=== PATIENT | male | born 1960 | race Caucasian/White ===

== ENCOUNTER 2018-09-26 03:10 | Inpatient (IN) | payer OTHER ==
[~2018-09-26] VITALS: Ht 185.4 cm; Wt 100.5 kg
[2018-09-26] VITALS (15 sets, daily range): BP systolic 131–161; BP diastolic 79–99
--- NOTE | 2018-09-26 03:20 | PHYS DOC ---
Past Medical History Past Medical History: High Cholesterol, Hypertension Past Surgical History: Appendectomy, Tonsillectomy Smoking: Less than 1pk/day Alcohol Use: Heavy Drug Use: None Adult General Chief Complaint Chief Complaint: CHEST PAIN HPI HPI Patient is a 57 year old male with a PMH of tobacco use, hypertension, hypercholesterolemia who presents with acute onset chest pain. His evening consisted of dinner and TV. He went to bed around 22:00 and woke up around 01: 00 with some indigestion and had an apple. He reports the pain woke him from his sleep around 02:45 this morning. Associated symptoms included shortness of breath and dizziness. He describes the pain as a heavy pressure that is centrally localized. He denies nausea, vomiting, diaphoresis, jaw pain, arm pain. When the discomfort did not subside after a few minutes he decided to have his son drive him to the ED. Earlier this evening he had his usual 2-3 drinks with dinner. Denies any acute or current life stressors. Patient says he is compliant with his bp medication and checks his bp that usually runs around 120s/80-90s. He started smoking several years ago when he was going through a divorce and also admits to increase in his alcohol use since then as well. Reports 2-3 alcoholic beverages a day, can be hard liquor or wine. Patient also with significant family history of CAD (Mother with hx of stent placement) . Denies trauma. Denies leg swelling or calf tenderness. Denies history or family history of DVT/PE. Review of Systems Review of Systems Constitutional: Denies fever or chills [] Eyes: Denies change in visual acuity, redness, or eye pain [] HENT: Denies nasal congestion or sore throat [] Respiratory: Reports shortness of breath, Denies cough Cardiovascular: No additional information not addressed in HPI [] GI: Denies abdominal pain, nausea, vomiting, or diarrhea [] : Denies dysuria or hematuria [] Musculoskeletal: Denies back pain or joint pain [] Integument: Denies rash or skin lesions [] Neurologic: Denies headache, focal weakness or sensory changes [] Complete systems were reviewed and found to be within normal limits, except as documented in this note. Family History Family History Mother had [place] with stent placement Brother had diabetes and passed from complications related to heart failure Current Medications Current Medications Allergies Allergies Allergies Coded Allergies Type Severity Reaction Last Updated Verified No Known Drug Allergies 09/26/18 No Physical Exam Physical Exam Constitutional: Well developed, well nourished, appears uncomfortable [] HENT: Normocephalic, atraumatic, moist mucus membranes. [] Eyes: PERRL, EOMI, conjunctiva normal, no discharge. [] Neck: Normal range of motion, no tenderness, supple, no stridor. [] Cardiovascular:Heart rate regular rhythm, tachycardic, no murmur [] Lungs & Thorax: Bilateral breath sounds clear to auscultation [] Abdomen:soft, no tenderness, no distention [] Skin: Warm, dry, no erythema, no rash. [] Back: No tenderness, no CVA tenderness. [] Extremities: No tenderness, ROM intact, no edema. [] Neurologic: Alert and oriented X 3, normal motor function, normal sensory function, no focal deficits noted. [] Psychologic: Judgement normal, anxious. [] Current Patient Data Vital Signs Vital Signs Date Time Temp Pulse Resp B/P (MAP) Pulse Ox O2 Delivery O2 Flow Rate FiO2 09/26/18 03:11 98.1 89 21 196/130 (152) 99 Room Air 98.1 Lab Values Laboratory Tests Test 09/26/18 03:20 White Blood Count 6.8 x10^3/uL (4.0-11.0) Red Blood Count 4.87 x10^6/uL (4.30-5.70) Hemoglobin 15.9 g/dL (13.0-17.5) Hematocrit 46.4 % (39.0-53.0) Mean Corpuscular Volume 95 fL (79-100) Mean Corpuscular Hemoglobin 33 pg (25-35) Mean Corpuscular Hemoglobin Concent 34 g/dL (31-37) Red Cell Distribution Width 12.7 % (11.5-14.5) Platelet Count 263 x10^3/uL (140-400) Neutrophils (%) (Auto) 52 % (31-73) Lymphocytes (%) (Auto) 33 % (24-48) Monocytes (%) (Auto) 11 % (0-9) H Eosinophils (%) (Auto) 4 % (0-3) H Basophils (%) (Auto) 1 % (0-3) Neutrophils # (Auto) 3.5 x10^3uL (1.8-7.7) Lymphocytes # (Auto) 2.2 x10^3/uL (1.0-4.8) Monocytes # (Auto) 0.7 x10^3/uL (0.0-1.1) Eosinophils # (Auto) 0.3 x10^3/uL (0.0-0.7) Basophils # (Auto) 0.0 x10^3/uL (0.0-0.2) Prothrombin Time 11.8 SEC (11.7-14.0) Prothrombin Time INR 0.9 (0.8-1.1) D-Dimer (Minnie) 0.70 ug/mlFEU (0.00-0.50) H Sodium Level 143 mmol/L (136-145) Potassium Level 4.1 mmol/L (3.5-5.1) Chloride Level 103 mmol/L (98-107) Carbon Dioxide Level 30 mmol/L (21-32) Anion Gap 10 (6-14) Blood Urea Nitrogen 14 mg/dL (8-26) Creatinine 1.3 mg/dL (0.7-1.3) Estimated GFR (Cockcroft-Gault) 56.7 BUN/Creatinine Ratio 11 (6-20) Glucose Level 97 mg/dL (70-99) Calcium Level 9.2 mg/dL (8.5-10.1) Magnesium Level 1.9 mg/dL (1.8-2.4) Total Bilirubin 0.2 mg/dL (0.2-1.0) Aspartate Amino Transferase (AST) 24 U/L (15-37) Alanine Aminotransferase (ALT) 51 U/L (16-63) Alkaline Phosphatase 72 U/L (46-116) Creatine Kinase 112 U/L (39-308) Creatine Kinase MB (Mass) 2.3 ng/mL (0.0-3.6) Creatine Kinase MB Relative Index 2.1 % (0-4) Troponin I Quantitative 0.232 ng/mL (0.000-0.055) FV-Wwg-X-Type Natriuretic Peptide 117 pg/mL (0-124) Total Protein 7.3 g/dL (6.4-8.2) Albumin 4.1 g/dL (3.4-5.0) Albumin/Globulin Ratio 1.3 (1.0-1.7) Lipase 304 U/L (73-393) Ethyl Alcohol Level < 10 mg/dL (0-10) Laboratory Tests 09/26/18 03:20 Laboratory Tests 09/26/18 03:20 EKG EKG 09/26/18 at 03:16:40 Sinus rhythm, no ST elevation, baseline heart rate at 92 BPM[] Radiology/Procedures Radiology/Procedures [] Course & Med Decision Making Course & Med Decision Making Pertinent Labs and Imaging studies reviewed. (See chart for details) 57 year old male presents for acute chest pressure that woke up from his sleep. Associated symptoms include shortness of breath and dizziness. Patient given aspirin and fluids. Initial troponin came back elevated at 0.2 and patient given heparin bolus and started on drip. Also treated with nitro paste. EKG without ST elevation. Concern for NSTEMI with elevation of troponin. . Patient has several risk factors for atherosclerotic disease including tobacco use, high cholesterol, hypertension, and positive family history. Heart score calculated to be a 6. D-dimer elevated. CTA chest obtained. Patient will be admitted to [facility] for further management. Patient requiring admission for further evaluation and treatment. Discussed with Dr. Pack (hospitalist) who is in agreement with admission. Discussed findings and plan with patient and family, who acknowledge understanding and agreement. Dragon Disclaimer Dragon Disclaimer This electronic medical record was generated, in whole or in part, using a voice recognition dictation system. Departure Departure Impression: Primary Impression: NSTEMI (non-ST elevated myocardial infarction) Additional Impression: Elevated d-dimer Disposition: ADMITTED INPATIENT ([facility]) Admitting Physician: Other (Dr. Pack) Condition: GUARDED Critical Care Time Critical care time was 30 minutes which includes time at bedside, spent in discussion of patient's care with specialists and/or family members, with interpretation of laboratory and/or radiological studies and is exclusive of procedures. Problem Qualifiers MARCIA REYES DO Sep 26, 2018 03:20
--- NOTE | 2018-09-26 03:32 | EKG ---
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
[2018-09-26 03:45] LABS: BASO % 1 % (0-3); EOS # 0.3 x10^3/uL (0.0-0.7); EOS % 4 % (0-3); HEMATOCRIT 46.4 % (39.0-53.0); HEMOGLOBIN 15.9 g/dL (13.0-17.5); LYMPH # 2.2 x10^3/uL (1.0-4.8); LYMPH % 33 % (24-48); MEAN CORPUSCULAR HEMOGLOBIN 33 pg (25-35); MEAN CORPUSCULAR HGB CONC 34 g/dL (31-37); MEAN CORPUSCULAR VOLUME 95 fL (79-100); MONO # 0.7 x10^3/uL (0.0-1.1); MONO % 11 % (0-9); NEUT # 3.5 x10^3uL (1.8-7.7); NEUT % 52 % (31-73); PLATELET COUNT 263 x10^3/uL (140-400); RED BLOOD COUNT 4.87 x10^6/uL (4.30-5.70); RED CELL DISTRIBUTION WIDTH 12.7 % (11.5-14.5); WHITE BLOOD COUNT 6.8 x10^3/uL (4.0-11.0)
[2018-09-26 03:54] LABS: PROTHROMBIN TIME PATIENT 11.8 SEC (11.7-14.0)
[2018-09-26] MEDS ORDERED: fentaNYL PF VIAL 100 MCG/2 ML VIAL IV PRN (04:00)
[2018-09-26] MEDS ORDERED: ONDANSETRON PF 4 MG/2 ML VIAL. IV PRN (04:00)
[2018-09-26] MEDS ORDERED: ASPIRIN 325 MG TABLET PO ONE (04:00)
[2018-09-26] MEDS ORDERED: IV NORMAL SALINE 1000ML BAG 1,000 ML IV ONE (04:00)
[2018-09-26 04:09] LABS: ALBUMIN 4.1 g/dL (3.4-5.0); ALBUMIN/GLOBULIN RATIO 1.3 (1.0-1.7); CALCIUM 9.2 mg/dL (8.5-10.1); CREATININE 1.3 mg/dL (0.7-1.3); GFR 56.7; MAGNESIUM 1.9 mg/dL (1.8-2.4); POTASSIUM 4.1 mmol/L (3.5-5.1); TOTAL BILIRUBIN 0.2 mg/dL (0.2-1.0); TOTAL PROTEIN 7.3 g/dL (6.4-8.2)
[2018-09-26] MEDS ORDERED: HEPARIN 25,000UTS/500ML PREMIX 500 ML IV PRN (04:15)
[2018-09-26] MEDS ORDERED: HEPARIN for IV BOLUS 10,000 UNIT/10 ML VIAL. IV PRN ×2 (04:15→17:00)
[2018-09-26 04:27] LABS: BILIRUBIN,URINE NEGATIVE (NEG); CLARITY,URINE CLEAR; COLOR,URINE YELLOW; NITRITE,URINE NEGATIVE (NEG); PROTEIN,URINE NEGATIVE (NEG-TRACE); UROBILINOGEN,URINE 0.2 mg/dL (0.2 mg/dL)
[2018-09-26] MEDS ORDERED: fentaNYL PF VIAL 100 MCG/2 ML VIAL IV ONE ×2 (04:30→11:00)
[2018-09-26] MEDS ORDERED: NITROGLYCERIN OINT 1 GM PACKET. TP ONE (04:30)
[2018-09-26] MEDS ORDERED: HEPARIN for IV BOLUS 10,000 UNIT/10 ML VIAL. IV ONE (04:30)
[2018-09-26] MEDS: ANTI-COAG MONITOR BY PHARMACY. MC PRN ×2 (04:31→09:32)
[2018-09-26 04:34] LABS: BARBITURATES NEG (NEG); BENZODIAZEPINES NEG (NEG); CANNABINOIDS NEG (NEG); COCAINE NEG (NEG); METHADONE NEG (NEG); OPIATES NEG (NEG); PHENCYCLIDINE NEG (NEG)
[2018-09-26 04:36] LABS: AMPHETAMINE/METHAMPHETAMINE NEG (NEG)
[2018-09-26 04:41] LABS: BACTERIA,URINE 0 /HPF (0-FEW); RBC,URINE 0 /HPF (0-2); SQUAMOUS EPITHELIAL CELL,UR OCC /LPF; WBC,URINE OCC /HPF (0-4)
[2018-09-26] MEDS ORDERED: CONTRAST GIVEN. MC PRN ×2 (05:15→11:00)
[2018-09-26] MEDS ORDERED: IOHEXOL 350 MG/ML 100 ML VIAL. IV ONE (05:30)
--- NOTE | 2018-09-26 05:55 | RAD ---
EXAM: CT ANGIOGRAPHY OF THE CHEST WITH AND WITHOUT INTRAVENOUS CONTRAST. HISTORY: Chest pain, elevated d-dimer. TECHNIQUE: Computed tomographic angiography of the chest was performed before and after the intravenous administration of 60 mL Omnipaque 350. 3-D maximum intensity projections were also performed. COMPARISON: None. FINDINGS: Images of the upper abdomen reveal no acute abnormality. Bone windows reveal no suspicious lesions. No pulmonary emboli are identified. There is no aortic dissection or aneurysm. There is a common origin of the left common carotid and brachiocephalic arteries, a variant of normal. There are no pathologically enlarged mediastinal or axillary lymph nodes. There is no pleural or pericardial effusion. The heart is not enlarged. There are atherosclerotic calcifications of the coronary arteries. Lung windows reveal no infiltrates. IMPRESSION: 1. No pulmonary embolism. No infiltrates. *One or more of the following individualized dose reduction techniques were utilized for this examination: 1. Automated exposure control. 2. Adjustment of the mA and/or kV according to patient size. 3. Use of iterative reconstruction technique. Electronically signed by: Simeon Dodge MD (09/26/2018 5:50 AM) [facility]
[2018-09-26] MEDS ORDERED: AMLO1CAP11 PO (06:07)
[2018-09-26 09:03] LABS: CHOLESTEROL/HDL RATIO 5.1
--- NOTE | 2018-09-26 09:35 | EKG ---
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
[2018-09-26] MEDS ORDERED: LIDOCAINE 1% Multi-Dose 20 ML VIAL. ONE (09:58)
[2018-09-26] MEDS ORDERED: IODIXANOL 320 MG/ML 100 ML VIAL. ONE (09:58)
[2018-09-26] MEDS ORDERED: MULTIVIT INFUSN,ADULT 4,VIT K 10 ML, THIAMINE INJ 100 MG, FOLIC ACID INJ 1 MG in IV NOR... IV ONE (10:00)
--- NOTE | 2018-09-26 10:02 | PDOC2 ---
CARDIAC CONSULT DATE OF CONSULT Date of Consult DATE: 09/26/18 TIME: 09:43 REASON FOR CONSULT Reason for Consult: Chest pain REFERRING PHYSICIAN Referring Physician: Bernardo SOURCE Source: Chart review, Patient HISTORY OF PRESENT ILLNESS HISTORY OF PRESENT ILLNESS This is a pleasant 57 yo male admitted for complains of chest pain. Reports that he typically walk about 3 miles TIW but has not been due to the weather. Monday when the weather was nice he tried to walk 3 miles and he had to do it slow because of SOA. Reports that he has been having indigestion in the last few days and also uneasy feeling to his left arm. This morning 0 he woke up with mid chest pressure and tightness and neck being uncomfortable, feeling SOA and nauseated. Finally his symptoms disappeared after being medicated in ED with NTG and ASA and it took 2 hours for his symptoms to subside. No prior CAD, VTE, falls, or any injury. His BP at home were 130/60 usually taking tarka. No statin no ASA and no DM2. He smokes tobacco but no recreational drugs. 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 PAST MEDICAL HISTORY Cardiovascular: HTN Pulmonary: No pertinent hx CENTRAL NERVOUS SYSTEM: Other (No pertinent history) GI: No pertinent hx Heme/Onc: No pertinent hx Hepatobiliary: No pertinent hx Psych: No pertinent hx Musculoskeletal: Osteoarthritis Rheumatologic: No pertinent hx Infectious disease: No pertinent hx ENT: No pertinent hx Renal/: No pertinent hx Endocrine: No pertinent hx Dermatology: No pertinent hx PAST SURGICAL HISTORY Past Surgical History: Appendectomy, Tonsillectomy FAMILY HISTORY Family History: Coronary Artery Disease (SCD brother at 56 yo) SOCIAL HISTORY Smoke: <1 pack per day ALCOHOL: heavy (1 bottle wine approx 750 ml a day) Drugs: None Lives: Alone CURRENT MEDICATIONS CURRENT MEDICATIONS Current Medications Medications (Trade) Dose Ordered Sig/Nishi Route PRN Reason Start Time Stop Time Status Last Admin Dose Admin Aspirin (Chito Aspirin) 325 mg 1X ONCE PO 09/26/18 04:00 09/26/18 04:01 DC 09/26/18 03:49 Sodium Chloride 1,000 ml @ 1,000 mls/hr 1X ONCE IV 09/26/18 04:00 09/26/18 04:59 DC 09/26/18 03:48 Lorazepam (Ativan) 0.5 mg 1X ONCE IV 09/26/18 04:00 09/26/18 04:01 DC 09/26/18 03:49 Nitroglycerin (Nitro-Bid Oint) 0.5 inch 1X ONCE TP 09/26/18 04:30 09/26/18 04:31 DC 09/26/18 04:37 Heparin Sodium/ Dextrose 500 ml @ 0 mls/hr CONT PRN IV SEE I/O RECORD 09/26/18 04:15 09/26/18 04:41 Heparin Sodium (Porcine) (Heparin Sodium) 4,000 unit 1X ONCE IV 09/26/18 04:30 09/26/18 04:31 DC 09/26/18 04:40 Info (Anti-Coagulation Monitoring By Pharmacy) 1 each PRN DAILY PRN MC SEE COMMENTS 09/26/18 04:30 09/26/18 09:32 Iohexol (Omnipaque 350 Mg/ml) 60 ml 1X ONCE IV 09/26/18 05:30 09/26/18 05:31 DC 09/26/18 05:26 ALLERGIES ALLERGIES: Coded Allergies: No Known Drug Allergies (Unverified , 09/26/18) ROS Review of System 14 point ROS evaluated with pertinent positives noted per HPI PHYSICAL EXAM General: Alert, Oriented X3, Cooperative, No acute distress HEENT: Atraumatic, Mucous membr. moist/pink Lungs: Clear to auscultation, Normal air movement Heart: Regular rate (SR), Normal S1, Normal S2, Other (2/6 systolic murmur) Abdomen: Soft, No tenderness Extremities: No cyanosis, No edema Skin: No breakdown, No significant lesion Neuro: Normal speech, Sensation intact Psych/Mental Status: Mental status NL, Mood NL MUSCULOSKELETAL: Osteoarthritic changes both hands VITALS VITALS Vital Signs Date Time Temp Pulse Resp B/P (MAP) Pulse Ox O2 Delivery O2 Flow Rate FiO2 09/26/18 07:00 98.1 71 18 139/87 (104) 97 Room Air 98.1 LABS Lab: Laboratory Tests Test 09/26/18 03:20 09/26/18 04:05 09/26/18 07:20 White Blood Count 6.8 x10^3/uL (4.0-11.0) Red Blood Count 4.87 x10^6/uL (4.30-5.70) Hemoglobin 15.9 g/dL (13.0-17.5) Hematocrit 46.4 % (39.0-53.0) Mean Corpuscular Volume 95 fL (79-100) Mean Corpuscular Hemoglobin 33 pg (25-35) Mean Corpuscular Hemoglobin Concent 34 g/dL (31-37) Red Cell Distribution Width 12.7 % (11.5-14.5) Platelet Count 263 x10^3/uL (140-400) Neutrophils (%) (Auto) 52 % (31-73) Lymphocytes (%) (Auto) 33 % (24-48) Monocytes (%) (Auto) 11 % (0-9) Eosinophils (%) (Auto) 4 % (0-3) Basophils (%) (Auto) 1 % (0-3) Neutrophils # (Auto) 3.5 x10^3uL (1.8-7.7) Lymphocytes # (Auto) 2.2 x10^3/uL (1.0-4.8) Monocytes # (Auto) 0.7 x10^3/uL (0.0-1.1) Eosinophils # (Auto) 0.3 x10^3/uL (0.0-0.7) Basophils # (Auto) 0.0 x10^3/uL (0.0-0.2) Prothrombin Time 11.8 SEC (11.7-14.0) Prothromb Time International Ratio 0.9 (0.8-1.1) D-Dimer (Minnie) 0.70 ug/mlFEU (0.00-0.50) Sodium Level 143 mmol/L (136-145) Potassium Level 4.1 mmol/L (3.5-5.1) Chloride Level 103 mmol/L (98-107) Carbon Dioxide Level 30 mmol/L (21-32) Anion Gap 10 (6-14) Blood Urea Nitrogen 14 mg/dL (8-26) Creatinine 1.3 mg/dL (0.7-1.3) Estimated GFR (Cockcroft-Gault) 56.7 BUN/Creatinine Ratio 11 (6-20) Glucose Level 97 mg/dL (70-99) Calcium Level 9.2 mg/dL (8.5-10.1) Magnesium Level 1.9 mg/dL (1.8-2.4) Total Bilirubin 0.2 mg/dL (0.2-1.0) Aspartate Amino Transf (AST/SGOT) 24 U/L (15-37) Alanine Aminotransferase (ALT/SGPT) 51 U/L (16-63) Alkaline Phosphatase 72 U/L (46-116) Creatine Kinase 112 U/L (39-308) Creatine Kinase MB (Mass) 2.3 ng/mL (0.0-3.6) Creatine Kinase MB Relative Index 2.1 % (0-4) Troponin I Quantitative 0.232 ng/mL (0.000-0.055) 1.119 ng/mL (0.000-0.055) OL-Srg-C-Type Natriuretic Peptide 117 pg/mL (0-124) Total Protein 7.3 g/dL (6.4-8.2) Albumin 4.1 g/dL (3.4-5.0) Albumin/Globulin Ratio 1.3 (1.0-1.7) Lipase 304 U/L (73-393) Ethyl Alcohol Level < 10 mg/dL (0-10) Urine Collection Type Unknown Urine Color Yellow Urine Clarity Clear Urine pH 6.0 Urine Specific Kelly 1.020 Urine Protein Negative mg/dL (NEG-TRACE) Urine Glucose (UA) Negative mg/dL (NEG) Urine Ketones (Stick) Negative mg/dL (NEG) Urine Blood Negative (NEG) Urine Nitrite Negative (NEG) Urine Bilirubin Negative (NEG) Urine Urobilinogen Dipstick 0.2 mg/dL (0.2 mg/dL) Urine Leukocyte Esterase Negative (NEG) Urine RBC 0 /HPF (0-2) Urine WBC Occ /HPF (0-4) Urine Squamous Epithelial Cells Occ /LPF Urine Bacteria 0 /HPF (0-FEW) Urine Mucus Slight /LPF Urine Opiates Screen Neg (NEG) Urine Methadone Screen Neg (NEG) Urine Barbiturates Neg (NEG) Urine Phencyclidine Screen Neg (NEG) Urine Amphetamine/Methamphetamine Neg (NEG) Urine Benzodiazepines Screen Neg (NEG) Urine Cocaine Screen Neg (NEG) Urine Cannabinoids Screen Neg (NEG) Urine Ethyl Alcohol Pos (NEG) Triglycerides Level 146 mg/dL (0-150) Cholesterol Level 235 mg/dL (0-200) LDL Cholesterol, Calculated 160 mg/dL (0-100) VLDL Cholesterol, Calculated 29 mg/dL (0-40) Non-HDL Cholesterol Calculated 189 mg/dL (0-129) HDL Cholesterol 46 mg/dL (40-60) Cholesterol/HDL Ratio 5.1 Thyroid Stimulating Hormone (TSH) 2.244 uIU/mL (0.358-3.74) ASSESSMENT/PLAN ASSESSMENT/PLAN 1. NSTEMI: Trop 1.1. Presentation compatible with ACS 2. Accelerated HTN: takes tarka. now controlled after NTG 3. HLP: no statin at home 4. Heavy alcoholism: approx 750 ml of wine every day. 5. Family hx of SCD: brother of SCD at age 56 6. Tobaccoism: just got started 2 yrs ago Recommendations 1. ETOH to decrease consumption. Banana bag x1, defer further for ETOH withdrawal protocol per PCP 2. [facility] today, risks and benefits discussed and agreeable to proceed. 3. TTE, TSH. 4. ASA, heparin drip, statin 5. Smoking cessation 6. Will reeval BP med needs post [facility] KRYSTIN PENNINGTON APRN Sep 26, 2018 10:01
[2018-09-26] MEDS ORDERED: fentaNYL PF VIAL 100 MCG/2 ML VIAL ONE (10:14)
[2018-09-26] MEDS ORDERED: MIDAZOLAM HCL/PF 5 MG/5 ML VIAL. ONE (10:14)
[2018-09-26] MEDS ORDERED: IOHEXOL 300 MG/ML 100ML VIAL. ONE (10:17)
--- NOTE | 2018-09-26 10:37 | PDOC ---
MODERATE SEDATION ASSESSMENT RISKS/ALTERNATIVES Risks/Alternatives Risks and alternatives of this type of sedation and procedure discussed with: RISK/ALTERNATIVES: Patient H & P ON CHART H & P H & P on chart and reviewed for co-morbid conditions and appropriate labs. H&P ON CHART: Yes STATUS PREG STATUS ASSESSED: N/A MEDS/ALLERGIES REVIEWED Meds/Allergies Reviewed Medications and Allergies including time and route of recently administered narcotics and sedatives. MEDS/ALLERGIES REVIEWED: Yes ASA RATING ASA RATING: II AIRWAY ASSESSMENT Airway Assessment Airway patency, oral function limitations, presence of caps, crowns, dentures, partials, and ability to extend neck assessed. AIRWAY ASSESSMENT: Yes MALLAMPATI SCORE MALLAMPATI SCORE: II PRE-SEDATION ASSESSMENT PRE-SEDATION ASSESSMENT: Yes MIK SIMMONS MD Sep 26, 2018 10:37
[2018-09-26] MEDS ORDERED: IODIXANOL 320 MG/ML 100 ML VIAL. IART ONE (11:00)
[2018-09-26] MEDS ORDERED: MIDAZOLAM HCL/PF 5 MG/5 ML VIAL. IV ONE (11:00)
[2018-09-26] MEDS ORDERED: LIDOCAINE 1% Multi-Dose 20 ML VIAL. INJ ONE (11:00)
[2018-09-26] MEDS ORDERED: IV NORMAL SALINE 1000ML BAG 1,000 ML IV SCH (11:33)
[2018-09-26] MEDS ORDERED: NITROGLYCERIN SUBLINGUAL 0.4 MG BOTTLE OF 25. SL PRN (11:45)
[2018-09-26] MEDS ORDERED: 0.9 % SODIUM CHLORIDE 10 ML DISP.SYRIN. IV PRN (11:45)
--- NOTE | 2018-09-26 12:36 | NUR ---
SS following for discharge planning. SS reviewed pt chart. Pt is from home. No discharge needs noted at this time. SS will continue to follow for pending discharge needs.
--- NOTE | 2018-09-26 14:37 | PDOC1 ---
History and Physical Date of Admission Date of Admission DATE: 09/26/18 TIME: 14:28 Identification/Chief Complaint Chief Complaint chest pain Problems: (1) NSTEMI (non-ST elevated myocardial infarction) Source Source: Patient History of Present Illness History of Present Illness 57 yo male no prior cardiac hx or VTE or injury admitted for complains of chest pain. patient reports that he has been having indigestion in the last few days and diffuse chest pain acutely worsening last night described as pressure-like with tightness with associated SOB and nausea. patient came to ED early this AM and given NTG and ASA and symptoms resolved after a few hrs. patient not on ASA, statin at home. no hx of SM.. + tobacco abuse, denies drugs trop elevated at 1.19. repeat 0.232. hospitalist called for admission. Past Medical History Cardiovascular: HTN Pulmonary: No pertinent hx CENTRAL NERVOUS SYSTEM: Other (No pertinent history) GI: No pertinent hx Heme/Onc: No pertinent hx Hepatobiliary: No pertinent hx Psych: No pertinent hx Musculoskeletal: Osteoarthritis Rheumatologic: No pertinent hx Infectious disease: No pertinent hx ENT: No pertinent hx Renal/: No pertinent hx Endocrine: No pertinent hx Dermatology: No pertinent hx Past Surgical History Past Surgical History: Appendectomy, Tonsillectomy Family History Family History: Coronary Artery Disease (SCD brother at 56 yo) Social History Smoke: <1 pack per day ALCOHOL: heavy (1 bottle wine approx 750 ml a day) Drugs: None Current Problem List Problem List Problems Medical Problems: (1) Elevated d-dimer Status: Acute (2) NSTEMI (non-ST elevated myocardial infarction) Status: Acute Current Medications Current Medications Current Medications Aspirin (Chito Aspirin) 325 mg 1X ONCE PO Last administered on 09/26/18at 03:49 ; Start 09/26/18 at 04:00; Stop 09/26/18 at 04:01; Status DC Sodium Chloride 1,000 ml @ 1,000 mls/hr 1X ONCE IV Last administered on at 03:48; Start 09/26/18 at 04:00; Stop 09/26/18 at 04:59; Status DC Lorazepam (Ativan) 0.5 mg 1X ONCE IV Last administered on 09/26/18at 03:49; Start 09/26/18 at 04:00; Stop 09/26/18 at 04:01; Status DC Ondansetron HCl (Zofran) 4 mg PRN Q8HRS PRN IV NAUSEA/VOMITING 1ST CHOICE; Start 09/26/18 at 04:00; Stop 09/27/18 at 03:59 Fentanyl Citrate (Fentanyl 2ml Vial) 50 mcg PRN Q2HR PRN IV SEVERE PAIN; Start 09/26/18 at 04:00 Fentanyl Citrate (Fentanyl 2ml Vial) 50 mcg 1X ONCE IV ; Start 09/26/18 at 04:30 ; Stop 09/26/18 at 04:30; Status DC Nitroglycerin (Nitro-Bid Oint) 0.5 inch 1X ONCE TP Last administered on at 04:37; Start 09/26/18 at 04:30; Stop 09/26/18 at 04:31; Status DC Heparin Sodium/ Dextrose 500 ml @ 0 mls/hr CONT PRN IV SEE I/O RECORD Last administered on 09/26/18at 04:41; Start 09/26/18 at 04:15; Stop 09/26/18 at 12:31; Status DC Heparin Sodium (Porcine) (Heparin Sodium) 2,400 unit PRN Q6HRS PRN IV FOR UFH LEVEL LESS THAN 0.2; Start 09/26/18 at 04:15; Stop 09/26/18 at 13:53; Status DC Heparin Sodium (Porcine) (Heparin Sodium) 4,000 unit 1X ONCE IV Last administered on 09/26/18at 04:40; Start 09/26/18 at 04:30; Stop 09/26/18 at 04:31; Status DC Info (Anti-Coagulation Monitoring By Pharmacy) 1 each PRN DAILY PRN MC SEE COMMENTS Last administered on 09/26/18at 09:32; Start 09/26/18 at 04:30; Stop at 12:32; Status DC Iohexol (Omnipaque 350 Mg/ml) 60 ml 1X ONCE IV Last administered on 09/26/18at 05:26; Start 09/26/18 at 05:30; Stop 09/26/18 at 05:31; Status DC Info (CONTRAST GIVEN -- Rx MONITORING) 1 each PRN DAILY PRN MC SEE COMMENTS; Start 09/26/18 at 05:15; Stop 09/26/18 at 10:56; Status DC Multivitamins 10 ml/Thiamine HCl 100 mg/Folic Acid 1 mg/Sodium Chloride 1,011.2 ml @ 100 mls/ hr 1X ONCE IV Last administered on 09/26/18at 10:40; Start at 10:00; Stop 09/26/18 at 20:06 Atorvastatin Calcium (Lipitor) 40 mg QHS PO ; Start 09/26/18 at 21:00 Iodixanol (Visipaque 320) 100 ml STK-MED ONCE .ROUTE ; Start 09/26/18 at 09:58; Stop 09/26/18 at 10:01; Status DC Lidocaine HCl (Lidocaine 1% 20ml Vial) 20 ml STK-MED ONCE .ROUTE ; Start at 09:58; Stop 09/26/18 at 10:01; Status DC Heparin Sodium/ Sodium Chloride 1,000 ml @ As Directed STK-MED ONCE .ROUTE ; Start 09/26/18 at 09:59; Stop 09/26/18 at 10:01; Status DC Fentanyl Citrate (Fentanyl 2ml Vial) 100 mcg STK-MED ONCE .ROUTE ; Start at 10:14; Stop 09/26/18 at 10:16; Status DC Midazolam HCl (Versed) 5 mg STK-MED ONCE .ROUTE ; Start 09/26/18 at 10:14; Stop 09/26/18 at 10:16; Status DC Iohexol (Omnipaque 300 Mg/ml) 100 ml STK-MED ONCE .ROUTE ; Start 09/26/18 at 10: 17; Stop 09/26/18 at 10:19; Status DC Heparin Sodium/ Sodium Chloride (HEPARIN for ARTERIAL LINE FLUSH) 1,000 unit 1X ONCE IART Last administered on 09/26/18at 11:37; Start 09/26/18 at 11:00; Stop 09/26/18 at 11:01; Status DC Midazolam HCl (Versed) 5 mg 1X ONCE IV Last administered on 09/26/18at 11:38; Start 09/26/18 at 11:00; Stop 09/26/18 at 11:01; Status DC Fentanyl Citrate (Fentanyl 2ml Vial) 100 mcg 1X ONCE IV Last administered on at 11:38; Start 09/26/18 at 11:00; Stop 09/26/18 at 11:01; Status DC Iodixanol (Visipaque 320) 100 ml 1X ONCE IART Last administered on 09/26/18at 11 :37; Start 09/26/18 at 11:00; Stop 09/26/18 at 11:01; Status DC Lidocaine HCl (Lidocaine 1% 20ml Vial) 20 ml 1X ONCE INJ Last administered on 09/26/18at 11:37; Start 09/26/18 at 11:00; Stop 09/26/18 at 11:01; Status DC Info (CONTRAST GIVEN -- Rx MONITORING) 1 each PRN DAILY PRN MC SEE COMMENTS; Start 09/26/18 at 11:00; Stop 09/28/18 at 10:59 Sodium Chloride (Normal Saline Flush) 3 ml QSHIFT PRN IV AFTER MEDS AND BLOOD DRAWS; Start 09/26/18 at 11:45 Sodium Chloride 1,000 ml @ 75 mls/hr [id number] IV ; Start 09/26/18 at 11:33; Stop 09/26/18 at 17:32 Nitroglycerin (Nitrostat) 0.4 mg PRN Q5MIN PRN SL CHEST PAIN; Start 09/26/18 at 11:45 Aspirin (Ecotrin) 81 mg DAILYWBKFT PO ; Start 09/27/18 at 08:00 Active Scripts Active Reported Amlodipine-Benazepril 5-20 Mg (Amlodipine Besylate/Benazepril) 1 Each Capsule 1 Cap PO DAILY Allergies Allergies: Coded Allergies: No Known Drug Allergies (Unverified , 09/26/18) Vitals Vitals Vital Signs Date Time Temp Pulse Resp B/P (MAP) Pulse Ox O2 Delivery O2 Flow Rate FiO2 09/26/18 11:47 70 20 95 Room Air 09/26/18 07:00 98.1 139/87 (104) 98.1 Labs Labs Laboratory Tests Test 09/26/18 03:20 09/26/18 04:05 09/26/18 07:20 White Blood Count 6.8 x10^3/uL (4.0-11.0) Red Blood Count 4.87 x10^6/uL (4.30-5.70) Hemoglobin 15.9 g/dL (13.0-17.5) Hematocrit 46.4 % (39.0-53.0) Mean Corpuscular Volume 95 fL (79-100) Mean Corpuscular Hemoglobin 33 pg (25-35) Mean Corpuscular Hemoglobin Concent 34 g/dL (31-37) Red Cell Distribution Width 12.7 % (11.5-14.5) Platelet Count 263 x10^3/uL (140-400) Neutrophils (%) (Auto) 52 % (31-73) Lymphocytes (%) (Auto) 33 % (24-48) Monocytes (%) (Auto) 11 % (0-9) Eosinophils (%) (Auto) 4 % (0-3) Basophils (%) (Auto) 1 % (0-3) Neutrophils # (Auto) 3.5 x10^3uL (1.8-7.7) Lymphocytes # (Auto) 2.2 x10^3/uL (1.0-4.8) Monocytes # (Auto) 0.7 x10^3/uL (0.0-1.1) Eosinophils # (Auto) 0.3 x10^3/uL (0.0-0.7) Basophils # (Auto) 0.0 x10^3/uL (0.0-0.2) Prothrombin Time 11.8 SEC (11.7-14.0) Prothromb Time International Ratio 0.9 (0.8-1.1) D-Dimer (Minnie) 0.70 ug/mlFEU (0.00-0.50) Sodium Level 143 mmol/L (136-145) Potassium Level 4.1 mmol/L (3.5-5.1) Chloride Level 103 mmol/L (98-107) Carbon Dioxide Level 30 mmol/L (21-32) Anion Gap 10 (6-14) Blood Urea Nitrogen 14 mg/dL (8-26) Creatinine 1.3 mg/dL (0.7-1.3) Estimated GFR (Cockcroft-Gault) 56.7 BUN/Creatinine Ratio 11 (6-20) Glucose Level 97 mg/dL (70-99) Calcium Level 9.2 mg/dL (8.5-10.1) Magnesium Level 1.9 mg/dL (1.8-2.4) Total Bilirubin 0.2 mg/dL (0.2-1.0) Aspartate Amino Transf (AST/SGOT) 24 U/L (15-37) Alanine Aminotransferase (ALT/SGPT) 51 U/L (16-63) Alkaline Phosphatase 72 U/L (46-116) Creatine Kinase 112 U/L (39-308) Creatine Kinase MB (Mass) 2.3 ng/mL (0.0-3.6) Creatine Kinase MB Relative Index 2.1 % (0-4) Troponin I Quantitative 0.232 ng/mL (0.000-0.055) 1.119 ng/mL (0.000-0.055) VQ-Grm-Z-Type Natriuretic Peptide 117 pg/mL (0-124) Total Protein 7.3 g/dL (6.4-8.2) Albumin 4.1 g/dL (3.4-5.0) Albumin/Globulin Ratio 1.3 (1.0-1.7) Lipase 304 U/L (73-393) Ethyl Alcohol Level < 10 mg/dL (0-10) Urine Collection Type Unknown Urine Color Yellow Urine Clarity Clear Urine pH 6.0 Urine Specific Josephine 1.020 Urine Protein Negative mg/dL (NEG-TRACE) Urine Glucose (UA) Negative mg/dL (NEG) Urine Ketones (Stick) Negative mg/dL (NEG) Urine Blood Negative (NEG) Urine Nitrite Negative (NEG) Urine Bilirubin Negative (NEG) Urine Urobilinogen Dipstick 0.2 mg/dL (0.2 mg/dL) Urine Leukocyte Esterase Negative (NEG) Urine RBC 0 /HPF (0-2) Urine WBC Occ /HPF (0-4) Urine Squamous Epithelial Cells Occ /LPF Urine Bacteria 0 /HPF (0-FEW) Urine Mucus Slight /LPF Urine Opiates Screen Neg (NEG) Urine Methadone Screen Neg (NEG) Urine Barbiturates Neg (NEG) Urine Phencyclidine Screen Neg (NEG) Urine Amphetamine/Methamphetamine Neg (NEG) Urine Benzodiazepines Screen Neg (NEG) Urine Cocaine Screen Neg (NEG) Urine Cannabinoids Screen Neg (NEG) Urine Ethyl Alcohol Pos (NEG) Triglycerides Level 146 mg/dL (0-150) Cholesterol Level 235 mg/dL (0-200) LDL Cholesterol, Calculated 160 mg/dL (0-100) VLDL Cholesterol, Calculated 29 mg/dL (0-40) Non-HDL Cholesterol Calculated 189 mg/dL (0-129) HDL Cholesterol 46 mg/dL (40-60) Cholesterol/HDL Ratio 5.1 Thyroid Stimulating Hormone (TSH) 2.244 uIU/mL (0.358-3.74) Laboratory Tests Test 09/26/18 03:20 09/26/18 04:05 09/26/18 07:20 White Blood Count 6.8 x10^3/uL (4.0-11.0) Red Blood Count 4.87 x10^6/uL (4.30-5.70) Hemoglobin 15.9 g/dL (13.0-17.5) Hematocrit 46.4 % (39.0-53.0) Mean Corpuscular Volume 95 fL (79-100) Mean Corpuscular Hemoglobin 33 pg (25-35) Mean Corpuscular Hemoglobin Concent 34 g/dL (31-37) Red Cell Distribution Width 12.7 % (11.5-14.5) Platelet Count 263 x10^3/uL (140-400) Neutrophils (%) (Auto) 52 % (31-73) Lymphocytes (%) (Auto) 33 % (24-48) Monocytes (%) (Auto) 11 % (0-9) Eosinophils (%) (Auto) 4 % (0-3) Basophils (%) (Auto) 1 % (0-3) Neutrophils # (Auto) 3.5 x10^3uL (1.8-7.7) Lymphocytes # (Auto) 2.2 x10^3/uL (1.0-4.8) Monocytes # (Auto) 0.7 x10^3/uL (0.0-1.1) Eosinophils # (Auto) 0.3 x10^3/uL (0.0-0.7) Basophils # (Auto) 0.0 x10^3/uL (0.0-0.2) Prothrombin Time 11.8 SEC (11.7-14.0) Prothromb Time International Ratio 0.9 (0.8-1.1) D-Dimer (Minnie) 0.70 ug/mlFEU (0.00-0.50) Sodium Level 143 mmol/L (136-145) Potassium Level 4.1 mmol/L (3.5-5.1) Chloride Level 103 mmol/L (98-107) Carbon Dioxide Level 30 mmol/L (21-32) Anion Gap 10 (6-14) Blood Urea Nitrogen 14 mg/dL (8-26) Creatinine 1.3 mg/dL (0.7-1.3) Estimated GFR (Cockcroft-Gault) 56.7 BUN/Creatinine Ratio 11 (6-20) Glucose Level 97 mg/dL (70-99) Calcium Level 9.2 mg/dL (8.5-10.1) Magnesium Level 1.9 mg/dL (1.8-2.4) Total Bilirubin 0.2 mg/dL (0.2-1.0) Aspartate Amino Transf (AST/SGOT) 24 U/L (15-37) Alanine Aminotransferase (ALT/SGPT) 51 U/L (16-63) Alkaline Phosphatase 72 U/L (46-116) Creatine Kinase 112 U/L (39-308) Creatine Kinase MB (Mass) 2.3 ng/mL (0.0-3.6) Creatine Kinase MB Relative Index 2.1 % (0-4) Troponin I Quantitative 0.232 ng/mL (0.000-0.055) 1.119 ng/mL (0.000-0.055) VK-Ath-Y-Type Natriuretic Peptide 117 pg/mL (0-124) Total Protein 7.3 g/dL (6.4-8.2) Albumin 4.1 g/dL (3.4-5.0) Albumin/Globulin Ratio 1.3 (1.0-1.7) Lipase 304 U/L (73-393) Ethyl Alcohol Level < 10 mg/dL (0-10) Urine Collection Type Unknown Urine Color Yellow Urine Clarity Clear Urine pH 6.0 Urine Specific Josephine 1.020 Urine Protein Negative mg/dL (NEG-TRACE) Urine Glucose (UA) Negative mg/dL (NEG) Urine Ketones (Stick) Negative mg/dL (NEG) Urine Blood Negative (NEG) Urine Nitrite Negative (NEG) Urine Bilirubin Negative (NEG) Urine Urobilinogen Dipstick 0.2 mg/dL (0.2 mg/dL) Urine Leukocyte Esterase Negative (NEG) Urine RBC 0 /HPF (0-2) Urine WBC Occ /HPF (0-4) Urine Squamous Epithelial Cells Occ /LPF Urine Bacteria 0 /HPF (0-FEW) Urine Mucus Slight /LPF Urine Opiates Screen Neg (NEG) Urine Methadone Screen Neg (NEG) Urine Barbiturates Neg (NEG) Urine Phencyclidine Screen Neg (NEG) Urine Amphetamine/Methamphetamine Neg (NEG) Urine Benzodiazepines Screen Neg (NEG) Urine Cocaine Screen Neg (NEG) Urine Cannabinoids Screen Neg (NEG) Urine Ethyl Alcohol Pos (NEG) Triglycerides Level 146 mg/dL (0-150) Cholesterol Level 235 mg/dL (0-200) LDL Cholesterol, Calculated 160 mg/dL (0-100) VLDL Cholesterol, Calculated 29 mg/dL (0-40) Non-HDL Cholesterol Calculated 189 mg/dL (0-129) HDL Cholesterol 46 mg/dL (40-60) Cholesterol/HDL Ratio 5.1 Thyroid Stimulating Hormone (TSH) 2.244 uIU/mL (0.358-3.74) VTE Prophylaxis Ordered VTE Prophylaxis Devices: Yes VTE Pharmacological Prophylaxi: Yes Assessment/Plan Assessment/Plan ASSESSMENT NSTEMI with strong family hx HTN HLD ETOH abuse Tobacco abuse PLAN plan for cardiac cath today continue ASA, heparin drip, statin banana bag given for etoh check T counselled on smoking meds BP control dispo pending cath full code PAUL SHERMAN MD Sep 26, 2018 14:37
--- NOTE | 2018-09-26 15:00 | CARD ---
MR#: [id number] Date of Study: 09/26/2018 Ordering Physician: KRYSTIN PENNINGTON, Referring Physician: PAUL SHERMAN Tech: Rae Whitley APPROVED REPORT EXAM: Two-dimensional and M-mode echocardiogram with Doppler and color Doppler. Other Information Quality : GoodHR: 71bpm INDICATION Elevated Troponin RISK FACTORS Hypertension Hyperlipidemia 2D DIMENSIONS RVDd3.3 (2.9-3.5cm)Left Atrium(2D)3.2 (1.6-4.0cm) IVSd1.2 (0.7-1.1cm)Aortic Root(2D)3.3 (2.0-3.7cm) LVDd4.2 (3.9-5.9cm)LVOT Diameter2.2 (1.8-2.4cm) PWd1.1 (0.7-1.1cm)LVDs2.8 (2.5-4.0cm) FS (%) 34.9 %SV51.5 ml Aortic Valve AoV Peak Hieu.112.4cm/sAoV VTI19.6cm AO Peak GR.5.1mmHgLVOT VTI 17.51cm AO Mean GR.3mmHg Mitral Valve MV E Cpzkgiza02.2cm/sMV DECEL [id number] MV A Kzfjmvrf13.6cm/sE/A Ratio0.8 TDI Lateral E' P. V6.18cm/sMedial E' P. V5.21cm/s E/Lateral E'8.0E/Medial E'9.4 Tricuspid Valve TR P. [id number]/sRAP DTIMCHKE0yxPs TR Peak Gr.14mmHg Pulmonary Vein S1 Dmrmluds16.9cm/sS2 Esefalpi21.14cm/s D2 Fagsnorc69.1cm/sPVa [id number] LEFT VENTRICLE The left ventricle is normal size. There is borderline to mild concentric left ventricular hypertroph y. The left ventricular systolic function is low normal. The Ejection Fraction is estimated at 50%. T here is normal LV segmental wall motion. Transmitral Doppler flow pattern is Grade I-abnormal relaxat ion pattern. RIGHT VENTRICLE The right ventricle is normal size. There is normal right ventricular wall thickness. The right ventr icular systolic function is normal. ATRIA The left atrium size is normal. The right atrium size is normal. The interatrial septum is intact wit h no evidence for an atrial septal defect or patent foramen ovale as noted on 2-D or Doppler imaging. AORTIC VALVE The aortic valve is normal in structure and function. Doppler and Color Flow revealed trace aortic re gurgitation. There is no significant aortic valvular stenosis. MITRAL VALVE The mitral valve is normal in structure and function. There is no evidence of mitral valve prolapse. There is no mitral valve stenosis. Doppler and Color-flow revealed trace mitral regurgitation. TRICUSPID VALVE The tricuspid valve is normal in structure and function. Doppler and Color Flow revealed trace tricus pid regurgitation. There is no tricuspid valve stenosis. PULMONIC VALVE Doppler and Color Flow revealed trace pulmonic valvular regurgitation. GREAT VESSELS The aortic root is normal in size. The IVC was not visualized. PERICARDIAL EFFUSION There is no evidence of significant pericardial effusion. Critical Notification Critical Value: No <Conclusion> The left ventricle is normal size. The left ventricular systolic function is low normal. The Ejection Fraction is estimated at 50%. There is borderline to mild concentric left ventricular hypertrophy. There is no significant aortic valvular stenosis. Doppler and Color Flow revealed trace aortic regurgitation. Doppler and Color-flow revealed trace mitral regurgitation. Doppler and Color Flow revealed trace tricuspid regurgitation. Signed by : Redd Quick MD Electronically Approved : 09/26/2018 14:57:35
--- NOTE | 2018-09-26 17:10 | PDOC2 ---
CONSULT Date of Consult Date of Consult DATE: 09/26/18 TIME: 16:30 Reason for Consult Reason for Consult: Severe three-vessel coronary artery disease Referring Physician Referring Physician: Dr Quick Identification/Chief Complaint Chief Complaint Chest pain NSTEMI Source Source: Chart review, Patient History of Present Illness Reason for Visit: The patient is a 57-year-old male with a history of hypertension and hyperlipidemia and a family history of ischemic heart disease who presented to our emergency room yesterday with chest pain. For the last 2-3 months he has had increasing atypical symptoms which include fatigue, indigestion, shortness of breath. He had anterior lateral ischemic changes and a small troponin leak which peaked at 2.7. He underwent a coronary angiography today which demonstrated a 80-90% stenosis of the proximal LAD, a tight lesion at the origin of a large diagonal vessel, a tight 80-90% stenosis of the left circumflex and a 70% mid to distal RCA lesion. His LV function appears preserved. I was consulted to consider the patient for surgical coronary revascularization. Past Medical History Cardiovascular: HTN Pulmonary: No pertinent hx CENTRAL NERVOUS SYSTEM: Other (No pertinent history) GI: No pertinent hx Heme/Onc: No pertinent hx Hepatobiliary: No pertinent hx Psych: No pertinent hx Musculoskeletal: Osteoarthritis Rheumatologic: No pertinent hx Infectious disease: No pertinent hx ENT: No pertinent hx Renal/: No pertinent hx Endocrine: No pertinent hx Dermatology: No pertinent hx Past Surgical History Past Surgical History: Appendectomy, Tonsillectomy Family History Family History: Coronary Artery Disease (SCD brother at 56 yo) Social History <1 pack per day ALCOHOL: heavy (1 bottle wine approx 750 ml a day) Drugs: None Lives: Alone Current Problem List Problem List Problems Medical Problems: (1) Elevated d-dimer Status: Acute (2) NSTEMI (non-ST elevated myocardial infarction) Status: Acute Current Medications Current Medications Current Medications Aspirin (Chito Aspirin) 325 mg 1X ONCE PO Last administered on 09/26/18at 03:49 ; Start 09/26/18 at 04:00; Stop 09/26/18 at 04:01; Status DC Sodium Chloride 1,000 ml @ 1,000 mls/hr 1X ONCE IV Last administered on at 03:48; Start 09/26/18 at 04:00; Stop 09/26/18 at 04:59; Status DC Lorazepam (Ativan) 0.5 mg 1X ONCE IV Last administered on 09/26/18at 03:49; Start 09/26/18 at 04:00; Stop 09/26/18 at 04:01; Status DC Ondansetron HCl (Zofran) 4 mg PRN Q8HRS PRN IV NAUSEA/VOMITING 1ST CHOICE; Start 09/26/18 at 04:00; Stop 09/27/18 at 03:59 Fentanyl Citrate (Fentanyl 2ml Vial) 50 mcg PRN Q2HR PRN IV SEVERE PAIN; Start 09/26/18 at 04:00 Fentanyl Citrate (Fentanyl 2ml Vial) 50 mcg 1X ONCE IV ; Start 09/26/18 at 04:30 ; Stop 09/26/18 at 04:30; Status DC Nitroglycerin (Nitro-Bid Oint) 0.5 inch 1X ONCE TP Last administered on at 04:37; Start 09/26/18 at 04:30; Stop 09/26/18 at 04:31; Status DC Heparin Sodium/ Dextrose 500 ml @ 0 mls/hr CONT PRN IV SEE I/O RECORD Last administered on 09/26/18at 04:41; Start 09/26/18 at 04:15; Stop 09/26/18 at 12:31; Status DC Heparin Sodium (Porcine) (Heparin Sodium) 2,400 unit PRN Q6HRS PRN IV FOR UFH LEVEL LESS THAN 0.2; Start 09/26/18 at 04:15; Stop 09/26/18 at 13:53; Status DC Heparin Sodium (Porcine) (Heparin Sodium) 4,000 unit 1X ONCE IV Last administered on 09/26/18at 04:40; Start 09/26/18 at 04:30; Stop 09/26/18 at 04:31; Status DC Info (Anti-Coagulation Monitoring By Pharmacy) 1 each PRN DAILY PRN MC SEE COMMENTS Last administered on 09/26/18at 09:32; Start 09/26/18 at 04:30; Stop at 12:32; Status DC Iohexol (Omnipaque 350 Mg/ml) 60 ml 1X ONCE IV Last administered on 09/26/18at 05:26; Start 09/26/18 at 05:30; Stop 09/26/18 at 05:31; Status DC Info (CONTRAST GIVEN -- Rx MONITORING) 1 each PRN DAILY PRN MC SEE COMMENTS; Start 09/26/18 at 05:15; Stop 09/26/18 at 10:56; Status DC Multivitamins 10 ml/Thiamine HCl 100 mg/Folic Acid 1 mg/Sodium Chloride 1,011.2 ml @ 100 mls/ hr 1X ONCE IV Last administered on 09/26/18at 10:40; Start at 10:00; Stop 09/26/18 at 20:06 Atorvastatin Calcium (Lipitor) 40 mg QHS PO ; Start 09/26/18 at 21:00 Iodixanol (Visipaque 320) 100 ml STK-MED ONCE .ROUTE ; Start 09/26/18 at 09:58; Stop 09/26/18 at 10:01; Status DC Lidocaine HCl (Lidocaine 1% 20ml Vial) 20 ml STK-MED ONCE .ROUTE ; Start at 09:58; Stop 09/26/18 at 10:01; Status DC Heparin Sodium/ Sodium Chloride 1,000 ml @ As Directed STK-MED ONCE .ROUTE ; Start 09/26/18 at 09:59; Stop 09/26/18 at 10:01; Status DC Fentanyl Citrate (Fentanyl 2ml Vial) 100 mcg STK-MED ONCE .ROUTE ; Start at 10:14; Stop 09/26/18 at 10:16; Status DC Midazolam HCl (Versed) 5 mg STK-MED ONCE .ROUTE ; Start 09/26/18 at 10:14; Stop 09/26/18 at 10:16; Status DC Iohexol (Omnipaque 300 Mg/ml) 100 ml STK-MED ONCE .ROUTE ; Start 09/26/18 at 10: 17; Stop 09/26/18 at 10:19; Status DC Heparin Sodium/ Sodium Chloride (HEPARIN for ARTERIAL LINE FLUSH) 1,000 unit 1X ONCE IART Last administered on 09/26/18at 11:37; Start 09/26/18 at 11:00; Stop 09/26/18 at 11:01; Status DC Midazolam HCl (Versed) 5 mg 1X ONCE IV Last administered on 09/26/18at 11:38; Start 09/26/18 at 11:00; Stop 09/26/18 at 11:01; Status DC Fentanyl Citrate (Fentanyl 2ml Vial) 100 mcg 1X ONCE IV Last administered on at 11:38; Start 09/26/18 at 11:00; Stop 09/26/18 at 11:01; Status DC Iodixanol (Visipaque 320) 100 ml 1X ONCE IART Last administered on 09/26/18at 11 :37; Start 09/26/18 at 11:00; Stop 09/26/18 at 11:01; Status DC Lidocaine HCl (Lidocaine 1% 20ml Vial) 20 ml 1X ONCE INJ Last administered on 09/26/18at 11:37; Start 09/26/18 at 11:00; Stop 09/26/18 at 11:01; Status DC Info (CONTRAST GIVEN -- Rx MONITORING) 1 each PRN DAILY PRN MC SEE COMMENTS; Start 09/26/18 at 11:00; Stop 09/28/18 at 10:59 Sodium Chloride (Normal Saline Flush) 3 ml QSHIFT PRN IV AFTER MEDS AND BLOOD DRAWS; Start 09/26/18 at 11:45 Sodium Chloride 1,000 ml @ 75 mls/hr [id number] IV ; Start 09/26/18 at 11:33; Stop 09/26/18 at 17:32 Nitroglycerin (Nitrostat) 0.4 mg PRN Q5MIN PRN SL CHEST PAIN; Start 09/26/18 at 11:45 Aspirin (Ecotrin) 81 mg [id number] PO ; Start 09/27/18 at 08:00 Active Scripts Active Reported Amlodipine-Benazepril 5-20 Mg (Amlodipine Besylate/Benazepril) 1 Each Capsule 1 Cap PO DAILY Allergies Allergies: Coded Allergies: No Known Drug Allergies (Unverified , 09/26/18) ROS General: YES: Fatigue; No: Chills, Night Sweats, Malaise, Appetite PSYCHOLOGICAL ROS: No: Anxiety, Behavioral Disorder, Concentration difficultie , Decreased libido, Depression, Disorientation, Hallucinations, Hostility, Irritablity, Memory difficulties, Mood Swings, Obsessive thoughts, Physical abuse, Sexual abuse, Sleep disturbances, Suicidal ideation Eyes: No Blurry vision, No Decreased vision, No Double vision, No Dry eyes, No Excessive tearing, No Eye Pain, No Itchy Eyes, No Loss of vision, No Photophobia , No Scotomata, No Uses contacts, No Uses glasses HEENT: No: Heacaches, Visual Changes, Hearing change, Nasal congestion, Nasal discharge, Oral lesions, Sinus pain, Sore Throat, Epistaxis, Sneezing, Snoring, Tinnitus, Vertigo, Vocal changes ALLERGY AND IMMUNOLOGY: No: Hives, Insect Bite Sensitivity, Itchy/Watery Eyes, Nasal Congestion, Post Nasal Drip, Seasonal Allergies Hematological and Lymphatic: No: Bleeding Problems, Blood Clots, Blood Transfusions, Brusing, Night Sweats, Pallor, Swollen Lymph Nodes ENDOCRINE: No: Breast Changes, Galactorrhea, Hair Pattern Changes, Hot Flashes , Malaise/lethargy, Mood Swings, Palpitations, Polydipsia/polyuria, Skin Changes , Temperature Intolerance, Unexpected Weight Changes Respiratory: No: Cough, Hemoptysis, Orthopnea, Pleuritic Pain, Shortness of breath, SOB with excertion, Sputum Changes, Stridor, Tachypnea, Wheezing Cardiovascular: yes Chest Pain; No Palpitations, No Orthopnea, No Paroxysmal Noc. Dyspnea, No Edema, No Lt Headedness Gastrointestinal: No Nausea, No Vomiting, No Abdominal Pain, No Diarrhea, No Constipation, No Melena, No Hematochezia Genitourinary: No Dysuria, No Frequency, No Incontinence, No Hematuria, No Retention, No Discharge, No Urgency, No Pain, No Flank Pain Musculoskeletal: No Gait Disturbance, No Joint Pain, No Joint Stiffness, No Joint Swelling, No Muscle Pain, No Muscular Weakness, No Pain In:, No Swelling In: Neurological: No Behavorial Changes, No Bowel/Bladder ControlChng, No Confusion , No Dizziness, No Gait Disturbance, No Headaches, No Impaired Coord/balance, No Memory Loss, No Numbness/Tingling, No Seizures, No Speech Problems, No Tremors, No Visual Changes, No Weakness Skin: No Dry Skin, No Eczema, No Hair Changes, No Lumps, No Mole Changes, No Mottling, No Nail Changes, No Pruritus, No Rash, No Skin Lesion Changes, No Acne Physical Exam General: Alert, Oriented X3, No acute distress HEENT: Atraumatic, PERRLA Lungs: Clear to auscultation Heart: Regular rate, Normal S1, Normal S2, No murmurs Abdomen: Soft, No tenderness Extremities: No edema Skin: No significant lesion Neuro: Normal gait, Normal speech, Strength at 5/5 X4 ext, Normal tone, Sensation intact, Cranial nerves 3-12 NL, Reflexes 2+ Psych/Mental Status: Mental status NL MUSCULOSKELETAL: No deformity Vitals VITALS Vital Signs Date Time Temp Pulse Resp B/P (MAP) Pulse Ox O2 Delivery O2 Flow Rate FiO2 09/26/18 16:15 70 161/79 (106) 09/26/18 15:55 98.1 20 96 Room Air 98.1 Labs Labs Laboratory Tests Test 09/26/18 03:20 09/26/18 04:05 09/26/18 07:20 09/26/18 14:55 White Blood Count 6.8 x10^3/uL (4.0-11.0) Red Blood Count 4.87 x10^6/uL (4.30-5.70) Hemoglobin 15.9 g/dL (13.0-17.5) Hematocrit 46.4 % (39.0-53.0) Mean Corpuscular Volume 95 fL (79-100) Mean Corpuscular Hemoglobin 33 pg (25-35) Mean Corpuscular Hemoglobin Concent 34 g/dL (31-37) Red Cell Distribution Width 12.7 % (11.5-14.5) Platelet Count 263 x10^3/uL (140-400) Neutrophils (%) (Auto) 52 % (31-73) Lymphocytes (%) (Auto) 33 % (24-48) Monocytes (%) (Auto) 11 % (0-9) Eosinophils (%) (Auto) 4 % (0-3) Basophils (%) (Auto) 1 % (0-3) Neutrophils # (Auto) 3.5 x10^3uL (1.8-7.7) Lymphocytes # (Auto) 2.2 x10^3/uL (1.0-4.8) Monocytes # (Auto) 0.7 x10^3/uL (0.0-1.1) Eosinophils # (Auto) 0.3 x10^3/uL (0.0-0.7) Basophils # (Auto) 0.0 x10^3/uL (0.0-0.2) Prothrombin Time 11.8 SEC (11.7-14.0) Prothromb Time International Ratio 0.9 (0.8-1.1) D-Dimer (Minnie) 0.70 ug/mlFEU (0.00-0.50) Sodium Level 143 mmol/L (136-145) Potassium Level 4.1 mmol/L (3.5-5.1) Chloride Level 103 mmol/L (98-107) Carbon Dioxide Level 30 mmol/L (21-32) Anion Gap 10 (6-14) Blood Urea Nitrogen 14 mg/dL (8-26) Creatinine 1.3 mg/dL (0.7-1.3) Estimated GFR (Cockcroft-Gault) 56.7 BUN/Creatinine Ratio 11 (6-20) Glucose Level 97 mg/dL (70-99) Calcium Level 9.2 mg/dL (8.5-10.1) Magnesium Level 1.9 mg/dL (1.8-2.4) Total Bilirubin 0.2 mg/dL (0.2-1.0) Aspartate Amino Transf (AST/SGOT) 24 U/L (15-37) Alanine Aminotransferase (ALT/SGPT) 51 U/L (16-63) Alkaline Phosphatase 72 U/L (46-116) Creatine Kinase 112 U/L (39-308) Creatine Kinase MB (Mass) 2.3 ng/mL (0.0-3.6) Creatine Kinase MB Relative Index 2.1 % (0-4) Troponin I Quantitative 0.232 ng/mL (0.000-0.055) 1.119 ng/mL (0.000-0.055) 2.730 ng/mL (0.000-0.055) CZ-Ttc-Y-Type Natriuretic Peptide 117 pg/mL (0-124) Total Protein 7.3 g/dL (6.4-8.2) Albumin 4.1 g/dL (3.4-5.0) Albumin/Globulin Ratio 1.3 (1.0-1.7) Lipase 304 U/L (73-393) Ethyl Alcohol Level < 10 mg/dL (0-10) Urine Collection Type Unknown Urine Color Yellow Urine Clarity Clear Urine pH 6.0 Urine Specific [place] 1.020 Urine Protein Negative mg/dL (NEG-TRACE) Urine Glucose (UA) Negative mg/dL (NEG) Urine Ketones (Stick) Negative mg/dL (NEG) Urine Blood Negative (NEG) Urine Nitrite Negative (NEG) Urine Bilirubin Negative (NEG) Urine Urobilinogen Dipstick 0.2 mg/dL (0.2 mg/dL) Urine Leukocyte Esterase Negative (NEG) Urine RBC 0 /HPF (0-2) Urine WBC Occ /HPF (0-4) Urine Squamous Epithelial Cells Occ /LPF Urine Bacteria 0 /HPF (0-FEW) Urine Mucus Slight /LPF Urine Opiates Screen Neg (NEG) Urine Methadone Screen Neg (NEG) Urine Barbiturates Neg (NEG) Urine Phencyclidine Screen Neg (NEG) Urine Amphetamine/Methamphetamine Neg (NEG) Urine Benzodiazepines Screen Neg (NEG) Urine Cocaine Screen Neg (NEG) Urine Cannabinoids Screen Neg (NEG) Urine Ethyl Alcohol Pos (NEG) Triglycerides Level 146 mg/dL (0-150) Cholesterol Level 235 mg/dL (0-200) LDL Cholesterol, Calculated 160 mg/dL (0-100) VLDL Cholesterol, Calculated 29 mg/dL (0-40) Non-HDL Cholesterol Calculated 189 mg/dL (0-129) HDL Cholesterol 46 mg/dL (40-60) Cholesterol/HDL Ratio 5.1 Thyroid Stimulating Hormone (TSH) 2.244 uIU/mL (0.358-3.74) Laboratory Tests Test 09/26/18 03:20 09/26/18 04:05 09/26/18 07:20 09/26/18 14:55 White Blood Count 6.8 x10^3/uL (4.0-11.0) Red Blood Count 4.87 x10^6/uL (4.30-5.70) Hemoglobin 15.9 g/dL (13.0-17.5) Hematocrit 46.4 % (39.0-53.0) Mean Corpuscular Volume 95 fL (79-100) Mean Corpuscular Hemoglobin 33 pg (25-35) Mean Corpuscular Hemoglobin Concent 34 g/dL (31-37) Red Cell Distribution Width 12.7 % (11.5-14.5) Platelet Count 263 x10^3/uL (140-400) Neutrophils (%) (Auto) 52 % (31-73) Lymphocytes (%) (Auto) 33 % (24-48) Monocytes (%) (Auto) 11 % (0-9) Eosinophils (%) (Auto) 4 % (0-3) Basophils (%) (Auto) 1 % (0-3) Neutrophils # (Auto) 3.5 x10^3uL (1.8-7.7) Lymphocytes # (Auto) 2.2 x10^3/uL (1.0-4.8) Monocytes # (Auto) 0.7 x10^3/uL (0.0-1.1) Eosinophils # (Auto) 0.3 x10^3/uL (0.0-0.7) Basophils # (Auto) 0.0 x10^3/uL (0.0-0.2) Prothrombin Time 11.8 SEC (11.7-14.0) Prothromb Time International Ratio 0.9 (0.8-1.1) D-Dimer (Minnie) 0.70 ug/mlFEU (0.00-0.50) Sodium Level 143 mmol/L (136-145) Potassium Level 4.1 mmol/L (3.5-5.1) Chloride Level 103 mmol/L (98-107) Carbon Dioxide Level 30 mmol/L (21-32) Anion Gap 10 (6-14) Blood Urea Nitrogen 14 mg/dL (8-26) Creatinine 1.3 mg/dL (0.7-1.3) Estimated GFR (Cockcroft-Gault) 56.7 BUN/Creatinine Ratio 11 (6-20) Glucose Level 97 mg/dL (70-99) Calcium Level 9.2 mg/dL (8.5-10.1) Magnesium Level 1.9 mg/dL (1.8-2.4) Total Bilirubin 0.2 mg/dL (0.2-1.0) Aspartate Amino Transf (AST/SGOT) 24 U/L (15-37) Alanine Aminotransferase (ALT/SGPT) 51 U/L (16-63) Alkaline Phosphatase 72 U/L (46-116) Creatine Kinase 112 U/L (39-308) Creatine Kinase MB (Mass) 2.3 ng/mL (0.0-3.6) Creatine Kinase MB Relative Index 2.1 % (0-4) Troponin I Quantitative 0.232 ng/mL (0.000-0.055) 1.119 ng/mL (0.000-0.055) 2.730 ng/mL (0.000-0.055) NE-Xqp-E-Type Natriuretic Peptide 117 pg/mL (0-124) Total Protein 7.3 g/dL (6.4-8.2) Albumin 4.1 g/dL (3.4-5.0) Albumin/Globulin Ratio 1.3 (1.0-1.7) Lipase 304 U/L (73-393) Ethyl Alcohol Level < 10 mg/dL (0-10) Urine Collection Type Unknown Urine Color Yellow Urine Clarity Clear Urine pH 6.0 Urine Specific [place] 1.020 Urine Protein Negative mg/dL (NEG-TRACE) Urine Glucose (UA) Negative mg/dL (NEG) Urine Ketones (Stick) Negative mg/dL (NEG) Urine Blood Negative (NEG) Urine Nitrite Negative (NEG) Urine Bilirubin Negative (NEG) Urine Urobilinogen Dipstick 0.2 mg/dL (0.2 mg/dL) Urine Leukocyte Esterase Negative (NEG) Urine RBC 0 /HPF (0-2) Urine WBC Occ /HPF (0-4) Urine Squamous Epithelial Cells Occ /LPF Urine Bacteria 0 /HPF (0-FEW) Urine Mucus Slight /LPF Urine Opiates Screen Neg (NEG) Urine Methadone Screen Neg (NEG) Urine Barbiturates Neg (NEG) Urine Phencyclidine Screen Neg (NEG) Urine Amphetamine/Methamphetamine Neg (NEG) Urine Benzodiazepines Screen Neg (NEG) Urine Cocaine Screen Neg (NEG) Urine Cannabinoids Screen Neg (NEG) Urine Ethyl Alcohol Pos (NEG) Triglycerides Level 146 mg/dL (0-150) Cholesterol Level 235 mg/dL (0-200) LDL Cholesterol, Calculated 160 mg/dL (0-100) VLDL Cholesterol, Calculated 29 mg/dL (0-40) Non-HDL Cholesterol Calculated 189 mg/dL (0-129) HDL Cholesterol 46 mg/dL (40-60) Cholesterol/HDL Ratio 5.1 Thyroid Stimulating Hormone (TSH) 2.244 uIU/mL (0.358-3.74) Images Images ECHO The left ventricle is normal size. There is borderline to mild concentric left ventricular hypertrophy. The left ventricular systolic function is low normal. The Ejection Fraction is estimated at 50%. There is normal LV segmental wall motion. Transmitral Doppler flow pattern is Grade I-abnormal relaxation pattern. RIGHT VENTRICLE The right ventricle is normal size. There is normal right ventricular wall thickness. The right ventricular systolic function is normal. ATRIA The left atrium size is normal. The right atrium size is normal. The interatrial septum is intact with no evidence for an atrial septal defect or patent foramen ovale as noted on 2-D or Doppler imaging. AORTIC VALVE The aortic valve is normal in structure and function. Doppler and Color Flow revealed trace aortic regurgitation. There is no significant aortic valvular stenosis. MITRAL VALVE The mitral valve is normal in structure and function. There is no evidence of mitral valve prolapse. There is no mitral valve stenosis. Doppler and Color- flow revealed trace mitral regurgitation. TRICUSPID VALVE The tricuspid valve is normal in structure and function. Doppler and Color Flow revealed trace tricuspid regurgitation. There is no tricuspid valve stenosis. PULMONIC VALVE Doppler and Color Flow revealed trace pulmonic valvular regurgitation. GREAT VESSELS The aortic root is normal in size. The IVC was not visualized. PERICARDIAL EFFUSION There is no evidence of significant pericardial effusion. Critical Notification Critical Value: No <Conclusion> The left ventricle is normal size. The left ventricular systolic function is low normal. The Ejection Fraction is estimated at 50%. There is borderline to mild concentric left ventricular hypertrophy. There is no significant aortic valvular stenosis. Doppler and Color Flow revealed trace aortic regurgitation. Doppler and Color-flow revealed trace mitral regurgitation. Doppler and Color Flow revealed trace tricuspid regurgitation. Assessment/Plan Assessment/Plan 57-year-old male with hypertension and hyperlipidemia and a strong family history of ischemic heart disease who presents with a non-STEMI. He had anterior lateral ischemic EKG changes and a small troponin leak which peaked at 2.7. He underwent a coronary angiography today which demonstrated a 80-90% stenosis of the proximal LAD, a tight lesion at the origin of a large diagonal vessel, a tight 80-90% stenosis of the left circumflex and a 70% mid to distal RCA lesion. The patient appears to be a good candidate for CABG. The risks which include but are not limited to mortality 1-2%, stroke 1-2%, renal failure requiring dialysis 1-2%, ventilator dependence 2-3%, chest infection 5%, wound infection 5%, mediastinal reexploration for hemorrhage 5%, postoperative arrhythmias 20%, were explained to the patient who agrees to proceed. The patient is right-handed and has a good Ludin's test on the left. Plan for CABG �4 (COLLINS to LAD, radial to OM, SVG to diagonal, SVG to RPDA) on Friday, September 28, 2018. He has already had an echo and a CT of the chest. Will obtain a carotid duplex and bilateral lower extremity vein mapping TSIOURIS,ATHANASIOS MD Sep 26, 2018 17:10
[2018-09-26] MEDS ORDERED: ANTI-COAG MONITOR BY PHARMACY. MC PRN (17:15)
--- NOTE | 2018-09-26 17:31 | CARD ---
MR#: [id number] Date of Study: 09/26/2018 Ordering Physician: KRYSTIN PENNINGTON, Referring Physician: Raj GUNN: Yaritza Bernal RTR APPROVED REPORT Procedures Left heart catheterization Selective coronary angiogram Left ventriculogram Aortic root injection The patient is a 57-year-old male with a history of hypertension, hyperlipidemia, tobacco abuse and t he recent of a brother from cardiac sudden . He presented with chest pain and had mildly e levated troponin to approximately 1.5. In this setting heart catheterization was recommended. Risks a nd benefits were discussed with the patient and he agreed to proceed. After informed consent was obtained the patient was brought to the heart catheterization lab. The are a of the right femoral artery was prepared the usual manner with Betadine, sterile draping and local anesthetic. An 18-gauge needle was used to enter the right femoral artery, a wire placed and a 6 Fren ch sheath placed over the wire. With the assistance of a J-wire a 6 [place] JL4 diagnostic catheter wa s advanced to the ascending aorta. It was used to engage the left coronary system and sequential inje ctions in various views were obtained. In a similar manner a 6 [place] Hema right diagnostic herbert ter was advanced to the ascending aorta. It was used to engage the right coronary artery and sequenti al injections in various views were obtained. A pigtail catheter advanced to the ascending aorta and then the left ventricle. Pressure measurements were made. A 30� BARRERA left ventricular gram was perform ed. Pullback pressures were measured. A 30� DIONE aortic root injection was then performed. Catheters r emoved from the patient. Injection of the sheath showed normal placement. The sheath was removed and sealed with an Angio-Seal product. The patient was moved to the holding area in stable condition. Findings. Hemodynamics. Aortic root pressure of 136/8, 12 Aortic root pressure of 144/88. Coronaries. Left main. The left main was a normal-size vessel with no lesions. Left anterior descending. The LAD was a moderate size vessel with normal distribution. It had a proxi mal greater than 80-85% lesion. It had a very distal greater than 95% lesion. A large Diagonall 2 bra [facility] had a 95% lesion. Left circumflex. The left circumflex was a moderate size vessel. It had a complex mid 95% or greater lesion with ulceration. Right coronary artery. The right coronary was a moderate size vessel with normal distribution. It had a mid to distal 70% or greater lesion. Left ventriculogram. The left ventricle had overall normal LV systolic function. There was mild apical hypokinesis. Ejecti on fraction was greater than 55%. Aortic root. The aortic root was mildly enlarged. There was no significant aortic regurgitation. <Conclusion> Severe three-vessel coronary disease. Intact LV systolic function. Mildly enlarged aortic root. Signed by : Redd Quick MD Electronically Approved : 09/26/2018 17:29:32
[2018-09-26] MEDS: VITAMIN B12,B9,B6 COMPLEX 1 TABLET. PO SCH (17:51)
[2018-09-26] MEDS: HEPARIN 25,000UTS/500ML PREMIX 500 ML IV PRN (17:56)
[2018-09-26] MEDS: METOPROLOL TART IMMED RELEASE 25 MG TABLET. PO SCH (21:00)
[2018-09-26] MEDS: ATORVASTATIN CALCIUM 40 MG TABLET. PO SCH (21:00)
[2018-09-27] VITALS (7 sets, daily range): BP systolic 127–179; BP diastolic 75–104
[2018-09-27 06:01] LABS: HEMATOCRIT 42.3 % (39.0-53.0); HEMOGLOBIN 14.3 g/dL (13.0-17.5); RED BLOOD COUNT 4.45 x10^6/uL (4.30-5.70); RED CELL DISTRIBUTION WIDTH 12.5 % (11.5-14.5); WHITE BLOOD COUNT 6.3 x10^3/uL (4.0-11.0)
[2018-09-27 06:21] LABS: CHOLESTEROL/HDL RATIO 4.8
[2018-09-27] MEDS ORDERED: ASPIRIN ENTERIC COATED 81 MG TABLET.DR. PO SCH (08:00)
--- NOTE | 2018-09-27 08:24 | RAD ---
Carotid doppler ultrasound History: Preop coronary artery bypass graft Multiple grayscale, color, and duplex spectral analysis waveform sonographic images were acquired of the carotid, subclavian, and vertebral arteries. Comparison: None Findings: RIGHT: PSV cm/sec EDV cm/sec Common carotid artery 84 22 Maximal internal carotid artery 75 28 External carotid artery 108 Vertebral artery 38 ICA/CCA ratio 0.89 LEFT: PSV cm/sec EDV cm/sec Common carotid artery 70 17 Maximum internal carotid artery 106 32 External carotid artery 111 Vertebral artery not visualized ICA/CCA ratio 1.51 Velocities used to determine stenosis are known to correlate with NASCET angiographic criteria. There is antegrade flow in the right vertebral artery, left vertebral artery not seen. There is minimal eccentric plaque of the bilateral carotid bulbs and origins of the internal and external carotid arteries, no significant stenosis demonstrated on grayscale or color images. Impression: 1. There is no evidence of a hemodynamically significant stenosis. There is mild plaque of the bilateral carotid bulbs and origins of the internal and external carotid arteries. Left vertebral artery is not visualized. Electronically signed by: Daniel Martinez MD (09/27/2018 8:19 AM) [facility]
[2018-09-27] MEDS: VITAMIN B12,B9,B6 COMPLEX 1 TABLET. PO SCH (09:39)
[2018-09-27] MEDS: METOPROLOL TART IMMED RELEASE 25 MG TABLET. PO SCH ×2 (09:40→20:57)
[2018-09-27] MEDS: HEPARIN 25,000UTS/500ML PREMIX 500 ML IV PRN (09:47)
--- NOTE | 2018-09-27 09:47 | RAD ---
Bilateral lower extremity vein mapping History: Preop coronary artery bypass graft Comparison: None. Findings: Multiple grayscale, color, duplex spectral analysis waveform images of the lower extremity veins with attention to the lesser and greater saphenous veins are submitted. Exam was performed for assessment of size and patency of the veins prior to surgery. The greater and lesser saphenous veins are patent bilaterally. There are multiple branches on the right arising from the right greater saphenous vein. Largest caliber of the right greater saphenous vein is proximally 0.72 cm, narrows to 0.26 cm at mid thigh level, 0.38 cm near the level of the knee, 0.36 cm at the level of the ankle. Largest size of the right lesser saphenous vein is 0.22 cm, narrows to 0.13 cm distally. Another more posterior medial superficial branch on the right measures about 0.27 cm mid thigh level, about 0.2 cm at proximal calf level, 0.26 cm at level of the knee, and 0.25 cm proximally. Large size of the left lesser saphenous vein is 0.2 cm, narrows to 0.17 cm. Large size of left greater saphenous vein is 0.57 cm proximally, narrows to about 0.2 cm near the calf level, 0.19 cm near the ankle. Impression: 1. Lesser and greater saphenous veins are patent bilaterally with sizes fully delineated on technologist worksheet. There are other collateral branches of the right superficial femoral vein.. Electronically signed by: Daniel Martinez MD (09/27/2018 9:42 AM) [facility]
--- NOTE | 2018-09-27 12:39 | PDOC ---
CARDIO Progress Notes Date and Time Date of Service 09/27/2018 Time of Evaluation 1230 Subjective Subjective: No Chest Pain, No shortness of breath, No Palpitations, Other ( ambulating without difficulty) Vitals Vitals Vital Signs Date Time Temp Pulse Resp B/P (MAP) Pulse Ox O2 Delivery O2 Flow Rate FiO2 09/27/18 11:56 144/96 (112) 09/27/18 11:00 98.7 62 18 98 98.7 09/27/18 07:00 Room Air Weight Weight [ ] Input and Output Intake and Output Intake and Output 09/27/18 07:01 Intake Total 2700 ml Output Total 3850 ml Balance -1150 ml Intake Oral 1600 ml IV Total 1100 ml Output Urine Total 3850 ml Laboratory Labs Laboratory Tests Test 09/26/18 14:55 09/26/18 23:05 09/27/18 05:00 09/27/18 10:50 Troponin I Quantitative 2.730 ng/mL (0.000-0.055) 1.294 ng/mL (0.000-0.055) Heparin Anti-Xa Act, Unfractionated 0.10 IU/mL (0.30-0.70) 0.31 IU/mL (0.30-0.70) 0.24 IU/mL (0.30-0.70) White Blood Count 6.3 x10^3/uL (4.0-11.0) Red Blood Count 4.45 x10^6/uL (4.30-5.70) Hemoglobin 14.3 g/dL (13.0-17.5) Hematocrit 42.3 % (39.0-53.0) Mean Corpuscular Volume 95 fL (79-100) Mean Corpuscular Hemoglobin 32 pg (25-35) Mean Corpuscular Hemoglobin Concent 34 g/dL (31-37) Red Cell Distribution Width 12.5 % (11.5-14.5) Platelet Count 217 x10^3/uL (140-400) Triglycerides Level 141 mg/dL (0-150) Cholesterol Level 241 mg/dL (0-200) LDL Cholesterol, Calculated 163 mg/dL (0-100) VLDL Cholesterol, Calculated 28 mg/dL (0-40) Non-HDL Cholesterol Calculated 191 mg/dL (0-129) HDL Cholesterol 50 mg/dL (40-60) Cholesterol/HDL Ratio 4.8 Physical Exam HEENT: Neck Supple W Full Motion Chest: Symmetric LUNGS: Clear to Auscultation Heart: S1S2, RRR (SR no ectopies) Abdomen: Soft N/T Extremities: No Edema, No Calf Tenderness Neurology: alert, oriented, follow commands Other Exams right groin arteriotomy site in tact, soft, no erythema or swelling, neurovascular status to bilateral LE intact. Assessment Assessment 1. NSTEACS: Trop peaked at 2.7. LHC revealed severe 3VD. EF and WM nml 2. Accelerated HTN: better but with labile episodes. 3. HLP: no statin at home 4. Heavy alcoholism: approx 750 ml of wine every day. 5. Family hx of SCD: brother of SCD at age 56 6. Tobaccoism: just got started 2 yrs ago Recommendations 1. ETOH to decrease consumption. ETOH withdrawal protocol per PCP 2. CABG planned for tomorrow per CTS 3. Continue metoprolol. ASA, statin. DC heparin this midnight. Restart home norvasc. 4. Smoking cessation KRYSTIN PENNINGTON APRN Sep 27, 2018 12:39
[2018-09-27] MEDS: amLODIPine BESYLATE 5 MG TABLET PO SCH (13:22)
--- NOTE | 2018-09-27 15:29 | RAD ---
EXAM: CHEST 1 VIEW History: Preop COMPARISON: None available. TECHNIQUE: Single portable radiograph of the chest FINDINGS: The cardiac silhouette is unremarkable. The lungs are clear bilaterally. The costophrenic sulci are clear and well demarcated. IMPRESSION: No radiographic evidence of an acute cardiopulmonary process. Electronically signed by: Baljit Nascimento MD (09/27/2018 3:25 PM) [id number]
--- NOTE | 2018-09-27 15:39 | PDOC ---
PROGRESS NOTES Chief Complaint Chief Complaint denies chest pain this AM. no signs of etoh withdrawal. History of Present Illness History of Present Illness 57-year-old male with hypertension and hyperlipidemia and a strong family history of ischemic heart disease who presents with a non-STEMI. He had anterior lateral ischemic EKG changes and a small troponin leak which peaked at 2.7. He underwent a coronary angiography which demonstrated a 80-90% stenosis of the proximal LAD, a tight lesion at the origin of a large diagonal vessel, a tight 80-90% stenosis of the left circumflex and a 70% mid to distal RCA lesion. ASSESSMENT NSTEMI HTN HLD ETOH abuse Tobacco abuse PLAN s/p cardiac cath revealing severe 3 VD, normal Ef without WMA CABG �4 (COLLINS to LAD, radial to OM, SVG to diagonal, SVG to RPDA) ann-marie by CTS carotid duplex and bilateral lower extremity vein for vein mapping continue ASA, heparin drip, statin banana bag given for etoh prn ativan for etoh withdrawal counselled on smoking meds BP control full code NPO past midnight apprec cards and CTS involvement to ICU post CABG Vitals Vitals Vital Signs Date Time Temp Pulse Resp B/P (MAP) Pulse Ox O2 Delivery O2 Flow Rate FiO2 09/27/18 13:22 78 144/96 09/27/18 11:00 98.7 18 98 98.7 09/27/18 08:00 Room Air Physical Exam General: Alert, Oriented X3, No acute distress Heart: Regular rate, Normal S1, Normal S2, No murmurs Abdomen: Soft, No tenderness Extremities: No edema Skin: No significant lesion Labs LABS Laboratory Tests Test 09/26/18 23:05 09/27/18 05:00 09/27/18 10:50 Heparin Anti-Xa Act, Unfractionated 0.10 IU/mL (0.30-0.70) 0.31 IU/mL (0.30-0.70) 0.24 IU/mL (0.30-0.70) White Blood Count 6.3 x10^3/uL (4.0-11.0) Red Blood Count 4.45 x10^6/uL (4.30-5.70) Hemoglobin 14.3 g/dL (13.0-17.5) Hematocrit 42.3 % (39.0-53.0) Mean Corpuscular Volume 95 fL (79-100) Mean Corpuscular Hemoglobin 32 pg (25-35) Mean Corpuscular Hemoglobin Concent 34 g/dL (31-37) Red Cell Distribution Width 12.5 % (11.5-14.5) Platelet Count 217 x10^3/uL (140-400) Troponin I Quantitative 1.294 ng/mL (0.000-0.055) Triglycerides Level 141 mg/dL (0-150) Cholesterol Level 241 mg/dL (0-200) LDL Cholesterol, Calculated 163 mg/dL (0-100) VLDL Cholesterol, Calculated 28 mg/dL (0-40) Non-HDL Cholesterol Calculated 191 mg/dL (0-129) HDL Cholesterol 50 mg/dL (40-60) Cholesterol/HDL Ratio 4.8 Assessment and Plan Assessmemt and Plan Problems Medical Problems: (1) Elevated d-dimer Status: Acute (2) NSTEMI (non-ST elevated myocardial infarction) Status: Acute Comment Review of Relevant I have reviewed the following items vicky (where applicable) has been applied. Labs Laboratory Tests Test 09/26/18 03:20 09/26/18 04:05 09/26/18 07:20 09/26/18 14:55 White Blood Count 6.8 x10^3/uL (4.0-11.0) Red Blood Count 4.87 x10^6/uL (4.30-5.70) Hemoglobin 15.9 g/dL (13.0-17.5) Hematocrit 46.4 % (39.0-53.0) Mean Corpuscular Volume 95 fL (79-100) Mean Corpuscular Hemoglobin 33 pg (25-35) Mean Corpuscular Hemoglobin Concent 34 g/dL (31-37) Red Cell Distribution Width 12.7 % (11.5-14.5) Platelet Count 263 x10^3/uL (140-400) Neutrophils (%) (Auto) 52 % (31-73) Lymphocytes (%) (Auto) 33 % (24-48) Monocytes (%) (Auto) 11 % (0-9) Eosinophils (%) (Auto) 4 % (0-3) Basophils (%) (Auto) 1 % (0-3) Neutrophils # (Auto) 3.5 x10^3uL (1.8-7.7) Lymphocytes # (Auto) 2.2 x10^3/uL (1.0-4.8) Monocytes # (Auto) 0.7 x10^3/uL (0.0-1.1) Eosinophils # (Auto) 0.3 x10^3/uL (0.0-0.7) Basophils # (Auto) 0.0 x10^3/uL (0.0-0.2) Prothrombin Time 11.8 SEC (11.7-14.0) Prothromb Time International Ratio 0.9 (0.8-1.1) D-Dimer (Minnie) 0.70 ug/mlFEU (0.00-0.50) Sodium Level 143 mmol/L (136-145) Potassium Level 4.1 mmol/L (3.5-5.1) Chloride Level 103 mmol/L (98-107) Carbon Dioxide Level 30 mmol/L (21-32) Anion Gap 10 (6-14) Blood Urea Nitrogen 14 mg/dL (8-26) Creatinine 1.3 mg/dL (0.7-1.3) Estimated GFR (Cockcroft-Gault) 56.7 BUN/Creatinine Ratio 11 (6-20) Glucose Level 97 mg/dL (70-99) Calcium Level 9.2 mg/dL (8.5-10.1) Magnesium Level 1.9 mg/dL (1.8-2.4) Total Bilirubin 0.2 mg/dL (0.2-1.0) Aspartate Amino Transf (AST/SGOT) 24 U/L (15-37) Alanine Aminotransferase (ALT/SGPT) 51 U/L (16-63) Alkaline Phosphatase 72 U/L (46-116) Creatine Kinase 112 U/L (39-308) Creatine Kinase MB (Mass) 2.3 ng/mL (0.0-3.6) Creatine Kinase MB Relative Index 2.1 % (0-4) Troponin I Quantitative 0.232 ng/mL (0.000-0.055) 1.119 ng/mL (0.000-0.055) 2.730 ng/mL (0.000-0.055) DR-Cpk-N-Type Natriuretic Peptide 117 pg/mL (0-124) Total Protein 7.3 g/dL (6.4-8.2) Albumin 4.1 g/dL (3.4-5.0) Albumin/Globulin Ratio 1.3 (1.0-1.7) Lipase 304 U/L (73-393) Ethyl Alcohol Level < 10 mg/dL (0-10) Urine Collection Type Unknown Urine Color Yellow Urine Clarity Clear Urine pH 6.0 Urine Specific [place] 1.020 Urine Protein Negative mg/dL (NEG-TRACE) Urine Glucose (UA) Negative mg/dL (NEG) Urine Ketones (Stick) Negative mg/dL (NEG) Urine Blood Negative (NEG) Urine Nitrite Negative (NEG) Urine Bilirubin Negative (NEG) Urine Urobilinogen Dipstick 0.2 mg/dL (0.2 mg/dL) Urine Leukocyte Esterase Negative (NEG) Urine RBC 0 /HPF (0-2) Urine WBC Occ /HPF (0-4) Urine Squamous Epithelial Cells Occ /LPF Urine Bacteria 0 /HPF (0-FEW) Urine Mucus Slight /LPF Urine Opiates Screen Neg (NEG) Urine Methadone Screen Neg (NEG) Urine Barbiturates Neg (NEG) Urine Phencyclidine Screen Neg (NEG) Urine Amphetamine/Methamphetamine Neg (NEG) Urine Benzodiazepines Screen Neg (NEG) Urine Cocaine Screen Neg (NEG) Urine Cannabinoids Screen Neg (NEG) Urine Ethyl Alcohol Pos (NEG) Triglycerides Level 146 mg/dL (0-150) Cholesterol Level 235 mg/dL (0-200) LDL Cholesterol, Calculated 160 mg/dL (0-100) VLDL Cholesterol, Calculated 29 mg/dL (0-40) Non-HDL Cholesterol Calculated 189 mg/dL (0-129) HDL Cholesterol 46 mg/dL (40-60) Cholesterol/HDL Ratio 5.1 Thyroid Stimulating Hormone (TSH) 2.244 uIU/mL (0.358-3.74) Test 09/26/18 23:05 09/27/18 05:00 09/27/18 10:50 Heparin Anti-Xa Act, Unfractionated 0.10 IU/mL (0.30-0.70) 0.31 IU/mL (0.30-0.70) 0.24 IU/mL (0.30-0.70) White Blood Count 6.3 x10^3/uL (4.0-11.0) Red Blood Count 4.45 x10^6/uL (4.30-5.70) Hemoglobin 14.3 g/dL (13.0-17.5) Hematocrit 42.3 % (39.0-53.0) Mean Corpuscular Volume 95 fL (79-100) Mean Corpuscular Hemoglobin 32 pg (25-35) Mean Corpuscular Hemoglobin Concent 34 g/dL (31-37) Red Cell Distribution Width 12.5 % (11.5-14.5) Platelet Count 217 x10^3/uL (140-400) Troponin I Quantitative 1.294 ng/mL (0.000-0.055) Triglycerides Level 141 mg/dL (0-150) Cholesterol Level 241 mg/dL (0-200) LDL Cholesterol, Calculated 163 mg/dL (0-100) VLDL Cholesterol, Calculated 28 mg/dL (0-40) Non-HDL Cholesterol Calculated 191 mg/dL (0-129) HDL Cholesterol 50 mg/dL (40-60) Cholesterol/HDL Ratio 4.8 Laboratory Tests Test 09/26/18 23:05 09/27/18 05:00 09/27/18 10:50 Heparin Anti-Xa Act, Unfractionated 0.10 IU/mL (0.30-0.70) 0.31 IU/mL (0.30-0.70) 0.24 IU/mL (0.30-0.70) White Blood Count 6.3 x10^3/uL (4.0-11.0) Red Blood Count 4.45 x10^6/uL (4.30-5.70) Hemoglobin 14.3 g/dL (13.0-17.5) Hematocrit 42.3 % (39.0-53.0) Mean Corpuscular Volume 95 fL (79-100) Mean Corpuscular Hemoglobin 32 pg (25-35) Mean Corpuscular Hemoglobin Concent 34 g/dL (31-37) Red Cell Distribution Width 12.5 % (11.5-14.5) Platelet Count 217 x10^3/uL (140-400) Troponin I Quantitative 1.294 ng/mL (0.000-0.055) Triglycerides Level 141 mg/dL (0-150) Cholesterol Level 241 mg/dL (0-200) LDL Cholesterol, Calculated 163 mg/dL (0-100) VLDL Cholesterol, Calculated 28 mg/dL (0-40) Non-HDL Cholesterol Calculated 191 mg/dL (0-129) HDL Cholesterol 50 mg/dL (40-60) Cholesterol/HDL Ratio 4.8 Medications Current Medications Aspirin (Chito Aspirin) 325 mg 1X ONCE PO Last administered on 09/26/18at 03:49 ; Start 09/26/18 at 04:00; Stop 09/26/18 at 04:01; Status DC Sodium Chloride 1,000 ml @ 1,000 mls/hr 1X ONCE IV Last administered on at 03:48; Start 09/26/18 at 04:00; Stop 09/26/18 at 04:59; Status DC Lorazepam (Ativan) 0.5 mg 1X ONCE IV Last administered on 09/26/18at 03:49; Start 09/26/18 at 04:00; Stop 09/26/18 at 04:01; Status DC Ondansetron HCl (Zofran) 4 mg PRN Q8HRS PRN IV NAUSEA/VOMITING 1ST CHOICE; Start 09/26/18 at 04:00; Stop 09/27/18 at 03:59; Status DC Fentanyl Citrate (Fentanyl 2ml Vial) 50 mcg PRN Q2HR PRN IV SEVERE PAIN; Start 09/26/18 at 04:00 Fentanyl Citrate (Fentanyl 2ml Vial) 50 mcg 1X ONCE IV ; Start 09/26/18 at 04:30 ; Stop 09/26/18 at 04:30; Status DC Nitroglycerin (Nitro-Bid Oint) 0.5 inch 1X ONCE TP Last administered on at 04:37; Start 09/26/18 at 04:30; Stop 09/26/18 at 04:31; Status DC Heparin Sodium/ Dextrose 500 ml @ 0 mls/hr CONT PRN IV SEE I/O RECORD Last administered on 09/26/18at 04:41; Start 09/26/18 at 04:15; Stop 09/26/18 at 12:31; Status DC Heparin Sodium (Porcine) (Heparin Sodium) 2,400 unit PRN Q6HRS PRN IV FOR UFH LEVEL LESS THAN 0.2; Start 09/26/18 at 04:15; Stop 09/26/18 at 13:53; Status DC Heparin Sodium (Porcine) (Heparin Sodium) 4,000 unit 1X ONCE IV Last administered on 09/26/18at 04:40; Start 09/26/18 at 04:30; Stop 09/26/18 at 04:31; Status DC Info (Anti-Coagulation Monitoring By Pharmacy) 1 each PRN DAILY PRN MC SEE COMMENTS Last administered on 09/26/18at 09:32; Start 09/26/18 at 04:30; Stop at 12:32; Status DC Iohexol (Omnipaque 350 Mg/ml) 60 ml 1X ONCE IV Last administered on 09/26/18at 05:26; Start 09/26/18 at 05:30; Stop 09/26/18 at 05:31; Status DC Info (CONTRAST GIVEN -- Rx MONITORING) 1 each PRN DAILY PRN MC SEE COMMENTS; Start 09/26/18 at 05:15; Stop 09/26/18 at 10:56; Status DC Multivitamins 10 ml/Thiamine HCl 100 mg/Folic Acid 1 mg/Sodium Chloride 1,011.2 ml @ 100 mls/ hr 1X ONCE IV Last administered on 09/26/18at 10:40; Start at 10:00; Stop 09/26/18 at 20:06; Status DC Atorvastatin Calcium (Lipitor) 40 mg QHS PO Last administered on 09/26/18at 21:00 ; Start 09/26/18 at 21:00 Iodixanol (Visipaque 320) 100 ml STK-MED ONCE .ROUTE ; Start 09/26/18 at 09:58; Stop 09/26/18 at 10:01; Status DC Lidocaine HCl (Lidocaine 1% 20ml Vial) 20 ml STK-MED ONCE .ROUTE ; Start at 09:58; Stop 09/26/18 at 10:01; Status DC Heparin Sodium/ Sodium Chloride 1,000 ml @ As Directed STK-MED ONCE .ROUTE ; Start 09/26/18 at 09:59; Stop 09/26/18 at 10:01; Status DC Fentanyl Citrate (Fentanyl 2ml Vial) 100 mcg STK-MED ONCE .ROUTE ; Start at 10:14; Stop 09/26/18 at 10:16; Status DC Midazolam HCl (Versed) 5 mg STK-MED ONCE .ROUTE ; Start 09/26/18 at 10:14; Stop 09/26/18 at 10:16; Status DC Iohexol (Omnipaque 300 Mg/ml) 100 ml STK-MED ONCE .ROUTE ; Start 09/26/18 at 10: 17; Stop 09/26/18 at 10:19; Status DC Heparin Sodium/ Sodium Chloride (HEPARIN for ARTERIAL LINE FLUSH) 1,000 unit 1X ONCE IART Last administered on 09/26/18at 11:37; Start 09/26/18 at 11:00; Stop 09/26/18 at 11:01; Status DC Midazolam HCl (Versed) 5 mg 1X ONCE IV Last administered on 09/26/18at 11:38; Start 09/26/18 at 11:00; Stop 09/26/18 at 11:01; Status DC Fentanyl Citrate (Fentanyl 2ml Vial) 100 mcg 1X ONCE IV Last administered on at 11:38; Start 09/26/18 at 11:00; Stop 09/26/18 at 11:01; Status DC Iodixanol (Visipaque 320) 100 ml 1X ONCE IART Last administered on 09/26/18at 11 :37; Start 09/26/18 at 11:00; Stop 09/26/18 at 11:01; Status DC Lidocaine HCl (Lidocaine 1% 20ml Vial) 20 ml 1X ONCE INJ Last administered on 09/26/18at 11:37; Start 09/26/18 at 11:00; Stop 09/26/18 at 11:01; Status DC Info (CONTRAST GIVEN -- Rx MONITORING) 1 each PRN DAILY PRN MC SEE COMMENTS; Start 09/26/18 at 11:00; Stop 09/28/18 at 10:59 Sodium Chloride (Normal Saline Flush) 3 ml QSHIFT PRN IV AFTER MEDS AND BLOOD DRAWS; Start 09/26/18 at 11:45 Sodium Chloride 1,000 ml @ 75 mls/hr [id number] IV ; Start 09/26/18 at 11:33; Stop 09/26/18 at 17:32; Status DC Nitroglycerin (Nitrostat) 0.4 mg PRN Q5MIN PRN SL CHEST PAIN; Start 09/26/18 at 11:45 Aspirin (Ecotrin) 81 mg [id number] PO Last administered on 09/27/18at 09:39; Start 09/27/18 at 08:00 Metoprolol Tartrate (Lopressor) 25 mg BID PO Last administered on 09/27/18at 09: 40; Start 09/26/18 at 21:00 Heparin Sodium/ Dextrose 500 ml @ 0 mls/hr CONT PRN IV SEE I/O RECORD Last administered on 09/27/18at 09:47; Start 09/26/18 at 17:00; Stop 09/27/18 at 23:59 Heparin Sodium (Porcine) (Heparin Sodium) 2,500 unit PRN Q6HRS PRN IV FOR UFH LEVEL LESS THAN 0.2 Last administered on 09/26/18at 23:58; Start 09/26/18 at 17:00 ; Stop 09/27/18 at 23:59 Info (Anti-Coagulation Monitoring By Pharmacy) 1 each PRN DAILY PRN MC SEE COMMENTS; Start 09/26/18 at 17:15 Lorazepam (Ativan) 2 mg PRN Q4HRS PRN PO ANXIETY / AGITATION; Start 09/26/18 at 17:15 Vitamin B Complex (Folbic Tablet) 1 tab DAILY PO Last administered on 09/27/18at 09:39; Start 09/26/18 at 18:00 Amlodipine Besylate (Norvasc) 5 mg DAILY PO Last administered on 09/27/18at 13:22 ; Start 09/27/18 at 13:00 Potassium Chloride 70 meq/ Sodium Bicarbonate 12.5 meq/Lidocaine HCl 24 ml/ Parenteral Electrolytes 571.5 ml @ 571.5 mls/ hr 1X ONCE IRR ; Start 09/28/18 at 06:00; Stop 09/28/18 at 06:59 Potassium Chloride 15 meq/ Sodium Bicarbonate 12.5 meq/Parenteral Electrolytes 520 ml @ 520 mls/hr 1X ONCE IRR ; Start 09/28/18 at 06:00; Stop 09/28/18 at 06: 59 Heparin Sodium (Porcine) 44792 unit/Ringer's Solution 1,020 ml @ 1,020 mls/hr 1X ONCE IRR ; Start 09/28/18 at 06:00; Stop 09/28/18 at 06:59 Cefazolin Sodium 1 gm/Sodium Chloride 500 ml @ 500 mls/hr 1X ONCE IRR ; Start 09/28/18 at 06:00; Stop 09/28/18 at 06:59 Heparin Sodium (Porcine) 800 unit/ Nitroglycerin 4 mg/Verapamil HCl 8 mg/Sodium Bicarbonate 0.34 meq/Ringer's Solution 512.34 ml @ 512.34 mls/hr 1X ONCE IRR ; Start 09/28/18 at 06:00; Stop 09/28/18 at 06:59 Ondansetron HCl (Zofran) 4 mg PRN Q6HRS PRN IV NAUSEA/VOMITING; Start 09/28/18 at 07:00; Stop 09/29/18 at 06:59 Fentanyl Citrate (Fentanyl 2ml Vial) 25 mcg PRN Q5MIN PRN IV MILD PAIN; Start 09/28/18 at 07:00; Stop 09/29/18 at 06:59 Fentanyl Citrate (Fentanyl 2ml Vial) 50 mcg PRN Q5MIN PRN IV MODERATE TO SEVERE PAIN; Start 09/28/18 at 07:00; Stop 09/29/18 at 06:59 Morphine Sulfate (Morphine Sulfate) 1 mg PRN Q10MIN PRN IV SEVERE PAIN; Start 09/28/18 at 07:00; Stop 09/29/18 at 06:59 Ringer's Solution 1,000 ml @ 30 mls/hr Q24H IV ; Start 09/28/18 at 07:00; Stop 09/28/18 at 18:59 Lidocaine HCl (Xylocaine-Mpf 1% 2ml Vial) 2 ml PRN 1X PRN ID PRIOR TO IV START ; Start 09/28/18 at 07:00; Stop 09/29/18 at 06:59 Hydromorphone HCl (Dilaudid) 0.5 mg PRN Q10MIN PRN IV SEV PAIN, Second choice; Start 09/28/18 at 07:00; Stop 09/29/18 at 06:59 Prochlorperazine Edisylate (Compazine) 5 mg PACU PRN PRN IV NAUSEA, MRX1; Start 09/28/18 at 07:00; Stop 09/29/18 at 06:59 Cefazolin Sodium/ Dextrose 50 ml @ 100 mls/hr 1X ONCE IV ; Start 09/28/18 at 06 :00; Stop 09/28/18 at 06:29 Active Scripts Active Reported Amlodipine-Benazepril 5-20 Mg (Amlodipine Besylate/Benazepril) 1 Each Capsule 1 Cap PO DAILY Vitals/I & O Vital Sign - Last 24 Hours 09/26/18 09/26/18 09/26/18 09/26/18 15:55 16:15 19:13 20:31 Temp 98.1 99.3 98.1 99.3 Pulse 77 70 71 Resp 20 16 B/P (MAP) 131/85 (100) 161/79 (106) 155/93 (113) Pulse Ox 96 94 O2 Delivery Room Air Room Air Room Air 09/26/18 09/26/18 09/27/18 09/27/18 21:00 22:56 03:55 07:00 Temp 98.2 97.8 98.1 98.2 97.8 98.1 Pulse 71 72 63 74 Resp 18 18 18 B/P (MAP) 155/93 136/84 (101) 127/87 (100) 133/77 (95) Pulse Ox 95 97 95 O2 Delivery Room Air Room Air Room Air 09/27/18 09/27/18 09/27/18 09/27/18 08:00 09:40 11:00 11:56 Temp 98.7 98.7 Pulse 74 62 Resp 18 B/P (MAP) 133/77 172/104 (126) 144/96 (112) Pulse Ox 98 O2 Delivery Room Air 09/27/18 13:22 Pulse 78 B/P (MAP) 144/96 Intake and Output 09/26/18 09/26/18 09/27/18 15:01 23:01 07:01 Intake Total 300 ml 2160 ml 240 ml Output Total 1350 ml 1400 ml 1100 ml Balance -1050 ml 760 ml -860 ml PAUL SHERMAN MD Sep 27, 2018 15:39
[2018-09-27] MEDS: ATORVASTATIN CALCIUM 40 MG TABLET. PO SCH (20:57)
[2018-09-27] MEDS: LORazepam 1 MG TABLET PO PRN (20:59)
[2018-09-28] VITALS (8 sets, daily range): BP systolic 90–133; BP diastolic 50–81
[2018-09-28] MEDS ORDERED: HEPARIN PRESERVATIVE FREE 800 UNIT, NITROGLYCERIN 4 MG, VERAPAMIL 8 MG, SODIUM BICARBON... IRR ONE ×5 (06:00)
[2018-09-28] MEDS ORDERED: POTASSIUM CHLORIDE 15 MEQ, SODIUM BICARBONATE VIAL 12.5 MEQ in IV ELECTROLYTE-S (PH 7.4... IRR ONE (06:00)
[2018-09-28] MEDS ORDERED: POTASSIUM CHLORIDE 70 MEQ, SODIUM BICARBONATE VIAL 12.5 MEQ, LIDOCAINE 2% 24 ML in IV E... IRR ONE (06:00)
[2018-09-28] MEDS ORDERED: HEPARIN 20,000 UNIT in IV RINGERS,LACTATED 1000ML 1,000 ML IRR ONE (06:00)
[2018-09-28] MEDS ORDERED: NITROGLYCERIN PREMIX 250 ML IV ONE ×2 (06:24→06:39)
[2018-09-28] MEDS ORDERED: AMINOCAPROIC ACID 5,000 MG/20 ML VIAL. IV ONE (06:24)
[2018-09-28] MEDS ORDERED: PHENYLEPHRINE 10 MG/ML VIAL. ONE (06:24)
[2018-09-28] MEDS ORDERED: ETOMIDATE 20 MG/10 ML VIAL. IV ONE (06:24)
[2018-09-28] MEDS ORDERED: ROCURONIUM 100 MG/10 ML VIAL. ONE ×2 (06:24→09:54)
[2018-09-28] MEDS ORDERED: ASPIRIN RECTAL 300 MG SUPP. ONE (06:37)
[2018-09-28] MEDS ORDERED: 0.9 % SODIUM CHLORIDE 20 ML VIAL. IJ ONE ×3 (06:37→06:38)
[2018-09-28] MEDS ORDERED: SURGICEL HEMOSTAT 4X8 EACH. ONE (06:37)
[2018-09-28] MEDS ORDERED: PAPAVERINE 60 MG/2 ML VIAL FOR OR ONLY. ONE (06:37)
[2018-09-28] MEDS ORDERED: VANCOMYCIN 10GM VIAL for OR. ONE (06:37)
[2018-09-28] MEDS ORDERED: HEPARIN 30,000 UNIT/30 ML VIAL. ONE ×2 (06:38→13:36)
[2018-09-28] MEDS ORDERED: MIDAZOLAM HCL/PF 2 MG/2 ML VIAL. ONE ×3 (06:52→08:53)
[2018-09-28] MEDS ORDERED: SUFentanil 250 MCG/5 ML AMPUL. ONE (06:59)
[2018-09-28] MEDS ORDERED: IV RINGERS,LACTATED 1000ML 1,000 ML IV SCH (07:00)
[2018-09-28] MEDS ORDERED: MORPHINE SULFATE 4 MG/ML VIAL. IV PRN (07:00)
[2018-09-28] MEDS ORDERED: ONDANSETRON PF 4 MG/2 ML VIAL. IV PRN ×2 (07:00→15:00)
[2018-09-28] MEDS ORDERED: fentaNYL PF VIAL 100 MCG/2 ML VIAL IV PRN ×2 (07:00)
[2018-09-28] MEDS ORDERED: PROCHLORPERAZINE 10 MG/2 ML VIAL. IV PRN ×2 (07:00→15:00)
[2018-09-28] MEDS ORDERED: LIDOCAINE 1% PF 2 ML VIAL. ID PRN (07:00)
[2018-09-28] MEDS ORDERED: HYDROmorphone 2 MG/ML VIAL IV PRN (07:00)
[2018-09-28] MEDS ORDERED: ISOFLURANE > 120 MINUTES. IH ONE (08:10)
[2018-09-28] MEDS: HEPARIN 25,000UTS/500ML PREMIX 500 ML IV PRN (08:19)
[2018-09-28] MEDS: VITAMIN B12,B9,B6 COMPLEX 1 TABLET. PO SCH (09:00)
[2018-09-28] MEDS: amLODIPine BESYLATE 5 MG TABLET PO SCH (09:00)
[2018-09-28] MEDS ORDERED: HEPARIN for IV BOLUS 10,000 UNIT/10 ML VIAL. ONE ×2 (10:30→13:36)
[2018-09-28] MEDS ORDERED: PROTAMINE 250 MG/25 ML VIAL IV ONE (10:39)
[2018-09-28] MEDS ORDERED: PROTAMINE 50 MG/5 ML VIAL. IV ONE ×2 (10:39→14:03)
--- NOTE | 2018-09-28 12:05 | NUR ---
SS following up with discharge planning. Pt scheduled for CABG and transferred to ICU. SS will continue to follow for pending discharge needs.
[2018-09-28] MEDS ORDERED: ceFAZolin SODIUM 1 GM VIAL ONE (12:48)
[2018-09-28] MEDS ORDERED: CALCIUM CHLORIDE 1,000 MG/10 ML DISP.SYRIN ONE (13:36)
[2018-09-28] MEDS ORDERED: ALBUMIN HUMAN 25% 100 ML IV ONE (13:36)
[2018-09-28] MEDS ORDERED: MANNITOL 25% 12.5 G/50 ML VIAL FOR OR. ONE (13:36)
[2018-09-28] MEDS ORDERED: MAGNESIUM SULFATE 5 GM/10 ML VIAL. ONE (13:36)
[2018-09-28] MEDS ORDERED: LIDOCAINE 2% PF 5 ML VIAL. ONE (13:36)
[2018-09-28] MEDS ORDERED: ALBUMIN HUMAN 5% 500 ML IV ONE (13:36)
[2018-09-28 14:02] LABS: HEMATOCRIT 32.1 % (39.0-53.0); WHITE BLOOD COUNT 13.3 x10^3/uL (4.0-11.0)
[2018-09-28 14:05] LABS: HEMOGLOBIN 10.7 g/dL (13.0-17.5)
[2018-09-28 14:12] LABS: PROTHROMBIN TIME PATIENT 16.3 SEC (11.7-14.0)
[2018-09-28] MEDS ORDERED: niCARdipine 50 MG in IV NORMAL SALINE 250ML 250 ML IV PRN (14:30)
[2018-09-28] MEDS ORDERED: AMIODARONE 900 MG in IV DEXTROSE 5% 500 ML IV PRN ×2 (14:30→15:00)
[2018-09-28] MEDS ORDERED: AMIODARONE 150 MG in IV DEXTROSE 5% 100ML 100 ML IV ONE ×2 (14:30→15:00)
--- NOTE | 2018-09-28 14:45 | PDOC ---
BRIEF OPERATIVE NOTE Date: Sep 28, 2018 Pre-Op Diagnosis NSTEMI Severe 3-vessel coronary artery disease Hypertension Hyperlipidemia Post-Op Diagnosis NSTEMI Severe 3-vessel coronary artery disease Hypertension Hyperlipidemia Procedure Performed CABG x 4 (COLLINS to LAD, radial to OM, SVG to diagonal, SVG to RPDA) Left radial artery harvest Left endoscopic greater saphenous vein harvest Surgeon Serena Hill MD FACS Piping Designer Reyna King DIRECTOR OF SOCIAL SERVICESLeona Godoy [facility] Anesthesiologist Dr Campbell Anesthesia Type: General Blood Loss Cellsaver IV Fluid Crystalloid: 2000 mls Colloid: 500 mls Cellsaver: 750 mls Urine Output 1500 mls Specimens Obtained None Findings Excellent 2,5mm RPDA, OM and diagonal targets 2mm LAD target with diffuse calcifications Good size COLLINS conduit with excellent flow Good quality radial artery conduit Modest size saphenous vein conduit CPB time: 120 min Cellsaver: 100 min Complications None SERENA HILL MD Sep 28, 2018 14:45
--- NOTE | 2018-09-28 14:47 | PDOC4 ---
Operative Note Operative Note Date Sep 28, 2018 Preoperative diagnosis NSTEMI Severe 3-vessel coronary artery disease Hypertension Hyperlipidemia Postoperative diagnosis NSTEMI Severe 3-vessel coronary artery disease Hypertension Hyperlipidemia Procedure performed CABG x 4 (COLLINS to LAD, radial to OM, SVG to diagonal, SVG to RPDA) Left radial artery harvest Left endoscopic greater saphenous vein harvest Surgeon Tahmina Hill MD FACS Tack Picker SERGIO Brantley RNFA Anesthesiologist Dr Campbell Anesthesia type General Blood loss Cellsaver IV fluids Crystalloid: 2000 mls Colloid: 500 mls Cellsaver: 750 mls Urine output 1500 mls Specimens obtained None Findings Excellent 2,5mm RPDA, OM and diagonal targets 2mm LAD target with diffuse calcifications Good size COLLINS conduit with excellent flow Good quality radial artery conduit Modest size saphenous vein conduit CPB time: 120 min Cellsaver: 100 min Complications None Indication The patient is a 57-year-old male with a history of hypertension and hyperlipidemia and a family history of ischemic heart disease who presented to our emergency room yesterday with chest pain. For the last 2-3 months he has had increasing atypical symptoms which include fatigue, indigestion, shortness of breath. He had anterior lateral ischemic changes and a small troponin leak which peaked at 2.7. He underwent a coronary angiography today which demonstrated a 80-90% stenosis of the proximal LAD, a tight lesion at the origin of a large diagonal vessel, a tight 80-90% stenosis of the left circumflex and a 70% mid to distal RCA lesion. His LV function is preserved. A CABG was indicated. Operation After appropriate identification, the patient was brought to the operating room and placed supine on the operating table. Anesthesia was induced and the airway was secured with an endotracheal tube. A right IJ [place] catheter was placed. A right radial arterial line was also inserted. Antibiotics were delivered and the patient was preped and draped in the usual standard surgical sterile fashion. A timeout was then performed. A median sternotomy was performed and the left internal mammary artery was harvested, which was of good size and with excellent flow. Simultaneously the left greater saphenous vein was harvested endoscopically, which was of good quality but of modest caliber. The left radial artery was also harvested through an incision from the elbow to the wrist. The radial artery was harvested using the Harmonic scalpel. Prior to dividing the artery, the pulse oxymeter was checked, with the radial clamped, which did not change. The waveform did vandana change and O2 sats was 100%. Subsequently the artery was divided. The pericardium was incised. The patient was heparinized. Cardiopulmonary bypass was established through the ascending aorta and the right atrium. A bifurcating antegrade cardioplegia and root vent needle was placed in the ascending aorta. The patient was cooled to 34�. Arrest was achieved with induction antegrade cold blood cardioplegia. The cross-clamp was applied and diastolic arrest was achieved. Intermittent dosages of antegrade cardioplegia was given every 20 minutes. Grafts: Saphenous vein graft to right posterior descending coronary artery, end to side anastomosis with 7-0 Prolene. 2.5 mm vessel. Radial artery graft to obtuse marginal coronary artery, end to side anastomosis with 7-0 Prolene, 2.5 mm vessel. Saphenous vein graft to diagonal coronary artery, end to side anastomosis with 7 -0 Prolene. 2.5 mm vessel. Left internal mammary artery to left anterior descending coronary artery, end to side anastomosis with 7-0 Prolene. 2 mm vessel with diffuse calcification. The proximal anastomoses for the RCA and diagonal grafts were performed using a 5-0 Prolene running suture. 6-0 Prolene was used for the radial artery proximal anastomosis. The cross-clamp was removed. The heart was allowed to rewarm and reperfuse. The grafts were de-aired. The patient resumed normal sinus rhythm after cardioversion and was from cardiopulmonary bypass without inotropic support. All cannulae were removed. Heparin was reversed with protamine. Atrial and ventricular pacing wires were placed. Hemostasis was confirmed. An angled 32 [place] chest tube was placed in the left pleural space, a 32Fr angled in the posterior pericardium and a 32 straight in the anterior pericardium. The sternotomy was closed with seven stainless steel wires. The incision was closed with a layer of 0 Vicryl, followed by 2-0 Vicryl and then 4- 0 Monocryl for the epidermis. Sterile dressings were applied. The total cardiopulmonary bypass time was 120 minutes and the cross-clamp time was 100 minutes. The instrument, sponge and needle counts were correct. The patient was then transferred to the ICU in critical condition. TAHMINA HILL MD Sep 28, 2018 14:47
[2018-09-28 14:55] LABS: ART BE ISTAT 3 mmol/L (0-3); ART GLUC ISTAT 117 mg/dL (70-99); ART HCO3 ISTAT 26 mmol/L (21-28); ART HCT ISTAT 38 % (37-52); ART HGB ISTAT 12.9 g/dL (14-18); ART ION CA ISTAT 1.21 mmol/L (1.13-1.32); ART K ISTAT 4.3 mmol/L (3.5-5.0); ART NA ISTAT 138 mmol/L (135-145); ART PCO2 ISTAT 37 mmHg (35-45); ART PH ISTAT 7.46 (7.35-7.45); ART PO2 ISTAT 407 mmHg (75-100); ART SAT O2 SAT 100 % (95-99); ART TCO2 ISTAT 28 mmol/L (21-32)
[2018-09-28 14:55] LABS: ART BE ISTAT 0 mmol/L (0-3); ART GLUC ISTAT 121 mg/dL (70-99); ART HCO3 ISTAT 26 mmol/L (21-28); ART HCT ISTAT 31 % (37-52); ART HGB ISTAT 10.5 g/dL (14-18); ART K ISTAT 4.8 mmol/L (3.5-5.0); ART NA ISTAT 139 mmol/L (135-145); ART PCO2 ISTAT 50 mmHg (35-45); ART PH ISTAT 7.33 (7.35-7.45); ART PO2 ISTAT 199 mmHg (75-100); ART SAT O2 SAT 100 % (95-99); ART TCO2 ISTAT 28 mmol/L (21-32)
[2018-09-28 14:55] LABS: ART BE ISTAT 0 mmol/L (0-3); ART GLUC ISTAT 118 mg/dL (70-99); ART HCO3 ISTAT 26 mmol/L (21-28); ART HCT ISTAT 32 % (37-52); ART HGB ISTAT 10.9 g/dL (14-18); ART ION CA ISTAT 1.11 mmol/L (1.13-1.32); ART NA ISTAT 140 mmol/L (135-145); ART PCO2 ISTAT 49 mmHg (35-45); ART PH ISTAT 7.33 (7.35-7.45); ART PO2 ISTAT 229 mmHg (75-100); ART SAT O2 SAT 100 % (95-99); ART TCO2 ISTAT 27 mmol/L (21-32)
[2018-09-28 14:55] LABS: ART BE ISTAT 2 mmol/L (0-3); ART GLUC ISTAT 125 mg/dL (70-99); ART HCO3 ISTAT 28 mmol/L (21-28); ART HCT ISTAT 38 % (37-52); ART HGB ISTAT 12.9 g/dL (14-18); ART K ISTAT 4.6 mmol/L (3.5-5.0); ART NA ISTAT 138 mmol/L (135-145); ART PCO2 ISTAT 50 mmHg (35-45); ART PH ISTAT 7.35 (7.35-7.45); ART PO2 ISTAT 377 mmHg (75-100); ART SAT O2 SAT 100 % (95-99); ART TCO2 ISTAT 29 mmol/L (21-32)
[2018-09-28 14:55] LABS: ART BE ISTAT -2 mmol/L (0-3); ART GLUC ISTAT 123 mg/dL (70-99); ART HCO3 ISTAT 24 mmol/L (21-28); ART HCT ISTAT 32 % (37-52); ART HGB ISTAT 10.9 g/dL (14-18); ART ION CA ISTAT 1.05 mmol/L (1.13-1.32); ART K ISTAT 5.9 mmol/L (3.5-5.0); ART NA ISTAT 137 mmol/L (135-145); ART PCO2 ISTAT 48 mmHg (35-45); ART PH ISTAT 7.32 (7.35-7.45); ART PO2 ISTAT 354 mmHg (75-100); ART SAT O2 SAT 100 % (95-99); ART TCO2 ISTAT 26 mmol/L (21-32)
[2018-09-28 14:56] LABS: ART BE ISTAT 0 mmol/L (0-3); ART GLUC ISTAT 127 mg/dL (70-99); ART HCO3 ISTAT 26 mmol/L (21-28); ART HCT ISTAT 30 % (37-52); ART HGB ISTAT 10.2 g/dL (14-18); ART ION CA ISTAT 1.12 mmol/L (1.13-1.32); ART K ISTAT 4.7 mmol/L (3.5-5.0); ART NA ISTAT 138 mmol/L (135-145); ART PCO2 ISTAT 53 mmHg (35-45); ART PO2 ISTAT 191 mmHg (75-100); ART SAT O2 SAT 100 % (95-99); ART TCO2 ISTAT 28 mmol/L (21-32)
[2018-09-28 14:56] LABS: ART BE ISTAT -2 mmol/L (0-3); ART GLUC ISTAT 119 mg/dL (70-99); ART HCO3 ISTAT 23 mmol/L (21-28); ART HCT ISTAT 27 % (37-52); ART HGB ISTAT 9.2 g/dL (14-18); ART ION CA ISTAT 1.78 mmol/L (1.13-1.32); ART K ISTAT 4.2 mmol/L (3.5-5.0); ART NA ISTAT 138 mmol/L (135-145); ART PCO2 ISTAT 38 mmHg (35-45); ART PH ISTAT 7.38 (7.35-7.45); ART PO2 ISTAT 66 mmHg (75-100); ART SAT O2 SAT 93 % (95-99); ART TCO2 ISTAT 24 mmol/L (21-32)
[2018-09-28 14:56] LABS: ART BE ISTAT -1 mmol/L (0-3); ART GLUC ISTAT 99 mg/dL (70-99); ART HCO3 ISTAT 24 mmol/L (21-28); ART HCT ISTAT 31 % (37-52); ART HGB ISTAT 10.5 g/dL (14-18); ART ION CA ISTAT 1.51 mmol/L (1.13-1.32); ART K ISTAT 4.3 mmol/L (3.5-5.0); ART NA ISTAT 141 mmol/L (135-145); ART PCO2 ISTAT 39 mmHg (35-45); ART PO2 ISTAT 350 mmHg (75-100); ART SAT O2 SAT 100 % (95-99); ART TCO2 ISTAT 25 mmol/L (21-32)
[2018-09-28] MEDS ORDERED: MEPERIDINE PF 25 MG/ML VIAL. IV PRN (15:00)
[2018-09-28] MEDS ORDERED: ACETAMINOPHEN 650 MG SUPP.RECT. PR PRN (15:00)
[2018-09-28] MEDS ORDERED: PROPOFOL 100 ML IV PRN (15:00)
[2018-09-28] MEDS ORDERED: BISACODYL 10 MG SUPP.RECT. PR PRN (15:00)
[2018-09-28] MEDS ORDERED: KCL PER PROTOCOL MC PRN (15:00)
[2018-09-28] MEDS ORDERED: PHENYLEPHRINE INJ 20 MG in IV NORMAL SALINE 250ML 250 ML IV PRN (15:00)
[2018-09-28] MEDS ORDERED: INSULIN REGULAR VIAL 150 UNIT in 0.9 % SODIUM CHLORIDE 150ML 150 ML IV PRN (15:00)
[2018-09-28] MEDS ORDERED: AMIODARONE 150 MG in IV DEXTROSE 5% 100ML 100 ML IV PRN (15:00)
[2018-09-28] MEDS ORDERED: METOCLOPRAMIDE HCL 10 MG/2 ML VIAL. IV PRN (15:00)
[2018-09-28] MEDS ORDERED: ALBUTEROL SULFATE 2.5 MG/3 ML NEBU. NEB PRN (15:00)
[2018-09-28] MEDS ORDERED: NITROGLYCERIN PREMIX 250 ML IV PRN (15:00)
[2018-09-28] MEDS ORDERED: ACETAMINOPHEN 325 MG TABLET. PO PRN (15:00)
[2018-09-28] MEDS ORDERED: 0.9 % SODIUM CHLORIDE 10 ML DISP.SYRIN. IV PRN (15:00)
[2018-09-28] MEDS ORDERED: MAGNESIUM SULFATE 1GM 100 ML IV PRN (15:00)
[2018-09-28] MEDS ORDERED: MORPHINE SULFATE 2 MG/ML VIAL. IV PRN (15:00)
[2018-09-28] MEDS ORDERED: DEXTROSE 50% 25 GM / 50ML DISP.SYRIN. IV PRN (15:00)
--- NOTE | 2018-09-28 15:29 | RAD ---
CHEST AP ONLY History: Post coronary artery bypass graft Comparison: 09/27/2018 Findings: Single view of the chest is submitted. There has been interval median sternotomy. There is now endotracheal tube, tip about 1 to 2 cm from [place]. There is a right internal jugular catheter with the tip projecting over the left aspect of the cardiac silhouette. There are 2 left chest tubes now present. There is now mediastinal drain. Pericardial cardiac silhouette appears slightly larger than previously. There is new bibasilar atelectasis greater on the right. No obvious pneumothorax is identified, limited evaluation in supine patient. Impression: 1. There are postoperative findings of the chest as stated with support catheters and tubes. Pericardial cardiac silhouette appears somewhat larger than previously for which attention on follow-up advised. There is now bibasilar atelectasis greater on the right. Electronically signed by: Daniel Martinez MD (09/28/2018 3:25 PM) [id number]
[2018-09-28] MEDS: IV RINGERS,LACTATED 1000ML 1,000 ML IV SCH (15:30)
[2018-09-28] MEDS: ALBUMIN HUMAN 5% 250 ML IV PRN ×3 (15:30→17:07)
[2018-09-28 15:32] LABS: BASE EXCESS COOX -4 mmol/L (-3-3); HCO3 COOX 21 mmol/L (21-28); PCO2 COOX 40 mmHg (35-46); PO2 COOX 247 mmHg (75-108)
[2018-09-28 15:33] LABS: SAT O2 COOX 99 % (92-99)
[2018-09-28 15:34] LABS: METHEMOGLOBIN 0.4 % (0.0-1.9)
[2018-09-28 15:36] LABS: HEMATOCRIT 33.3 % (39.0-53.0); HEMOGLOBIN 11.4 g/dL (13.0-17.5); RED BLOOD COUNT 3.52 x10^6/uL (4.30-5.70); RED CELL DISTRIBUTION WIDTH 12.4 % (11.5-14.5); WHITE BLOOD COUNT 11.8 x10^3/uL (4.0-11.0)
[2018-09-28 15:45] LABS: PROTHROMBIN TIME PATIENT 16.3 SEC (11.7-14.0)
[2018-09-28 15:46] LABS: CALCIUM 10.3 mg/dL (8.5-10.1); CREATININE 1.2 mg/dL (0.7-1.3); GFR 62.2; MAGNESIUM 2.3 mg/dL (1.8-2.4); POTASSIUM 4.6 mmol/L (3.5-5.1)
--- NOTE | 2018-09-28 15:49 | EKG ---
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
--- NOTE | 2018-09-28 15:57 | PDOC ---
PROGRESS NOTES Chief Complaint Chief Complaint CAD s/p CABG NSTEMI HTN HLD ETOH abuse Tobacco abuse History of Present Illness History of Present Illness 57-year-old male with hypertension and hyperlipidemia and a strong family history of ischemic heart disease who presents with a non-STEMI. He had anterior lateral ischemic EKG changes and a small troponin leak which peaked at 2.7. He underwent a coronary angiography which demonstrated a 80-90% stenosis of the proximal LAD, a tight lesion at the origin of a large diagonal vessel, a tight 80-90% stenosis of the left circumflex and a 70% mid to distal RCA lesion. Seen post-CABG x 4 (COLLINS to LAD, radial to OM, SVG to diagonal, SVG to RPDA). He is awake, states he has some chest pain. chest tubes draining well. Good UOP. No problem with his extubation. PLAN s/p cardiac cath revealing severe 3 VD, normal Ef without WMA CABG �4 (COLLINS to LAD, radial to OM, SVG to diagonal, SVG to RPDA) carotid duplex and bilateral lower extremity vein for vein mapping continue ASA, heparin drip, statin banana bag given for etoh prn ativan for etoh withdrawal counseled on smoking meds BP control full code Advance diet as tolerated post-op per protocol apprec cards and CTS involvement Seen in ICU post CABG Vitals Vitals Vital Signs Date Time Temp Pulse Resp B/P (MAP) Pulse Ox O2 Delivery O2 Flow Rate FiO2 09/28/18 15:07 100 Ventilator 09/28/18 07:16 98.3 55 15 123/74 98.3 Physical Exam General: Alert, Oriented X3, No acute distress Heart: Regular rate, Normal S1, Normal S2, No murmurs Abdomen: Soft, No tenderness Extremities: No edema Skin: No significant lesion Labs LABS Laboratory Tests Test 09/28/18 07:26 09/28/18 08:34 09/28/18 09:51 09/28/18 11:06 Glucose (Fingerstick) 93 mg/dL (70-99) Bedside Hemoglobin (Calculated) 12.9 g/dL (14-18) 12.9 g/dL (14-18) 10.9 g/dL (14-18) Bedside Hematocrit 38 % (37-52) 38 % (37-52) 32 % (37-52) Bedside Arterial pH 7.46 (7.35-7.45) 7.35 (7.35-7.45) 7.32 (7.35-7.45) Bedside Arterial pCO2 37 mmHg (35-45) 50 mmHg (35-45) 48 mmHg (35-45) Bedside Arterial pO2 407 mmHg (75-100) 377 mmHg (75-100) 354 mmHg (75-100) Bedside Arterial HCO3 26 mmol/L (21-28) 28 mmol/L (21-28) 24 mmol/L (21-28) Bedside Arterial Total CO2 28 mmol/L (21-32) 29 mmol/L (21-32) 26 mmol/L (21-32) Arterial Bld O2 Saturation (Measur) 100 % (95-99) 100 % (95-99) 100 % (95-99) Bedside Arterial Blood Base Excess 3 mmol/L (0-3) 2 mmol/L (0-3) -2 mmol/L (0-3) Bedside FiO2 100.0 100.0 75.0 Bedside Sodium 138 mmol/L (135-145) 138 mmol/L (135-145) 137 mmol/L (135-145) Bedside Potassium 4.3 mmol/L (3.5-5.0) 4.6 mmol/L (3.5-5.0) 5.9 mmol/L (3.5-5.0) Glucose Level 117 mg/dL (70-99) 125 mg/dL (70-99) 123 mg/dL (70-99) Bedside Ionized Calcium (Yannick) 1.21 mmol/L (1.13-1.32) 1.20 mmol/L (1.13-1.32) 1.05 mmol/L (1.13-1.32) Test 09/28/18 11:30 09/28/18 11:58 09/28/18 12:31 09/28/18 13:12 Bedside Hemoglobin (Calculated) 10.9 g/dL (14-18) 10.5 g/dL (14-18) 10.2 g/dL (14-18) 9.2 g/dL (14-18) Bedside Hematocrit 32 % (37-52) 31 % (37-52) 30 % (37-52) 27 % (37-52) Bedside Arterial pH 7.33 (7.35-7.45) 7.33 (7.35-7.45) 7.30 (7.35-7.45) 7.38 (7.35-7.45) Bedside Arterial pCO2 49 mmHg (35-45) 50 mmHg (35-45) 53 mmHg (35-45) 38 mmHg (35-45) Bedside Arterial pO2 229 mmHg (75-100) 199 mmHg (75-100) 191 mmHg (75-100) 66 mmHg (75-100) Bedside Arterial HCO3 26 mmol/L (21-28) 26 mmol/L (21-28) 26 mmol/L (21-28) 23 mmol/L (21-28) Bedside Arterial Total CO2 27 mmol/L (21-32) 28 mmol/L (21-32) 28 mmol/L (21-32) 24 mmol/L (21-32) Arterial Bld O2 Saturation (Measur) 100 % (95-99) 100 % (95-99) 100 % (95-99) 93 % (95-99) Bedside Arterial Blood Base Excess 0 mmol/L (0-3) 0 mmol/L (0-3) 0 mmol/L (0-3) -2 mmol/L (0-3) Bedside FiO2 70.0 70.0 80.0 100.0 Bedside Sodium 140 mmol/L (135-145) 139 mmol/L (135-145) 138 mmol/L (135-145) 138 mmol/L (135-145) Bedside Potassium 5.0 mmol/L (3.5-5.0) 4.8 mmol/L (3.5-5.0) 4.7 mmol/L (3.5-5.0) 4.2 mmol/L (3.5-5.0) Glucose Level 118 mg/dL (70-99) 121 mg/dL (70-99) 127 mg/dL (70-99) 119 mg/dL (70-99) Bedside Ionized Calcium (Yannick) 1.11 mmol/L (1.13-1.32) 1.10 mmol/L (1.13-1.32) 1.12 mmol/L (1.13-1.32) 1.78 mmol/L (1.13-1.32) Test 09/28/18 13:50 09/28/18 14:18 09/28/18 15:19 2/8/19 15:20 White Blood Count 13.3 x10^3/uL (4.0-11.0) 11.8 x10^3/uL (4.0-11.0) Hemoglobin 10.7 g/dL (13.0-17.5) 11.4 g/dL (13.0-17.5) Hematocrit 32.1 % (39.0-53.0) 33.3 % (39.0-53.0) Platelet Count 132 x10^3/uL (140-400) 126 x10^3/uL (140-400) Prothrombin Time 16.3 SEC (11.7-14.0) 16.3 SEC (11.7-14.0) Prothromb Time International Ratio 1.3 (0.8-1.1) 1.3 (0.8-1.1) Activated Partial Thromboplast Time 31 SEC (24-38) 31 SEC (24-38) Fibrinogen 216 mg/dL (200-440) Bedside Hemoglobin (Calculated) 10.5 g/dL (14-18) Bedside Hematocrit 31 % (37-52) Bedside Arterial pH 7.40 (7.35-7.45) Bedside Arterial pCO2 39 mmHg (35-45) Bedside Arterial pO2 350 mmHg (75-100) Bedside Arterial HCO3 24 mmol/L (21-28) Bedside Arterial Total CO2 25 mmol/L (21-32) Arterial Bld O2 Saturation (Measur) 100 % (95-99) Bedside Arterial Blood Base Excess -1 mmol/L (0-3) Bedside FiO2 100.0 Bedside Sodium 141 mmol/L (135-145) Bedside Potassium 4.3 mmol/L (3.5-5.0) Glucose Level 99 mg/dL (70-99) 101 mg/dL (70-99) Bedside Ionized Calcium (Yannick) 1.51 mmol/L (1.13-1.32) Glucose (Fingerstick) 95 mg/dL (70-99) Red Blood Count 3.52 x10^6/uL (4.30-5.70) Mean Corpuscular Volume 95 fL (79-100) Mean Corpuscular Hemoglobin 32 pg (25-35) Mean Corpuscular Hemoglobin Concent 34 g/dL (31-37) Red Cell Distribution Width 12.4 % (11.5-14.5) O2 Saturation 99 % (92-99) Arterial Blood pH 7.35 (7.35-7.45) Arterial Blood pCO2 at Patient Temp 40 mmHg (35-46) Arterial Blood pO2 at Patient Temp 247 mmHg (75-108) Arterial Blood HCO3 21 mmol/L (21-28) Arterial Blood Base Excess -4 mmol/L (-3-3) Oxyhemoglobin 98.0 % Methemoglobin 0.4 % (0.0-1.9) Carbon Monoxide, Quantitative 0.4 % (0.0-1.9) FiO2 80 Sodium Level 143 mmol/L (136-145) Potassium Level 4.6 mmol/L (3.5-5.1) Chloride Level 109 mmol/L (98-107) Carbon Dioxide Level 24 mmol/L (21-32) Anion Gap 10 (6-14) Blood Urea Nitrogen 12 mg/dL (8-26) Creatinine 1.2 mg/dL (0.7-1.3) Estimated GFR (Cockcroft-Gault) 62.2 Calcium Level 10.3 mg/dL (8.5-10.1) Magnesium Level 2.3 mg/dL (1.8-2.4) Assessment and Plan Assessmemt and Plan Problems Medical Problems: (1) Elevated d-dimer Status: Acute (2) NSTEMI (non-ST elevated myocardial infarction) Status: Acute Comment Review of Relevant I have reviewed the following items vicky (where applicable) has been applied. Labs Laboratory Tests Test 09/26/18 23:05 09/27/18 05:00 09/27/18 10:50 09/28/18 07:26 Heparin Anti-Xa Act, Unfractionated 0.10 IU/mL (0.30-0.70) 0.31 IU/mL (0.30-0.70) 0.24 IU/mL (0.30-0.70) White Blood Count 6.3 x10^3/uL (4.0-11.0) Red Blood Count 4.45 x10^6/uL (4.30-5.70) Hemoglobin 14.3 g/dL (13.0-17.5) Hematocrit 42.3 % (39.0-53.0) Mean Corpuscular Volume 95 fL (79-100) Mean Corpuscular Hemoglobin 32 pg (25-35) Mean Corpuscular Hemoglobin Concent 34 g/dL (31-37) Red Cell Distribution Width 12.5 % (11.5-14.5) Platelet Count 217 x10^3/uL (140-400) Troponin I Quantitative 1.294 ng/mL (0.000-0.055) Triglycerides Level 141 mg/dL (0-150) Cholesterol Level 241 mg/dL (0-200) LDL Cholesterol, Calculated 163 mg/dL (0-100) VLDL Cholesterol, Calculated 28 mg/dL (0-40) Non-HDL Cholesterol Calculated 191 mg/dL (0-129) HDL Cholesterol 50 mg/dL (40-60) Cholesterol/HDL Ratio 4.8 Glucose (Fingerstick) 93 mg/dL (70-99) Test 09/28/18 08:34 09/28/18 09:51 09/28/18 11:06 09/28/18 11:30 Bedside Hemoglobin (Calculated) 12.9 g/dL (14-18) 12.9 g/dL (14-18) 10.9 g/dL (14-18) 10.9 g/dL (14-18) Bedside Hematocrit 38 % (37-52) 38 % (37-52) 32 % (37-52) 32 % (37-52) Bedside Arterial pH 7.46 (7.35-7.45) 7.35 (7.35-7.45) 7.32 (7.35-7.45) 7.33 (7.35-7.45) Bedside Arterial pCO2 37 mmHg (35-45) 50 mmHg (35-45) 48 mmHg (35-45) 49 mmHg (35-45) Bedside Arterial pO2 407 mmHg (75-100) 377 mmHg (75-100) 354 mmHg (75-100) 229 mmHg (75-100) Bedside Arterial HCO3 26 mmol/L (21-28) 28 mmol/L (21-28) 24 mmol/L (21-28) 26 mmol/L (21-28) Bedside Arterial Total CO2 28 mmol/L (21-32) 29 mmol/L (21-32) 26 mmol/L (21-32) 27 mmol/L (21-32) Arterial Bld O2 Saturation (Measur) 100 % (95-99) 100 % (95-99) 100 % (95-99) 100 % (95-99) Bedside Arterial Blood Base Excess 3 mmol/L (0-3) 2 mmol/L (0-3) -2 mmol/L (0-3) 0 mmol/L (0-3) Bedside FiO2 100.0 100.0 75.0 70.0 Bedside Sodium 138 mmol/L (135-145) 138 mmol/L (135-145) 137 mmol/L (135-145) 140 mmol/L (135-145) Bedside Potassium 4.3 mmol/L (3.5-5.0) 4.6 mmol/L (3.5-5.0) 5.9 mmol/L (3.5-5.0) 5.0 mmol/L (3.5-5.0) Glucose Level 117 mg/dL (70-99) 125 mg/dL (70-99) 123 mg/dL (70-99) 118 mg/dL (70-99) Bedside Ionized Calcium (Yannick) 1.21 mmol/L (1.13-1.32) 1.20 mmol/L (1.13-1.32) 1.05 mmol/L (1.13-1.32) 1.11 mmol/L (1.13-1.32) Test 09/28/18 11:58 09/28/18 12:31 09/28/18 13:12 09/28/18 13:50 Bedside Hemoglobin (Calculated) 10.5 g/dL (14-18) 10.2 g/dL (14-18) 9.2 g/dL (14-18) Bedside Hematocrit 31 % (37-52) 30 % (37-52) 27 % (37-52) Bedside Arterial pH 7.33 (7.35-7.45) 7.30 (7.35-7.45) 7.38 (7.35-7.45) Bedside Arterial pCO2 50 mmHg (35-45) 53 mmHg (35-45) 38 mmHg (35-45) Bedside Arterial pO2 199 mmHg (75-100) 191 mmHg (75-100) 66 mmHg (75-100) Bedside Arterial HCO3 26 mmol/L (21-28) 26 mmol/L (21-28) 23 mmol/L (21-28) Bedside Arterial Total CO2 28 mmol/L (21-32) 28 mmol/L (21-32) 24 mmol/L (21-32) Arterial Bld O2 Saturation (Measur) 100 % (95-99) 100 % (95-99) 93 % (95-99) Bedside Arterial Blood Base Excess 0 mmol/L (0-3) 0 mmol/L (0-3) -2 mmol/L (0-3) Bedside FiO2 70.0 80.0 100.0 Bedside Sodium 139 mmol/L (135-145) 138 mmol/L (135-145) 138 mmol/L (135-145) Bedside Potassium 4.8 mmol/L (3.5-5.0) 4.7 mmol/L (3.5-5.0) 4.2 mmol/L (3.5-5.0) Glucose Level 121 mg/dL (70-99) 127 mg/dL (70-99) 119 mg/dL (70-99) Bedside Ionized Calcium (Yannick) 1.10 mmol/L (1.13-1.32) 1.12 mmol/L (1.13-1.32) 1.78 mmol/L (1.13-1.32) White Blood Count 13.3 x10^3/uL (4.0-11.0) Hemoglobin 10.7 g/dL (13.0-17.5) Hematocrit 32.1 % (39.0-53.0) Platelet Count 132 x10^3/uL (140-400) Prothrombin Time 16.3 SEC (11.7-14.0) Prothromb Time International Ratio 1.3 (0.8-1.1) Activated Partial Thromboplast Time 31 SEC (24-38) Fibrinogen 216 mg/dL (200-440) Test 09/28/18 14:18 09/28/18 15:19 09/28/18 15:20 Bedside Hemoglobin (Calculated) 10.5 g/dL (14-18) Bedside Hematocrit 31 % (37-52) Bedside Arterial pH 7.40 (7.35-7.45) Bedside Arterial pCO2 39 mmHg (35-45) Bedside Arterial pO2 350 mmHg (75-100) Bedside Arterial HCO3 24 mmol/L (21-28) Bedside Arterial Total CO2 25 mmol/L (21-32) Arterial Bld O2 Saturation (Measur) 100 % (95-99) Bedside Arterial Blood Base Excess -1 mmol/L (0-3) Bedside FiO2 100.0 Bedside Sodium 141 mmol/L (135-145) Bedside Potassium 4.3 mmol/L (3.5-5.0) Glucose Level 99 mg/dL (70-99) 101 mg/dL (70-99) Bedside Ionized Calcium (Yannick) 1.51 mmol/L (1.13-1.32) Glucose (Fingerstick) 95 mg/dL (70-99) White Blood Count 11.8 x10^3/uL (4.0-11.0) Red Blood Count 3.52 x10^6/uL (4.30-5.70) Hemoglobin 11.4 g/dL (13.0-17.5) Hematocrit 33.3 % (39.0-53.0) Mean Corpuscular Volume 95 fL (79-100) Mean Corpuscular Hemoglobin 32 pg (25-35) Mean Corpuscular Hemoglobin Concent 34 g/dL (31-37) Red Cell Distribution Width 12.4 % (11.5-14.5) Platelet Count 126 x10^3/uL (140-400) Prothrombin Time 16.3 SEC (11.7-14.0) Prothromb Time International Ratio 1.3 (0.8-1.1) Activated Partial Thromboplast Time 31 SEC (24-38) O2 Saturation 99 % (92-99) Arterial Blood pH 7.35 (7.35-7.45) Arterial Blood pCO2 at Patient Temp 40 mmHg (35-46) Arterial Blood pO2 at Patient Temp 247 mmHg (75-108) Arterial Blood HCO3 21 mmol/L (21-28) Arterial Blood Base Excess -4 mmol/L (-3-3) Oxyhemoglobin 98.0 % Methemoglobin 0.4 % (0.0-1.9) Carbon Monoxide, Quantitative 0.4 % (0.0-1.9) FiO2 80 Sodium Level 143 mmol/L (136-145) Potassium Level 4.6 mmol/L (3.5-5.1) Chloride Level 109 mmol/L (98-107) Carbon Dioxide Level 24 mmol/L (21-32) Anion Gap 10 (6-14) Blood Urea Nitrogen 12 mg/dL (8-26) Creatinine 1.2 mg/dL (0.7-1.3) Estimated GFR (Cockcroft-Gault) 62.2 Calcium Level 10.3 mg/dL (8.5-10.1) Magnesium Level 2.3 mg/dL (1.8-2.4) Laboratory Tests Test 09/28/18 07:26 09/28/18 08:34 09/28/18 09:51 09/28/18 11:06 Glucose (Fingerstick) 93 mg/dL (70-99) Bedside Hemoglobin (Calculated) 12.9 g/dL (14-18) 12.9 g/dL (14-18) 10.9 g/dL (14-18) Bedside Hematocrit 38 % (37-52) 38 % (37-52) 32 % (37-52) Bedside Arterial pH 7.46 (7.35-7.45) 7.35 (7.35-7.45) 7.32 (7.35-7.45) Bedside Arterial pCO2 37 mmHg (35-45) 50 mmHg (35-45) 48 mmHg (35-45) Bedside Arterial pO2 407 mmHg (75-100) 377 mmHg (75-100) 354 mmHg (75-100) Bedside Arterial HCO3 26 mmol/L (21-28) 28 mmol/L (21-28) 24 mmol/L (21-28) Bedside Arterial Total CO2 28 mmol/L (21-32) 29 mmol/L (21-32) 26 mmol/L (21-32) Arterial Bld O2 Saturation (Measur) 100 % (95-99) 100 % (95-99) 100 % (95-99) Bedside Arterial Blood Base Excess 3 mmol/L (0-3) 2 mmol/L (0-3) -2 mmol/L (0-3) Bedside FiO2 100.0 100.0 75.0 Bedside Sodium 138 mmol/L (135-145) 138 mmol/L (135-145) 137 mmol/L (135-145) Bedside Potassium 4.3 mmol/L (3.5-5.0) 4.6 mmol/L (3.5-5.0) 5.9 mmol/L (3.5-5.0) Glucose Level 117 mg/dL (70-99) 125 mg/dL (70-99) 123 mg/dL (70-99) Bedside Ionized Calcium (Yannick) 1.21 mmol/L (1.13-1.32) 1.20 mmol/L (1.13-1.32) 1.05 mmol/L (1.13-1.32) Test 09/28/18 11:30 09/28/18 11:58 09/28/18 12:31 09/28/18 13:12 Bedside Hemoglobin (Calculated) 10.9 g/dL (14-18) 10.5 g/dL (14-18) 10.2 g/dL (14-18) 9.2 g/dL (14-18) Bedside Hematocrit 32 % (37-52) 31 % (37-52) 30 % (37-52) 27 % (37-52) Bedside Arterial pH 7.33 (7.35-7.45) 7.33 (7.35-7.45) 7.30 (7.35-7.45) 7.38 (7.35-7.45) Bedside Arterial pCO2 49 mmHg (35-45) 50 mmHg (35-45) 53 mmHg (35-45) 38 mmHg (35-45) Bedside Arterial pO2 229 mmHg (75-100) 199 mmHg (75-100) 191 mmHg (75-100) 66 mmHg (75-100) Bedside Arterial HCO3 26 mmol/L (21-28) 26 mmol/L (21-28) 26 mmol/L (21-28) 23 mmol/L (21-28) Bedside Arterial Total CO2 27 mmol/L (21-32) 28 mmol/L (21-32) 28 mmol/L (21-32) 24 mmol/L (21-32) Arterial Bld O2 Saturation (Measur) 100 % (95-99) 100 % (95-99) 100 % (95-99) 93 % (95-99) Bedside Arterial Blood Base Excess 0 mmol/L (0-3) 0 mmol/L (0-3) 0 mmol/L (0-3) -2 mmol/L (0-3) Bedside FiO2 70.0 70.0 80.0 100.0 Bedside Sodium 140 mmol/L (135-145) 139 mmol/L (135-145) 138 mmol/L (135-145) 138 mmol/L (135-145) Bedside Potassium 5.0 mmol/L (3.5-5.0) 4.8 mmol/L (3.5-5.0) 4.7 mmol/L (3.5-5.0) 4.2 mmol/L (3.5-5.0) Glucose Level 118 mg/dL (70-99) 121 mg/dL (70-99) 127 mg/dL (70-99) 119 mg/dL (70-99) Bedside Ionized Calcium (Yannick) 1.11 mmol/L (1.13-1.32) 1.10 mmol/L (1.13-1.32) 1.12 mmol/L (1.13-1.32) 1.78 mmol/L (1.13-1.32) Test 09/28/18 13:50 09/28/18 14:18 09/28/18 15:19 09/28/18 15:20 White Blood Count 13.3 x10^3/uL (4.0-11.0) 11.8 x10^3/uL (4.0-11.0) Hemoglobin 10.7 g/dL (13.0-17.5) 11.4 g/dL (13.0-17.5) Hematocrit 32.1 % (39.0-53.0) 33.3 % (39.0-53.0) Platelet Count 132 x10^3/uL (140-400) 126 x10^3/uL (140-400) Prothrombin Time 16.3 SEC (11.7-14.0) 16.3 SEC (11.7-14.0) Prothromb Time International Ratio 1.3 (0.8-1.1) 1.3 (0.8-1.1) Activated Partial Thromboplast Time 31 SEC (24-38) 31 SEC (24-38) Fibrinogen 216 mg/dL (200-440) Bedside Hemoglobin (Calculated) 10.5 g/dL (14-18) Bedside Hematocrit 31 % (37-52) Bedside Arterial pH 7.40 (7.35-7.45) Bedside Arterial pCO2 39 mmHg (35-45) Bedside Arterial pO2 350 mmHg (75-100) Bedside Arterial HCO3 24 mmol/L (21-28) Bedside Arterial Total CO2 25 mmol/L (21-32) Arterial Bld O2 Saturation (Measur) 100 % (95-99) Bedside Arterial Blood Base Excess -1 mmol/L (0-3) Bedside FiO2 100.0 Bedside Sodium 141 mmol/L (135-145) Bedside Potassium 4.3 mmol/L (3.5-5.0) Glucose Level 99 mg/dL (70-99) 101 mg/dL (70-99) Bedside Ionized Calcium (Yannick) 1.51 mmol/L (1.13-1.32) Glucose (Fingerstick) 95 mg/dL (70-99) Red Blood Count 3.52 x10^6/uL (4.30-5.70) Mean Corpuscular Volume 95 fL (79-100) Mean Corpuscular Hemoglobin 32 pg (25-35) Mean Corpuscular Hemoglobin Concent 34 g/dL (31-37) Red Cell Distribution Width 12.4 % (11.5-14.5) O2 Saturation 99 % (92-99) Arterial Blood pH 7.35 (7.35-7.45) Arterial Blood pCO2 at Patient Temp 40 mmHg (35-46) Arterial Blood pO2 at Patient Temp 247 mmHg (75-108) Arterial Blood HCO3 21 mmol/L (21-28) Arterial Blood Base Excess -4 mmol/L (-3-3) Oxyhemoglobin 98.0 % Methemoglobin 0.4 % (0.0-1.9) Carbon Monoxide, Quantitative 0.4 % (0.0-1.9) FiO2 80 Sodium Level 143 mmol/L (136-145) Potassium Level 4.6 mmol/L (3.5-5.1) Chloride Level 109 mmol/L (98-107) Carbon Dioxide Level 24 mmol/L (21-32) Anion Gap 10 (6-14) Blood Urea Nitrogen 12 mg/dL (8-26) Creatinine 1.2 mg/dL (0.7-1.3) Estimated GFR (Cockcroft-Gault) 62.2 Calcium Level 10.3 mg/dL (8.5-10.1) Magnesium Level 2.3 mg/dL (1.8-2.4) Medications Current Medications Aspirin ([employer] Aspirin) 325 mg 1X ONCE PO Last administered on 09/26/18at 03:49 ; Start 09/26/18 at 04:00; Stop 09/26/18 at 04:01; Status DC Sodium Chloride 1,000 ml @ 1,000 mls/hr 1X ONCE IV Last administered on at 03:48; Start 09/26/18 at 04:00; Stop 09/26/18 at 04:59; Status DC Lorazepam (Ativan) 0.5 mg 1X ONCE IV Last administered on 09/26/18at 03:49; Start 09/26/18 at 04:00; Stop 09/26/18 at 04:01; Status DC Ondansetron HCl (Zofran) 4 mg PRN Q8HRS PRN IV NAUSEA/VOMITING 1ST CHOICE; Start 09/26/18 at 04:00; Stop 09/27/18 at 03:59; Status DC Fentanyl Citrate (Fentanyl 2ml Vial) 50 mcg PRN Q2HR PRN IV SEVERE PAIN; Start 09/26/18 at 04:00 Fentanyl Citrate (Fentanyl 2ml Vial) 50 mcg 1X ONCE IV ; Start 09/26/18 at 04:30 ; Stop 09/26/18 at 04:30; Status DC Nitroglycerin (Nitro-Bid Oint) 0.5 inch 1X ONCE TP Last administered on at 04:37; Start 09/26/18 at 04:30; Stop 09/26/18 at 04:31; Status DC Heparin Sodium/ Dextrose 500 ml @ 0 mls/hr CONT PRN IV SEE I/O RECORD Last administered on 09/26/18at 04:41; Start 09/26/18 at 04:15; Stop 09/26/18 at 12:31; Status DC Heparin Sodium (Porcine) (Heparin Sodium) 2,400 unit PRN Q6HRS PRN IV FOR UFH LEVEL LESS THAN 0.2; Start 09/26/18 at 04:15; Stop 09/26/18 at 13:53; Status DC Heparin Sodium (Porcine) (Heparin Sodium) 4,000 unit 1X ONCE IV Last administered on 09/26/18at 04:40; Start 09/26/18 at 04:30; Stop 09/26/18 at 04:31; Status DC Info (Anti-Coagulation Monitoring By Pharmacy) 1 each PRN DAILY PRN MC SEE COMMENTS Last administered on 09/26/18at 09:32; Start 09/26/18 at 04:30; Stop at 12:32; Status DC Iohexol (Omnipaque 350 Mg/ml) 60 ml 1X ONCE IV Last administered on 09/26/18at 05:26; Start 09/26/18 at 05:30; Stop 09/26/18 at 05:31; Status DC Info (CONTRAST GIVEN -- Rx MONITORING) 1 each PRN DAILY PRN MC SEE COMMENTS; Start 09/26/18 at 05:15; Stop 09/26/18 at 10:56; Status DC Multivitamins 10 ml/Thiamine HCl 100 mg/Folic Acid 1 mg/Sodium Chloride 1,011.2 ml @ 100 mls/ hr 1X ONCE IV Last administered on 09/26/18at 10:40; Start at 10:00; Stop 09/26/18 at 20:06; Status DC Atorvastatin Calcium (Lipitor) 40 mg QHS PO Last administered on 09/27/18at 20:57 ; Start 09/26/18 at 21:00 Iodixanol (Visipaque 320) 100 ml STK-MED ONCE .ROUTE ; Start 09/26/18 at 09:58; Stop 09/26/18 at 10:01; Status DC Lidocaine HCl (Lidocaine 1% 20ml Vial) 20 ml STK-MED ONCE .ROUTE ; Start at 09:58; Stop 09/26/18 at 10:01; Status DC Heparin Sodium/ Sodium Chloride 1,000 ml @ As Directed STK-MED ONCE .ROUTE ; Start 09/26/18 at 09:59; Stop 09/26/18 at 10:01; Status DC Fentanyl Citrate (Fentanyl 2ml Vial) 100 mcg STK-MED ONCE .ROUTE ; Start at 10:14; Stop 09/26/18 at 10:16; Status DC Midazolam HCl (Versed) 5 mg STK-MED ONCE .ROUTE ; Start 09/26/18 at 10:14; Stop 09/26/18 at 10:16; Status DC Iohexol (Omnipaque 300 Mg/ml) 100 ml STK-MED ONCE .ROUTE ; Start 09/26/18 at 10: 17; Stop 09/26/18 at 10:19; Status DC Heparin Sodium/ Sodium Chloride (HEPARIN for ARTERIAL LINE FLUSH) 1,000 unit 1X ONCE IART Last administered on 09/26/18at 11:37; Start 09/26/18 at 11:00; Stop 09/26/18 at 11:01; Status DC Midazolam HCl (Versed) 5 mg 1X ONCE IV Last administered on 09/26/18at 11:38; Start 09/26/18 at 11:00; Stop 09/26/18 at 11:01; Status DC Fentanyl Citrate (Fentanyl 2ml Vial) 100 mcg 1X ONCE IV Last administered on at 11:38; Start 09/26/18 at 11:00; Stop 09/26/18 at 11:01; Status DC Iodixanol (Visipaque 320) 100 ml 1X ONCE IART Last administered on 09/26/18at 11 :37; Start 09/26/18 at 11:00; Stop 09/26/18 at 11:01; Status DC Lidocaine HCl (Lidocaine 1% 20ml Vial) 20 ml 1X ONCE INJ Last administered on 09/26/18at 11:37; Start 09/26/18 at 11:00; Stop 09/26/18 at 11:01; Status DC Info (CONTRAST GIVEN -- Rx MONITORING) 1 each PRN DAILY PRN MC SEE COMMENTS; Start 09/26/18 at 11:00; Stop 09/28/18 at 10:59; Status DC Sodium Chloride (Normal Saline Flush) 3 ml QSHIFT PRN IV AFTER MEDS AND BLOOD DRAWS; Start 09/26/18 at 11:45 Sodium Chloride 1,000 ml @ 75 mls/hr [id number] IV ; Start 09/26/18 at 11:33; Stop 09/26/18 at 17:32; Status DC Nitroglycerin (Nitrostat) 0.4 mg PRN Q5MIN PRN SL CHEST PAIN; Start 09/26/18 at 11:45 Aspirin (Ecotrin) 81 mg [id number] PO Last administered on 09/27/18at 09:39; Start 09/27/18 at 08:00; Stop 09/28/18 at 15:04; Status DC Metoprolol Tartrate (Lopressor) 25 mg BID PO Last administered on 09/27/18at 20: 57; Start 09/26/18 at 21:00; Stop 09/28/18 at 15:09; Status DC Heparin Sodium/ Dextrose 500 ml @ 0 mls/hr CONT PRN IV SEE I/O RECORD Last administered on 09/28/18at 08:19; Start 09/26/18 at 17:00; Stop 09/27/18 at 23:59; Status DC Heparin Sodium (Porcine) (Heparin Sodium) 2,500 unit PRN Q6HRS PRN IV FOR UFH LEVEL LESS THAN 0.2 Last administered on 09/26/18at 23:58; Start 09/26/18 at 17:00 ; Stop 09/27/18 at 23:59; Status DC Info (Anti-Coagulation Monitoring By Pharmacy) 1 each PRN DAILY PRN MC SEE COMMENTS; Start 09/26/18 at 17:15 Lorazepam (Ativan) 2 mg PRN Q4HRS PRN PO ANXIETY / AGITATION Last administered on 09/27/18at 20:59; Start 09/26/18 at 17:15 Vitamin B Complex (Folbic Tablet) 1 tab DAILY PO Last administered on 09/27/18at 09:39; Start 09/26/18 at 18:00 Amlodipine Besylate (Norvasc) 5 mg DAILY PO Last administered on 09/27/18at 13:22 ; Start 09/27/18 at 13:00 Potassium Chloride 70 meq/ Sodium Bicarbonate 12.5 meq/Lidocaine HCl 24 ml/ Parenteral Electrolytes 571.5 ml @ 571.5 mls/ hr 1X ONCE IRR ; Start 09/28/18 at 06:00; Stop 09/28/18 at 06:59; Status DC Potassium Chloride 15 meq/ Sodium Bicarbonate 12.5 meq/Parenteral Electrolytes 520 ml @ 520 mls/hr 1X ONCE IRR ; Start 09/28/18 at 06:00; Stop 09/28/18 at 06: 59; Status DC Heparin Sodium (Porcine) 81688 unit/Ringer's Solution 1,020 ml @ 1,020 mls/hr 1X ONCE IRR ; Start 09/28/18 at 06:00; Stop 09/28/18 at 06:59; Status DC Cefazolin Sodium 1 gm/Sodium Chloride 500 ml @ 500 mls/hr 1X ONCE IRR Last administered on 09/28/18at 08:19; Start 09/28/18 at 06:00; Stop 09/28/18 at 06:59; Status DC Heparin Sodium (Porcine) 800 unit/ Nitroglycerin 4 mg/Verapamil HCl 8 mg/Sodium Bicarbonate 0.34 meq/Ringer's Solution 512.34 ml @ 512.34 mls/hr 1X ONCE IRR Last administered on 09/28/18at 08:20; Start 09/28/18 at 06:00; Stop 09/28/18 at 06: 59; Status DC Ondansetron HCl (Zofran) 4 mg PRN Q6HRS PRN IV NAUSEA/VOMITING; Start 09/28/18 at 07:00; Stop 09/29/18 at 06:59 Fentanyl Citrate (Fentanyl 2ml Vial) 25 mcg PRN Q5MIN PRN IV MILD PAIN; Start 09/28/18 at 07:00; Stop 09/29/18 at 06:59 Fentanyl Citrate (Fentanyl 2ml Vial) 50 mcg PRN Q5MIN PRN IV MODERATE TO SEVERE PAIN; Start 09/28/18 at 07:00; Stop 09/29/18 at 06:59 Morphine Sulfate (Morphine Sulfate) 1 mg PRN Q10MIN PRN IV SEVERE PAIN; Start 09/28/18 at 07:00; Stop 09/29/18 at 06:59 Ringer's Solution 1,000 ml @ 30 mls/hr Q24H IV Last administered on 09/28/18at 07:00; Start 09/28/18 at 07:00; Stop 09/28/18 at 18:59 Lidocaine HCl (Xylocaine-Mpf 1% 2ml Vial) 2 ml PRN 1X PRN ID PRIOR TO IV START ; Start 09/28/18 at 07:00; Stop 09/29/18 at 06:59 Hydromorphone HCl (Dilaudid) 0.5 mg PRN Q10MIN PRN IV SEV PAIN, Second choice; Start 09/28/18 at 07:00; Stop 09/29/18 at 06:59 Prochlorperazine Edisylate (Compazine) 5 mg PACU PRN PRN IV NAUSEA, MRX1; Start 09/28/18 at 07:00; Stop 09/29/18 at 06:59 Cefazolin Sodium/ Dextrose 50 ml @ 100 mls/hr 1X ONCE IV Last administered on 09/28/18at 08:39; Start 09/28/18 at 06:00; Stop 09/28/18 at 06:29; Status DC Phenylephrine HCl (Aayush-Synephrine Inj) 10 mg STK-MED ONCE .ROUTE ; Start at 06:24; Stop 09/28/18 at 06:26; Status DC Etomidate (Amidate) 20 mg STK-MED ONCE IV ; Start 09/28/18 at 06:24; Stop at 06:26; Status DC Aminocaproic Acid (Amicar) 5,000 mg STK-MED ONCE IV ; Start 09/28/18 at 06:24; Stop 09/28/18 at 06:26; Status DC Nitroglycerin/ Dextrose 250 ml @ As Directed STK-MED ONCE IV ; Start 09/28/18 at 06:24; Stop 09/28/18 at 06:26; Status DC Rocuronium Ponce (Zemuron) 100 mg STK-MED ONCE .ROUTE ; Start 09/28/18 at 06:24 ; Stop 09/28/18 at 06:27; Status DC Vancomycin HCl (VANCO for OR ONLY) 10 gm STK-MED ONCE .ROUTE Last administered on 09/28/18 08:18; Start 09/28/18 at 06:37; Stop 09/28/18 at 06:39; Status DC Cellulose (Surgicel Hemostat 4x8) 1 each STK-MED ONCE .ROUTE Last administered on 09/28/18 08:18; Start 09/28/18 at 06:37; Stop 09/28/18 at 06:39; Status DC Papaverine HCl 60 mg STK-MED ONCE .ROUTE Last administered on 09/28/18 08:17; Start 09/28/18 at 06:37; Stop 09/28/18 at 06:39; Status DC Aspirin (Aspirin) 300 mg STK-MED ONCE .ROUTE Last administered on 09/28/18 08: 17; Start 09/28/18 at 06:37; Stop 09/28/18 at 06:39; Status DC Sodium Chloride (SODIUM CHLORIDE 20ml) 20 ml STK-MED ONCE IJ Last administered on 09/28/18 08:16; Start 09/28/18 at 06:37; Stop 09/28/18 at 06:39; Status DC Sodium Chloride (SODIUM CHLORIDE 20ml) 20 ml STK-MED ONCE IJ Last administered on 09/28/18 08:16; Start 09/28/18 at 06:37; Stop 09/28/18 at 06:39; Status DC Sodium Chloride (SODIUM CHLORIDE 20ml) 20 ml STK-MED ONCE IJ Last administered on 09/28/18 08:17; Start 09/28/18 at 06:38; Stop 09/28/18 at 06:40; Status DC Heparin Sodium (Porcine) 30,000 unit STK-MED ONCE .ROUTE ; Start 09/28/18 at 06: 38; Stop 09/28/18 at 06:41; Status DC Nitroglycerin/ Dextrose 250 ml @ As Directed STK-MED ONCE IV ; Start 09/28/18 at 06:39; Stop 09/28/18 at 06:41; Status DC Midazolam HCl (Versed) 2 mg STK-MED ONCE .ROUTE ; Start 09/28/18 at 06:52; Stop 09/28/18 at 06:54; Status DC Sufentanil Citrate (Sufenta) 250 mcg STK-MED ONCE .ROUTE ; Start 09/28/18 at 06: 59; Stop 09/28/18 at 07:01; Status DC Isoflurane (Isoflurane) 90 ml STK-MED ONCE IH ; Start 09/28/18 at 08:10; Stop 09/28/18 at 08:13; Status DC Ephedrine Sulfate (Akovaz) 50 mg STK-MED ONCE .ROUTE ; Start 09/28/18 at 08:40; Stop 09/28/18 at 08:42; Status DC Midazolam HCl (Versed) 2 mg STK-MED ONCE .ROUTE ; Start 09/28/18 at 08:53; Stop 09/28/18 at 08:55; Status DC Midazolam HCl (Versed) 2 mg STK-MED ONCE .ROUTE ; Start 09/28/18 at 08:53; Stop 09/28/18 at 08:55; Status DC Rocuronium Ponce (Zemuron) 100 mg STK-MED ONCE .ROUTE ; Start 09/28/18 at 09:54 ; Stop 09/28/18 at 09:56; Status DC Heparin Sodium (Porcine) (Heparin Sodium) 10,000 unit STK-MED ONCE .ROUTE ; Start 09/28/18 at 10:30; Stop 09/28/18 at 10:32; Status DC Protamine Sulfate (Protamine) 50 mg STK-MED ONCE IV ; Start 09/28/18 at 10:39; Stop 09/28/18 at 10:41; Status DC Protamine Sulfate (Protamine) 250 mg STK-MED ONCE IV ; Start 09/28/18 at 10:39; Stop 09/28/18 at 10:42; Status DC Cefazolin Sodium (Ancef) 1 gm STK-MED ONCE .ROUTE ; Start 09/28/18 at 12:48; Stop 09/28/18 at 12:50; Status DC Amiodarone HCl 150 mg/Dextrose 103 ml @ 618 mls/hr 1X ONCE IV ; Start 09/28/18 at 14:30; Stop 09/28/18 at 14:39; Status DC Heparin Sodium (Porcine) (Heparin Sodium) 10,000 unit STK-MED ONCE .ROUTE ; Start 09/28/18 at 13:36; Stop 09/28/18 at 13:38; Status DC Lidocaine HCl (Lidocaine Pf 2% Vial) 5 ml STK-MED ONCE .ROUTE ; Start 09/28/18 at 13:36; Stop 09/28/18 at 13:38; Status DC Amiodarone HCl 900 mg/Dextrose 518 ml @ 33 mls/hr CONT PRN IV SEE I/O RECORD; Start 09/28/18 at 14:30 Magnesium Sulfate 5 gm STK-MED ONCE .ROUTE ; Start 09/28/18 at 13:36; Stop at 13:38; Status DC Heparin Sodium (Porcine) 30,000 unit STK-MED ONCE .ROUTE ; Start 09/28/18 at 13: 36; Stop 09/28/18 at 13:38; Status DC Mannitol (Mannitol) 12.5 g STK-MED ONCE .ROUTE ; Start 09/28/18 at 13:36; Stop at 13:38; Status DC Albumin Human 100 ml @ As Directed STK-MED ONCE IV ; Start 09/28/18 at 13:36; Stop 09/28/18 at 13:38; Status DC Calcium Chloride (Calcium Chloride) 1,000 mg STK-MED ONCE .ROUTE ; Start at 13:36; Stop 09/28/18 at 13:38; Status DC Albumin Human 500 ml @ As Directed STK-MED ONCE IV ; Start 09/28/18 at 13:36; Stop 09/28/18 at 13:38; Status DC Nicardipine HCl 50 mg/Sodium Chloride 250 ml @ 25 mls/hr CONT PRN IV SEE I/O RECORD; Start 09/28/18 at 14:30 Protamine Sulfate (Protamine) 50 mg STK-MED ONCE IV ; Start 09/28/18 at 14:03; Stop 09/28/18 at 14:05; Status DC Sodium Chloride (Normal Saline Flush) 3 ml PRN Q12HR PRN IV AFTER MEDS AND BLOOD DRAWS; Start 09/28/18 at 15:00 Ringer's Solution 1,000 ml @ 30 mls/hr Q24H IV Last administered on 09/28/18at 15:30; Start 09/28/18 at 14:48 Albumin Human 250 ml @ 500 mls/hr PRN Q4HRS PRN IV SEE COMMENTS Last administered on 09/28/18at 15:30; Start 09/28/18 at 15:00 Insulin Human Regular 150 unit/ Sodium Chloride 151.5 ml @ 0 mls/hr CONT PRN PRN IV PER PROTOCOL; Start 09/28/18 at 15:00 Dextrose (Dextrose 50%-Water Syringe) 25 gm PRN Q15MIN PRN IV LOW BLOOD SUGAR; Start 09/28/18 at 15:00 Nitroglycerin/ Dextrose 250 ml @ 0 mls/hr CONT PRN PRN IV POST CV SURGERY; Start 09/28/18 at 15:00 Phenylephrine HCl 20 mg/Sodium Chloride 252 ml @ 0 mls/hr CONT PRN PRN IV HYPOTENSION Last administered on 09/28/18at 15:31; Start 09/28/18 at 15:00 Amiodarone HCl 150 mg/Dextrose 103 ml @ 600 mls/hr 1X ONCE IV ; Start 09/28/18 at 15:00; Stop 09/28/18 at 15:05; Status DC Amiodarone HCl 150 mg/Dextrose 103 ml @ 200 mls/hr 1X PRN PRN IV FOR AFIB; Start 09/28/18 at 15:00 Amiodarone HCl 900 mg/Dextrose 518 ml @ 0 mls/hr CONT PRN PRN IV AFIB; Start at 15:00; Stop 09/28/18 at 15:06; Status DC Info (KCl Per Protocol) 1 ea CONT PRN PRN MC SEE COMMENTS; Start 09/28/18 at 15: 00 Magnesium Sulfate/ Dextrose 100 ml @ 100 mls/hr PRN DAILY PRN IV FOR MAG < 2.2 ; Start 09/28/18 at 15:00 Famotidine (Pepcid Vial) 20 mg BID IVP ; Start 09/28/18 at 21:00 Ondansetron HCl (Zofran) 4 mg PRN Q4HRS PRN IV NAUSEA/VOMITING, 1st CHOICE; Start 09/28/18 at 15:00 Prochlorperazine Edisylate (Compazine) 10 mg PRN Q6HRS PRN IV NAUSEA/VOMITING, 2nd CHOICE; Start 09/28/18 at 15:00 Metoclopramide HCl (Reglan Vial) 10 mg PRN Q6HRS PRN IV NAUSEA/VOMITING, 3rd CHOICE; Start 09/28/18 at 15:00 Morphine Sulfate (Morphine Sulfate) 2 mg PRN Q1HR PRN IV MODERATE PAIN; Start 09/28/18 at 15:00 Morphine Sulfate (Morphine Sulfate) 4 mg PRN Q1HR PRN IV SEVERE PAIN; Start 09/28/18 at 15:00 Acetaminophen (Tylenol) 650 mg PRN Q4HRS PRN PO TEMP > 101'F or MILD PAIN; Start 09/28/18 at 15:00 Acetaminophen (Tylenol Supp) 650 mg PRN Q4HRS PRN NE TEMP > 101'F or MILD PAIN ; Start 09/28/18 at 15:00 Meperidine HCl (Demerol) 12.5 mg PRN Q15MIN PRN IV SHIVERING; Start 09/28/18 at 15:00; Stop 09/29/18 at 14:48 Propofol 100 ml @ 0 mls/hr CONT PRN PRN IV POSTOP SEDATION UNTIL EXTUBATE; Start 09/28/18 at 15:00 Senna/Docusate Sodium (Senna Plus) 1 tab BID PO ; Start 09/28/18 at 21:00 Bisacodyl (Dulcolax Supp) 10 mg PRN DAILY PRN NE NO BOWEL MOVEMENT; Start at 15:00 Chlorhexidine Gluconate (Peridex) 15 ml BID MM ; Start 09/29/18 at 09:00 Aspirin (Ecotrin) 325 mg DAILYWBKFT PO ; Start 09/29/18 at 08:00 Aspirin (Aspirin) 300 mg PRN DAILY PRN NE IF UNABLE TO TAKE PO; Start 09/29/18 at 08:00 Albuterol Sulfate (Ventolin Neb Soln) 2.5 mg PRN Q4HRS PRN NEB SHORTNESS OF BREATH; Start 09/28/18 at 15:00 Metoprolol Tartrate (Lopressor) 25 mg BID PO ; Start 09/29/18 at 09:00 Nicardipine HCl 50 mg/Sodium Chloride 250 ml @ 0 mls/hr CONT PRN PRN IV PER PROTOCOL; Start 09/28/18 at 15:00; Stop 09/28/18 at 15:10; Status DC Oxycodone HCl (Roxicodone) 5 mg PRN Q4HRS PRN PO MILD TO MODERATE PAIN; Start 09/28/18 at 15:00 Oxycodone HCl (Roxicodone) 10 mg PRN Q4HRS PRN PO SEVERE PAIN; Start 09/28/18 at 15:00 Cefazolin Sodium/ Dextrose 50 ml @ 100 mls/hr Q8H IV ; Start 09/28/18 at 23:00; Stop 09/30/18 at 07:29 Active Scripts Active Reported Amlodipine-Benazepril 5-20 Mg (Amlodipine Besylate/Benazepril) 1 Each Capsule 1 Cap PO DAILY Vitals/I & O Vital Sign - Last 24 Hours 09/27/18 09/27/18 09/27/18 09/27/18 19:37 20:00 20:57 22:43 Temp 98.0 98.1 98.0 98.1 Pulse 75 75 64 Resp 18 20 B/P (MAP) 151/93 (112) 151/93 135/75 (95) Pulse Ox 97 97 O2 Delivery Room Air Room Air Room Air 09/28/18 09/28/18 09/28/18 09/28/18 06:17 06:18 07:16 15:07 Temp 98.3 98.3 98.3 98.3 98.3 98.3 Pulse 66 74 55 Resp 15 B/P (MAP) 125/75 (92) 133/81 (98) 123/74 Pulse Ox 96 96 97 100 O2 Delivery Room Air Room Air Room Air Ventilator Intake and Output 09/27/18 09/27/18 09/28/18 15:01 23:01 07:01 Intake Total 830 ml 200 ml Output Total 400 ml 400 ml Balance -400 ml 830 ml -200 ml MARCIE RESENDEZ MD Sep 28, 2018 15:57
[2018-09-28] MEDS ORDERED: SODIUM BICARB ADULT 8.4% 50 MEQ/50 ML DISP.SYRIN. IV ONE (17:00)
[2018-09-28 17:50] LABS: BASE EXCESS ABG -3 mmol/L (-3-3); HCO3 ABG 20 mmol/L (21-28); PCO2 ABG 28 mmHg (35-46); PO2 ABG 153 mmHg (75-108); SAT O2 ABG 98 % (92-99)
[2018-09-28 18:00] LABS: FIO2 ABG 40
[2018-09-28 18:47] LABS: HEMATOCRIT 31.6 % (39.0-53.0); HEMOGLOBIN 10.7 g/dL (13.0-17.5); RED BLOOD COUNT 3.32 x10^6/uL (4.30-5.70); RED CELL DISTRIBUTION WIDTH 12.3 % (11.5-14.5); WHITE BLOOD COUNT 12.5 x10^3/uL (4.0-11.0)
[2018-09-28] MEDS: oxyCODONE IR 5 MG TABLET PO PRN ×2 (19:04→20:14)
[2018-09-28] MEDS: ATORVASTATIN CALCIUM 40 MG TABLET. PO SCH (20:14)
[2018-09-28] MEDS: FAMOTIDINE 20 MG/2 ML VIAL IVP SCH (20:14)
[2018-09-28] MEDS: SENNOSIDES/DOCUSATE 8.6/50MG TABLET. PO SCH (20:14)
[2018-09-29] VITALS (24 sets, daily range): BP systolic 86–152; BP diastolic 54–88
[2018-09-29] MEDS: oxyCODONE IR 5 MG TABLET PO PRN ×5 (00:34→20:15)
[2018-09-29] MEDS: MORPHINE SULFATE 4 MG/ML VIAL. IV PRN ×5 (00:47→23:49)
--- NOTE | 2018-09-29 00:56 | NUR ---
Pt. immediately vomited after administering oxycodone. IV morphine administered in addition to ondansetron.
[2018-09-29 06:03] LABS: HEMATOCRIT 30.1 % (39.0-53.0); HEMOGLOBIN 10.5 g/dL (13.0-17.5); RED BLOOD COUNT 3.15 x10^6/uL (4.30-5.70); RED CELL DISTRIBUTION WIDTH 12.7 % (11.5-14.5); WHITE BLOOD COUNT 8.8 x10^3/uL (4.0-11.0)
[2018-09-29 06:20] LABS: CALCIUM 9.5 mg/dL (8.5-10.1); CREATININE 1.1 mg/dL (0.7-1.3); GFR 68.8; MAGNESIUM 1.9 mg/dL (1.8-2.4); POTASSIUM 4.5 mmol/L (3.5-5.1)
[2018-09-29] MEDS ORDERED: ASPIRIN RECTAL 300 MG SUPP. PR PRN (08:00)
[2018-09-29] MEDS: METOPROLOL TART IMMED RELEASE 25 MG TABLET. PO SCH ×2 (09:00→20:55)
[2018-09-29] MEDS ORDERED: CHLORHEXIDINE 0.12% 15 ML MOUTHWASH. MM SCH (09:00)
[2018-09-29] MEDS: SENNOSIDES/DOCUSATE 8.6/50MG TABLET. PO SCH ×2 (09:00→20:54)
[2018-09-29] MEDS: amLODIPine BESYLATE 5 MG TABLET PO SCH (09:00)
[2018-09-29] MEDS: FAMOTIDINE 20 MG/2 ML VIAL IVP SCH (09:58)
[2018-09-29] MEDS: ASPIRIN ENTERIC COATED 325 MG TABLET.DR. PO SCH (09:58)
[2018-09-29] MEDS: VITAMIN B12,B9,B6 COMPLEX 1 TABLET. PO SCH (09:59)
--- NOTE | 2018-09-29 10:13 | NUR ---
[id number] Inadvertent deletion of VS with monitor change to mobile unit. Documentation pe A line continuous from 0900.
--- NOTE | 2018-09-29 10:42 | RAD ---
PORTABLE CHEST 1V History: Status post CABG. COMPARISON: Previous day FINDINGS: Left chest tubes remain. Right IJ line has been removed, right IJ sheath remains in place. There is a left pleural effusion. There is infiltrate or atelectasis in the left lung base. Small apical pneumothorax identified on the left. No focal infiltrate has developed on the right. Cardiomediastinal silhouette is stable. Endotracheal tube has been removed. IMPRESSION: Tiny left apical pneumothorax. Development of mild infiltrates/atelectasis and small effusion in the left lung base. FOR INTERNAL CODING PURPOSES Critical result: Findings discussed with nurse Kailee at 09/29/2018 10:36 AM. RESULT CODE: (C) Electronically signed by: Jose D Montez MD (09/29/2018 10:37 AM) [facility]
[2018-09-29] MEDS ORDERED: BENZOCAINE/MENTHOL LOZENGE. PO PRN (13:00)
--- NOTE | 2018-09-29 13:38 | PDOC ---
PROGRESS NOTES Subjective Subjective Patient seen and examined He is extubated, alert and feeling relatively well. Objective Objective Vital Signs Date Time Temp Pulse Resp B/P (MAP) Pulse Ox O2 Delivery O2 Flow Rate FiO2 09/29/18 11:54 100 Nasal Cannula 4.0 09/29/18 11:52 12 09/29/18 10:00 88 96/58 (71) 09/29/18 08:00 97.7 97.7 Intake and Output 09/29/18 07:01 Intake Total 3182 ml Output Total 2630 ml Balance 552 ml Intake Oral 200 ml IV Total 2982 ml Output Urine Total 1950 ml Gastric Drainage Total 100 ml Chest Tube Drainage Total 580 ml Physical Exam Abdomen: Normal bowel sounds Heart: Regular rate General: mild distress Lungs: Other (slightly decreased breath sounds) Assessment Assessment Problems Medical Problems: (1) Elevated d-dimer Status: Acute (2) NSTEMI (non-ST elevated myocardial infarction) Status: Acute 1. Multivessel coronary artery disease with intact LV systolic function. One day postop bypass surgery �4. Patient has been extubated. He is alert and feeling well. We'll continue as per CV surgery. 2. Hypertension. We'll adjust medications as needed. 3. Hyperlipidemia. Statin medication. 4. History of significant alcohol use. Patient is alert. He shows no signs of withdrawal at this time. Comment Review of Relevant I have reviewed the following items vicky (where applicable) has been applied. Labs Laboratory Tests Test 09/28/18 07:26 09/28/18 08:34 09/28/18 09:51 09/28/18 11:06 Glucose (Fingerstick) 93 mg/dL (70-99) Bedside Hemoglobin (Calculated) 12.9 g/dL (14-18) 12.9 g/dL (14-18) 10.9 g/dL (14-18) Bedside Hematocrit 38 % (37-52) 38 % (37-52) 32 % (37-52) Bedside Arterial pH 7.46 (7.35-7.45) 7.35 (7.35-7.45) 7.32 (7.35-7.45) Bedside Arterial pCO2 37 mmHg (35-45) 50 mmHg (35-45) 48 mmHg (35-45) Bedside Arterial pO2 407 mmHg (75-100) 377 mmHg (75-100) 354 mmHg (75-100) Bedside Arterial HCO3 26 mmol/L (21-28) 28 mmol/L (21-28) 24 mmol/L (21-28) Bedside Arterial Total CO2 28 mmol/L (21-32) 29 mmol/L (21-32) 26 mmol/L (21-32) Arterial Bld O2 Saturation (Measur) 100 % (95-99) 100 % (95-99) 100 % (95-99) Bedside Arterial Blood Base Excess 3 mmol/L (0-3) 2 mmol/L (0-3) -2 mmol/L (0-3) Bedside FiO2 100.0 100.0 75.0 Bedside Sodium 138 mmol/L (135-145) 138 mmol/L (135-145) 137 mmol/L (135-145) Bedside Potassium 4.3 mmol/L (3.5-5.0) 4.6 mmol/L (3.5-5.0) 5.9 mmol/L (3.5-5.0) Glucose Level 117 mg/dL (70-99) 125 mg/dL (70-99) 123 mg/dL (70-99) Bedside Ionized Calcium (Yannick) 1.21 mmol/L (1.13-1.32) 1.20 mmol/L (1.13-1.32) 1.05 mmol/L (1.13-1.32) Test 09/28/18 11:30 09/28/18 11:58 09/28/18 12:31 09/28/18 13:12 Bedside Hemoglobin (Calculated) 10.9 g/dL (14-18) 10.5 g/dL (14-18) 10.2 g/dL (14-18) 9.2 g/dL (14-18) Bedside Hematocrit 32 % (37-52) 31 % (37-52) 30 % (37-52) 27 % (37-52) Bedside Arterial pH 7.33 (7.35-7.45) 7.33 (7.35-7.45) 7.30 (7.35-7.45) 7.38 (7.35-7.45) Bedside Arterial pCO2 49 mmHg (35-45) 50 mmHg (35-45) 53 mmHg (35-45) 38 mmHg (35-45) Bedside Arterial pO2 229 mmHg (75-100) 199 mmHg (75-100) 191 mmHg (75-100) 66 mmHg (75-100) Bedside Arterial HCO3 26 mmol/L (21-28) 26 mmol/L (21-28) 26 mmol/L (21-28) 23 mmol/L (21-28) Bedside Arterial Total CO2 27 mmol/L (21-32) 28 mmol/L (21-32) 28 mmol/L (21-32) 24 mmol/L (21-32) Arterial Bld O2 Saturation (Measur) 100 % (95-99) 100 % (95-99) 100 % (95-99) 93 % (95-99) Bedside Arterial Blood Base Excess 0 mmol/L (0-3) 0 mmol/L (0-3) 0 mmol/L (0-3) -2 mmol/L (0-3) Bedside FiO2 70.0 70.0 80.0 100.0 Bedside Sodium 140 mmol/L (135-145) 139 mmol/L (135-145) 138 mmol/L (135-145) 138 mmol/L (135-145) Bedside Potassium 5.0 mmol/L (3.5-5.0) 4.8 mmol/L (3.5-5.0) 4.7 mmol/L (3.5-5.0) 4.2 mmol/L (3.5-5.0) Glucose Level 118 mg/dL (70-99) 121 mg/dL (70-99) 127 mg/dL (70-99) 119 mg/dL (70-99) Bedside Ionized Calcium (Yannick) 1.11 mmol/L (1.13-1.32) 1.10 mmol/L (1.13-1.32) 1.12 mmol/L (1.13-1.32) 1.78 mmol/L (1.13-1.32) Test 09/28/18 13:50 09/28/18 14:18 09/28/18 15:19 09/28/18 15:20 White Blood Count 13.3 x10^3/uL (4.0-11.0) 11.8 x10^3/uL (4.0-11.0) Hemoglobin 10.7 g/dL (13.0-17.5) 11.4 g/dL (13.0-17.5) Hematocrit 32.1 % (39.0-53.0) 33.3 % (39.0-53.0) Platelet Count 132 x10^3/uL (140-400) 126 x10^3/uL (140-400) Prothrombin Time 16.3 SEC (11.7-14.0) 16.3 SEC (11.7-14.0) Prothromb Time International Ratio 1.3 (0.8-1.1) 1.3 (0.8-1.1) Activated Partial Thromboplast Time 31 SEC (24-38) 31 SEC (24-38) Fibrinogen 216 mg/dL (200-440) Bedside Hemoglobin (Calculated) 10.5 g/dL (14-18) Bedside Hematocrit 31 % (37-52) Bedside Arterial pH 7.40 (7.35-7.45) Bedside Arterial pCO2 39 mmHg (35-45) Bedside Arterial pO2 350 mmHg (75-100) Bedside Arterial HCO3 24 mmol/L (21-28) Bedside Arterial Total CO2 25 mmol/L (21-32) Arterial Bld O2 Saturation (Measur) 100 % (95-99) Bedside Arterial Blood Base Excess -1 mmol/L (0-3) Bedside FiO2 100.0 Bedside Sodium 141 mmol/L (135-145) Bedside Potassium 4.3 mmol/L (3.5-5.0) Glucose Level 99 mg/dL (70-99) 101 mg/dL (70-99) Bedside Ionized Calcium (Yannick) 1.51 mmol/L (1.13-1.32) Glucose (Fingerstick) 95 mg/dL (70-99) Red Blood Count 3.52 x10^6/uL (4.30-5.70) Mean Corpuscular Volume 95 fL (79-100) Mean Corpuscular Hemoglobin 32 pg (25-35) Mean Corpuscular Hemoglobin Concent 34 g/dL (31-37) Red Cell Distribution Width 12.4 % (11.5-14.5) O2 Saturation 99 % (92-99) Arterial Blood pH 7.35 (7.35-7.45) Arterial Blood pCO2 at Patient Temp 40 mmHg (35-46) Arterial Blood pO2 at Patient Temp 247 mmHg (75-108) Arterial Blood HCO3 21 mmol/L (21-28) Arterial Blood Base Excess -4 mmol/L (-3-3) Oxyhemoglobin 98.0 % Methemoglobin 0.4 % (0.0-1.9) Carbon Monoxide, Quantitative 0.4 % (0.0-1.9) FiO2 80 Sodium Level 143 mmol/L (136-145) Potassium Level 4.6 mmol/L (3.5-5.1) Chloride Level 109 mmol/L (98-107) Carbon Dioxide Level 24 mmol/L (21-32) Anion Gap 10 (6-14) Blood Urea Nitrogen 12 mg/dL (8-26) Creatinine 1.2 mg/dL (0.7-1.3) Estimated GFR (Cockcroft-Gault) 62.2 Calcium Level 10.3 mg/dL (8.5-10.1) Magnesium Level 2.3 mg/dL (1.8-2.4) Test 09/28/18 17:43 09/28/18 17:45 09/28/18 18:41 09/28/18 19:53 Glucose (Fingerstick) 133 mg/dL (70-99) 173 mg/dL (70-99) O2 Saturation 98 % (92-99) Arterial Blood pH 7.46 (7.35-7.45) Arterial Blood pCO2 at Patient Temp 28 mmHg (35-46) Arterial Blood pO2 at Patient Temp 153 mmHg (75-108) Arterial Blood HCO3 20 mmol/L (21-28) Arterial Blood Base Excess -3 mmol/L (-3-3) FiO2 40 White Blood Count 12.5 x10^3/uL (4.0-11.0) Red Blood Count 3.32 x10^6/uL (4.30-5.70) Hemoglobin 10.7 g/dL (13.0-17.5) Hematocrit 31.6 % (39.0-53.0) Mean Corpuscular Volume 95 fL (79-100) Mean Corpuscular Hemoglobin 32 pg (25-35) Mean Corpuscular Hemoglobin Concent 34 g/dL (31-37) Red Cell Distribution Width 12.3 % (11.5-14.5) Platelet Count 132 x10^3/uL (140-400) Potassium Level 4.7 mmol/L (3.5-5.1) Test 09/28/18 21:14 09/28/18 22:18 09/28/18 23:22 09/29/18 00:26 Glucose (Fingerstick) 180 mg/dL (70-99) 139 mg/dL (70-99) 165 mg/dL (70-99) 152 mg/dL (70-99) Test 09/29/18 01:31 09/29/18 02:37 09/29/18 03:43 09/29/18 05:45 Glucose (Fingerstick) 137 mg/dL (70-99) 120 mg/dL (70-99) 130 mg/dL (70-99) White Blood Count 8.8 x10^3/uL (4.0-11.0) Red Blood Count 3.15 x10^6/uL (4.30-5.70) Hemoglobin 10.5 g/dL (13.0-17.5) Hematocrit 30.1 % (39.0-53.0) Mean Corpuscular Volume 95 fL (79-100) Mean Corpuscular Hemoglobin 33 pg (25-35) Mean Corpuscular Hemoglobin Concent 35 g/dL (31-37) Red Cell Distribution Width 12.7 % (11.5-14.5) Platelet Count 127 x10^3/uL (140-400) Sodium Level 141 mmol/L (136-145) Potassium Level 4.5 mmol/L (3.5-5.1) Chloride Level 107 mmol/L (98-107) Carbon Dioxide Level 25 mmol/L (21-32) Anion Gap 9 (6-14) Blood Urea Nitrogen 14 mg/dL (8-26) Creatinine 1.1 mg/dL (0.7-1.3) Estimated GFR (Cockcroft-Gault) 68.8 Glucose Level 140 mg/dL (70-99) Calcium Level 9.5 mg/dL (8.5-10.1) Magnesium Level 1.9 mg/dL (1.8-2.4) Test 09/29/18 05:51 09/29/18 09:39 Glucose (Fingerstick) 124 mg/dL (70-99) 107 mg/dL (70-99) Laboratory Tests Test 09/28/18 13:50 09/28/18 14:18 09/28/18 15:19 09/28/18 15:20 White Blood Count 13.3 x10^3/uL (4.0-11.0) 11.8 x10^3/uL (4.0-11.0) Hemoglobin 10.7 g/dL (13.0-17.5) 11.4 g/dL (13.0-17.5) Hematocrit 32.1 % (39.0-53.0) 33.3 % (39.0-53.0) Platelet Count 132 x10^3/uL (140-400) 126 x10^3/uL (140-400) Prothrombin Time 16.3 SEC (11.7-14.0) 16.3 SEC (11.7-14.0) Prothromb Time International Ratio 1.3 (0.8-1.1) 1.3 (0.8-1.1) Activated Partial Thromboplast Time 31 SEC (24-38) 31 SEC (24-38) Fibrinogen 216 mg/dL (200-440) Bedside Hemoglobin (Calculated) 10.5 g/dL (14-18) Bedside Hematocrit 31 % (37-52) Bedside Arterial pH 7.40 (7.35-7.45) Bedside Arterial pCO2 39 mmHg (35-45) Bedside Arterial pO2 350 mmHg (75-100) Bedside Arterial HCO3 24 mmol/L (21-28) Bedside Arterial Total CO2 25 mmol/L (21-32) Arterial Bld O2 Saturation (Measur) 100 % (95-99) Bedside Arterial Blood Base Excess -1 mmol/L (0-3) Bedside FiO2 100.0 Bedside Sodium 141 mmol/L (135-145) Bedside Potassium 4.3 mmol/L (3.5-5.0) Glucose Level 99 mg/dL (70-99) 101 mg/dL (70-99) Bedside Ionized Calcium (Yannick) 1.51 mmol/L (1.13-1.32) Glucose (Fingerstick) 95 mg/dL (70-99) Red Blood Count 3.52 x10^6/uL (4.30-5.70) Mean Corpuscular Volume 95 fL (79-100) Mean Corpuscular Hemoglobin 32 pg (25-35) Mean Corpuscular Hemoglobin Concent 34 g/dL (31-37) Red Cell Distribution Width 12.4 % (11.5-14.5) O2 Saturation 99 % (92-99) Arterial Blood pH 7.35 (7.35-7.45) Arterial Blood pCO2 at Patient Temp 40 mmHg (35-46) Arterial Blood pO2 at Patient Temp 247 mmHg (75-108) Arterial Blood HCO3 21 mmol/L (21-28) Arterial Blood Base Excess -4 mmol/L (-3-3) Oxyhemoglobin 98.0 % Methemoglobin 0.4 % (0.0-1.9) Carbon Monoxide, Quantitative 0.4 % (0.0-1.9) FiO2 80 Sodium Level 143 mmol/L (136-145) Potassium Level 4.6 mmol/L (3.5-5.1) Chloride Level 109 mmol/L (98-107) Carbon Dioxide Level 24 mmol/L (21-32) Anion Gap 10 (6-14) Blood Urea Nitrogen 12 mg/dL (8-26) Creatinine 1.2 mg/dL (0.7-1.3) Estimated GFR (Cockcroft-Gault) 62.2 Calcium Level 10.3 mg/dL (8.5-10.1) Magnesium Level 2.3 mg/dL (1.8-2.4) Test 09/28/18 17:43 09/28/18 17:45 09/28/18 18:41 09/28/18 19:53 Glucose (Fingerstick) 133 mg/dL (70-99) 173 mg/dL (70-99) O2 Saturation 98 % (92-99) Arterial Blood pH 7.46 (7.35-7.45) Arterial Blood pCO2 at Patient Temp 28 mmHg (35-46) Arterial Blood pO2 at Patient Temp 153 mmHg (75-108) Arterial Blood HCO3 20 mmol/L (21-28) Arterial Blood Base Excess -3 mmol/L (-3-3) FiO2 40 White Blood Count 12.5 x10^3/uL (4.0-11.0) Red Blood Count 3.32 x10^6/uL (4.30-5.70) Hemoglobin 10.7 g/dL (13.0-17.5) Hematocrit 31.6 % (39.0-53.0) Mean Corpuscular Volume 95 fL (79-100) Mean Corpuscular Hemoglobin 32 pg (25-35) Mean Corpuscular Hemoglobin Concent 34 g/dL (31-37) Red Cell Distribution Width 12.3 % (11.5-14.5) Platelet Count 132 x10^3/uL (140-400) Potassium Level 4.7 mmol/L (3.5-5.1) Test 09/28/18 21:14 09/28/18 22:18 09/28/18 23:22 09/29/18 00:26 Glucose (Fingerstick) 180 mg/dL (70-99) 139 mg/dL (70-99) 165 mg/dL (70-99) 152 mg/dL (70-99) Test 09/29/18 01:31 09/29/18 02:37 09/29/18 03:43 09/29/18 05:45 Glucose (Fingerstick) 137 mg/dL (70-99) 120 mg/dL (70-99) 130 mg/dL (70-99) White Blood Count 8.8 x10^3/uL (4.0-11.0) Red Blood Count 3.15 x10^6/uL (4.30-5.70) Hemoglobin 10.5 g/dL (13.0-17.5) Hematocrit 30.1 % (39.0-53.0) Mean Corpuscular Volume 95 fL (79-100) Mean Corpuscular Hemoglobin 33 pg (25-35) Mean Corpuscular Hemoglobin Concent 35 g/dL (31-37) Red Cell Distribution Width 12.7 % (11.5-14.5) Platelet Count 127 x10^3/uL (140-400) Sodium Level 141 mmol/L (136-145) Potassium Level 4.5 mmol/L (3.5-5.1) Chloride Level 107 mmol/L (98-107) Carbon Dioxide Level 25 mmol/L (21-32) Anion Gap 9 (6-14) Blood Urea Nitrogen 14 mg/dL (8-26) Creatinine 1.1 mg/dL (0.7-1.3) Estimated GFR (Cockcroft-Gault) 68.8 Glucose Level 140 mg/dL (70-99) Calcium Level 9.5 mg/dL (8.5-10.1) Magnesium Level 1.9 mg/dL (1.8-2.4) Test 09/29/18 05:51 09/29/18 09:39 Glucose (Fingerstick) 124 mg/dL (70-99) 107 mg/dL (70-99) Medications Current Medications Aspirin (Chito Aspirin) 325 mg 1X ONCE PO Last administered on 09/26/18at 03:49 ; Start 09/26/18 at 04:00; Stop 09/26/18 at 04:01; Status DC Sodium Chloride 1,000 ml @ 1,000 mls/hr 1X ONCE IV Last administered on at 03:48; Start 09/26/18 at 04:00; Stop 09/26/18 at 04:59; Status DC Lorazepam (Ativan) 0.5 mg 1X ONCE IV Last administered on 09/26/18at 03:49; Start 09/26/18 at 04:00; Stop 09/26/18 at 04:01; Status DC Ondansetron HCl (Zofran) 4 mg PRN Q8HRS PRN IV NAUSEA/VOMITING 1ST CHOICE; Start 09/26/18 at 04:00; Stop 09/27/18 at 03:59; Status DC Fentanyl Citrate (Fentanyl 2ml Vial) 50 mcg PRN Q2HR PRN IV SEVERE PAIN, UNREL BY MORPHINE; Start 09/26/18 at 04:00; Stop 09/29/18 at 11:23; Status DC Fentanyl Citrate (Fentanyl 2ml Vial) 50 mcg 1X ONCE IV ; Start 09/26/18 at 04:30 ; Stop 09/26/18 at 04:30; Status DC Nitroglycerin (Nitro-Bid Oint) 0.5 inch 1X ONCE TP Last administered on at 04:37; Start 09/26/18 at 04:30; Stop 09/26/18 at 04:31; Status DC Heparin Sodium/ Dextrose 500 ml @ 0 mls/hr CONT PRN IV SEE I/O RECORD Last administered on 09/26/18at 04:41; Start 09/26/18 at 04:15; Stop 09/26/18 at 12:31; Status DC Heparin Sodium (Porcine) (Heparin Sodium) 2,400 unit PRN Q6HRS PRN IV FOR UFH LEVEL LESS THAN 0.2; Start 09/26/18 at 04:15; Stop 09/26/18 at 13:53; Status DC Heparin Sodium (Porcine) (Heparin Sodium) 4,000 unit 1X ONCE IV Last administered on 09/26/18at 04:40; Start 09/26/18 at 04:30; Stop 09/26/18 at 04:31; Status DC Info (Anti-Coagulation Monitoring By Pharmacy) 1 each PRN DAILY PRN MC SEE COMMENTS Last administered on 09/26/18at 09:32; Start 09/26/18 at 04:30; Stop at 12:32; Status DC Iohexol (Omnipaque 350 Mg/ml) 60 ml 1X ONCE IV Last administered on 09/26/18at 05:26; Start 09/26/18 at 05:30; Stop 09/26/18 at 05:31; Status DC Info (CONTRAST GIVEN -- Rx MONITORING) 1 each PRN DAILY PRN MC SEE COMMENTS; Start 09/26/18 at 05:15; Stop 09/26/18 at 10:56; Status DC Multivitamins 10 ml/Thiamine HCl 100 mg/Folic Acid 1 mg/Sodium Chloride 1,011.2 ml @ 100 mls/ hr 1X ONCE IV Last administered on 09/26/18at 10:40; Start at 10:00; Stop 09/26/18 at 20:06; Status DC Atorvastatin Calcium (Lipitor) 40 mg QHS PO Last administered on 09/28/18at 20:14 ; Start 09/26/18 at 21:00 Iodixanol (Visipaque 320) 100 ml STK-MED ONCE .ROUTE ; Start 09/26/18 at 09:58; Stop 09/26/18 at 10:01; Status DC Lidocaine HCl (Lidocaine 1% 20ml Vial) 20 ml STK-MED ONCE .ROUTE ; Start at 09:58; Stop 09/26/18 at 10:01; Status DC Heparin Sodium/ Sodium Chloride 1,000 ml @ As Directed STK-MED ONCE .ROUTE ; Start 09/26/18 at 09:59; Stop 09/26/18 at 10:01; Status DC Fentanyl Citrate (Fentanyl 2ml Vial) 100 mcg STK-MED ONCE .ROUTE ; Start at 10:14; Stop 09/26/18 at 10:16; Status DC Midazolam HCl (Versed) 5 mg STK-MED ONCE .ROUTE ; Start 09/26/18 at 10:14; Stop 09/26/18 at 10:16; Status DC Iohexol (Omnipaque 300 Mg/ml) 100 ml STK-MED ONCE .ROUTE ; Start 09/26/18 at 10: 17; Stop 09/26/18 at 10:19; Status DC Heparin Sodium/ Sodium Chloride (HEPARIN for ARTERIAL LINE FLUSH) 1,000 unit 1X ONCE IART Last administered on 09/26/18 11:37; Start 09/26/18 at 11:00; Stop 09/26/18 at 11:01; Status DC Midazolam HCl (Versed) 5 mg 1X ONCE IV Last administered on 09/26/18at 11:38; Start 09/26/18 at 11:00; Stop 09/26/18 at 11:01; Status DC Fentanyl Citrate (Fentanyl 2ml Vial) 100 mcg 1X ONCE IV Last administered on at 11:38; Start 09/26/18 at 11:00; Stop 09/26/18 at 11:01; Status DC Iodixanol (Visipaque 320) 100 ml 1X ONCE IART Last administered on 09/26/18at 11 :37; Start 09/26/18 at 11:00; Stop 09/26/18 at 11:01; Status DC Lidocaine HCl (Lidocaine 1% 20ml Vial) 20 ml 1X ONCE INJ Last administered on 09/26/18at 11:37; Start 09/26/18 at 11:00; Stop 09/26/18 at 11:01; Status DC Info (CONTRAST GIVEN -- Rx MONITORING) 1 each PRN DAILY PRN MC SEE COMMENTS; Start 09/26/18 at 11:00; Stop 09/28/18 at 10:59; Status DC Sodium Chloride (Normal Saline Flush) 3 ml QSHIFT PRN IV AFTER MEDS AND BLOOD DRAWS; Start 09/26/18 at 11:45; Stop 09/29/18 at 07:30; Status DC Sodium Chloride 1,000 ml @ 75 mls/hr [id number] IV ; Start 09/26/18 at 11:33; Stop 09/26/18 at 17:32; Status DC Nitroglycerin (Nitrostat) 0.4 mg PRN Q5MIN PRN SL CHEST PAIN; Start 09/26/18 at 11:45 Aspirin (Ecotrin) 81 mg [id number] PO Last administered on 09/27/18at 09:39; Start 09/27/18 at 08:00; Stop 09/28/18 at 15:04; Status DC Metoprolol Tartrate (Lopressor) 25 mg BID PO Last administered on 09/27/18at 20: 57; Start 09/26/18 at 21:00; Stop 09/28/18 at 15:09; Status DC Heparin Sodium/ Dextrose 500 ml @ 0 mls/hr CONT PRN IV SEE I/O RECORD Last administered on 09/28/18at 08:19; Start 09/26/18 at 17:00; Stop 09/27/18 at 23:59; Status DC Heparin Sodium (Porcine) (Heparin Sodium) 2,500 unit PRN Q6HRS PRN IV FOR UFH LEVEL LESS THAN 0.2 Last administered on 09/26/18at 23:58; Start 09/26/18 at 17:00 ; Stop 09/27/18 at 23:59; Status DC Info (Anti-Coagulation Monitoring By Pharmacy) 1 each PRN DAILY PRN MC SEE COMMENTS; Start 09/26/18 at 17:15; Stop 09/29/18 at 08:21; Status DC Lorazepam (Ativan) 2 mg PRN Q4HRS PRN PO ANXIETY / AGITATION Last administered on 09/27/18at 20:59; Start 09/26/18 at 17:15 Vitamin B Complex (Folbic Tablet) 1 tab DAILY PO Last administered on 09/29/18at 09:59; Start 09/26/18 at 18:00 Amlodipine Besylate (Norvasc) 5 mg DAILY PO Last administered on 09/27/18at 13:22 ; Start 09/27/18 at 13:00 Potassium Chloride 70 meq/ Sodium Bicarbonate 12.5 meq/Lidocaine HCl 24 ml/ Parenteral Electrolytes 571.5 ml @ 571.5 mls/ hr 1X ONCE IRR Last administered on 09/28/18at 06:00; Start 09/28/18 at 06:00; Stop 09/28/18 at 06:59; Status DC Potassium Chloride 15 meq/ Sodium Bicarbonate 12.5 meq/Parenteral Electrolytes 520 ml @ 520 mls/hr 1X ONCE IRR Last administered on 09/28/18at 06:00; Start at 06:00; Stop 09/28/18 at 06:59; Status DC Heparin Sodium (Porcine) 93127 unit/Ringer's Solution 1,020 ml @ 1,020 mls/hr 1X ONCE IRR Last administered on 09/28/18at 06:00; Start 09/28/18 at 06:00; Stop 09/28/18 at 06:59; Status DC Cefazolin Sodium 1 gm/Sodium Chloride 500 ml @ 500 mls/hr 1X ONCE IRR Last administered on 09/28/18at 08:19; Start 09/28/18 at 06:00; Stop 09/28/18 at 06:59; Status DC Heparin Sodium (Porcine) 800 unit/ Nitroglycerin 4 mg/Verapamil HCl 8 mg/Sodium Bicarbonate 0.34 meq/Ringer's Solution 512.34 ml @ 512.34 mls/hr 1X ONCE IRR Last administered on 09/28/18at 08:20; Start 09/28/18 at 06:00; Stop 09/28/18 at 06: 59; Status DC Ondansetron HCl (Zofran) 4 mg PRN Q6HRS PRN IV NAUSEA/VOMITING; Start 09/28/18 at 07:00; Stop 09/29/18 at 06:59; Status DC Fentanyl Citrate (Fentanyl 2ml Vial) 25 mcg PRN Q5MIN PRN IV MILD PAIN; Start 09/28/18 at 07:00; Stop 09/29/18 at 06:59; Status DC Fentanyl Citrate (Fentanyl 2ml Vial) 50 mcg PRN Q5MIN PRN IV MODERATE TO SEVERE PAIN; Start 09/28/18 at 07:00; Stop 09/29/18 at 06:59; Status DC Morphine Sulfate (Morphine Sulfate) 1 mg PRN Q10MIN PRN IV SEVERE PAIN Last administered on 09/28/18at 16:59; Start 09/28/18 at 07:00; Stop 09/29/18 at 06:59; Status DC Ringer's Solution 1,000 ml @ 30 mls/hr Q24H IV Last administered on 09/28/18at 07:00; Start 09/28/18 at 07:00; Stop 09/28/18 at 18:59; Status DC Lidocaine HCl (Xylocaine-Mpf 1% 2ml Vial) 2 ml PRN 1X PRN ID PRIOR TO IV START ; Start 09/28/18 at 07:00; Stop 09/29/18 at 06:59; Status DC Hydromorphone HCl (Dilaudid) 0.5 mg PRN Q10MIN PRN IV SEV PAIN, Second choice; Start 09/28/18 at 07:00; Stop 09/29/18 at 06:59; Status DC Prochlorperazine Edisylate (Compazine) 5 mg PACU PRN PRN IV NAUSEA, MRX1; Start 09/28/18 at 07:00; Stop 09/29/18 at 06:59; Status DC Cefazolin Sodium/ Dextrose 50 ml @ 100 mls/hr 1X ONCE IV Last administered on 09/28/18at 08:39; Start 09/28/18 at 06:00; Stop 09/28/18 at 06:29; Status DC Phenylephrine HCl (Aayush-Synephrine Inj) 10 mg STK-MED ONCE .ROUTE ; Start at 06:24; Stop 09/28/18 at 06:26; Status DC Etomidate (Amidate) 20 mg STK-MED ONCE IV ; Start 09/28/18 at 06:24; Stop at 06:26; Status DC Aminocaproic Acid (Amicar) 5,000 mg STK-MED ONCE IV ; Start 09/28/18 at 06:24; Stop 09/28/18 at 06:26; Status DC Nitroglycerin/ Dextrose 250 ml @ As Directed STK-MED ONCE IV ; Start 09/28/18 at 06:24; Stop 09/28/18 at 06:26; Status DC Rocuronium [place] (Zemuron) 100 mg STK-MED ONCE .ROUTE ; Start 09/28/18 at 06:24 ; Stop 09/28/18 at 06:27; Status DC Vancomycin HCl (VANCO for OR ONLY) 10 gm STK-MED ONCE .ROUTE Last administered on 09/28/18at 08:18; Start 09/28/18 at 06:37; Stop 09/28/18 at 06:39; Status DC Cellulose (Surgicel Hemostat 4x8) 1 each STK-MED ONCE .ROUTE Last administered on 09/28/18at 08:18; Start 09/28/18 at 06:37; Stop 09/28/18 at 06:39; Status DC Papaverine HCl 60 mg STK-MED ONCE .ROUTE Last administered on 09/28/18at 08:17; Start 09/28/18 at 06:37; Stop 09/28/18 at 06:39; Status DC Aspirin (Aspirin) 300 mg STK-MED ONCE .ROUTE Last administered on 09/28/18at 08: 17; Start 09/28/18 at 06:37; Stop 09/28/18 at 06:39; Status DC Sodium Chloride (SODIUM CHLORIDE 20ml) 20 ml STK-MED ONCE IJ Last administered on 09/28/18at 08:16; Start 09/28/18 at 06:37; Stop 09/28/18 at 06:39; Status DC Sodium Chloride (SODIUM CHLORIDE 20ml) 20 ml STK-MED ONCE IJ Last administered on 09/28/18at 08:16; Start 09/28/18 at 06:37; Stop 09/28/18 at 06:39; Status DC Sodium Chloride (SODIUM CHLORIDE 20ml) 20 ml STK-MED ONCE IJ Last administered on 09/28/18at 08:17; Start 09/28/18 at 06:38; Stop 09/28/18 at 06:40; Status DC Heparin Sodium (Porcine) 30,000 unit STK-MED ONCE .ROUTE ; Start 09/28/18 at 06: 38; Stop 09/28/18 at 06:41; Status DC Nitroglycerin/ Dextrose 250 ml @ As Directed STK-MED ONCE IV ; Start 09/28/18 at 06:39; Stop 09/28/18 at 06:41; Status DC Midazolam HCl (Versed) 2 mg STK-MED ONCE .ROUTE ; Start 09/28/18 at 06:52; Stop 09/28/18 at 06:54; Status DC Sufentanil Citrate (Sufenta) 250 mcg STK-MED ONCE .ROUTE ; Start 09/28/18 at 06: 59; Stop 09/28/18 at 07:01; Status DC Isoflurane (Isoflurane) 90 ml STK-MED ONCE IH ; Start 09/28/18 at 08:10; Stop 09/28/18 at 08:13; Status DC Ephedrine Sulfate (Akovaz) 50 mg STK-MED ONCE .ROUTE ; Start 09/28/18 at 08:40; Stop 09/28/18 at 08:42; Status DC Midazolam HCl (Versed) 2 mg STK-MED ONCE .ROUTE ; Start 09/28/18 at 08:53; Stop 09/28/18 at 08:55; Status DC Midazolam HCl (Versed) 2 mg STK-MED ONCE .ROUTE ; Start 09/28/18 at 08:53; Stop 09/28/18 at 08:55; Status DC Rocuronium [place] (Zemuron) 100 mg STK-MED ONCE .ROUTE ; Start 09/28/18 at 09:54 ; Stop 09/28/18 at 09:56; Status DC Heparin Sodium (Porcine) (Heparin Sodium) 10,000 unit STK-MED ONCE .ROUTE ; Start 09/28/18 at 10:30; Stop 09/28/18 at 10:32; Status DC Protamine Sulfate (Protamine) 50 mg STK-MED ONCE IV ; Start 09/28/18 at 10:39; Stop 09/28/18 at 10:41; Status DC Protamine Sulfate (Protamine) 250 mg STK-MED ONCE IV ; Start 09/28/18 at 10:39; Stop 09/28/18 at 10:42; Status DC Cefazolin Sodium (Ancef) 1 gm STK-MED ONCE .ROUTE ; Start 09/28/18 at 12:48; Stop 09/28/18 at 12:50; Status DC Amiodarone HCl 150 mg/Dextrose 103 ml @ 618 mls/hr 1X ONCE IV ; Start 09/28/18 at 14:30; Stop 09/28/18 at 14:39; Status DC Heparin Sodium (Porcine) (Heparin Sodium) 10,000 unit STK-MED ONCE .ROUTE ; Start 09/28/18 at 13:36; Stop 09/28/18 at 13:38; Status DC Lidocaine HCl (Lidocaine Pf 2% Vial) 5 ml STK-MED ONCE .ROUTE ; Start 09/28/18 at 13:36; Stop 09/28/18 at 13:38; Status DC Amiodarone HCl 900 mg/Dextrose 518 ml @ 33 mls/hr CONT PRN IV SEE I/O RECORD; Start 09/28/18 at 14:30 Magnesium Sulfate 5 gm STK-MED ONCE .ROUTE ; Start 09/28/18 at 13:36; Stop at 13:38; Status DC Heparin Sodium (Porcine) 30,000 unit STK-MED ONCE .ROUTE ; Start 09/28/18 at 13: 36; Stop 09/28/18 at 13:38; Status DC Mannitol (Mannitol) 12.5 g STK-MED ONCE .ROUTE ; Start 09/28/18 at 13:36; Stop at 13:38; Status DC Albumin Human 100 ml @ As Directed STK-MED ONCE IV ; Start 09/28/18 at 13:36; Stop 09/28/18 at 13:38; Status DC Calcium Chloride (Calcium Chloride) 1,000 mg STK-MED ONCE .ROUTE ; Start at 13:36; Stop 09/28/18 at 13:38; Status DC Albumin Human 500 ml @ As Directed STK-MED ONCE IV ; Start 09/28/18 at 13:36; Stop 09/28/18 at 13:38; Status DC Nicardipine HCl 50 mg/Sodium Chloride 250 ml @ 25 mls/hr CONT PRN IV SEE I/O RECORD; Start 09/28/18 at 14:30; Stop 09/29/18 at 11:23; Status DC Protamine Sulfate (Protamine) 50 mg STK-MED ONCE IV ; Start 09/28/18 at 14:03; Stop 09/28/18 at 14:05; Status DC Sodium Chloride (Normal Saline Flush) 3 ml PRN Q12HR PRN IV AFTER MEDS AND BLOOD DRAWS; Start 09/28/18 at 15:00 Ringer's Solution 1,000 ml @ 30 mls/hr Q24H IV Last administered on 09/28/18at 15:30; Start 09/28/18 at 14:48 Albumin Human 250 ml @ 500 mls/hr PRN Q4HRS PRN IV SEE COMMENTS Last administered on 09/28/18at 17:07; Start 09/28/18 at 15:00 Insulin Human Regular 150 unit/ Sodium Chloride 151.5 ml @ 0 mls/hr CONT PRN PRN IV PER PROTOCOL Last administered on 09/28/18at 20:05; Start 09/28/18 at 15:00 Dextrose (Dextrose 50%-Water Syringe) 25 gm PRN Q15MIN PRN IV LOW BLOOD SUGAR; Start 09/28/18 at 15:00 Nitroglycerin/ Dextrose 250 ml @ 0 mls/hr CONT PRN PRN IV POST CV SURGERY; Start 09/28/18 at 15:00; Stop 09/29/18 at 11:23; Status DC Phenylephrine HCl 20 mg/Sodium Chloride 252 ml @ 0 mls/hr CONT PRN PRN IV HYPOTENSION Last administered on 09/28/18at 15:31; Start 09/28/18 at 15:00 Amiodarone HCl 150 mg/Dextrose 103 ml @ 600 mls/hr 1X ONCE IV ; Start 09/28/18 at 15:00; Stop 09/28/18 at 15:05; Status DC Amiodarone HCl 150 mg/Dextrose 103 ml @ 200 mls/hr 1X PRN PRN IV FOR AFIB; Start 09/28/18 at 15:00 Amiodarone HCl 900 mg/Dextrose 518 ml @ 0 mls/hr CONT PRN PRN IV AFIB; Start at 15:00; Stop 09/28/18 at 15:06; Status DC Info (KCl Per Protocol) 1 ea CONT PRN PRN MC SEE COMMENTS; Start 09/28/18 at 15: 00 Magnesium Sulfate/ Dextrose 100 ml @ 100 mls/hr PRN DAILY PRN IV FOR MAG < 2.2 ; Start 09/28/18 at 15:00 Famotidine (Pepcid Vial) 20 mg BID IVP Last administered on 09/29/18at 09:58; Start 09/28/18 at 21:00 Ondansetron HCl (Zofran) 4 mg PRN Q4HRS PRN IV NAUSEA/VOMITING, 1st CHOICE Last administered on 09/29/18at 00:45; Start 09/28/18 at 15:00 Prochlorperazine Edisylate (Compazine) 10 mg PRN Q6HRS PRN IV NAUSEA/VOMITING, 2nd CHOICE; Start 09/28/18 at 15:00 Metoclopramide HCl (Reglan Vial) 10 mg PRN Q6HRS PRN IV NAUSEA/VOMITING, 3rd CHOICE; Start 09/28/18 at 15:00 Morphine Sulfate (Morphine Sulfate) 2 mg PRN Q1HR PRN IV MODERATE PAIN; Start 09/28/18 at 15:00 Morphine Sulfate (Morphine Sulfate) 4 mg PRN Q1HR PRN IV SEVERE PAIN Last administered on 09/29/18at 03:51; Start 09/28/18 at 15:00 Acetaminophen (Tylenol) 650 mg PRN Q4HRS PRN PO TEMP > 101'F or MILD PAIN; Start 09/28/18 at 15:00 Acetaminophen (Tylenol Supp) 650 mg PRN Q4HRS PRN MD TEMP > 101'F or MILD PAIN ; Start 09/28/18 at 15:00 Meperidine HCl (Demerol) 12.5 mg PRN Q15MIN PRN IV SHIVERING; Start 09/28/18 at 15:00; Stop 09/29/18 at 11:23; Status DC Propofol 100 ml @ 0 mls/hr CONT PRN PRN IV POSTOP SEDATION UNTIL EXTUBATE Last administered on 09/28/18at 15:59; Start 09/28/18 at 15:00; Stop 09/29/18 at 11:23; Status DC Senna/Docusate Sodium (Senna Plus) 1 tab BID PO Last administered on 09/29/18at 09:00; Start 09/28/18 at 21:00 Bisacodyl (Dulcolax Supp) 10 mg PRN DAILY PRN MD NO BOWEL MOVEMENT; Start at 15:00 Chlorhexidine Gluconate (Peridex) 15 ml BID MM ; Start 09/29/18 at 09:00 Aspirin (Ecotrin) 325 mg DAILYWBKFT PO Last administered on 09/29/18at 09:58; Start 09/29/18 at 08:00 Aspirin (Aspirin) 300 mg PRN DAILY PRN MD IF UNABLE TO TAKE PO; Start 09/29/18 at 08:00 Albuterol Sulfate (Ventolin Neb Soln) 2.5 mg PRN Q4HRS PRN NEB SHORTNESS OF BREATH; Start 09/28/18 at 15:00 Metoprolol Tartrate (Lopressor) 25 mg BID PO ; Start 09/29/18 at 09:00 Nicardipine HCl 50 mg/Sodium Chloride 250 ml @ 0 mls/hr CONT PRN PRN IV PER PROTOCOL; Start 09/28/18 at 15:00; Stop 09/28/18 at 15:10; Status DC Oxycodone HCl (Roxicodone) 5 mg PRN Q4HRS PRN PO MILD TO MODERATE PAIN Last administered on 09/29/18at 11:52; Start 09/28/18 at 15:00 Oxycodone HCl (Roxicodone) 10 mg PRN Q4HRS PRN PO SEVERE PAIN; Start 09/28/18 at 15:00 Cefazolin Sodium/ Dextrose 50 ml @ 100 mls/hr Q8H IV Last administered on at 10:01; Start 09/28/18 at 23:00; Stop 09/30/18 at 07:29 Sodium Bicarbonate (Sodium Bicarb Adult 8.4% Syr) 50 meq 1X ONCE IV Last administered on 09/28/18at 16:59; Start 09/28/18 at 17:00; Stop 09/28/18 at 17:01; Status DC Throat Lozenges (Cepacol Sore Throat Lozenge) 1 dede PRN Q2HRS PRN PO SORE THROAT; Start 09/29/18 at 13:00 Active Scripts Active Reported Amlodipine-Benazepril 5-20 Mg (Amlodipine Besylate/Benazepril) 1 Each Capsule 1 Cap PO DAILY Vitals/I & O Vital Sign - Last 24 Hours 09/28/18 09/28/18 09/28/18 09/28/18 14:50 15:00 15:07 16:00 Temp 96.6 96.6 Pulse 76 Resp 14 B/P (MAP) 92/56 (68) Pulse Ox 100 100 O2 Delivery Ventilator Mechanical Ventilator Ventilator Mechanical Ventilator 09/28/18 09/28/18 09/28/18 09/28/18 16:09 16:59 17:00 17:30 Resp 14 18 Pulse Ox 100 40 98 O2 Delivery Ventilator Mechanical Ventilator Nasal Cannula O2 Flow Rate 4.0 09/28/18 09/28/18 09/28/18 09/28/18 18:00 19:00 19:04 20:00 Pulse 80 79 Resp 16 20 16 B/P (MAP) 111/66 (81) 99/59 (72) Pulse Ox 100 98 100 O2 Delivery Nasal Cannula Nasal Cannula Nasal Cannula Nasal Cannula O2 Flow Rate 4.0 4.0 4.0 4.0 09/28/18 09/28/18 09/28/18 09/28/18 20:00 20:14 21:00 22:00 Temp 97.8 97.8 Pulse 85 81 Resp 16 20 20 B/P (MAP) 90/50 (63) 101/77 (85) Pulse Ox 98 97 95 O2 Delivery Nasal Cannula Nasal Cannula Nasal Cannula Nasal Cannula O2 Flow Rate 4.0 4.0 4.0 4.0 09/28/18 09/29/18 09/29/18 09/29/18 23:00 00:00 00:00 00:34 Temp 98.0 98.0 Pulse 80 81 Resp 20 22 19 B/P (MAP) 104/58 (73) 102/55 (71) Pulse Ox 95 95 95 O2 Delivery Nasal Cannula Nasal Cannula Nasal Cannula Nasal Cannula O2 Flow Rate 4.0 4.0 4.0 4.0 09/29/18 09/29/18 09/29/18 09/29/18 00:47 01:00 01:36 02:00 Pulse 86 84 Resp 20 20 17 20 B/P (MAP) 96/54 (68) 100/58 (72) Pulse Ox 100 98 99 96 O2 Delivery Nasal Cannula Nasal Cannula Nasal Cannula Nasal Cannula O2 Flow Rate 4.0 4.0 4.0 4.0 09/29/18 09/29/18 09/29/18 09/29/18 02:42 03:00 03:51 04:00 Pulse 82 Resp 15 19 16 B/P (MAP) 98/58 (71) Pulse Ox 95 98 O2 Delivery Nasal Cannula Nasal Cannula Nasal Cannula O2 Flow Rate 4.0 4.0 4.0 09/29/18 09/29/18 09/29/18 09/29/18 04:00 04:21 05:00 06:00 Temp 98.0 98.0 Pulse 86 87 95 Resp 18 15 16 16 B/P (MAP) 100/60 (73) 86/56 (66) 112/71 (85) Pulse Ox 97 97 96 96 O2 Delivery Nasal Cannula Nasal Cannula Nasal Cannula Nasal Cannula O2 Flow Rate 4.0 4.0 4.0 4.0 09/29/18 09/29/18 09/29/18 09/29/18 07:00 08:00 08:00 09:00 Temp 97.7 97.7 Pulse 85 89 80 Resp 16 14 16 B/P (MAP) 98/62 (74) 102/58 (73) 115/66 (82) Pulse Ox 92 95 94 O2 Delivery Nasal Cannula Nasal Cannula Nasal Cannula Nasal Cannula O2 Flow Rate 4.0 4.0 4.0 4.0 09/29/18 09/29/18 09/29/18 09/29/18 09:00 09:00 09:59 10:00 Pulse 69 79 69 Resp 12 17 B/P (MAP) 78/58 98/58 108/60 (76) Pulse Ox 96 100 O2 Delivery Nasal Cannula Nasal Cannula O2 Flow Rate 4.0 4.0 09/29/18 09/29/18 09/29/18 10:00 11:52 11:54 Pulse 88 Resp 12 12 B/P (MAP) 96/58 (71) Pulse Ox 98 100 100 O2 Delivery Nasal Cannula Nasal Cannula Nasal Cannula O2 Flow Rate 4.0 4.0 4.0 Intake and Output 09/28/18 09/28/18 09/29/18 15:01 23:01 07:01 Intake Total 2486 ml 696 ml Output Total 1890 ml 740 ml Balance 596 ml -44 ml MIK SIMMONS MD Sep 29, 2018 13:38
--- NOTE | 2018-09-29 14:30 | PDOC ---
Progress Note Subjective Subjective Doing very well. Normotensive and SR. Minimal tube output. A-line and [place] are out. Hb 10.5 creat 1.1. CXR left basal atelectasis ROS ROS No nausea No vomiting No pain No rash Vital Sign Vital Signs Vital Signs Date Time Temp Pulse Resp B/P (MAP) Pulse Ox O2 Delivery O2 Flow Rate FiO2 09/29/18 14:20 21 100 Nasal Cannula 3.0 09/29/18 10:00 88 96/58 (71) 09/29/18 08:00 97.7 97.7 Physical Exam PHYSICAL EXAM GENERAL: NAD, Alert HEENT: PERRL, OC/OP NECK: Supple, no JVD, no LN LUNGS: Clear HEART: S1S2, no gallop, no murmur ABD: Soft, NT, no organomegaly, no rebound EXT: No edema, no cyanosis CELERY CUTTER: Alert, oriented x 3, no focal neurologic deficit SKIN: No rash IV: ok Labs Lab Laboratory Tests Test 09/28/18 15:19 09/28/18 15:20 09/28/18 17:43 09/28/18 17:45 Glucose (Fingerstick) 95 mg/dL (70-99) 133 mg/dL (70-99) White Blood Count 11.8 x10^3/uL (4.0-11.0) Red Blood Count 3.52 x10^6/uL (4.30-5.70) Hemoglobin 11.4 g/dL (13.0-17.5) Hematocrit 33.3 % (39.0-53.0) Mean Corpuscular Volume 95 fL (79-100) Mean Corpuscular Hemoglobin 32 pg (25-35) Mean Corpuscular Hemoglobin Concent 34 g/dL (31-37) Red Cell Distribution Width 12.4 % (11.5-14.5) Platelet Count 126 x10^3/uL (140-400) Prothrombin Time 16.3 SEC (11.7-14.0) Prothromb Time International Ratio 1.3 (0.8-1.1) Activated Partial Thromboplast Time 31 SEC (24-38) O2 Saturation 99 % (92-99) 98 % (92-99) Arterial Blood pH 7.35 (7.35-7.45) 7.46 (7.35-7.45) Arterial Blood pCO2 at Patient Temp 40 mmHg (35-46) 28 mmHg (35-46) Arterial Blood pO2 at Patient Temp 247 mmHg (75-108) 153 mmHg (75-108) Arterial Blood HCO3 21 mmol/L (21-28) 20 mmol/L (21-28) Arterial Blood Base Excess -4 mmol/L (-3-3) -3 mmol/L (-3-3) Oxyhemoglobin 98.0 % Methemoglobin 0.4 % (0.0-1.9) Carbon Monoxide, Quantitative 0.4 % (0.0-1.9) FiO2 80 40 Sodium Level 143 mmol/L (136-145) Potassium Level 4.6 mmol/L (3.5-5.1) Chloride Level 109 mmol/L (98-107) Carbon Dioxide Level 24 mmol/L (21-32) Anion Gap 10 (6-14) Blood Urea Nitrogen 12 mg/dL (8-26) Creatinine 1.2 mg/dL (0.7-1.3) Estimated GFR (Cockcroft-Gault) 62.2 Glucose Level 101 mg/dL (70-99) Calcium Level 10.3 mg/dL (8.5-10.1) Magnesium Level 2.3 mg/dL (1.8-2.4) Test 09/28/18 18:41 09/28/18 19:53 09/28/18 21:14 09/28/18 22:18 White Blood Count 12.5 x10^3/uL (4.0-11.0) Red Blood Count 3.32 x10^6/uL (4.30-5.70) Hemoglobin 10.7 g/dL (13.0-17.5) Hematocrit 31.6 % (39.0-53.0) Mean Corpuscular Volume 95 fL (79-100) Mean Corpuscular Hemoglobin 32 pg (25-35) Mean Corpuscular Hemoglobin Concent 34 g/dL (31-37) Red Cell Distribution Width 12.3 % (11.5-14.5) Platelet Count 132 x10^3/uL (140-400) Potassium Level 4.7 mmol/L (3.5-5.1) Glucose (Fingerstick) 173 mg/dL (70-99) 180 mg/dL (70-99) 139 mg/dL (70-99) Test 09/28/18 23:22 09/29/18 00:26 09/29/18 01:31 09/29/18 02:37 Glucose (Fingerstick) 165 mg/dL (70-99) 152 mg/dL (70-99) 137 mg/dL (70-99) 120 mg/dL (70-99) Test 09/29/18 03:43 09/29/18 05:45 09/29/18 05:51 09/29/18 09:39 Glucose (Fingerstick) 130 mg/dL (70-99) 124 mg/dL (70-99) 107 mg/dL (70-99) White Blood Count 8.8 x10^3/uL (4.0-11.0) Red Blood Count 3.15 x10^6/uL (4.30-5.70) Hemoglobin 10.5 g/dL (13.0-17.5) Hematocrit 30.1 % (39.0-53.0) Mean Corpuscular Volume 95 fL (79-100) Mean Corpuscular Hemoglobin 33 pg (25-35) Mean Corpuscular Hemoglobin Concent 35 g/dL (31-37) Red Cell Distribution Width 12.7 % (11.5-14.5) Platelet Count 127 x10^3/uL (140-400) Sodium Level 141 mmol/L (136-145) Potassium Level 4.5 mmol/L (3.5-5.1) Chloride Level 107 mmol/L (98-107) Carbon Dioxide Level 25 mmol/L (21-32) Anion Gap 9 (6-14) Blood Urea Nitrogen 14 mg/dL (8-26) Creatinine 1.1 mg/dL (0.7-1.3) Estimated GFR (Cockcroft-Gault) 68.8 Glucose Level 140 mg/dL (70-99) Calcium Level 9.5 mg/dL (8.5-10.1) Magnesium Level 1.9 mg/dL (1.8-2.4) Objective Assessment POD#1, s/p CABG x 4 (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 Normotensive and SR. Minimal tube output. A-line and [place] are out. Hb 10.5 creat 1.1. CXR left basal atelectasis Plan Plan of Care D/c mediastinal drains ASA, b marguerite and statin Hold amio for now for AFib prophylaxis- HR 70s and SBP 100s Ambulation and pulm toilet ICU one more day SERENA HILL MD Sep 29, 2018 14:30
[2018-09-29] MEDS: IV RINGERS,LACTATED 1000ML 1,000 ML IV SCH (14:48)
[2018-09-29] MEDS: ATORVASTATIN CALCIUM 40 MG TABLET. PO SCH (20:54)
[2018-09-29] MEDS: FAMOTIDINE 20 MG TABLET. PO SCH (20:55)
[2018-09-30] VITALS (15 sets, daily range): BP systolic 96–153; BP diastolic 65–96
[2018-09-30] MEDS: oxyCODONE IR 5 MG TABLET PO PRN ×3 (04:15→21:14)
[2018-09-30 05:15] LABS: CALCIUM 8.6 mg/dL (8.5-10.1); CREATININE 1.2 mg/dL (0.7-1.3); GFR 62.2; HEMATOCRIT 28.4 % (39.0-53.0); HEMOGLOBIN 9.8 g/dL (13.0-17.5); MAGNESIUM 1.5 mg/dL (1.8-2.4); POTASSIUM 4.2 mmol/L (3.5-5.1); RED BLOOD COUNT 2.96 x10^6/uL (4.30-5.70); RED CELL DISTRIBUTION WIDTH 12.5 % (11.5-14.5); WHITE BLOOD COUNT 10.1 x10^3/uL (4.0-11.0)
[2018-09-30] MEDS ORDERED: MAGNESIUM SULFATE 1GM 100 ML IV ONE (08:30)
--- NOTE | 2018-09-30 08:35 | RAD ---
Indication:Status post CABG TECHNIQUE:Portable AP chest X-ray COMPARISON: 09/29/2018 FINDINGS: Interval removal of one of the left chest tubes. Stable position of left lower chest tube. Stable position of right IJ sheath. CABG changes. Stable blunting of left costophrenic angle. Right lung is clear. Stable trace left apical pneumothorax. IMPRESSION: 1. Stable trace left apical pneumothorax. 2. Trace left pleural effusion. Electronically signed by: Luis E Maria DO (09/30/2018 8:30 AM) [facility]
--- NOTE | 2018-09-30 09:40 | PDOC ---
PROGRESS NOTES Chief Complaint Chief Complaint CAD s/p CABG NSTEMI HTN HLD ETOH abuse Tobacco abuse History of Present Illness History of Present Illness 57-year-old male with hypertension and hyperlipidemia and a strong family history of ischemic heart disease who presents with a non-STEMI. He had anterior lateral ischemic EKG changes and a small troponin leak which peaked at 2.7. He underwent a coronary angiography which demonstrated a 80-90% stenosis of the proximal LAD, a tight lesion at the origin of a large diagonal vessel, a tight 80-90% stenosis of the left circumflex and a 70% mid to distal RCA lesion. 09/30: Seen post-CABG x 4 (COLLINS to LAD, radial to OM, SVG to diagonal, SVG to RPDA). He is awake, states he has some chest pain. chest tubes draining well. Good UOP. No problem with his extubation. Feeling ok. Mag 1.5, replaced. Still with some pain PLAN s/p cardiac cath revealing severe 3 VD, normal Ef without WMA CABG �4 (COLLINS to LAD, radial to OM, SVG to diagonal, SVG to RPDA) carotid duplex and bilateral lower extremity vein for vein mapping continue ASA, heparin drip, statin banana bag given for etoh prn ativan for etoh withdrawal counseled on smoking meds BP control full code Advance diet as tolerated post-op per protocol apprec cards and CTS involvement Seen in ICU post CABG, can step down when ok with CT surgery Vitals Vitals Vital Signs Date Time Temp Pulse Resp B/P (MAP) Pulse Ox O2 Delivery O2 Flow Rate FiO2 09/30/18 08:00 87 14 110/73 (85) 94 Room Air 09/30/18 07:00 98.4 1.0 98.4 Physical Exam Physical Exam GENERAL: NAD, Alert HEENT: PERRL, OC/OP NECK: Supple, no JVD, no LN LUNGS: Clear HEART: S1S2, no gallop, no murmur ABD: Soft, NT, no organomegaly, no rebound EXT: No edema, no cyanosis 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, 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 x 3, no focal neurologic deficit SKIN: No rash IV: ok General: Alert, Oriented X3, Cooperative, mild distress Heart: Regular rate Lungs: Clear Abdomen: Normal bowel sounds Extremities: No clubbing, No cyanosis, No edema Skin: No rashes, No breakdown, No significant lesion Labs LABS Laboratory Tests Test 09/29/18 09:39 09/30/18 04:45 Glucose (Fingerstick) 107 mg/dL (70-99) White Blood Count 10.1 x10^3/uL (4.0-11.0) Red Blood Count 2.96 x10^6/uL (4.30-5.70) Hemoglobin 9.8 g/dL (13.0-17.5) Hematocrit 28.4 % (39.0-53.0) Mean Corpuscular Volume 96 fL (79-100) Mean Corpuscular Hemoglobin 33 pg (25-35) Mean Corpuscular Hemoglobin Concent 34 g/dL (31-37) Red Cell Distribution Width 12.5 % (11.5-14.5) Platelet Count 122 x10^3/uL (140-400) Sodium Level 135 mmol/L (136-145) Potassium Level 4.2 mmol/L (3.5-5.1) Chloride Level 100 mmol/L (98-107) Carbon Dioxide Level 28 mmol/L (21-32) Anion Gap 7 (6-14) Blood Urea Nitrogen 16 mg/dL (8-26) Creatinine 1.2 mg/dL (0.7-1.3) Estimated GFR (Cockcroft-Gault) 62.2 Glucose Level 139 mg/dL (70-99) Calcium Level 8.6 mg/dL (8.5-10.1) Magnesium Level 1.5 mg/dL (1.8-2.4) Assessment and Plan Assessmemt and Plan Problems Medical Problems: (1) Elevated d-dimer Status: Acute (2) NSTEMI (non-ST elevated myocardial infarction) Status: Acute Comment Review of Relevant I have reviewed the following items vicky (where applicable) has been applied. Labs Laboratory Tests Test 09/28/18 09:51 09/28/18 11:06 09/28/18 11:30 09/28/18 11:58 Bedside Hemoglobin (Calculated) 12.9 g/dL (14-18) 10.9 g/dL (14-18) 10.9 g/dL (14-18) 10.5 g/dL (14-18) Bedside Hematocrit 38 % (37-52) 32 % (37-52) 32 % (37-52) 31 % (37-52) Bedside Arterial pH 7.35 (7.35-7.45) 7.32 (7.35-7.45) 7.33 (7.35-7.45) 7.33 (7.35-7.45) Bedside Arterial pCO2 50 mmHg (35-45) 48 mmHg (35-45) 49 mmHg (35-45) 50 mmHg (35-45) Bedside Arterial pO2 377 mmHg (75-100) 354 mmHg (75-100) 229 mmHg (75-100) 199 mmHg (75-100) Bedside Arterial HCO3 28 mmol/L (21-28) 24 mmol/L (21-28) 26 mmol/L (21-28) 26 mmol/L (21-28) Bedside Arterial Total CO2 29 mmol/L (21-32) 26 mmol/L (21-32) 27 mmol/L (21-32) 28 mmol/L (21-32) Arterial Bld O2 Saturation (Measur) 100 % (95-99) 100 % (95-99) 100 % (95-99) 100 % (95-99) Bedside Arterial Blood Base Excess 2 mmol/L (0-3) -2 mmol/L (0-3) 0 mmol/L (0-3) 0 mmol/L (0-3) Bedside FiO2 100.0 75.0 70.0 70.0 Bedside Sodium 138 mmol/L (135-145) 137 mmol/L (135-145) 140 mmol/L (135-145) 139 mmol/L (135-145) Bedside Potassium 4.6 mmol/L (3.5-5.0) 5.9 mmol/L (3.5-5.0) 5.0 mmol/L (3.5-5.0) 4.8 mmol/L (3.5-5.0) Glucose Level 125 mg/dL (70-99) 123 mg/dL (70-99) 118 mg/dL (70-99) 121 mg/dL (70-99) Bedside Ionized Calcium (Yannick) 1.20 mmol/L (1.13-1.32) 1.05 mmol/L (1.13-1.32) 1.11 mmol/L (1.13-1.32) 1.10 mmol/L (1.13-1.32) Test 09/28/18 12:31 09/28/18 13:12 09/28/18 13:50 09/28/18 14:18 Bedside Hemoglobin (Calculated) 10.2 g/dL (14-18) 9.2 g/dL (14-18) 10.5 g/dL (14-18) Bedside Hematocrit 30 % (37-52) 27 % (37-52) 31 % (37-52) Bedside Arterial pH 7.30 (7.35-7.45) 7.38 (7.35-7.45) 7.40 (7.35-7.45) Bedside Arterial pCO2 53 mmHg (35-45) 38 mmHg (35-45) 39 mmHg (35-45) Bedside Arterial pO2 191 mmHg (75-100) 66 mmHg (75-100) 350 mmHg (75-100) Bedside Arterial HCO3 26 mmol/L (21-28) 23 mmol/L (21-28) 24 mmol/L (21-28) Bedside Arterial Total CO2 28 mmol/L (21-32) 24 mmol/L (21-32) 25 mmol/L (21-32) Arterial Bld O2 Saturation (Measur) 100 % (95-99) 93 % (95-99) 100 % (95-99) Bedside Arterial Blood Base Excess 0 mmol/L (0-3) -2 mmol/L (0-3) -1 mmol/L (0-3) Bedside FiO2 80.0 100.0 100.0 Bedside Sodium 138 mmol/L (135-145) 138 mmol/L (135-145) 141 mmol/L (135-145) Bedside Potassium 4.7 mmol/L (3.5-5.0) 4.2 mmol/L (3.5-5.0) 4.3 mmol/L (3.5-5.0) Glucose Level 127 mg/dL (70-99) 119 mg/dL (70-99) 99 mg/dL (70-99) Bedside Ionized Calcium (Yannick) 1.12 mmol/L (1.13-1.32) 1.78 mmol/L (1.13-1.32) 1.51 mmol/L (1.13-1.32) White Blood Count 13.3 x10^3/uL (4.0-11.0) Hemoglobin 10.7 g/dL (13.0-17.5) Hematocrit 32.1 % (39.0-53.0) Platelet Count 132 x10^3/uL (140-400) Prothrombin Time 16.3 SEC (11.7-14.0) Prothromb Time International Ratio 1.3 (0.8-1.1) Activated Partial Thromboplast Time 31 SEC (24-38) Fibrinogen 216 mg/dL (200-440) Test 09/28/18 15:19 09/28/18 15:20 09/28/18 17:43 09/28/18 17:45 Glucose (Fingerstick) 95 mg/dL (70-99) 133 mg/dL (70-99) White Blood Count 11.8 x10^3/uL (4.0-11.0) Red Blood Count 3.52 x10^6/uL (4.30-5.70) Hemoglobin 11.4 g/dL (13.0-17.5) Hematocrit 33.3 % (39.0-53.0) Mean Corpuscular Volume 95 fL (79-100) Mean Corpuscular Hemoglobin 32 pg (25-35) Mean Corpuscular Hemoglobin Concent 34 g/dL (31-37) Red Cell Distribution Width 12.4 % (11.5-14.5) Platelet Count 126 x10^3/uL (140-400) Prothrombin Time 16.3 SEC (11.7-14.0) Prothromb Time International Ratio 1.3 (0.8-1.1) Activated Partial Thromboplast Time 31 SEC (24-38) O2 Saturation 99 % (92-99) 98 % (92-99) Arterial Blood pH 7.35 (7.35-7.45) 7.46 (7.35-7.45) Arterial Blood pCO2 at Patient Temp 40 mmHg (35-46) 28 mmHg (35-46) Arterial Blood pO2 at Patient Temp 247 mmHg (75-108) 153 mmHg (75-108) Arterial Blood HCO3 21 mmol/L (21-28) 20 mmol/L (21-28) Arterial Blood Base Excess -4 mmol/L (-3-3) -3 mmol/L (-3-3) Oxyhemoglobin 98.0 % Methemoglobin 0.4 % (0.0-1.9) Carbon Monoxide, Quantitative 0.4 % (0.0-1.9) FiO2 80 40 Sodium Level 143 mmol/L (136-145) Potassium Level 4.6 mmol/L (3.5-5.1) Chloride Level 109 mmol/L (98-107) Carbon Dioxide Level 24 mmol/L (21-32) Anion Gap 10 (6-14) Blood Urea Nitrogen 12 mg/dL (8-26) Creatinine 1.2 mg/dL (0.7-1.3) Estimated GFR (Cockcroft-Gault) 62.2 Glucose Level 101 mg/dL (70-99) Calcium Level 10.3 mg/dL (8.5-10.1) Magnesium Level 2.3 mg/dL (1.8-2.4) Test 09/28/18 18:41 09/28/18 19:53 09/28/18 21:14 09/28/18 22:18 White Blood Count 12.5 x10^3/uL (4.0-11.0) Red Blood Count 3.32 x10^6/uL (4.30-5.70) Hemoglobin 10.7 g/dL (13.0-17.5) Hematocrit 31.6 % (39.0-53.0) Mean Corpuscular Volume 95 fL (79-100) Mean Corpuscular Hemoglobin 32 pg (25-35) Mean Corpuscular Hemoglobin Concent 34 g/dL (31-37) Red Cell Distribution Width 12.3 % (11.5-14.5) Platelet Count 132 x10^3/uL (140-400) Potassium Level 4.7 mmol/L (3.5-5.1) Glucose (Fingerstick) 173 mg/dL (70-99) 180 mg/dL (70-99) 139 mg/dL (70-99) Test 09/28/18 23:22 09/29/18 00:26 09/29/18 01:31 09/29/18 02:37 Glucose (Fingerstick) 165 mg/dL (70-99) 152 mg/dL (70-99) 137 mg/dL (70-99) 120 mg/dL (70-99) Test 09/29/18 03:43 09/29/18 05:45 09/29/18 05:51 09/29/18 09:39 Glucose (Fingerstick) 130 mg/dL (70-99) 124 mg/dL (70-99) 107 mg/dL (70-99) White Blood Count 8.8 x10^3/uL (4.0-11.0) Red Blood Count 3.15 x10^6/uL (4.30-5.70) Hemoglobin 10.5 g/dL (13.0-17.5) Hematocrit 30.1 % (39.0-53.0) Mean Corpuscular Volume 95 fL (79-100) Mean Corpuscular Hemoglobin 33 pg (25-35) Mean Corpuscular Hemoglobin Concent 35 g/dL (31-37) Red Cell Distribution Width 12.7 % (11.5-14.5) Platelet Count 127 x10^3/uL (140-400) Sodium Level 141 mmol/L (136-145) Potassium Level 4.5 mmol/L (3.5-5.1) Chloride Level 107 mmol/L (98-107) Carbon Dioxide Level 25 mmol/L (21-32) Anion Gap 9 (6-14) Blood Urea Nitrogen 14 mg/dL (8-26) Creatinine 1.1 mg/dL (0.7-1.3) Estimated GFR (Cockcroft-Gault) 68.8 Glucose Level 140 mg/dL (70-99) Calcium Level 9.5 mg/dL (8.5-10.1) Magnesium Level 1.9 mg/dL (1.8-2.4) Test 09/30/18 04:45 White Blood Count 10.1 x10^3/uL (4.0-11.0) Red Blood Count 2.96 x10^6/uL (4.30-5.70) Hemoglobin 9.8 g/dL (13.0-17.5) Hematocrit 28.4 % (39.0-53.0) Mean Corpuscular Volume 96 fL (79-100) Mean Corpuscular Hemoglobin 33 pg (25-35) Mean Corpuscular Hemoglobin Concent 34 g/dL (31-37) Red Cell Distribution Width 12.5 % (11.5-14.5) Platelet Count 122 x10^3/uL (140-400) Sodium Level 135 mmol/L (136-145) Potassium Level 4.2 mmol/L (3.5-5.1) Chloride Level 100 mmol/L (98-107) Carbon Dioxide Level 28 mmol/L (21-32) Anion Gap 7 (6-14) Blood Urea Nitrogen 16 mg/dL (8-26) Creatinine 1.2 mg/dL (0.7-1.3) Estimated GFR (Cockcroft-Gault) 62.2 Glucose Level 139 mg/dL (70-99) Calcium Level 8.6 mg/dL (8.5-10.1) Magnesium Level 1.5 mg/dL (1.8-2.4) Laboratory Tests Test 09/29/18 09:39 09/30/18 04:45 Glucose (Fingerstick) 107 mg/dL (70-99) White Blood Count 10.1 x10^3/uL (4.0-11.0) Red Blood Count 2.96 x10^6/uL (4.30-5.70) Hemoglobin 9.8 g/dL (13.0-17.5) Hematocrit 28.4 % (39.0-53.0) Mean Corpuscular Volume 96 fL (79-100) Mean Corpuscular Hemoglobin 33 pg (25-35) Mean Corpuscular Hemoglobin Concent 34 g/dL (31-37) Red Cell Distribution Width 12.5 % (11.5-14.5) Platelet Count 122 x10^3/uL (140-400) Sodium Level 135 mmol/L (136-145) Potassium Level 4.2 mmol/L (3.5-5.1) Chloride Level 100 mmol/L (98-107) Carbon Dioxide Level 28 mmol/L (21-32) Anion Gap 7 (6-14) Blood Urea Nitrogen 16 mg/dL (8-26) Creatinine 1.2 mg/dL (0.7-1.3) Estimated GFR (Cockcroft-Gault) 62.2 Glucose Level 139 mg/dL (70-99) Calcium Level 8.6 mg/dL (8.5-10.1) Magnesium Level 1.5 mg/dL (1.8-2.4) Medications Current Medications Aspirin (Chito Aspirin) 325 mg 1X ONCE PO Last administered on 09/26/18at 03:49 ; Start 09/26/18 at 04:00; Stop 09/26/18 at 04:01; Status DC Sodium Chloride 1,000 ml @ 1,000 mls/hr 1X ONCE IV Last administered on at 03:48; Start 09/26/18 at 04:00; Stop 09/26/18 at 04:59; Status DC Lorazepam (Ativan) 0.5 mg 1X ONCE IV Last administered on 09/26/18at 03:49; Start 09/26/18 at 04:00; Stop 09/26/18 at 04:01; Status DC Ondansetron HCl (Zofran) 4 mg PRN Q8HRS PRN IV NAUSEA/VOMITING 1ST CHOICE; Start 09/26/18 at 04:00; Stop 09/27/18 at 03:59; Status DC Fentanyl Citrate (Fentanyl 2ml Vial) 50 mcg PRN Q2HR PRN IV SEVERE PAIN, UNREL BY MORPHINE; Start 09/26/18 at 04:00; Stop 09/29/18 at 11:23; Status DC Fentanyl Citrate (Fentanyl 2ml Vial) 50 mcg 1X ONCE IV ; Start 09/26/18 at 04:30 ; Stop 09/26/18 at 04:30; Status DC Nitroglycerin (Nitro-Bid Oint) 0.5 inch 1X ONCE TP Last administered on at 04:37; Start 09/26/18 at 04:30; Stop 09/26/18 at 04:31; Status DC Heparin Sodium/ Dextrose 500 ml @ 0 mls/hr CONT PRN IV SEE I/O RECORD Last administered on 09/26/18at 04:41; Start 09/26/18 at 04:15; Stop 09/26/18 at 12:31; Status DC Heparin Sodium (Porcine) (Heparin Sodium) 2,400 unit PRN Q6HRS PRN IV FOR UFH LEVEL LESS THAN 0.2; Start 09/26/18 at 04:15; Stop 09/26/18 at 13:53; Status DC Heparin Sodium (Porcine) (Heparin Sodium) 4,000 unit 1X ONCE IV Last administered on 09/26/18at 04:40; Start 09/26/18 at 04:30; Stop 09/26/18 at 04:31; Status DC Info (Anti-Coagulation Monitoring By Pharmacy) 1 each PRN DAILY PRN MC SEE COMMENTS Last administered on 09/26/18at 09:32; Start 09/26/18 at 04:30; Stop at 12:32; Status DC Iohexol (Omnipaque 350 Mg/ml) 60 ml 1X ONCE IV Last administered on 09/26/18at 05:26; Start 09/26/18 at 05:30; Stop 09/26/18 at 05:31; Status DC Info (CONTRAST GIVEN -- Rx MONITORING) 1 each PRN DAILY PRN MC SEE COMMENTS; Start 09/26/18 at 05:15; Stop 09/26/18 at 10:56; Status DC Multivitamins 10 ml/Thiamine HCl 100 mg/Folic Acid 1 mg/Sodium Chloride 1,011.2 ml @ 100 mls/ hr 1X ONCE IV Last administered on 09/26/18at 10:40; Start at 10:00; Stop 09/26/18 at 20:06; Status DC Atorvastatin Calcium (Lipitor) 40 mg QHS PO Last administered on 09/29/18at 20:54 ; Start 09/26/18 at 21:00 Iodixanol (Visipaque 320) 100 ml STK-MED ONCE .ROUTE ; Start 09/26/18 at 09:58; Stop 09/26/18 at 10:01; Status DC Lidocaine HCl (Lidocaine 1% 20ml Vial) 20 ml STK-MED ONCE .ROUTE ; Start at 09:58; Stop 09/26/18 at 10:01; Status DC Heparin Sodium/ Sodium Chloride 1,000 ml @ As Directed STK-MED ONCE .ROUTE ; Start 09/26/18 at 09:59; Stop 09/26/18 at 10:01; Status DC Fentanyl Citrate (Fentanyl 2ml Vial) 100 mcg STK-MED ONCE .ROUTE ; Start at 10:14; Stop 09/26/18 at 10:16; Status DC Midazolam HCl (Versed) 5 mg STK-MED ONCE .ROUTE ; Start 09/26/18 at 10:14; Stop 09/26/18 at 10:16; Status DC Iohexol (Omnipaque 300 Mg/ml) 100 ml STK-MED ONCE .ROUTE ; Start 09/26/18 at 10: 17; Stop 09/26/18 at 10:19; Status DC Heparin Sodium/ Sodium Chloride (HEPARIN for ARTERIAL LINE FLUSH) 1,000 unit 1X ONCE IART Last administered on 09/26/18at 11:37; Start 09/26/18 at 11:00; Stop 09/26/18 at 11:01; Status DC Midazolam HCl (Versed) 5 mg 1X ONCE IV Last administered on 09/26/18at 11:38; Start 09/26/18 at 11:00; Stop 09/26/18 at 11:01; Status DC Fentanyl Citrate (Fentanyl 2ml Vial) 100 mcg 1X ONCE IV Last administered on at 11:38; Start 09/26/18 at 11:00; Stop 09/26/18 at 11:01; Status DC Iodixanol (Visipaque 320) 100 ml 1X ONCE IART Last administered on 09/26/18at 11 :37; Start 09/26/18 at 11:00; Stop 09/26/18 at 11:01; Status DC Lidocaine HCl (Lidocaine 1% 20ml Vial) 20 ml 1X ONCE INJ Last administered on 09/26/18at 11:37; Start 09/26/18 at 11:00; Stop 09/26/18 at 11:01; Status DC Info (CONTRAST GIVEN -- Rx MONITORING) 1 each PRN DAILY PRN MC SEE COMMENTS; Start 09/26/18 at 11:00; Stop 09/28/18 at 10:59; Status DC Sodium Chloride (Normal Saline Flush) 3 ml QSHIFT PRN IV AFTER MEDS AND BLOOD DRAWS; Start 09/26/18 at 11:45; Stop 09/29/18 at 07:30; Status DC Sodium Chloride 1,000 ml @ 75 mls/hr [id number] IV ; Start 09/26/18 at 11:33; Stop 09/26/18 at 17:32; Status DC Nitroglycerin (Nitrostat) 0.4 mg PRN Q5MIN PRN SL CHEST PAIN; Start 09/26/18 at 11:45 Aspirin (Ecotrin) 81 mg [id number] PO Last administered on 09/27/18at 09:39; Start 09/27/18 at 08:00; Stop 09/28/18 at 15:04; Status DC Metoprolol Tartrate (Lopressor) 25 mg BID PO Last administered on 09/27/18at 20: 57; Start 09/26/18 at 21:00; Stop 09/28/18 at 15:09; Status DC Heparin Sodium/ Dextrose 500 ml @ 0 mls/hr CONT PRN IV SEE I/O RECORD Last administered on 09/28/18at 08:19; Start 09/26/18 at 17:00; Stop 09/27/18 at 23:59; Status DC Heparin Sodium (Porcine) (Heparin Sodium) 2,500 unit PRN Q6HRS PRN IV FOR UFH LEVEL LESS THAN 0.2 Last administered on 09/26/18at 23:58; Start 09/26/18 at 17:00 ; Stop 09/27/18 at 23:59; Status DC Info (Anti-Coagulation Monitoring By Pharmacy) 1 each PRN DAILY PRN MC SEE COMMENTS; Start 09/26/18 at 17:15; Stop 09/29/18 at 08:21; Status DC Lorazepam (Ativan) 2 mg PRN Q4HRS PRN PO ANXIETY / AGITATION Last administered on 09/27/18at 20:59; Start 09/26/18 at 17:15 Vitamin B Complex (Folbic Tablet) 1 tab DAILY PO Last administered on 09/29/18at 09:59; Start 09/26/18 at 18:00 Amlodipine Besylate (Norvasc) 5 mg DAILY PO Last administered on 09/27/18at 13:22 ; Start 09/27/18 at 13:00 Potassium Chloride 70 meq/ Sodium Bicarbonate 12.5 meq/Lidocaine HCl 24 ml/ Parenteral Electrolytes 571.5 ml @ 571.5 mls/ hr 1X ONCE IRR Last administered on 09/28/18at 06:00; Start 09/28/18 at 06:00; Stop 09/28/18 at 06:59; Status DC Potassium Chloride 15 meq/ Sodium Bicarbonate 12.5 meq/Parenteral Electrolytes 520 ml @ 520 mls/hr 1X ONCE IRR Last administered on 09/28/18at 06:00; Start at 06:00; Stop 09/28/18 at 06:59; Status DC Heparin Sodium (Porcine) 90075 unit/Ringer's Solution 1,020 ml @ 1,020 mls/hr 1X ONCE IRR Last administered on 09/28/18at 06:00; Start 09/28/18 at 06:00; Stop 09/28/18 at 06:59; Status DC Cefazolin Sodium 1 gm/Sodium Chloride 500 ml @ 500 mls/hr 1X ONCE IRR Last administered on 09/28/18at 08:19; Start 09/28/18 at 06:00; Stop 09/28/18 at 06:59; Status DC Heparin Sodium (Porcine) 800 unit/ Nitroglycerin 4 mg/Verapamil HCl 8 mg/Sodium Bicarbonate 0.34 meq/Ringer's Solution 512.34 ml @ 512.34 mls/hr 1X ONCE IRR Last administered on 09/28/18at 08:20; Start 09/28/18 at 06:00; Stop 09/28/18 at 06: 59; Status DC Ondansetron HCl (Zofran) 4 mg PRN Q6HRS PRN IV NAUSEA/VOMITING; Start 09/28/18 at 07:00; Stop 09/29/18 at 06:59; Status DC Fentanyl Citrate (Fentanyl 2ml Vial) 25 mcg PRN Q5MIN PRN IV MILD PAIN; Start 09/28/18 at 07:00; Stop 09/29/18 at 06:59; Status DC Fentanyl Citrate (Fentanyl 2ml Vial) 50 mcg PRN Q5MIN PRN IV MODERATE TO SEVERE PAIN; Start 09/28/18 at 07:00; Stop 09/29/18 at 06:59; Status DC Morphine Sulfate (Morphine Sulfate) 1 mg PRN Q10MIN PRN IV SEVERE PAIN Last administered on 09/28/18at 16:59; Start 09/28/18 at 07:00; Stop 09/29/18 at 06:59; Status DC Ringer's Solution 1,000 ml @ 30 mls/hr Q24H IV Last administered on 09/28/18at 07:00; Start 09/28/18 at 07:00; Stop 09/28/18 at 18:59; Status DC Lidocaine HCl (Xylocaine-Mpf 1% 2ml Vial) 2 ml PRN 1X PRN ID PRIOR TO IV START ; Start 09/28/18 at 07:00; Stop 09/29/18 at 06:59; Status DC Hydromorphone HCl (Dilaudid) 0.5 mg PRN Q10MIN PRN IV SEV PAIN, Second choice; Start 09/28/18 at 07:00; Stop 09/29/18 at 06:59; Status DC Prochlorperazine Edisylate (Compazine) 5 mg PACU PRN PRN IV NAUSEA, MRX1; Start 09/28/18 at 07:00; Stop 09/29/18 at 06:59; Status DC Cefazolin Sodium/ Dextrose 50 ml @ 100 mls/hr 1X ONCE IV Last administered on 09/28/18at 08:39; Start 09/28/18 at 06:00; Stop 09/28/18 at 06:29; Status DC Phenylephrine HCl (Aayush-Synephrine Inj) 10 mg STK-MED ONCE .ROUTE ; Start at 06:24; Stop 09/28/18 at 06:26; Status DC Etomidate (Amidate) 20 mg STK-MED ONCE IV ; Start 09/28/18 at 06:24; Stop at 06:26; Status DC Aminocaproic Acid (Amicar) 5,000 mg STK-MED ONCE IV ; Start 09/28/18 at 06:24; Stop 09/28/18 at 06:26; Status DC Nitroglycerin/ Dextrose 250 ml @ As Directed STK-MED ONCE IV ; Start 09/28/18 at 06:24; Stop 09/28/18 at 06:26; Status DC Rocuronium Hewitt (Zemuron) 100 mg STK-MED ONCE .ROUTE ; Start 09/28/18 at 06:24 ; Stop 09/28/18 at 06:27; Status DC Vancomycin HCl (VANCO for OR ONLY) 10 gm STK-MED ONCE .ROUTE Last administered on 09/28/18at 08:18; Start 09/28/18 at 06:37; Stop 09/28/18 at 06:39; Status DC Cellulose (Surgicel Hemostat 4x8) 1 each STK-MED ONCE .ROUTE Last administered on 09/28/18at 08:18; Start 09/28/18 at 06:37; Stop 09/28/18 at 06:39; Status DC Papaverine HCl 60 mg STK-MED ONCE .ROUTE Last administered on 09/28/18 08:17; Start 09/28/18 at 06:37; Stop 09/28/18 at 06:39; Status DC Aspirin (Aspirin) 300 mg STK-MED ONCE .ROUTE Last administered on 09/28/18 08: 17; Start 09/28/18 at 06:37; Stop 09/28/18 at 06:39; Status DC Sodium Chloride (SODIUM CHLORIDE 20ml) 20 ml STK-MED ONCE IJ Last administered on 09/28/18at 08:16; Start 09/28/18 at 06:37; Stop 09/28/18 at 06:39; Status DC Sodium Chloride (SODIUM CHLORIDE 20ml) 20 ml STK-MED ONCE IJ Last administered on 09/28/18at 08:16; Start 09/28/18 at 06:37; Stop 09/28/18 at 06:39; Status DC Sodium Chloride (SODIUM CHLORIDE 20ml) 20 ml STK-MED ONCE IJ Last administered on 09/28/18at 08:17; Start 09/28/18 at 06:38; Stop 09/28/18 at 06:40; Status DC Heparin Sodium (Porcine) 30,000 unit STK-MED ONCE .ROUTE ; Start 09/28/18 at 06: 38; Stop 09/28/18 at 06:41; Status DC Nitroglycerin/ Dextrose 250 ml @ As Directed STK-MED ONCE IV ; Start 09/28/18 at 06:39; Stop 09/28/18 at 06:41; Status DC Midazolam HCl (Versed) 2 mg STK-MED ONCE .ROUTE ; Start 09/28/18 at 06:52; Stop 09/28/18 at 06:54; Status DC Sufentanil Citrate (Sufenta) 250 mcg STK-MED ONCE .ROUTE ; Start 09/28/18 at 06: 59; Stop 09/28/18 at 07:01; Status DC Isoflurane (Isoflurane) 90 ml STK-MED ONCE IH ; Start 09/28/18 at 08:10; Stop 09/28/18 at 08:13; Status DC Ephedrine Sulfate (Akovaz) 50 mg STK-MED ONCE .ROUTE ; Start 09/28/18 at 08:40; Stop 09/28/18 at 08:42; Status DC Midazolam HCl (Versed) 2 mg STK-MED ONCE .ROUTE ; Start 09/28/18 at 08:53; Stop 09/28/18 at 08:55; Status DC Midazolam HCl (Versed) 2 mg STK-MED ONCE .ROUTE ; Start 09/28/18 at 08:53; Stop 09/28/18 at 08:55; Status DC Rocuronium [place] (Zemuron) 100 mg STK-MED ONCE .ROUTE ; Start 09/28/18 at 09:54 ; Stop 09/28/18 at 09:56; Status DC Heparin Sodium (Porcine) (Heparin Sodium) 10,000 unit STK-MED ONCE .ROUTE ; Start 09/28/18 at 10:30; Stop 09/28/18 at 10:32; Status DC Protamine Sulfate (Protamine) 50 mg STK-MED ONCE IV ; Start 09/28/18 at 10:39; Stop 09/28/18 at 10:41; Status DC Protamine Sulfate (Protamine) 250 mg STK-MED ONCE IV ; Start 09/28/18 at 10:39; Stop 09/28/18 at 10:42; Status DC Cefazolin Sodium (Ancef) 1 gm STK-MED ONCE .ROUTE ; Start 09/28/18 at 12:48; Stop 09/28/18 at 12:50; Status DC Amiodarone HCl 150 mg/Dextrose 103 ml @ 618 mls/hr 1X ONCE IV ; Start 09/28/18 at 14:30; Stop 09/28/18 at 14:39; Status DC Heparin Sodium (Porcine) (Heparin Sodium) 10,000 unit STK-MED ONCE .ROUTE ; Start 09/28/18 at 13:36; Stop 09/28/18 at 13:38; Status DC Lidocaine HCl (Lidocaine Pf 2% Vial) 5 ml STK-MED ONCE .ROUTE ; Start 09/28/18 at 13:36; Stop 09/28/18 at 13:38; Status DC Amiodarone HCl 900 mg/Dextrose 518 ml @ 33 mls/hr CONT PRN IV SEE I/O RECORD; Start 09/28/18 at 14:30 Magnesium Sulfate 5 gm STK-MED ONCE .ROUTE ; Start 09/28/18 at 13:36; Stop at 13:38; Status DC Heparin Sodium (Porcine) 30,000 unit STK-MED ONCE .ROUTE ; Start 09/28/18 at 13: 36; Stop 09/28/18 at 13:38; Status DC Mannitol (Mannitol) 12.5 g STK-MED ONCE .ROUTE ; Start 09/28/18 at 13:36; Stop at 13:38; Status DC Albumin Human 100 ml @ As Directed STK-MED ONCE IV ; Start 09/28/18 at 13:36; Stop 09/28/18 at 13:38; Status DC Calcium Chloride (Calcium Chloride) 1,000 mg STK-MED ONCE .ROUTE ; Start at 13:36; Stop 09/28/18 at 13:38; Status DC Albumin Human 500 ml @ As Directed STK-MED ONCE IV ; Start 09/28/18 at 13:36; Stop 09/28/18 at 13:38; Status DC Nicardipine HCl 50 mg/Sodium Chloride 250 ml @ 25 mls/hr CONT PRN IV SEE I/O RECORD; Start 09/28/18 at 14:30; Stop 09/29/18 at 11:23; Status DC Protamine Sulfate (Protamine) 50 mg STK-MED ONCE IV ; Start 09/28/18 at 14:03; Stop 09/28/18 at 14:05; Status DC Sodium Chloride (Normal Saline Flush) 3 ml PRN Q12HR PRN IV AFTER MEDS AND BLOOD DRAWS; Start 09/28/18 at 15:00 Ringer's Solution 1,000 ml @ 30 mls/hr Q24H IV Last administered on 09/28/18at 15:30; Start 09/28/18 at 14:48 Albumin Human 250 ml @ 500 mls/hr PRN Q4HRS PRN IV SEE COMMENTS Last administered on 09/28/18at 17:07; Start 09/28/18 at 15:00 Insulin Human Regular 150 unit/ Sodium Chloride 151.5 ml @ 0 mls/hr CONT PRN PRN IV PER PROTOCOL Last administered on 09/28/18at 20:05; Start 09/28/18 at 15:00 Dextrose (Dextrose 50%-Water Syringe) 25 gm PRN Q15MIN PRN IV LOW BLOOD SUGAR; Start 09/28/18 at 15:00 Nitroglycerin/ Dextrose 250 ml @ 0 mls/hr CONT PRN PRN IV POST CV SURGERY; Start 09/28/18 at 15:00; Stop 09/29/18 at 11:23; Status DC Phenylephrine HCl 20 mg/Sodium Chloride 252 ml @ 0 mls/hr CONT PRN PRN IV HYPOTENSION Last administered on 09/28/18at 15:31; Start 09/28/18 at 15:00 Amiodarone HCl 150 mg/Dextrose 103 ml @ 600 mls/hr 1X ONCE IV ; Start 09/28/18 at 15:00; Stop 09/28/18 at 15:05; Status DC Amiodarone HCl 150 mg/Dextrose 103 ml @ 200 mls/hr 1X PRN PRN IV FOR AFIB; Start 09/28/18 at 15:00 Amiodarone HCl 900 mg/Dextrose 518 ml @ 0 mls/hr CONT PRN PRN IV AFIB; Start at 15:00; Stop 09/28/18 at 15:06; Status DC Info (KCl Per Protocol) 1 ea CONT PRN PRN MC SEE COMMENTS; Start 09/28/18 at 15: 00 Magnesium Sulfate/ Dextrose 100 ml @ 100 mls/hr PRN DAILY PRN IV FOR MAG < 2.2 ; Start 09/28/18 at 15:00 Famotidine (Pepcid Vial) 20 mg BID IVP Last administered on 09/29/18at 09:58; Start 09/28/18 at 21:00; Stop 09/29/18 at 15:14; Status DC Ondansetron HCl (Zofran) 4 mg PRN Q4HRS PRN IV NAUSEA/VOMITING, 1st CHOICE Last administered on 09/29/18at 00:45; Start 09/28/18 at 15:00 Prochlorperazine Edisylate (Compazine) 10 mg PRN Q6HRS PRN IV NAUSEA/VOMITING, 2nd CHOICE; Start 09/28/18 at 15:00 Metoclopramide HCl (Reglan Vial) 10 mg PRN Q6HRS PRN IV NAUSEA/VOMITING, 3rd CHOICE; Start 09/28/18 at 15:00 Morphine Sulfate (Morphine Sulfate) 2 mg PRN Q1HR PRN IV MODERATE PAIN; Start 09/28/18 at 15:00 Morphine Sulfate (Morphine Sulfate) 4 mg PRN Q1HR PRN IV SEVERE PAIN Last administered on 09/29/18at 23:49; Start 09/28/18 at 15:00 Acetaminophen (Tylenol) 650 mg PRN Q4HRS PRN PO TEMP > 101'F or MILD PAIN; Start 09/28/18 at 15:00; Stop 09/29/18 at 15:14; Status DC Acetaminophen (Tylenol Supp) [address] TEMP > 101'F or MILD PAIN ; Start 09/28/18 at 15:00; Stop 09/29/18 at 15:14; Status DC Meperidine HCl (Demerol) 12.5 mg PRN Q15MIN PRN IV SHIVERING; Start 09/28/18 at 15:00; Stop 09/29/18 at 11:23; Status DC Propofol 100 ml @ 0 mls/hr CONT PRN PRN IV POSTOP SEDATION UNTIL EXTUBATE Last administered on 09/28/18at 15:59; Start 09/28/18 at 15:00; Stop 09/29/18 at 11:23; Status DC Senna/Docusate Sodium (Senna Plus) 1 tab BID PO Last administered on 09/29/18at 20:54; Start 09/28/18 at 21:00 Bisacodyl (Dulcolax Supp) [address] NO BOWEL MOVEMENT; Start at 15:00 Chlorhexidine Gluconate (Peridex) 15 ml BID MM ; Start 09/29/18 at 09:00; Stop at 19:06; Status DC Aspirin (Ecotrin) 325 mg DAILYWBKFT PO Last administered on 09/29/18at 09:58; Start 09/29/18 at 08:00 Aspirin (Aspirin) [address] IF UNABLE TO TAKE PO; Start 09/29/18 at 08:00 Albuterol Sulfate (Ventolin Neb Soln) 2.5 mg PRN Q4HRS PRN NEB SHORTNESS OF BREATH; Start 09/28/18 at 15:00; Stop 09/29/18 at 15:14; Status DC Metoprolol Tartrate (Lopressor) 25 mg BID PO Last administered on 09/29/18at 20: 55; Start 09/29/18 at 09:00 Nicardipine HCl 50 mg/Sodium Chloride 250 ml @ 0 mls/hr CONT PRN PRN IV PER PROTOCOL; Start 09/28/18 at 15:00; Stop 09/28/18 at 15:10; Status DC Oxycodone HCl (Roxicodone) 5 mg PRN Q4HRS PRN PO MILD TO MODERATE PAIN Last administered on 09/29/18at 11:52; Start 09/28/18 at 15:00 Oxycodone HCl (Roxicodone) 10 mg PRN Q4HRS PRN PO SEVERE PAIN Last administered on 09/30/18at 04:15; Start 09/28/18 at 15:00 Cefazolin Sodium/ Dextrose 50 ml @ 100 mls/hr Q8H IV Last administered on 09/30at 06:32; Start 09/28/18 at 23:00; Stop 09/30/18 at 07:29; Status DC Sodium Bicarbonate (Sodium Bicarb Adult 8.4% Syr) 50 meq 1X ONCE IV Last administered on 09/28/18at 16:59; Start 09/28/18 at 17:00; Stop 09/28/18 at 17:01; Status DC Throat Lozenges (Cepacol Sore Throat Lozenge) 1 dede PRN Q2HRS PRN PO SORE THROAT; Start 09/29/18 at 13:00 Famotidine (Pepcid) 20 mg BID PO Last administered on 09/29/18at 20:55; Start 09/29/18 at 21:00 Magnesium Sulfate/ Dextrose 100 ml @ 100 mls/hr ONCE ONCE IV ; Start 09/30/18 at 08:30; Stop 09/30/18 at 09:29; Status DC Active Scripts Active Reported Amlodipine-Benazepril 5-20 Mg (Amlodipine Besylate/Benazepril) 1 Each Capsule 1 Cap PO DAILY Vitals/I & O Vital Sign - Last 24 Hours 09/29/18 09/29/18 09/29/18 09/29/18 09:59 10:00 10:00 11:00 Pulse 69 88 69 Resp 12 17 12 20 B/P (MAP) 108/60 (76) 96/58 (71) 108/66 (80) Pulse Ox 96 100 98 98 O2 Delivery Nasal Cannula Nasal Cannula Nasal Cannula Room Air O2 Flow Rate 4.0 4.0 4.0 09/29/18 09/29/18 09/29/18 09/29/18 11:52 11:54 12:00 12:00 Temp 97.6 97.6 Pulse 78 Resp 12 19 B/P (MAP) 124/68 (86) Pulse Ox 100 97 O2 Delivery Nasal Cannula Room Air Room Air O2 Flow Rate 4.0 4.0 09/29/18 09/29/18 09/29/18 09/29/18 12:52 13:00 14:00 14:20 Pulse 88 82 Resp 15 24 25 21 B/P (MAP) 115/70 (85) 135/88 (104) Pulse Ox 95 95 97 100 O2 Delivery Room Air Room Air Room Air Nasal Cannula O2 Flow Rate 3.0 09/29/18 09/29/18 09/29/18 09/29/18 14:28 15:00 16:00 16:00 Temp 97.7 97.7 Pulse 80 82 Resp 20 15 B/P (MAP) 118/73 (88) 112/71 (85) Pulse Ox 100 97 87 O2 Delivery Nasal Cannula Room Air Nasal Cannula Room Air O2 Flow Rate 3.0 2.0 09/29/18 09/29/18 09/29/18 09/29/18 17:00 18:00 19:00 20:00 Temp 98.3 98.3 Pulse 82 84 95 Resp 13 15 20 B/P (MAP) 106/57 (73) 143/76 (98) 140/64 (89) Pulse Ox 98 95 92 O2 Delivery Nasal Cannula Room Air Room Air Nasal Cannula O2 Flow Rate 2.0 1.0 09/29/18 09/29/18 09/29/18 09/29/18 20:00 20:15 20:55 21:00 Pulse 86 92 88 Resp 16 17 12 B/P (MAP) 152/78 (102) 152/78 123/71 (88) Pulse Ox 97 97 97 O2 Delivery Room Air Nasal Cannula Nasal Cannula O2 Flow Rate 1.0 1.0 09/29/18 09/29/18 09/29/18 09/29/18 21:15 22:00 23:00 23:49 Pulse 85 93 Resp 15 15 16 B/P (MAP) 119/71 (87) 106/68 (81) Pulse Ox 97 97 95 96 O2 Delivery Nasal Cannula Nasal Cannula Nasal Cannula Room Air O2 Flow Rate 1.0 1.0 1.0 1.0 09/30/18 09/30/18 09/30/18 09/30/18 00:00 00:00 01:00 01:16 Temp 98.2 98.2 Pulse 84 84 Resp 15 15 14 B/P (MAP) 98/65 (76) 96/69 (78) Pulse Ox 95 96 96 O2 Delivery Nasal Cannula Nasal Cannula Nasal Cannula Nasal Cannula O2 Flow Rate 1.0 1.0 1.0 1.0 09/30/18 09/30/18 09/30/18 09/30/18 02:00 03:00 04:00 04:00 Temp 99.2 99.2 Pulse 85 87 85 Resp 14 15 15 B/P (MAP) 100/68 (79) 104/65 (78) 100/68 (79) Pulse Ox 97 98 97 O2 Delivery Nasal Cannula Nasal Cannula Nasal Cannula Nasal Cannula O2 Flow Rate 1.0 1.0 1.0 1.0 09/30/18 09/30/18 09/30/18 09/30/18 04:15 05:00 05:15 06:07 Pulse 84 85 Resp 14 16 15 14 B/P (MAP) 98/65 (76) 100/70 (80) Pulse Ox 100 98 97 O2 Delivery Nasal Cannula Nasal Cannula Nasal Cannula O2 Flow Rate 1.0 1.0 1.0 09/30/18 09/30/18 07:00 08:00 Temp 98.4 98.4 Pulse 86 87 Resp 12 14 B/P (MAP) 105/69 (81) 110/73 (85) Pulse Ox 97 94 O2 Delivery Nasal Cannula Room Air O2 Flow Rate 1.0 Intake and Output 09/29/18 09/29/18 09/30/18 15:01 23:01 07:01 Intake Total 650 ml 777 ml 314 ml Output Total 622 ml 465 ml 530 ml Balance 28 ml 312 ml -216 ml MARCIE RESENDEZ MD Sep 30, 2018 09:40
[2018-09-30] MEDS: FAMOTIDINE 20 MG TABLET. PO SCH ×2 (09:42→21:13)
[2018-09-30] MEDS: amLODIPine BESYLATE 5 MG TABLET PO SCH (09:42)
[2018-09-30] MEDS: ASPIRIN ENTERIC COATED 325 MG TABLET.DR. PO SCH (09:42)
[2018-09-30] MEDS: SENNOSIDES/DOCUSATE 8.6/50MG TABLET. PO SCH ×2 (09:42→21:13)
[2018-09-30] MEDS: METOPROLOL TART IMMED RELEASE 25 MG TABLET. PO SCH ×2 (09:43→21:13)
[2018-09-30] MEDS: VITAMIN B12,B9,B6 COMPLEX 1 TABLET. PO SCH (09:44)
[2018-09-30] MEDS ORDERED: MAGNESIUM SULFATE 4GM 100 ML IV ONE (11:00)
--- NOTE | 2018-09-30 11:29 | NUR ---
late entry 09/29 (SL) Activation as delegated post CABG w good tolerance. Assist x1 ,steady on feet ,stable gait. VS 90-118 w am metoprolol held on day shift per ordered parameters. Initial c/o dizziness abated w increasing activation (reported "long Hx dizziness/not a new event). Mediastinal CT,right radial a-line dc'd w hemostasis maintained. Pacer wires disconnected,capped,labeled and secured to chest. High anxiety late afternoon diminished after po Ativan. Pain control goal past 12 H
--- NOTE | 2018-09-30 11:42 | NUR ---
Patient walked 480 ft, NC 3L 96%, HR 98. BP post walk 147/72. Aly DC 0730. Patient void 50cc 1000. Mag replacement per protocol initiated with change per Dr. Pringle. Protocol replacement stopped/new ordered mag infusing.
--- NOTE | 2018-09-30 13:00 | PDOC ---
PROGRESS NOTES Subjective Subjective Patient seen and examined The patient continues to feel better. Objective Objective Vital Signs Date Time Temp Pulse Resp B/P (MAP) Pulse Ox O2 Delivery O2 Flow Rate FiO2 09/30/18 11:00 98.1 82 15 136/71 (92) 91 Room Air 98.1 09/30/18 07:00 1.0 Intake and Output 09/30/18 07:01 Intake Total 1741 ml Output Total 1617 ml Balance 124 ml Intake Oral 780 ml IV Total 961 ml Output Urine Total 1025 ml Chest Tube Drainage Total 592 ml Physical Exam Abdomen: Normal bowel sounds Heart: Regular rate General: mild distress Lungs: Clear to auscultation Assessment Assessment Problems Medical Problems: (1) Elevated d-dimer Status: Acute (2) NSTEMI (non-ST elevated myocardial infarction) Status: Acute 1. Multivessel coronary artery disease with intact LV systolic function. POD 2 bypass surgery �4. Patient continues to look and feel well. We'll continue as per CV surgery. 2. Hypertension. Improved. Continue medical treatment. 3. Hyperlipidemia. Statin medication. 4. History of significant alcohol use. Patient is alert. He shows no signs of withdrawal at this time. 5. Hypomagnesemia. Being replaced. Comment Review of Relevant I have reviewed the following items vicky (where applicable) has been applied. Labs Laboratory Tests Test 09/28/18 13:12 09/28/18 13:50 09/28/18 14:18 09/28/18 15:19 Bedside Hemoglobin (Calculated) 9.2 g/dL (14-18) 10.5 g/dL (14-18) Bedside Hematocrit 27 % (37-52) 31 % (37-52) Bedside Arterial pH 7.38 (7.35-7.45) 7.40 (7.35-7.45) Bedside Arterial pCO2 38 mmHg (35-45) 39 mmHg (35-45) Bedside Arterial pO2 66 mmHg (75-100) 350 mmHg (75-100) Bedside Arterial HCO3 23 mmol/L (21-28) 24 mmol/L (21-28) Bedside Arterial Total CO2 24 mmol/L (21-32) 25 mmol/L (21-32) Arterial Bld O2 Saturation (Measur) 93 % (95-99) 100 % (95-99) Bedside Arterial Blood Base Excess -2 mmol/L (0-3) -1 mmol/L (0-3) Bedside FiO2 100.0 100.0 Bedside Sodium 138 mmol/L (135-145) 141 mmol/L (135-145) Bedside Potassium 4.2 mmol/L (3.5-5.0) 4.3 mmol/L (3.5-5.0) Glucose Level 119 mg/dL (70-99) 99 mg/dL (70-99) Bedside Ionized Calcium (Yannick) 1.78 mmol/L (1.13-1.32) 1.51 mmol/L (1.13-1.32) White Blood Count 13.3 x10^3/uL (4.0-11.0) Hemoglobin 10.7 g/dL (13.0-17.5) Hematocrit 32.1 % (39.0-53.0) Platelet Count 132 x10^3/uL (140-400) Prothrombin Time 16.3 SEC (11.7-14.0) Prothromb Time International Ratio 1.3 (0.8-1.1) Activated Partial Thromboplast Time 31 SEC (24-38) Fibrinogen 216 mg/dL (200-440) Glucose (Fingerstick) 95 mg/dL (70-99) Test 09/28/18 15:20 09/28/18 17:43 09/28/18 17:45 09/28/18 18:41 White Blood Count 11.8 x10^3/uL (4.0-11.0) 12.5 x10^3/uL (4.0-11.0) Red Blood Count 3.52 x10^6/uL (4.30-5.70) 3.32 x10^6/uL (4.30-5.70) Hemoglobin 11.4 g/dL (13.0-17.5) 10.7 g/dL (13.0-17.5) Hematocrit 33.3 % (39.0-53.0) 31.6 % (39.0-53.0) Mean Corpuscular Volume 95 fL (79-100) 95 fL (79-100) Mean Corpuscular Hemoglobin 32 pg (25-35) 32 pg (25-35) Mean Corpuscular Hemoglobin Concent 34 g/dL (31-37) 34 g/dL (31-37) Red Cell Distribution Width 12.4 % (11.5-14.5) 12.3 % (11.5-14.5) Platelet Count 126 x10^3/uL (140-400) 132 x10^3/uL (140-400) Prothrombin Time 16.3 SEC (11.7-14.0) Prothromb Time International Ratio 1.3 (0.8-1.1) Activated Partial Thromboplast Time 31 SEC (24-38) O2 Saturation 99 % (92-99) 98 % (92-99) Arterial Blood pH 7.35 (7.35-7.45) 7.46 (7.35-7.45) Arterial Blood pCO2 at Patient Temp 40 mmHg (35-46) 28 mmHg (35-46) Arterial Blood pO2 at Patient Temp 247 mmHg (75-108) 153 mmHg (75-108) Arterial Blood HCO3 21 mmol/L (21-28) 20 mmol/L (21-28) Arterial Blood Base Excess -4 mmol/L (-3-3) -3 mmol/L (-3-3) Oxyhemoglobin 98.0 % Methemoglobin 0.4 % (0.0-1.9) Carbon Monoxide, Quantitative 0.4 % (0.0-1.9) FiO2 80 40 Sodium Level 143 mmol/L (136-145) Potassium Level 4.6 mmol/L (3.5-5.1) 4.7 mmol/L (3.5-5.1) Chloride Level 109 mmol/L (98-107) Carbon Dioxide Level 24 mmol/L (21-32) Anion Gap 10 (6-14) Blood Urea Nitrogen 12 mg/dL (8-26) Creatinine 1.2 mg/dL (0.7-1.3) Estimated GFR (Cockcroft-Gault) 62.2 Glucose Level 101 mg/dL (70-99) Calcium Level 10.3 mg/dL (8.5-10.1) Magnesium Level 2.3 mg/dL (1.8-2.4) Glucose (Fingerstick) 133 mg/dL (70-99) Test 09/28/18 19:53 09/28/18 21:14 09/28/18 22:18 09/28/18 23:22 Glucose (Fingerstick) 173 mg/dL (70-99) 180 mg/dL (70-99) 139 mg/dL (70-99) 165 mg/dL (70-99) Test 09/29/18 00:26 09/29/18 01:31 09/29/18 02:37 09/29/18 03:43 Glucose (Fingerstick) 152 mg/dL (70-99) 137 mg/dL (70-99) 120 mg/dL (70-99) 130 mg/dL (70-99) Test 09/29/18 05:45 09/29/18 05:51 09/29/18 09:39 09/30/18 04:45 White Blood Count 8.8 x10^3/uL (4.0-11.0) 10.1 x10^3/uL (4.0-11.0) Red Blood Count 3.15 x10^6/uL (4.30-5.70) 2.96 x10^6/uL (4.30-5.70) Hemoglobin 10.5 g/dL (13.0-17.5) 9.8 g/dL (13.0-17.5) Hematocrit 30.1 % (39.0-53.0) 28.4 % (39.0-53.0) Mean Corpuscular Volume 95 fL (79-100) 96 fL (79-100) Mean Corpuscular Hemoglobin 33 pg (25-35) 33 pg (25-35) Mean Corpuscular Hemoglobin Concent 35 g/dL (31-37) 34 g/dL (31-37) Red Cell Distribution Width 12.7 % (11.5-14.5) 12.5 % (11.5-14.5) Platelet Count 127 x10^3/uL (140-400) 122 x10^3/uL (140-400) Sodium Level 141 mmol/L (136-145) 135 mmol/L (136-145) Potassium Level 4.5 mmol/L (3.5-5.1) 4.2 mmol/L (3.5-5.1) Chloride Level 107 mmol/L (98-107) 100 mmol/L (98-107) Carbon Dioxide Level 25 mmol/L (21-32) 28 mmol/L (21-32) Anion Gap 9 (6-14) 7 (6-14) Blood Urea Nitrogen 14 mg/dL (8-26) 16 mg/dL (8-26) Creatinine 1.1 mg/dL (0.7-1.3) 1.2 mg/dL (0.7-1.3) Estimated GFR (Cockcroft-Gault) 68.8 62.2 Glucose Level 140 mg/dL (70-99) 139 mg/dL (70-99) Calcium Level 9.5 mg/dL (8.5-10.1) 8.6 mg/dL (8.5-10.1) Magnesium Level 1.9 mg/dL (1.8-2.4) 1.5 mg/dL (1.8-2.4) Glucose (Fingerstick) 124 mg/dL (70-99) 107 mg/dL (70-99) Laboratory Tests Test 09/30/18 04:45 White Blood Count 10.1 x10^3/uL (4.0-11.0) Red Blood Count 2.96 x10^6/uL (4.30-5.70) Hemoglobin 9.8 g/dL (13.0-17.5) Hematocrit 28.4 % (39.0-53.0) Mean Corpuscular Volume 96 fL (79-100) Mean Corpuscular Hemoglobin 33 pg (25-35) Mean Corpuscular Hemoglobin Concent 34 g/dL (31-37) Red Cell Distribution Width 12.5 % (11.5-14.5) Platelet Count 122 x10^3/uL (140-400) Sodium Level 135 mmol/L (136-145) Potassium Level 4.2 mmol/L (3.5-5.1) Chloride Level 100 mmol/L (98-107) Carbon Dioxide Level 28 mmol/L (21-32) Anion Gap 7 (6-14) Blood Urea Nitrogen 16 mg/dL (8-26) Creatinine 1.2 mg/dL (0.7-1.3) Estimated GFR (Cockcroft-Gault) 62.2 Glucose Level 139 mg/dL (70-99) Calcium Level 8.6 mg/dL (8.5-10.1) Magnesium Level 1.5 mg/dL (1.8-2.4) Medications Current Medications Aspirin ([email or web address] Aspirin) 325 mg 1X ONCE PO Last administered on 09/26/18at 03:49 ; Start 09/26/18 at 04:00; Stop 09/26/18 at 04:01; Status DC Sodium Chloride 1,000 ml @ 1,000 mls/hr 1X ONCE IV Last administered on at 03:48; Start 09/26/18 at 04:00; Stop 09/26/18 at 04:59; Status DC Lorazepam (Ativan) 0.5 mg 1X ONCE IV Last administered on 09/26/18at 03:49; Start 09/26/18 at 04:00; Stop 09/26/18 at 04:01; Status DC Ondansetron HCl (Zofran) 4 mg PRN Q8HRS PRN IV NAUSEA/VOMITING 1ST CHOICE; Start 09/26/18 at 04:00; Stop 09/27/18 at 03:59; Status DC Fentanyl Citrate (Fentanyl 2ml Vial) 50 mcg PRN Q2HR PRN IV SEVERE PAIN, UNREL BY MORPHINE; Start 09/26/18 at 04:00; Stop 09/29/18 at 11:23; Status DC Fentanyl Citrate (Fentanyl 2ml Vial) 50 mcg 1X ONCE IV ; Start 09/26/18 at 04:30 ; Stop 09/26/18 at 04:30; Status DC Nitroglycerin (Nitro-Bid Oint) 0.5 inch 1X ONCE TP Last administered on at 04:37; Start 09/26/18 at 04:30; Stop 09/26/18 at 04:31; Status DC Heparin Sodium/ Dextrose 500 ml @ 0 mls/hr CONT PRN IV SEE I/O RECORD Last administered on 09/26/18at 04:41; Start 09/26/18 at 04:15; Stop 09/26/18 at 12:31; Status DC Heparin Sodium (Porcine) (Heparin Sodium) 2,400 unit PRN Q6HRS PRN IV FOR UFH LEVEL LESS THAN 0.2; Start 09/26/18 at 04:15; Stop 09/26/18 at 13:53; Status DC Heparin Sodium (Porcine) (Heparin Sodium) 4,000 unit 1X ONCE IV Last administered on 09/26/18at 04:40; Start 09/26/18 at 04:30; Stop 09/26/18 at 04:31; Status DC Info (Anti-Coagulation Monitoring By Pharmacy) 1 each PRN DAILY PRN MC SEE COMMENTS Last administered on 09/26/18at 09:32; Start 09/26/18 at 04:30; Stop at 12:32; Status DC Iohexol (Omnipaque 350 Mg/ml) 60 ml 1X ONCE IV Last administered on 09/26/18at 05:26; Start 09/26/18 at 05:30; Stop 09/26/18 at 05:31; Status DC Info (CONTRAST GIVEN -- Rx MONITORING) 1 each PRN DAILY PRN MC SEE COMMENTS; Start 09/26/18 at 05:15; Stop 09/26/18 at 10:56; Status DC Multivitamins 10 ml/Thiamine HCl 100 mg/Folic Acid 1 mg/Sodium Chloride 1,011.2 ml @ 100 mls/ hr 1X ONCE IV Last administered on 09/26/18at 10:40; Start at 10:00; Stop 09/26/18 at 20:06; Status DC Atorvastatin Calcium (Lipitor) 40 mg QHS PO Last administered on 09/29/18at 20:54 ; Start 09/26/18 at 21:00 Iodixanol (Visipaque 320) 100 ml STK-MED ONCE .ROUTE ; Start 09/26/18 at 09:58; Stop 09/26/18 at 10:01; Status DC Lidocaine HCl (Lidocaine 1% 20ml Vial) 20 ml STK-MED ONCE .ROUTE ; Start at 09:58; Stop 09/26/18 at 10:01; Status DC Heparin Sodium/ Sodium Chloride 1,000 ml @ As Directed STK-MED ONCE .ROUTE ; Start 09/26/18 at 09:59; Stop 09/26/18 at 10:01; Status DC Fentanyl Citrate (Fentanyl 2ml Vial) 100 mcg STK-MED ONCE .ROUTE ; Start at 10:14; Stop 09/26/18 at 10:16; Status DC Midazolam HCl (Versed) 5 mg STK-MED ONCE .ROUTE ; Start 09/26/18 at 10:14; Stop 09/26/18 at 10:16; Status DC Iohexol (Omnipaque 300 Mg/ml) 100 ml STK-MED ONCE .ROUTE ; Start 09/26/18 at 10: 17; Stop 09/26/18 at 10:19; Status DC Heparin Sodium/ Sodium Chloride (HEPARIN for ARTERIAL LINE FLUSH) 1,000 unit 1X ONCE IART Last administered on 09/26/18 11:37; Start 09/26/18 at 11:00; Stop 09/26/18 at 11:01; Status DC Midazolam HCl (Versed) 5 mg 1X ONCE IV Last administered on 09/26/18at 11:38; Start 09/26/18 at 11:00; Stop 09/26/18 at 11:01; Status DC Fentanyl Citrate (Fentanyl 2ml Vial) 100 mcg 1X ONCE IV Last administered on at 11:38; Start 09/26/18 at 11:00; Stop 09/26/18 at 11:01; Status DC Iodixanol (Visipaque 320) 100 ml 1X ONCE IART Last administered on 09/26/18 11 :37; Start 09/26/18 at 11:00; Stop 09/26/18 at 11:01; Status DC Lidocaine HCl (Lidocaine 1% 20ml Vial) 20 ml 1X ONCE INJ Last administered on 09/26/18at 11:37; Start 09/26/18 at 11:00; Stop 09/26/18 at 11:01; Status DC Info (CONTRAST GIVEN -- Rx MONITORING) 1 each PRN DAILY PRN MC SEE COMMENTS; Start 09/26/18 at 11:00; Stop 09/28/18 at 10:59; Status DC Sodium Chloride (Normal Saline Flush) 3 ml QSHIFT PRN IV AFTER MEDS AND BLOOD DRAWS; Start 09/26/18 at 11:45; Stop 09/29/18 at 07:30; Status DC Sodium Chloride 1,000 ml @ 75 mls/hr [id number] IV ; Start 09/26/18 at 11:33; Stop 09/26/18 at 17:32; Status DC Nitroglycerin (Nitrostat) 0.4 mg PRN Q5MIN PRN SL CHEST PAIN; Start 09/26/18 at 11:45 Aspirin (Ecotrin) 81 mg [id number] PO Last administered on 09/27/18at 09:39; Start 09/27/18 at 08:00; Stop 09/28/18 at 15:04; Status DC Metoprolol Tartrate (Lopressor) 25 mg BID PO Last administered on 09/27/18at 20: 57; Start 09/26/18 at 21:00; Stop 09/28/18 at 15:09; Status DC Heparin Sodium/ Dextrose 500 ml @ 0 mls/hr CONT PRN IV SEE I/O RECORD Last administered on 09/28/18at 08:19; Start 09/26/18 at 17:00; Stop 09/27/18 at 23:59; Status DC Heparin Sodium (Porcine) (Heparin Sodium) 2,500 unit PRN Q6HRS PRN IV FOR UFH LEVEL LESS THAN 0.2 Last administered on 09/26/18at 23:58; Start 09/26/18 at 17:00 ; Stop 09/27/18 at 23:59; Status DC Info (Anti-Coagulation Monitoring By Pharmacy) 1 each PRN DAILY PRN MC SEE COMMENTS; Start 09/26/18 at 17:15; Stop 09/29/18 at 08:21; Status DC Lorazepam (Ativan) 2 mg PRN Q4HRS PRN PO ANXIETY / AGITATION Last administered on 09/27/18at 20:59; Start 09/26/18 at 17:15 Vitamin B Complex (Folbic Tablet) 1 tab DAILY PO Last administered on 09:44; Start 09/26/18 at 18:00 Amlodipine Besylate (Norvasc) 5 mg DAILY PO Last administered on 09/30/18 09: 42; Start 09/27/18 at 13:00 Potassium Chloride 70 meq/ Sodium Bicarbonate 12.5 meq/Lidocaine HCl 24 ml/ Parenteral Electrolytes 571.5 ml @ 571.5 mls/ hr 1X ONCE IRR Last administered on 09/28/18 06:00; Start 09/28/18 at 06:00; Stop 09/28/18 at 06:59; Status DC Potassium Chloride 15 meq/ Sodium Bicarbonate 12.5 meq/Parenteral Electrolytes 520 ml @ 520 mls/hr 1X ONCE IRR Last administered on 09/28/18 06:00; Start at 06:00; Stop 09/28/18 at 06:59; Status DC Heparin Sodium (Porcine) 46778 unit/Ringer's Solution 1,020 ml @ 1,020 mls/hr 1X ONCE IRR Last administered on 09/28/18at 06:00; Start 09/28/18 at 06:00; Stop 09/28/18 at 06:59; Status DC Cefazolin Sodium 1 gm/Sodium Chloride 500 ml @ 500 mls/hr 1X ONCE IRR Last administered on 09/28/18at 08:19; Start 09/28/18 at 06:00; Stop 09/28/18 at 06:59; Status DC Heparin Sodium (Porcine) 800 unit/ Nitroglycerin 4 mg/Verapamil HCl 8 mg/Sodium Bicarbonate 0.34 meq/Ringer's Solution 512.34 ml @ 512.34 mls/hr 1X ONCE IRR Last administered on 09/28/18at 08:20; Start 09/28/18 at 06:00; Stop 09/28/18 at 06: 59; Status DC Ondansetron HCl (Zofran) 4 mg PRN Q6HRS PRN IV NAUSEA/VOMITING; Start 09/28/18 at 07:00; Stop 09/29/18 at 06:59; Status DC Fentanyl Citrate (Fentanyl 2ml Vial) 25 mcg PRN Q5MIN PRN IV MILD PAIN; Start 09/28/18 at 07:00; Stop 09/29/18 at 06:59; Status DC Fentanyl Citrate (Fentanyl 2ml Vial) 50 mcg PRN Q5MIN PRN IV MODERATE TO SEVERE PAIN; Start 09/28/18 at 07:00; Stop 09/29/18 at 06:59; Status DC Morphine Sulfate (Morphine Sulfate) 1 mg PRN Q10MIN PRN IV SEVERE PAIN Last administered on 09/28/18at 16:59; Start 09/28/18 at 07:00; Stop 09/29/18 at 06:59; Status DC Ringer's Solution 1,000 ml @ 30 mls/hr Q24H IV Last administered on 09/28/18at 07:00; Start 09/28/18 at 07:00; Stop 09/28/18 at 18:59; Status DC Lidocaine HCl (Xylocaine-Mpf 1% 2ml Vial) 2 ml PRN 1X PRN ID PRIOR TO IV START ; Start 09/28/18 at 07:00; Stop 09/29/18 at 06:59; Status DC Hydromorphone HCl (Dilaudid) 0.5 mg PRN Q10MIN PRN IV SEV PAIN, Second choice; Start 09/28/18 at 07:00; Stop 09/29/18 at 06:59; Status DC Prochlorperazine Edisylate (Compazine) 5 mg PACU PRN PRN IV NAUSEA, MRX1; Start 09/28/18 at 07:00; Stop 09/29/18 at 06:59; Status DC Cefazolin Sodium/ Dextrose 50 ml @ 100 mls/hr 1X ONCE IV Last administered on 09/28/18at 08:39; Start 09/28/18 at 06:00; Stop 09/28/18 at 06:29; Status DC Phenylephrine HCl (Aayush-Synephrine Inj) 10 mg STK-MED ONCE .ROUTE ; Start at 06:24; Stop 09/28/18 at 06:26; Status DC Etomidate (Amidate) 20 mg STK-MED ONCE IV ; Start 09/28/18 at 06:24; Stop at 06:26; Status DC Aminocaproic Acid (Amicar) 5,000 mg STK-MED ONCE IV ; Start 09/28/18 at 06:24; Stop 09/28/18 at 06:26; Status DC Nitroglycerin/ Dextrose 250 ml @ As Directed STK-MED ONCE IV ; Start 09/28/18 at 06:24; Stop 09/28/18 at 06:26; Status DC Rocuronium Jber (Zemuron) 100 mg STK-MED ONCE .ROUTE ; Start 09/28/18 at 06:24 ; Stop 09/28/18 at 06:27; Status DC Vancomycin HCl (VANCO for OR ONLY) 10 gm STK-MED ONCE .ROUTE Last administered on 09/28/18at 08:18; Start 09/28/18 at 06:37; Stop 09/28/18 at 06:39; Status DC Cellulose (Surgicel Hemostat 4x8) 1 each STK-MED ONCE .ROUTE Last administered on 09/28/18at 08:18; Start 09/28/18 at 06:37; Stop 09/28/18 at 06:39; Status DC Papaverine HCl 60 mg STK-MED ONCE .ROUTE Last administered on 09/28/18at 08:17; Start 09/28/18 at 06:37; Stop 09/28/18 at 06:39; Status DC Aspirin (Aspirin) 300 mg STK-MED ONCE .ROUTE Last administered on 09/28/18at 08: 17; Start 09/28/18 at 06:37; Stop 09/28/18 at 06:39; Status DC Sodium Chloride (SODIUM CHLORIDE 20ml) 20 ml STK-MED ONCE IJ Last administered on 09/28/18at 08:16; Start 09/28/18 at 06:37; Stop 09/28/18 at 06:39; Status DC Sodium Chloride (SODIUM CHLORIDE 20ml) 20 ml STK-MED ONCE IJ Last administered on 09/28/18at 08:16; Start 09/28/18 at 06:37; Stop 09/28/18 at 06:39; Status DC Sodium Chloride (SODIUM CHLORIDE 20ml) 20 ml STK-MED ONCE IJ Last administered on 09/28/18at 08:17; Start 09/28/18 at 06:38; Stop 09/28/18 at 06:40; Status DC Heparin Sodium (Porcine) 30,000 unit STK-MED ONCE .ROUTE ; Start 09/28/18 at 06: 38; Stop 09/28/18 at 06:41; Status DC Nitroglycerin/ Dextrose 250 ml @ As Directed STK-MED ONCE IV ; Start 09/28/18 at 06:39; Stop 09/28/18 at 06:41; Status DC Midazolam HCl (Versed) 2 mg STK-MED ONCE .ROUTE ; Start 09/28/18 at 06:52; Stop 09/28/18 at 06:54; Status DC Sufentanil Citrate (Sufenta) 250 mcg STK-MED ONCE .ROUTE ; Start 09/28/18 at 06: 59; Stop 09/28/18 at 07:01; Status DC Isoflurane (Isoflurane) 90 ml STK-MED ONCE IH ; Start 09/28/18 at 08:10; Stop 09/28/18 at 08:13; Status DC Ephedrine Sulfate (Akovaz) 50 mg STK-MED ONCE .ROUTE ; Start 09/28/18 at 08:40; Stop 09/28/18 at 08:42; Status DC Midazolam HCl (Versed) 2 mg STK-MED ONCE .ROUTE ; Start 09/28/18 at 08:53; Stop 09/28/18 at 08:55; Status DC Midazolam HCl (Versed) 2 mg STK-MED ONCE .ROUTE ; Start 09/28/18 at 08:53; Stop 09/28/18 at 08:55; Status DC Rocuronium Jber (Zemuron) 100 mg STK-MED ONCE .ROUTE ; Start 09/28/18 at 09:54 ; Stop 09/28/18 at 09:56; Status DC Heparin Sodium (Porcine) (Heparin Sodium) 10,000 unit STK-MED ONCE .ROUTE ; Start 09/28/18 at 10:30; Stop 09/28/18 at 10:32; Status DC Protamine Sulfate (Protamine) 50 mg STK-MED ONCE IV ; Start 09/28/18 at 10:39; Stop 09/28/18 at 10:41; Status DC Protamine Sulfate (Protamine) 250 mg STK-MED ONCE IV ; Start 09/28/18 at 10:39; Stop 09/28/18 at 10:42; Status DC Cefazolin Sodium (Ancef) 1 gm STK-MED ONCE .ROUTE ; Start 09/28/18 at 12:48; Stop 09/28/18 at 12:50; Status DC Amiodarone HCl 150 mg/Dextrose 103 ml @ 618 mls/hr 1X ONCE IV ; Start 09/28/18 at 14:30; Stop 09/28/18 at 14:39; Status DC Heparin Sodium (Porcine) (Heparin Sodium) 10,000 unit STK-MED ONCE .ROUTE ; Start 09/28/18 at 13:36; Stop 09/28/18 at 13:38; Status DC Lidocaine HCl (Lidocaine Pf 2% Vial) 5 ml STK-MED ONCE .ROUTE ; Start 09/28/18 at 13:36; Stop 09/28/18 at 13:38; Status DC Amiodarone HCl 900 mg/Dextrose 518 ml @ 33 mls/hr CONT PRN IV SEE I/O RECORD; Start 09/28/18 at 14:30; Stop 09/30/18 at 10:14; Status DC Magnesium Sulfate 5 gm STK-MED ONCE .ROUTE ; Start 09/28/18 at 13:36; Stop at 13:38; Status DC Heparin Sodium (Porcine) 30,000 unit STK-MED ONCE .ROUTE ; Start 09/28/18 at 13: 36; Stop 09/28/18 at 13:38; Status DC Mannitol (Mannitol) 12.5 g STK-MED ONCE .ROUTE ; Start 09/28/18 at 13:36; Stop at 13:38; Status DC Albumin Human 100 ml @ As Directed STK-MED ONCE IV ; Start 09/28/18 at 13:36; Stop 09/28/18 at 13:38; Status DC Calcium Chloride (Calcium Chloride) 1,000 mg STK-MED ONCE .ROUTE ; Start at 13:36; Stop 09/28/18 at 13:38; Status DC Albumin Human 500 ml @ As Directed STK-MED ONCE IV ; Start 09/28/18 at 13:36; Stop 09/28/18 at 13:38; Status DC Nicardipine HCl 50 mg/Sodium Chloride 250 ml @ 25 mls/hr CONT PRN IV SEE I/O RECORD; Start 09/28/18 at 14:30; Stop 09/29/18 at 11:23; Status DC Protamine Sulfate (Protamine) 50 mg STK-MED ONCE IV ; Start 09/28/18 at 14:03; Stop 09/28/18 at 14:05; Status DC Sodium Chloride (Normal Saline Flush) 3 ml PRN Q12HR PRN IV AFTER MEDS AND BLOOD DRAWS; Start 09/28/18 at 15:00 Ringer's Solution 1,000 ml @ 30 mls/hr Q24H IV Last administered on 09/28/18at 15:30; Start 09/28/18 at 14:48; Stop 09/30/18 at 10:14; Status DC Albumin Human 250 ml @ 500 mls/hr PRN Q4HRS PRN IV SEE COMMENTS Last administered on 09/28/18at 17:07; Start 09/28/18 at 15:00; Stop 09/30/18 at 10:14; Status DC Insulin Human Regular 150 unit/ Sodium Chloride 151.5 ml @ 0 mls/hr CONT PRN PRN IV PER PROTOCOL Last administered on 09/28/18at 20:05; Start 09/28/18 at 15:00 ; Stop 09/30/18 at 10:14; Status DC Dextrose (Dextrose 50%-Water Syringe) 25 gm PRN Q15MIN PRN IV LOW BLOOD SUGAR; Start 09/28/18 at 15:00; Stop 09/30/18 at 10:14; Status DC Nitroglycerin/ Dextrose 250 ml @ 0 mls/hr CONT PRN PRN IV POST CV SURGERY; Start 09/28/18 at 15:00; Stop 09/29/18 at 11:23; Status DC Phenylephrine HCl 20 mg/Sodium Chloride 252 ml @ 0 mls/hr CONT PRN PRN IV HYPOTENSION Last administered on 09/28/18at 15:31; Start 09/28/18 at 15:00; Stop at 10:14; Status DC Amiodarone HCl 150 mg/Dextrose 103 ml @ 600 mls/hr 1X ONCE IV ; Start 09/28/18 at 15:00; Stop 09/28/18 at 15:05; Status DC Amiodarone HCl 150 mg/Dextrose 103 ml @ 200 mls/hr 1X PRN PRN IV FOR AFIB; Start 09/28/18 at 15:00; Stop 09/30/18 at 10:14; Status DC Amiodarone HCl 900 mg/Dextrose 518 ml @ 0 mls/hr CONT PRN PRN IV AFIB; Start at 15:00; Stop 09/28/18 at 15:06; Status DC Info (KCl Per Protocol) 1 ea CONT PRN PRN MC SEE COMMENTS; Start 09/28/18 at 15: 00; Stop 09/30/18 at 11:47; Status DC Magnesium Sulfate/ Dextrose 100 ml @ 100 mls/hr PRN DAILY PRN IV FOR MAG < 2.2 ; Start 09/28/18 at 15:00; Stop 09/30/18 at 11:47; Status DC Famotidine (Pepcid Vial) 20 mg BID IVP Last administered on 09/29/18at 09:58; Start 09/28/18 at 21:00; Stop 09/29/18 at 15:14; Status DC Ondansetron HCl (Zofran) 4 mg PRN Q4HRS PRN IV NAUSEA/VOMITING, 1st CHOICE Last administered on 09/29/18at 00:45; Start 09/28/18 at 15:00 Prochlorperazine Edisylate (Compazine) 10 mg PRN Q6HRS PRN IV NAUSEA/VOMITING, 2nd CHOICE; Start 09/28/18 at 15:00 Metoclopramide HCl (Reglan Vial) 10 mg PRN Q6HRS PRN IV NAUSEA/VOMITING, 3rd CHOICE; Start 09/28/18 at 15:00; Stop 09/30/18 at 11:47; Status DC Morphine Sulfate (Morphine Sulfate) 2 mg PRN Q1HR PRN IV MODERATE PAIN; Start 09/28/18 at 15:00; Stop 09/30/18 at 10:14; Status DC Morphine Sulfate (Morphine Sulfate) 4 mg PRN Q1HR PRN IV SEVERE PAIN Last administered on 09/29/18at 23:49; Start 09/28/18 at 15:00; Stop 09/30/18 at 10:14; Status DC Acetaminophen (Tylenol) 650 mg PRN Q4HRS PRN PO TEMP > 101'F or MILD PAIN; Start 09/28/18 at 15:00; Stop 09/29/18 at 15:14; Status DC Acetaminophen (Tylenol Supp) 650 mg PRN Q4HRS PRN MT TEMP > 101'F or MILD PAIN ; Start 09/28/18 at 15:00; Stop 09/29/18 at 15:14; Status DC Meperidine HCl (Demerol) 12.5 mg PRN Q15MIN PRN IV SHIVERING; Start 09/28/18 at 15:00; Stop 09/29/18 at 11:23; Status DC Propofol 100 ml @ 0 mls/hr CONT PRN PRN IV POSTOP SEDATION UNTIL EXTUBATE Last administered on 09/28/18at 15:59; Start 09/28/18 at 15:00; Stop 09/29/18 at 11:23; Status DC Senna/Docusate Sodium (Senna Plus) 1 tab BID PO Last administered on 09/30/18at 09:42; Start 09/28/18 at 21:00 Bisacodyl (Dulcolax Supp) 10 mg PRN DAILY PRN MT NO BOWEL MOVEMENT; Start at 15:00 Chlorhexidine Gluconate (Peridex) 15 ml BID MM ; Start 09/29/18 at 09:00; Stop at 19:06; Status DC Aspirin (Ecotrin) 325 mg DAILYWBKFT PO Last administered on 09/30/18at 09:42; Start 09/29/18 at 08:00 Aspirin (Aspirin) 300 mg PRN DAILY PRN MT IF UNABLE TO TAKE PO; Start 09/29/18 at 08:00 Albuterol Sulfate (Ventolin Neb Soln) 2.5 mg PRN Q4HRS PRN NEB SHORTNESS OF BREATH; Start 09/28/18 at 15:00; Stop 09/29/18 at 15:14; Status DC Metoprolol Tartrate (Lopressor) 25 mg BID PO Last administered on 09/30/18at 09: 43; Start 09/29/18 at 09:00 Nicardipine HCl 50 mg/Sodium Chloride 250 ml @ 0 mls/hr CONT PRN PRN IV PER PROTOCOL; Start 09/28/18 at 15:00; Stop 09/28/18 at 15:10; Status DC Oxycodone HCl (Roxicodone) 5 mg PRN Q4HRS PRN PO MILD TO MODERATE PAIN Last administered on 09/29/18at 11:52; Start 09/28/18 at 15:00 Oxycodone HCl (Roxicodone) 10 mg PRN Q4HRS PRN PO SEVERE PAIN Last administered on 09/30/18at 04:15; Start 09/28/18 at 15:00 Cefazolin Sodium/ Dextrose 50 ml @ 100 mls/hr Q8H IV Last administered on 09/30at 06:32; Start 09/28/18 at 23:00; Stop 09/30/18 at 07:29; Status DC Sodium Bicarbonate (Sodium Bicarb Adult 8.4% Syr) 50 meq 1X ONCE IV Last administered on 09/28/18at 16:59; Start 09/28/18 at 17:00; Stop 09/28/18 at 17:01; Status DC Throat Lozenges (Cepacol Sore Throat Lozenge) 1 dede PRN Q2HRS PRN PO SORE THROAT; Start 09/29/18 at 13:00 Famotidine (Pepcid) 20 mg BID PO Last administered on 09/30/18at 09:42; Start at 21:00 Magnesium Sulfate/ Dextrose 100 ml @ 100 mls/hr ONCE ONCE IV Last administered on 09/30/18at 09:44; Start 09/30/18 at 08:30; Stop 09/30/18 at 09:29 ; Status DC Magnesium Sulfate/ Dextrose 100 ml @ 25 mls/hr 1X ONCE IV Last administered on 09/30/18at 10:23; Start 09/30/18 at 11:00; Stop 09/30/18 at 14:59 Active Scripts Active Reported Amlodipine-Benazepril 5-20 Mg (Amlodipine Besylate/Benazepril) 1 Each Capsule 1 Cap PO DAILY Vitals/I & O Vital Sign - Last 24 Hours 09/29/18 09/29/18 09/29/18 09/29/18 13:00 14:00 14:20 14:28 Pulse 88 82 Resp 24 25 21 B/P (MAP) 115/70 (85) 135/88 (104) Pulse Ox 95 97 100 100 O2 Delivery Room Air Room Air Nasal Cannula Nasal Cannula O2 Flow Rate 3.0 3.0 09/29/18 09/29/18 09/29/18 09/29/18 15:00 16:00 16:00 17:00 Temp 97.7 97.7 Pulse 80 82 82 Resp 20 15 13 B/P (MAP) 118/73 (88) 112/71 (85) 106/57 (73) Pulse Ox 97 87 98 O2 Delivery Room Air Nasal Cannula Room Air Nasal Cannula O2 Flow Rate 2.0 2.0 09/29/18 09/29/18 09/29/18 09/29/18 18:00 19:00 20:00 20:00 Temp 98.3 98.3 Pulse 84 95 86 Resp 15 20 16 B/P (MAP) 143/76 (98) 140/64 (89) 152/78 (102) Pulse Ox 95 92 97 O2 Delivery Room Air Room Air Nasal Cannula Room Air O2 Flow Rate 1.0 09/29/18 09/29/18 09/29/18 09/29/18 20:15 20:55 21:00 21:15 Pulse 92 88 Resp 17 12 B/P (MAP) 152/78 123/71 (88) Pulse Ox 97 97 97 O2 Delivery Nasal Cannula Nasal Cannula Nasal Cannula O2 Flow Rate 1.0 1.0 1.0 09/29/18 09/29/18 09/29/18 09/30/18 22:00 23:00 23:49 00:00 Temp 98.2 98.2 Pulse 85 93 84 Resp 15 15 16 15 B/P (MAP) 119/71 (87) 106/68 (81) 98/65 (76) Pulse Ox 97 95 96 95 O2 Delivery Nasal Cannula Nasal Cannula Room Air Nasal Cannula O2 Flow Rate 1.0 1.0 1.0 1.0 09/30/18 09/30/18 09/30/18 09/30/18 00:00 01:00 01:16 02:00 Pulse 84 85 Resp 15 14 14 B/P (MAP) 96/69 (78) 100/68 (79) Pulse Ox 96 96 97 O2 Delivery Nasal Cannula Nasal Cannula Nasal Cannula Nasal Cannula O2 Flow Rate 1.0 1.0 1.0 1.0 09/30/18 09/30/18 09/30/18 09/30/18 03:00 04:00 04:00 04:15 Temp 99.2 99.2 Pulse 87 85 Resp 15 15 14 B/P (MAP) 104/65 (78) 100/68 (79) Pulse Ox 98 97 100 O2 Delivery Nasal Cannula Nasal Cannula Nasal Cannula Nasal Cannula O2 Flow Rate 1.0 1.0 1.0 1.0 09/30/18 09/30/18 09/30/18 09/30/18 05:00 05:15 06:07 07:00 Temp 98.4 98.4 Pulse 84 85 86 Resp 16 15 14 12 B/P (MAP) 98/65 (76) 100/70 (80) 105/69 (81) Pulse Ox 98 97 97 O2 Delivery Nasal Cannula Nasal Cannula Nasal Cannula O2 Flow Rate 1.0 1.0 1.0 09/30/18 09/30/18 09/30/18 09/30/18 08:00 08:00 09:00 09:42 Pulse 87 89 88 Resp 14 16 B/P (MAP) 110/73 (85) 147/72 (97) 147/91 Pulse Ox 94 97 O2 Delivery Room Air Room Air Room Air 09/30/18 09/30/18 09/30/18 09:43 10:00 11:00 Temp 98.1 98.1 Pulse 88 83 82 Resp 15 15 B/P (MAP) 147/91 136/71 (92) 136/71 (92) Pulse Ox 92 91 O2 Delivery Room Air Room Air Intake and Output 09/29/18 09/29/18 09/30/18 15:01 23:01 07:01 Intake Total 650 ml 777 ml 314 ml Output Total 622 ml 465 ml 530 ml Balance 28 ml 312 ml -216 ml MIK SIMMONS MD Sep 30, 2018 13:00
--- NOTE | 2018-09-30 13:57 | PDOC ---
Progress Note Subjective Subjective Doing very well. Normotensive and SR. Expected pleural tube output. On room air. Hb 9.8 creat 1.2. 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, no focal neurologic deficit SKIN: No rash IV: ok Labs Lab Laboratory Tests Test 09/30/18 04:45 White Blood Count 10.1 x10^3/uL (4.0-11.0) Red Blood Count 2.96 x10^6/uL (4.30-5.70) Hemoglobin 9.8 g/dL (13.0-17.5) Hematocrit 28.4 % (39.0-53.0) Mean Corpuscular Volume 96 fL (79-100) Mean Corpuscular Hemoglobin 33 pg (25-35) Mean Corpuscular Hemoglobin Concent 34 g/dL (31-37) Red Cell Distribution Width 12.5 % (11.5-14.5) Platelet Count 122 x10^3/uL (140-400) Sodium Level 135 mmol/L (136-145) Potassium Level 4.2 mmol/L (3.5-5.1) Chloride Level 100 mmol/L (98-107) Carbon Dioxide Level 28 mmol/L (21-32) Anion Gap 7 (6-14) Blood Urea Nitrogen 16 mg/dL (8-26) Creatinine 1.2 mg/dL (0.7-1.3) Estimated GFR (Cockcroft-Gault) 62.2 Glucose Level 139 mg/dL (70-99) Calcium Level 8.6 mg/dL (8.5-10.1) Magnesium Level 1.5 mg/dL (1.8-2.4) Objective Assessment POD#2 s/p CABG x 4 (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 Normotensive and SR. Expected pleural tube output. On room air. Hb 9.8 creat 1.2. CXR better Plan Plan of Care D/c pleural tube D/c almanzar D/c cordis ASA, b marguerite and statin Ambulation and pulm toilet Transfer to stepdown SERENA HILL MD Sep 30, 2018 13:57
--- NOTE | 2018-09-30 18:26 | NUR ---
All lines Dc'd w exception of pacer wires. Pain control managed today . Down grade to CVC status. Cont POC
--- NOTE | 2018-09-30 18:43 | NUR ---
Rate change noted. Uncontrolled A fib. rate 130-160. Dr. Herrera notified with orders received. Stat EKG. Patient asymptomatic at time, assisted back to bed. VS stable, SBP 111-144.
[2018-09-30] MEDS ORDERED: AMIODARONE 150 MG in IV DEXTROSE 5% 100ML 100 ML IV ONE (18:45)
[2018-09-30] MEDS ORDERED: AMIODARONE 900 MG in IV DEXTROSE 5% 500 ML IV PRN (18:45)
--- NOTE | 2018-09-30 18:52 | EKG ---
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
[2018-09-30] MEDS: ATORVASTATIN CALCIUM 40 MG TABLET. PO SCH (21:13)
[2018-09-30] MEDS: LORazepam 1 MG TABLET PO PRN (23:58)
[2018-10-01] VITALS (7 sets, daily range): BP systolic 123–161; BP diastolic 77–91
[2018-10-01 05:03] LABS: HEMATOCRIT 28.5 % (39.0-53.0); HEMOGLOBIN 9.7 g/dL (13.0-17.5); RED BLOOD COUNT 2.96 x10^6/uL (4.30-5.70); RED CELL DISTRIBUTION WIDTH 12.2 % (11.5-14.5); WHITE BLOOD COUNT 8.8 x10^3/uL (4.0-11.0)
[2018-10-01 05:37] LABS: CALCIUM 8.8 mg/dL (8.5-10.1); CREATININE 1.1 mg/dL (0.7-1.3); GFR 68.8; MAGNESIUM 1.9 mg/dL (1.8-2.4); POTASSIUM 3.9 mmol/L (3.5-5.1)
--- NOTE | 2018-10-01 08:25 | RAD ---
Portable chest, 10/01/2018: HISTORY: Postop CABG Comparison is made to a study from 09/30/2018. The left chest tube in the right jugular vascular sheath have been removed. The heart size is unchanged. The pulmonary vascularity is normal. There is a tiny residual left apical pneumothorax. There are persistent mild left basilar opacities compatible with a combination of pleural fluid and underlying atelectasis. The right chest remains clear. IMPRESSION: 1. Tiny residual left apical pneumothorax. 2. Small unchanged left basilar opacity compatible with pleural fluid and underlying atelectasis. Electronically signed by: Rolf Guevara MD (10/01/2018 8:20 AM) [facility]
[2018-10-01] MEDS: ASPIRIN ENTERIC COATED 325 MG TABLET.DR. PO SCH (09:33)
[2018-10-01] MEDS: FAMOTIDINE 20 MG TABLET. PO SCH ×2 (09:33→20:42)
[2018-10-01] MEDS: VITAMIN B12,B9,B6 COMPLEX 1 TABLET. PO SCH (09:34)
[2018-10-01] MEDS: amLODIPine BESYLATE 5 MG TABLET PO SCH (09:35)
[2018-10-01] MEDS: METOPROLOL TART IMMED RELEASE 25 MG TABLET. PO SCH ×3 (09:36→20:43)
[2018-10-01] MEDS: SENNOSIDES/DOCUSATE 8.6/50MG TABLET. PO SCH ×2 (12:23→20:42)
--- NOTE | 2018-10-01 12:35 | PDOC ---
Progress Note Subjective Subjective Doing very well. Normotensive. AFib last night, back in SR with amiodarone drip. On room air. Hb 9.7 creat 1.1. CXR left costophrenic angle blunting. 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, no focal neurologic deficit SKIN: No rash IV: ok Labs Lab Laboratory Tests Test 10/01/18 03:45 White Blood Count 8.8 x10^3/uL (4.0-11.0) Red Blood Count 2.96 x10^6/uL (4.30-5.70) Hemoglobin 9.7 g/dL (13.0-17.5) Hematocrit 28.5 % (39.0-53.0) Mean Corpuscular Volume 97 fL (79-100) Mean Corpuscular Hemoglobin 33 pg (25-35) Mean Corpuscular Hemoglobin Concent 34 g/dL (31-37) Red Cell Distribution Width 12.2 % (11.5-14.5) Platelet Count 135 x10^3/uL (140-400) Sodium Level 134 mmol/L (136-145) Potassium Level 3.9 mmol/L (3.5-5.1) Chloride Level 101 mmol/L (98-107) Carbon Dioxide Level 29 mmol/L (21-32) Anion Gap 4 (6-14) Blood Urea Nitrogen 13 mg/dL (8-26) Creatinine 1.1 mg/dL (0.7-1.3) Estimated GFR (Cockcroft-Gault) 68.8 Glucose Level 135 mg/dL (70-99) Calcium Level 8.8 mg/dL (8.5-10.1) Magnesium Level 1.9 mg/dL (1.8-2.4) Objective Assessment POD#3 s/p CABG x 4 (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 Normotensive. AFib last night, back in SR with amiodarone drip. On room air. Hb 9.7 creat 1.1. CXR left costophrenic angle blunting. Plan Plan of Care D/c pacing wires Switch amio drip to 400mg po BID ASA, b marguerite and statin Ambulation and pulm toilet A/w stepdown bed D/c home Monday SERENA HILL MD Oct 01, 2018 12:35
--- NOTE | 2018-10-01 13:11 | PDOC ---
PROGRESS NOTES Chief Complaint Chief Complaint .CAD s/p CABG NSTEMI Afib HTN HLD ETOH abuse Tobacco abuse History of Present Illness History of Present Illness Patient was seen and examined in the ICU today. He is POD 3 s/p 4-vessel CABG. He states that his pain has significantly improved. Chest xray showed a stable trace left apical pneumothorax and a trace left pleural effusion. His pleural tube has been removed. He has no complaints at this time. He is currently on an amiodarone drip for occasional atrial fibrillation. Vitals Vitals Vital Signs Date Time Temp Pulse Resp B/P (MAP) Pulse Ox O2 Delivery O2 Flow Rate FiO2 10/01/18 12:23 83 144/89 10/01/18 08:20 Nasal Cannula 2.0 10/01/18 07:00 97.7 20 90 97.7 Physical Exam General: Alert, Oriented X3, mild distress Heart: Regular rate, No murmurs Lungs: Clear, Other (no rhonchi) Abdomen: Normal bowel sounds, No tenderness Extremities: No clubbing, No cyanosis, No edema Skin: No rashes, No breakdown, No significant lesion Labs LABS Laboratory Tests Test 10/01/18 03:45 White Blood Count 8.8 x10^3/uL (4.0-11.0) Red Blood Count 2.96 x10^6/uL (4.30-5.70) Hemoglobin 9.7 g/dL (13.0-17.5) Hematocrit 28.5 % (39.0-53.0) Mean Corpuscular Volume 97 fL (79-100) Mean Corpuscular Hemoglobin 33 pg (25-35) Mean Corpuscular Hemoglobin Concent 34 g/dL (31-37) Red Cell Distribution Width 12.2 % (11.5-14.5) Platelet Count 135 x10^3/uL (140-400) Sodium Level 134 mmol/L (136-145) Potassium Level 3.9 mmol/L (3.5-5.1) Chloride Level 101 mmol/L (98-107) Carbon Dioxide Level 29 mmol/L (21-32) Anion Gap 4 (6-14) Blood Urea Nitrogen 13 mg/dL (8-26) Creatinine 1.1 mg/dL (0.7-1.3) Estimated GFR (Cockcroft-Gault) 68.8 Glucose Level 135 mg/dL (70-99) Calcium Level 8.8 mg/dL (8.5-10.1) Magnesium Level 1.9 mg/dL (1.8-2.4) Review of Systems Review of Systems Notes slight chest pain and weakness. Denies abdominal pain, nausea, vomiting, diarrhea. Assessment and Plan Assessmemt and Plan Assessment: CAD s/p CABG (POD 3) NSTEMI Afib HTN HLD ETOH abuse Tobacco abuse Plan: 1. ICU monitoring 2. Advance diet as tolerated 3. Monitor labs 4. Wound care 5. PT/OT 6. Amiodarone drip 7. Appreciate CV surgery and cardiology input 8. Discharge in 48 hours if ok with other specialists Comment Review of Relevant I have reviewed the following items vicky (where applicable) has been applied. Labs Laboratory Tests Test 09/30/18 04:45 10/01/18 03:45 White Blood Count 10.1 x10^3/uL (4.0-11.0) 8.8 x10^3/uL (4.0-11.0) Red Blood Count 2.96 x10^6/uL (4.30-5.70) 2.96 x10^6/uL (4.30-5.70) Hemoglobin 9.8 g/dL (13.0-17.5) 9.7 g/dL (13.0-17.5) Hematocrit 28.4 % (39.0-53.0) 28.5 % (39.0-53.0) Mean Corpuscular Volume 96 fL (79-100) 97 fL (79-100) Mean Corpuscular Hemoglobin 33 pg (25-35) 33 pg (25-35) Mean Corpuscular Hemoglobin Concent 34 g/dL (31-37) 34 g/dL (31-37) Red Cell Distribution Width 12.5 % (11.5-14.5) 12.2 % (11.5-14.5) Platelet Count 122 x10^3/uL (140-400) 135 x10^3/uL (140-400) Sodium Level 135 mmol/L (136-145) 134 mmol/L (136-145) Potassium Level 4.2 mmol/L (3.5-5.1) 3.9 mmol/L (3.5-5.1) Chloride Level 100 mmol/L (98-107) 101 mmol/L (98-107) Carbon Dioxide Level 28 mmol/L (21-32) 29 mmol/L (21-32) Anion Gap 7 (6-14) 4 (6-14) Blood Urea Nitrogen 16 mg/dL (8-26) 13 mg/dL (8-26) Creatinine 1.2 mg/dL (0.7-1.3) 1.1 mg/dL (0.7-1.3) Estimated GFR (Cockcroft-Gault) 62.2 68.8 Glucose Level 139 mg/dL (70-99) 135 mg/dL (70-99) Calcium Level 8.6 mg/dL (8.5-10.1) 8.8 mg/dL (8.5-10.1) Magnesium Level 1.5 mg/dL (1.8-2.4) 1.9 mg/dL (1.8-2.4) Laboratory Tests Test 10/01/18 03:45 White Blood Count 8.8 x10^3/uL (4.0-11.0) Red Blood Count 2.96 x10^6/uL (4.30-5.70) Hemoglobin 9.7 g/dL (13.0-17.5) Hematocrit 28.5 % (39.0-53.0) Mean Corpuscular Volume 97 fL (79-100) Mean Corpuscular Hemoglobin 33 pg (25-35) Mean Corpuscular Hemoglobin Concent 34 g/dL (31-37) Red Cell Distribution Width 12.2 % (11.5-14.5) Platelet Count 135 x10^3/uL (140-400) Sodium Level 134 mmol/L (136-145) Potassium Level 3.9 mmol/L (3.5-5.1) Chloride Level 101 mmol/L (98-107) Carbon Dioxide Level 29 mmol/L (21-32) Anion Gap 4 (6-14) Blood Urea Nitrogen 13 mg/dL (8-26) Creatinine 1.1 mg/dL (0.7-1.3) Estimated GFR (Cockcroft-Gault) 68.8 Glucose Level 135 mg/dL (70-99) Calcium Level 8.8 mg/dL (8.5-10.1) Magnesium Level 1.9 mg/dL (1.8-2.4) Medications Current Medications Aspirin (Chito Aspirin) 325 mg 1X ONCE PO Last administered on 09/26/18at 03:49 ; Start 09/26/18 at 04:00; Stop 09/26/18 at 04:01; Status DC Sodium Chloride 1,000 ml @ 1,000 mls/hr 1X ONCE IV Last administered on at 03:48; Start 09/26/18 at 04:00; Stop 09/26/18 at 04:59; Status DC Lorazepam (Ativan) 0.5 mg 1X ONCE IV Last administered on 09/26/18at 03:49; Start 09/26/18 at 04:00; Stop 09/26/18 at 04:01; Status DC Ondansetron HCl (Zofran) 4 mg PRN Q8HRS PRN IV NAUSEA/VOMITING 1ST CHOICE; Start 09/26/18 at 04:00; Stop 09/27/18 at 03:59; Status DC Fentanyl Citrate (Fentanyl 2ml Vial) 50 mcg PRN Q2HR PRN IV SEVERE PAIN, UNREL BY MORPHINE; Start 09/26/18 at 04:00; Stop 09/29/18 at 11:23; Status DC Fentanyl Citrate (Fentanyl 2ml Vial) 50 mcg 1X ONCE IV ; Start 09/26/18 at 04:30 ; Stop 09/26/18 at 04:30; Status DC Nitroglycerin (Nitro-Bid Oint) 0.5 inch 1X ONCE TP Last administered on at 04:37; Start 09/26/18 at 04:30; Stop 09/26/18 at 04:31; Status DC Heparin Sodium/ Dextrose 500 ml @ 0 mls/hr CONT PRN IV SEE I/O RECORD Last administered on 09/26/18at 04:41; Start 09/26/18 at 04:15; Stop 09/26/18 at 12:31; Status DC Heparin Sodium (Porcine) (Heparin Sodium) 2,400 unit PRN Q6HRS PRN IV FOR UFH LEVEL LESS THAN 0.2; Start 09/26/18 at 04:15; Stop 09/26/18 at 13:53; Status DC Heparin Sodium (Porcine) (Heparin Sodium) 4,000 unit 1X ONCE IV Last administered on 09/26/18at 04:40; Start 09/26/18 at 04:30; Stop 09/26/18 at 04:31; Status DC Info (Anti-Coagulation Monitoring By Pharmacy) 1 each PRN DAILY PRN MC SEE COMMENTS Last administered on 09/26/18at 09:32; Start 09/26/18 at 04:30; Stop at 12:32; Status DC Iohexol (Omnipaque 350 Mg/ml) 60 ml 1X ONCE IV Last administered on 09/26/18at 05:26; Start 09/26/18 at 05:30; Stop 09/26/18 at 05:31; Status DC Info (CONTRAST GIVEN -- Rx MONITORING) 1 each PRN DAILY PRN MC SEE COMMENTS; Start 09/26/18 at 05:15; Stop 09/26/18 at 10:56; Status DC Multivitamins 10 ml/Thiamine HCl 100 mg/Folic Acid 1 mg/Sodium Chloride 1,011.2 ml @ 100 mls/ hr 1X ONCE IV Last administered on 09/26/18at 10:40; Start at 10:00; Stop 09/26/18 at 20:06; Status DC Atorvastatin Calcium (Lipitor) 40 mg QHS PO Last administered on 09/30/18at 21: 13; Start 09/26/18 at 21:00 Iodixanol (Visipaque 320) 100 ml STK-MED ONCE .ROUTE ; Start 09/26/18 at 09:58; Stop 09/26/18 at 10:01; Status DC Lidocaine HCl (Lidocaine 1% 20ml Vial) 20 ml STK-MED ONCE .ROUTE ; Start at 09:58; Stop 09/26/18 at 10:01; Status DC Heparin Sodium/ Sodium Chloride 1,000 ml @ As Directed STK-MED ONCE .ROUTE ; Start 09/26/18 at 09:59; Stop 09/26/18 at 10:01; Status DC Fentanyl Citrate (Fentanyl 2ml Vial) 100 mcg STK-MED ONCE .ROUTE ; Start at 10:14; Stop 09/26/18 at 10:16; Status DC Midazolam HCl (Versed) 5 mg STK-MED ONCE .ROUTE ; Start 09/26/18 at 10:14; Stop 09/26/18 at 10:16; Status DC Iohexol (Omnipaque 300 Mg/ml) 100 ml STK-MED ONCE .ROUTE ; Start 09/26/18 at 10: 17; Stop 09/26/18 at 10:19; Status DC Heparin Sodium/ Sodium Chloride (HEPARIN for ARTERIAL LINE FLUSH) 1,000 unit 1X ONCE IART Last administered on 09/26/18at 11:37; Start 09/26/18 at 11:00; Stop 09/26/18 at 11:01; Status DC Midazolam HCl (Versed) 5 mg 1X ONCE IV Last administered on 09/26/18at 11:38; Start 09/26/18 at 11:00; Stop 09/26/18 at 11:01; Status DC Fentanyl Citrate (Fentanyl 2ml Vial) 100 mcg 1X ONCE IV Last administered on at 11:38; Start 09/26/18 at 11:00; Stop 09/26/18 at 11:01; Status DC Iodixanol (Visipaque 320) 100 ml 1X ONCE IART Last administered on 09/26/18at 11 :37; Start 09/26/18 at 11:00; Stop 09/26/18 at 11:01; Status DC Lidocaine HCl (Lidocaine 1% 20ml Vial) 20 ml 1X ONCE INJ Last administered on 09/26/18at 11:37; Start 09/26/18 at 11:00; Stop 09/26/18 at 11:01; Status DC Info (CONTRAST GIVEN -- Rx MONITORING) 1 each PRN DAILY PRN MC SEE COMMENTS; Start 09/26/18 at 11:00; Stop 09/28/18 at 10:59; Status DC Sodium Chloride (Normal Saline Flush) 3 ml QSHIFT PRN IV AFTER MEDS AND BLOOD DRAWS; Start 09/26/18 at 11:45; Stop 09/29/18 at 07:30; Status DC Sodium Chloride 1,000 ml @ 75 mls/hr [id number] IV ; Start 09/26/18 at 11:33; Stop 09/26/18 at 17:32; Status DC Nitroglycerin (Nitrostat) 0.4 mg PRN Q5MIN PRN SL CHEST PAIN; Start 09/26/18 at 11:45 Aspirin (Ecotrin) 81 mg DAILYWBKFT PO Last administered on 09/27/18at 09:39; Start 09/27/18 at 08:00; Stop 09/28/18 at 15:04; Status DC Metoprolol Tartrate (Lopressor) 25 mg BID PO Last administered on 09/27/18at 20: 57; Start 09/26/18 at 21:00; Stop 09/28/18 at 15:09; Status DC Heparin Sodium/ Dextrose 500 ml @ 0 mls/hr CONT PRN IV SEE I/O RECORD Last administered on 09/28/18at 08:19; Start 09/26/18 at 17:00; Stop 09/27/18 at 23:59; Status DC Heparin Sodium (Porcine) (Heparin Sodium) 2,500 unit PRN Q6HRS PRN IV FOR UFH LEVEL LESS THAN 0.2 Last administered on 09/26/18at 23:58; Start 09/26/18 at 17:00 ; Stop 09/27/18 at 23:59; Status DC Info (Anti-Coagulation Monitoring By Pharmacy) 1 each PRN DAILY PRN MC SEE COMMENTS; Start 09/26/18 at 17:15; Stop 09/29/18 at 08:21; Status DC Lorazepam (Ativan) 2 mg PRN Q4HRS PRN PO ANXIETY / AGITATION Last administered on 09/30/18at 23:58; Start 09/26/18 at 17:15 Vitamin B Complex (Folbic Tablet) 1 tab DAILY PO Last administered on at 09:34; Start 09/26/18 at 18:00 Amlodipine Besylate (Norvasc) 5 mg DAILY PO Last administered on 10/01/18at 09: 35; Start 09/27/18 at 13:00 Potassium Chloride 70 meq/ Sodium Bicarbonate 12.5 meq/Lidocaine HCl 24 ml/ Parenteral Electrolytes 571.5 ml @ 571.5 mls/ hr 1X ONCE IRR Last administered on 09/28/18at 06:00; Start 09/28/18 at 06:00; Stop 09/28/18 at 06:59; Status DC Potassium Chloride 15 meq/ Sodium Bicarbonate 12.5 meq/Parenteral Electrolytes 520 ml @ 520 mls/hr 1X ONCE IRR Last administered on 09/28/18at 06:00; Start at 06:00; Stop 09/28/18 at 06:59; Status DC Heparin Sodium (Porcine) 14708 unit/Ringer's Solution 1,020 ml @ 1,020 mls/hr 1X ONCE IRR Last administered on 09/28/18at 06:00; Start 09/28/18 at 06:00; Stop 09/28/18 at 06:59; Status DC Cefazolin Sodium 1 gm/Sodium Chloride 500 ml @ 500 mls/hr 1X ONCE IRR Last administered on 09/28/18at 08:19; Start 09/28/18 at 06:00; Stop 09/28/18 at 06:59; Status DC Heparin Sodium (Porcine) 800 unit/ Nitroglycerin 4 mg/Verapamil HCl 8 mg/Sodium Bicarbonate 0.34 meq/Ringer's Solution 512.34 ml @ 512.34 mls/hr 1X ONCE IRR Last administered on 09/28/18at 08:20; Start 09/28/18 at 06:00; Stop 09/28/18 at 06: 59; Status DC Ondansetron HCl (Zofran) 4 mg PRN Q6HRS PRN IV NAUSEA/VOMITING; Start 09/28/18 at 07:00; Stop 09/29/18 at 06:59; Status DC Fentanyl Citrate (Fentanyl 2ml Vial) 25 mcg PRN Q5MIN PRN IV MILD PAIN; Start 09/28/18 at 07:00; Stop 09/29/18 at 06:59; Status DC Fentanyl Citrate (Fentanyl 2ml Vial) 50 mcg PRN Q5MIN PRN IV MODERATE TO SEVERE PAIN; Start 09/28/18 at 07:00; Stop 09/29/18 at 06:59; Status DC Morphine Sulfate (Morphine Sulfate) 1 mg PRN Q10MIN PRN IV SEVERE PAIN Last administered on 09/28/18at 16:59; Start 09/28/18 at 07:00; Stop 09/29/18 at 06:59; Status DC Ringer's Solution 1,000 ml @ 30 mls/hr Q24H IV Last administered on 09/28/18at 07:00; Start 09/28/18 at 07:00; Stop 09/28/18 at 18:59; Status DC Lidocaine HCl (Xylocaine-Mpf 1% 2ml Vial) 2 ml PRN 1X PRN ID PRIOR TO IV START ; Start 09/28/18 at 07:00; Stop 09/29/18 at 06:59; Status DC Hydromorphone HCl (Dilaudid) 0.5 mg PRN Q10MIN PRN IV SEV PAIN, Second choice; Start 09/28/18 at 07:00; Stop 09/29/18 at 06:59; Status DC Prochlorperazine Edisylate (Compazine) 5 mg PACU PRN PRN IV NAUSEA, MRX1; Start 09/28/18 at 07:00; Stop 09/29/18 at 06:59; Status DC Cefazolin Sodium/ Dextrose 50 ml @ 100 mls/hr 1X ONCE IV Last administered on 09/28/18at 08:39; Start 09/28/18 at 06:00; Stop 09/28/18 at 06:29; Status DC Phenylephrine HCl (Aayush-Synephrine Inj) 10 mg STK-MED ONCE .ROUTE ; Start at 06:24; Stop 09/28/18 at 06:26; Status DC Etomidate (Amidate) 20 mg STK-MED ONCE IV ; Start 09/28/18 at 06:24; Stop at 06:26; Status DC Aminocaproic Acid (Amicar) 5,000 mg STK-MED ONCE IV ; Start 09/28/18 at 06:24; Stop 09/28/18 at 06:26; Status DC Nitroglycerin/ Dextrose 250 ml @ As Directed STK-MED ONCE IV ; Start 09/28/18 at 06:24; Stop 09/28/18 at 06:26; Status DC Rocuronium [place] (Zemuron) 100 mg STK-MED ONCE .ROUTE ; Start 09/28/18 at 06:24 ; Stop 09/28/18 at 06:27; Status DC Vancomycin HCl (VANCO for OR ONLY) 10 gm STK-MED ONCE .ROUTE Last administered on 09/28/18at 08:18; Start 09/28/18 at 06:37; Stop 09/28/18 at 06:39; Status DC Cellulose (Surgicel Hemostat 4x8) 1 each STK-MED ONCE .ROUTE Last administered on 09/28/18at 08:18; Start 09/28/18 at 06:37; Stop 09/28/18 at 06:39; Status DC Papaverine HCl 60 mg STK-MED ONCE .ROUTE Last administered on 09/28/18at 08:17; Start 09/28/18 at 06:37; Stop 09/28/18 at 06:39; Status DC Aspirin (Aspirin) 300 mg STK-MED ONCE .ROUTE Last administered on 09/28/18at 08: 17; Start 09/28/18 at 06:37; Stop 09/28/18 at 06:39; Status DC Sodium Chloride (SODIUM CHLORIDE 20ml) 20 ml STK-MED ONCE IJ Last administered on 09/28/18at 08:16; Start 09/28/18 at 06:37; Stop 09/28/18 at 06:39; Status DC Sodium Chloride (SODIUM CHLORIDE 20ml) 20 ml STK-MED ONCE IJ Last administered on 09/28/18at 08:16; Start 09/28/18 at 06:37; Stop 09/28/18 at 06:39; Status DC Sodium Chloride (SODIUM CHLORIDE 20ml) 20 ml STK-MED ONCE IJ Last administered on 09/28/18at 08:17; Start 09/28/18 at 06:38; Stop 09/28/18 at 06:40; Status DC Heparin Sodium (Porcine) 30,000 unit STK-MED ONCE .ROUTE ; Start 09/28/18 at 06: 38; Stop 09/28/18 at 06:41; Status DC Nitroglycerin/ Dextrose 250 ml @ As Directed STK-MED ONCE IV ; Start 09/28/18 at 06:39; Stop 09/28/18 at 06:41; Status DC Midazolam HCl (Versed) 2 mg STK-MED ONCE .ROUTE ; Start 09/28/18 at 06:52; Stop 09/28/18 at 06:54; Status DC Sufentanil Citrate (Sufenta) 250 mcg STK-MED ONCE .ROUTE ; Start 09/28/18 at 06: 59; Stop 09/28/18 at 07:01; Status DC Isoflurane (Isoflurane) 90 ml STK-MED ONCE IH ; Start 09/28/18 at 08:10; Stop 09/28/18 at 08:13; Status DC Ephedrine Sulfate (Akovaz) 50 mg STK-MED ONCE .ROUTE ; Start 09/28/18 at 08:40; Stop 09/28/18 at 08:42; Status DC Midazolam HCl (Versed) 2 mg STK-MED ONCE .ROUTE ; Start 09/28/18 at 08:53; Stop 09/28/18 at 08:55; Status DC Midazolam HCl (Versed) 2 mg STK-MED ONCE .ROUTE ; Start 09/28/18 at 08:53; Stop 09/28/18 at 08:55; Status DC Rocuronium [place] (Zemuron) 100 mg STK-MED ONCE .ROUTE ; Start 09/28/18 at 09:54 ; Stop 09/28/18 at 09:56; Status DC Heparin Sodium (Porcine) (Heparin Sodium) 10,000 unit STK-MED ONCE .ROUTE ; Start 09/28/18 at 10:30; Stop 09/28/18 at 10:32; Status DC Protamine Sulfate (Protamine) 50 mg STK-MED ONCE IV ; Start 09/28/18 at 10:39; Stop 09/28/18 at 10:41; Status DC Protamine Sulfate (Protamine) 250 mg STK-MED ONCE IV ; Start 09/28/18 at 10:39; Stop 09/28/18 at 10:42; Status DC Cefazolin Sodium (Ancef) 1 gm STK-MED ONCE .ROUTE ; Start 09/28/18 at 12:48; Stop 09/28/18 at 12:50; Status DC Amiodarone HCl 150 mg/Dextrose 103 ml @ 618 mls/hr 1X ONCE IV ; Start 09/28/18 at 14:30; Stop 09/28/18 at 14:39; Status DC Heparin Sodium (Porcine) (Heparin Sodium) 10,000 unit STK-MED ONCE .ROUTE ; Start 09/28/18 at 13:36; Stop 09/28/18 at 13:38; Status DC Lidocaine HCl (Lidocaine Pf 2% Vial) 5 ml STK-MED ONCE .ROUTE ; Start 09/28/18 at 13:36; Stop 09/28/18 at 13:38; Status DC Amiodarone HCl 900 mg/Dextrose 518 ml @ 33 mls/hr CONT PRN IV SEE I/O RECORD; Start 09/28/18 at 14:30; Stop 09/30/18 at 10:14; Status DC Magnesium Sulfate 5 gm STK-MED ONCE .ROUTE ; Start 09/28/18 at 13:36; Stop at 13:38; Status DC Heparin Sodium (Porcine) 30,000 unit STK-MED ONCE .ROUTE ; Start 09/28/18 at 13: 36; Stop 09/28/18 at 13:38; Status DC Mannitol (Mannitol) 12.5 g STK-MED ONCE .ROUTE ; Start 09/28/18 at 13:36; Stop at 13:38; Status DC Albumin Human 100 ml @ As Directed STK-MED ONCE IV ; Start 09/28/18 at 13:36; Stop 09/28/18 at 13:38; Status DC Calcium Chloride (Calcium Chloride) 1,000 mg STK-MED ONCE .ROUTE ; Start at 13:36; Stop 09/28/18 at 13:38; Status DC Albumin Human 500 ml @ As Directed STK-MED ONCE IV ; Start 09/28/18 at 13:36; Stop 09/28/18 at 13:38; Status DC Nicardipine HCl 50 mg/Sodium Chloride 250 ml @ 25 mls/hr CONT PRN IV SEE I/O RECORD; Start 09/28/18 at 14:30; Stop 09/29/18 at 11:23; Status DC Protamine Sulfate (Protamine) 50 mg STK-MED ONCE IV ; Start 09/28/18 at 14:03; Stop 09/28/18 at 14:05; Status DC Sodium Chloride (Normal Saline Flush) 3 ml PRN Q12HR PRN IV AFTER MEDS AND BLOOD DRAWS; Start 09/28/18 at 15:00 Ringer's Solution 1,000 ml @ 30 mls/hr Q24H IV Last administered on 09/28/18at 15:30; Start 09/28/18 at 14:48; Stop 09/30/18 at 10:14; Status DC Albumin Human 250 ml @ 500 mls/hr PRN Q4HRS PRN IV SEE COMMENTS Last administered on 09/28/18at 17:07; Start 09/28/18 at 15:00; Stop 09/30/18 at 10:14; Status DC Insulin Human Regular 150 unit/ Sodium Chloride 151.5 ml @ 0 mls/hr CONT PRN PRN IV PER PROTOCOL Last administered on 09/28/18at 20:05; Start 09/28/18 at 15:00 ; Stop 09/30/18 at 10:14; Status DC Dextrose (Dextrose 50%-Water Syringe) 25 gm PRN Q15MIN PRN IV LOW BLOOD SUGAR; Start 09/28/18 at 15:00; Stop 09/30/18 at 10:14; Status DC Nitroglycerin/ Dextrose 250 ml @ 0 mls/hr CONT PRN PRN IV POST CV SURGERY; Start 09/28/18 at 15:00; Stop 09/29/18 at 11:23; Status DC Phenylephrine HCl 20 mg/Sodium Chloride 252 ml @ 0 mls/hr CONT PRN PRN IV HYPOTENSION Last administered on 09/28/18at 15:31; Start 09/28/18 at 15:00; Stop at 10:14; Status DC Amiodarone HCl 150 mg/Dextrose 103 ml @ 600 mls/hr 1X ONCE IV ; Start 09/28/18 at 15:00; Stop 09/28/18 at 15:05; Status DC Amiodarone HCl 150 mg/Dextrose 103 ml @ 200 mls/hr 1X PRN PRN IV FOR AFIB; Start 09/28/18 at 15:00; Stop 09/30/18 at 10:14; Status DC Amiodarone HCl 900 mg/Dextrose 518 ml @ 0 mls/hr CONT PRN PRN IV AFIB; Start at 15:00; Stop 09/28/18 at 15:06; Status DC Info (KCl Per Protocol) 1 ea CONT PRN PRN MC SEE COMMENTS; Start 09/28/18 at 15: 00; Stop 09/30/18 at 11:47; Status DC Magnesium Sulfate/ Dextrose 100 ml @ 100 mls/hr PRN DAILY PRN IV FOR MAG < 2.2 ; Start 09/28/18 at 15:00; Stop 09/30/18 at 11:47; Status DC Famotidine (Pepcid Vial) 20 mg BID IVP Last administered on 09/29/18at 09:58; Start 09/28/18 at 21:00; Stop 09/29/18 at 15:14; Status DC Ondansetron HCl (Zofran) 4 mg PRN Q4HRS PRN IV NAUSEA/VOMITING, 1st CHOICE Last administered on 09/29/18at 00:45; Start 09/28/18 at 15:00 Prochlorperazine Edisylate (Compazine) 10 mg PRN Q6HRS PRN IV NAUSEA/VOMITING, 2nd CHOICE; Start 09/28/18 at 15:00 Metoclopramide HCl (Reglan Vial) 10 mg PRN Q6HRS PRN IV NAUSEA/VOMITING, 3rd CHOICE; Start 09/28/18 at 15:00; Stop 09/30/18 at 11:47; Status DC Morphine Sulfate (Morphine Sulfate) 2 mg PRN Q1HR PRN IV MODERATE PAIN; Start 09/28/18 at 15:00; Stop 09/30/18 at 10:14; Status DC Morphine Sulfate (Morphine Sulfate) 4 mg PRN Q1HR PRN IV SEVERE PAIN Last administered on 09/29/18at 23:49; Start 09/28/18 at 15:00; Stop 09/30/18 at 10:14; Status DC Acetaminophen (Tylenol) 650 mg PRN Q4HRS PRN PO TEMP > 101'F or MILD PAIN; Start 09/28/18 at 15:00; Stop 09/29/18 at 15:14; Status DC Acetaminophen (Tylenol Supp) 650 mg PRN Q4HRS PRN VA TEMP > 101'F or MILD PAIN ; Start 09/28/18 at 15:00; Stop 09/29/18 at 15:14; Status DC Meperidine HCl (Demerol) 12.5 mg PRN Q15MIN PRN IV SHIVERING; Start 09/28/18 at 15:00; Stop 09/29/18 at 11:23; Status DC Propofol 100 ml @ 0 mls/hr CONT PRN PRN IV POSTOP SEDATION UNTIL EXTUBATE Last administered on 09/28/18at 15:59; Start 09/28/18 at 15:00; Stop 09/29/18 at 11:23; Status DC Senna/Docusate Sodium (Senna Plus) 1 tab BID PO Last administered on 10/01/18at 12:23; Start 09/28/18 at 21:00 Bisacodyl (Dulcolax Supp) 10 mg PRN DAILY PRN VA NO BOWEL MOVEMENT; Start at 15:00 Chlorhexidine Gluconate (Peridex) 15 ml BID MM ; Start 09/29/18 at 09:00; Stop at 19:06; Status DC Aspirin (Ecotrin) 325 mg DAILYWBKFT PO Last administered on 10/01/18 09:33; Start 09/29/18 at 08:00 Aspirin (Aspirin) 300 mg PRN DAILY PRN VA IF UNABLE TO TAKE PO; Start 09/29/18 at 08:00 Albuterol Sulfate (Ventolin Neb Soln) 2.5 mg PRN Q4HRS PRN NEB SHORTNESS OF BREATH; Start 09/28/18 at 15:00; Stop 09/29/18 at 15:14; Status DC Metoprolol Tartrate (Lopressor) 25 mg BID PO Last administered on 10/01/18at 12: 23; Start 09/29/18 at 09:00 Nicardipine HCl 50 mg/Sodium Chloride 250 ml @ 0 mls/hr CONT PRN PRN IV PER PROTOCOL; Start 09/28/18 at 15:00; Stop 09/28/18 at 15:10; Status DC Oxycodone HCl (Roxicodone) 5 mg PRN Q4HRS PRN PO MILD TO MODERATE PAIN Last administered on 09/30/18at 21:14; Start 09/28/18 at 15:00 Oxycodone HCl (Roxicodone) 10 mg PRN Q4HRS PRN PO SEVERE PAIN Last administered on 09/30/18 14:21; Start 09/28/18 at 15:00 Cefazolin Sodium/ Dextrose 50 ml @ 100 mls/hr Q8H IV Last administered on 09/30 06:32; Start 09/28/18 at 23:00; Stop 09/30/18 at 07:29; Status DC Sodium Bicarbonate (Sodium Bicarb Adult 8.4% Syr) 50 meq 1X ONCE IV Last administered on 09/28/18at 16:59; Start 09/28/18 at 17:00; Stop 09/28/18 at 17:01; Status DC Throat Lozenges (Cepacol Sore Throat Lozenge) 1 dede PRN Q2HRS PRN PO SORE THROAT; Start 09/29/18 at 13:00 Famotidine (Pepcid) 20 mg BID PO Last administered on 10/01/18at 09:33; Start at 21:00 Magnesium Sulfate/ Dextrose 100 ml @ 100 mls/hr ONCE ONCE IV Last administered on 09/30/18at 09:44; Start 09/30/18 at 08:30; Stop 09/30/18 at 09:29 ; Status DC Magnesium Sulfate/ Dextrose 100 ml @ 25 mls/hr 1X ONCE IV Last administered on 09/30/18at 10:23; Start 09/30/18 at 11:00; Stop 09/30/18 at 14:59; Status DC Amiodarone HCl 150 mg/Dextrose 103 ml @ 618 mls/hr 1X ONCE IV Last administered on 09/30/18at 18:51; Start 09/30/18 at 18:45; Stop 09/30/18 at 18:54 ; Status DC Amiodarone HCl 900 mg/Dextrose 518 ml @ 0 mls/hr CONT PRN IV SEE I/O RECORD Last administered on 09/30/18at 18:52; Start 09/30/18 at 18:45 Active Scripts Active Reported Amlodipine-Benazepril 5-20 Mg (Amlodipine Besylate/Benazepril) 1 Each Capsule 1 Cap PO DAILY Vitals/I & O Vital Sign - Last 24 Hours 09/30/18 09/30/18 09/30/18 09/30/18 14:21 15:20 16:00 17:00 Temp 99.4 99.4 Pulse 82 Resp 16 16 B/P (MAP) 120/67 (84) Pulse Ox 96 95 93 O2 Delivery Room Air Room Air Room Air Room Air 09/30/18 09/30/18 09/30/18 09/30/18 18:51 20:00 21:13 21:14 Temp 99.2 99.2 Pulse 138 84 90 Resp 12 15 B/P (MAP) 113/78 148/96 (113) 114/72 Pulse Ox 94 O2 Delivery Room Air Room Air 09/30/18 10/01/18 10/01/18 10/01/18 23:19 00:00 04:00 07:00 Temp 98.1 97.9 97.7 98.1 97.9 97.7 Pulse 72 71 72 Resp 17 15 21 20 B/P (MAP) 123/86 (98) 136/89 (105) 137/91 (106) Pulse Ox 96 95 90 O2 Delivery Room Air Room Air Room Air Room Air 10/01/18 10/01/18 10/01/18 08:20 09:35 12:23 Pulse 83 83 B/P (MAP) 112/89 144/89 O2 Delivery Nasal Cannula O2 Flow Rate 2.0 Intake and Output 09/30/18 09/30/18 10/01/18 15:01 23:01 07:01 Intake Total 153 ml 950 ml 369.4 ml Output Total 200 ml 200 ml 500 ml Balance -47 ml 750 ml -130.6 ml ABEL CARTER III DO Oct 01, 2018 13:11
[2018-10-01] MEDS ORDERED: AMIODARONE HCL 200 MG TABLET. PO ONE (14:30)
--- NOTE | 2018-10-01 16:24 | PDOC ---
PROGRESS NOTES Subjective Subjective Patient seen and examined The patient continues to improve Objective Objective Vital Signs Date Time Temp Pulse Resp B/P (MAP) Pulse Ox O2 Delivery O2 Flow Rate FiO2 10/01/18 15:21 81 161/84 10/01/18 15:00 98.2 21 93 Room Air 98.2 10/01/18 08:20 2.0 Intake and Output 10/01/18 07:01 Intake Total 1472.4 ml Output Total 900 ml Balance 572.4 ml Intake Oral 950 ml IV Total 522.4 ml Output Urine Total 700 ml Chest Tube Drainage Total 200 ml Physical Exam Abdomen: Normal bowel sounds Heart: Regular rate General: mild distress Lungs: Other (slightly decreased breath sounds in the bases) Assessment Assessment Problems Medical Problems: (1) Elevated d-dimer Status: Acute (2) NSTEMI (non-ST elevated myocardial infarction) Status: Acute 1. Multivessel coronary artery disease with intact LV systolic function. POD 3 bypass surgery �4. Patient continues to look and feel well. We'll continue as per CV surgery. 2. Hypertension. Improved. Continue medical treatment. 3. Hyperlipidemia. Statin medication. 4. History of significant alcohol use. Patient is alert. He shows no signs of withdrawal at this time. 5. Hypomagnesemia. Being replaced. 6. Brief episode of atrial fibrillation last night. Now in sinus rhythm. Amiodarone increased. Comment Review of Relevant I have reviewed the following items vicky (where applicable) has been applied. Labs Laboratory Tests Test 09/30/18 04:45 10/01/18 03:45 White Blood Count 10.1 x10^3/uL (4.0-11.0) 8.8 x10^3/uL (4.0-11.0) Red Blood Count 2.96 x10^6/uL (4.30-5.70) 2.96 x10^6/uL (4.30-5.70) Hemoglobin 9.8 g/dL (13.0-17.5) 9.7 g/dL (13.0-17.5) Hematocrit 28.4 % (39.0-53.0) 28.5 % (39.0-53.0) Mean Corpuscular Volume 96 fL (79-100) 97 fL (79-100) Mean Corpuscular Hemoglobin 33 pg (25-35) 33 pg (25-35) Mean Corpuscular Hemoglobin Concent 34 g/dL (31-37) 34 g/dL (31-37) Red Cell Distribution Width 12.5 % (11.5-14.5) 12.2 % (11.5-14.5) Platelet Count 122 x10^3/uL (140-400) 135 x10^3/uL (140-400) Sodium Level 135 mmol/L (136-145) 134 mmol/L (136-145) Potassium Level 4.2 mmol/L (3.5-5.1) 3.9 mmol/L (3.5-5.1) Chloride Level 100 mmol/L (98-107) 101 mmol/L (98-107) Carbon Dioxide Level 28 mmol/L (21-32) 29 mmol/L (21-32) Anion Gap 7 (6-14) 4 (6-14) Blood Urea Nitrogen 16 mg/dL (8-26) 13 mg/dL (8-26) Creatinine 1.2 mg/dL (0.7-1.3) 1.1 mg/dL (0.7-1.3) Estimated GFR (Cockcroft-Gault) 62.2 68.8 Glucose Level 139 mg/dL (70-99) 135 mg/dL (70-99) Calcium Level 8.6 mg/dL (8.5-10.1) 8.8 mg/dL (8.5-10.1) Magnesium Level 1.5 mg/dL (1.8-2.4) 1.9 mg/dL (1.8-2.4) Laboratory Tests Test 10/01/18 03:45 White Blood Count 8.8 x10^3/uL (4.0-11.0) Red Blood Count 2.96 x10^6/uL (4.30-5.70) Hemoglobin 9.7 g/dL (13.0-17.5) Hematocrit 28.5 % (39.0-53.0) Mean Corpuscular Volume 97 fL (79-100) Mean Corpuscular Hemoglobin 33 pg (25-35) Mean Corpuscular Hemoglobin Concent 34 g/dL (31-37) Red Cell Distribution Width 12.2 % (11.5-14.5) Platelet Count 135 x10^3/uL (140-400) Sodium Level 134 mmol/L (136-145) Potassium Level 3.9 mmol/L (3.5-5.1) Chloride Level 101 mmol/L (98-107) Carbon Dioxide Level 29 mmol/L (21-32) Anion Gap 4 (6-14) Blood Urea Nitrogen 13 mg/dL (8-26) Creatinine 1.1 mg/dL (0.7-1.3) Estimated GFR (Cockcroft-Gault) 68.8 Glucose Level 135 mg/dL (70-99) Calcium Level 8.8 mg/dL (8.5-10.1) Magnesium Level 1.9 mg/dL (1.8-2.4) Medications Current Medications Aspirin (Wello Aspirin) 325 mg 1X ONCE PO Last administered on 09/26/18at 03:49 ; Start 09/26/18 at 04:00; Stop 09/26/18 at 04:01; Status DC Sodium Chloride 1,000 ml @ 1,000 mls/hr 1X ONCE IV Last administered on at 03:48; Start 09/26/18 at 04:00; Stop 09/26/18 at 04:59; Status DC Lorazepam (Ativan) 0.5 mg 1X ONCE IV Last administered on 09/26/18at 03:49; Start 09/26/18 at 04:00; Stop 09/26/18 at 04:01; Status DC Ondansetron HCl (Zofran) 4 mg PRN Q8HRS PRN IV NAUSEA/VOMITING 1ST CHOICE; Start 09/26/18 at 04:00; Stop 09/27/18 at 03:59; Status DC Fentanyl Citrate (Fentanyl 2ml Vial) 50 mcg PRN Q2HR PRN IV SEVERE PAIN, UNREL BY MORPHINE; Start 09/26/18 at 04:00; Stop 09/29/18 at 11:23; Status DC Fentanyl Citrate (Fentanyl 2ml Vial) 50 mcg 1X ONCE IV ; Start 09/26/18 at 04:30 ; Stop 09/26/18 at 04:30; Status DC Nitroglycerin (Nitro-Bid Oint) 0.5 inch 1X ONCE TP Last administered on at 04:37; Start 09/26/18 at 04:30; Stop 09/26/18 at 04:31; Status DC Heparin Sodium/ Dextrose 500 ml @ 0 mls/hr CONT PRN IV SEE I/O RECORD Last administered on 09/26/18at 04:41; Start 09/26/18 at 04:15; Stop 09/26/18 at 12:31; Status DC Heparin Sodium (Porcine) (Heparin Sodium) 2,400 unit PRN Q6HRS PRN IV FOR UFH LEVEL LESS THAN 0.2; Start 09/26/18 at 04:15; Stop 09/26/18 at 13:53; Status DC Heparin Sodium (Porcine) (Heparin Sodium) 4,000 unit 1X ONCE IV Last administered on 09/26/18at 04:40; Start 09/26/18 at 04:30; Stop 09/26/18 at 04:31; Status DC Info (Anti-Coagulation Monitoring By Pharmacy) 1 each PRN DAILY PRN MC SEE COMMENTS Last administered on 09/26/18at 09:32; Start 09/26/18 at 04:30; Stop at 12:32; Status DC Iohexol (Omnipaque 350 Mg/ml) 60 ml 1X ONCE IV Last administered on 09/26/18at 05:26; Start 09/26/18 at 05:30; Stop 09/26/18 at 05:31; Status DC Info (CONTRAST GIVEN -- Rx MONITORING) 1 each PRN DAILY PRN MC SEE COMMENTS; Start 09/26/18 at 05:15; Stop 09/26/18 at 10:56; Status DC Multivitamins 10 ml/Thiamine HCl 100 mg/Folic Acid 1 mg/Sodium Chloride 1,011.2 ml @ 100 mls/ hr 1X ONCE IV Last administered on 09/26/18at 10:40; Start at 10:00; Stop 09/26/18 at 20:06; Status DC Atorvastatin Calcium (Lipitor) 40 mg QHS PO Last administered on 09/30/18at 21: 13; Start 09/26/18 at 21:00 Iodixanol (Visipaque 320) 100 ml STK-MED ONCE .ROUTE ; Start 09/26/18 at 09:58; Stop 09/26/18 at 10:01; Status DC Lidocaine HCl (Lidocaine 1% 20ml Vial) 20 ml STK-MED ONCE .ROUTE ; Start at 09:58; Stop 09/26/18 at 10:01; Status DC Heparin Sodium/ Sodium Chloride 1,000 ml @ As Directed STK-MED ONCE .ROUTE ; Start 09/26/18 at 09:59; Stop 09/26/18 at 10:01; Status DC Fentanyl Citrate (Fentanyl 2ml Vial) 100 mcg STK-MED ONCE .ROUTE ; Start at 10:14; Stop 09/26/18 at 10:16; Status DC Midazolam HCl (Versed) 5 mg STK-MED ONCE .ROUTE ; Start 09/26/18 at 10:14; Stop 09/26/18 at 10:16; Status DC Iohexol (Omnipaque 300 Mg/ml) 100 ml STK-MED ONCE .ROUTE ; Start 09/26/18 at 10: 17; Stop 09/26/18 at 10:19; Status DC Heparin Sodium/ Sodium Chloride (HEPARIN for ARTERIAL LINE FLUSH) 1,000 unit 1X ONCE IART Last administered on 09/26/18at 11:37; Start 09/26/18 at 11:00; Stop 09/26/18 at 11:01; Status DC Midazolam HCl (Versed) 5 mg 1X ONCE IV Last administered on 09/26/18at 11:38; Start 09/26/18 at 11:00; Stop 09/26/18 at 11:01; Status DC Fentanyl Citrate (Fentanyl 2ml Vial) 100 mcg 1X ONCE IV Last administered on at 11:38; Start 09/26/18 at 11:00; Stop 09/26/18 at 11:01; Status DC Iodixanol (Visipaque 320) 100 ml 1X ONCE IART Last administered on 09/26/18at 11 :37; Start 09/26/18 at 11:00; Stop 09/26/18 at 11:01; Status DC Lidocaine HCl (Lidocaine 1% 20ml Vial) 20 ml 1X ONCE INJ Last administered on 09/26/18at 11:37; Start 09/26/18 at 11:00; Stop 09/26/18 at 11:01; Status DC Info (CONTRAST GIVEN -- Rx MONITORING) 1 each PRN DAILY PRN MC SEE COMMENTS; Start 09/26/18 at 11:00; Stop 09/28/18 at 10:59; Status DC Sodium Chloride (Normal Saline Flush) 3 ml QSHIFT PRN IV AFTER MEDS AND BLOOD DRAWS; Start 09/26/18 at 11:45; Stop 09/29/18 at 07:30; Status DC Sodium Chloride 1,000 ml @ 75 mls/hr [id number] IV ; Start 09/26/18 at 11:33; Stop 09/26/18 at 17:32; Status DC Nitroglycerin (Nitrostat) 0.4 mg PRN Q5MIN PRN SL CHEST PAIN; Start 09/26/18 at 11:45 Aspirin (Ecotrin) 81 mg DAILYWBKFT PO Last administered on 09/27/18at 09:39; Start 09/27/18 at 08:00; Stop 09/28/18 at 15:04; Status DC Metoprolol Tartrate (Lopressor) 25 mg BID PO Last administered on 09/27/18at 20: 57; Start 09/26/18 at 21:00; Stop 09/28/18 at 15:09; Status DC Heparin Sodium/ Dextrose 500 ml @ 0 mls/hr CONT PRN IV SEE I/O RECORD Last administered on 09/28/18at 08:19; Start 09/26/18 at 17:00; Stop 09/27/18 at 23:59; Status DC Heparin Sodium (Porcine) (Heparin Sodium) 2,500 unit PRN Q6HRS PRN IV FOR UFH LEVEL LESS THAN 0.2 Last administered on 09/26/18at 23:58; Start 09/26/18 at 17:00 ; Stop 09/27/18 at 23:59; Status DC Info (Anti-Coagulation Monitoring By Pharmacy) 1 each PRN DAILY PRN MC SEE COMMENTS; Start 09/26/18 at 17:15; Stop 09/29/18 at 08:21; Status DC Lorazepam (Ativan) 2 mg PRN Q4HRS PRN PO ANXIETY / AGITATION Last administered on 09/30/18at 23:58; Start 09/26/18 at 17:15 Vitamin B Complex (Folbic Tablet) 1 tab DAILY PO Last administered on at 09:34; Start 09/26/18 at 18:00 Amlodipine Besylate (Norvasc) 5 mg DAILY PO Last administered on 10/01/18at 09: 35; Start 09/27/18 at 13:00 Potassium Chloride 70 meq/ Sodium Bicarbonate 12.5 meq/Lidocaine HCl 24 ml/ Parenteral Electrolytes 571.5 ml @ 571.5 mls/ hr 1X ONCE IRR Last administered on 09/28/18at 06:00; Start 09/28/18 at 06:00; Stop 09/28/18 at 06:59; Status DC Potassium Chloride 15 meq/ Sodium Bicarbonate 12.5 meq/Parenteral Electrolytes 520 ml @ 520 mls/hr 1X ONCE IRR Last administered on 09/28/18at 06:00; Start at 06:00; Stop 09/28/18 at 06:59; Status DC Heparin Sodium (Porcine) 93586 unit/Ringer's Solution 1,020 ml @ 1,020 mls/hr 1X ONCE IRR Last administered on 09/28/18at 06:00; Start 09/28/18 at 06:00; Stop 09/28/18 at 06:59; Status DC Cefazolin Sodium 1 gm/Sodium Chloride 500 ml @ 500 mls/hr 1X ONCE IRR Last administered on 09/28/18at 08:19; Start 09/28/18 at 06:00; Stop 09/28/18 at 06:59; Status DC Heparin Sodium (Porcine) 800 unit/ Nitroglycerin 4 mg/Verapamil HCl 8 mg/Sodium Bicarbonate 0.34 meq/Ringer's Solution 512.34 ml @ 512.34 mls/hr 1X ONCE IRR Last administered on 09/28/18at 08:20; Start 09/28/18 at 06:00; Stop 09/28/18 at 06: 59; Status DC Ondansetron HCl (Zofran) 4 mg PRN Q6HRS PRN IV NAUSEA/VOMITING; Start 09/28/18 at 07:00; Stop 09/29/18 at 06:59; Status DC Fentanyl Citrate (Fentanyl 2ml Vial) 25 mcg PRN Q5MIN PRN IV MILD PAIN; Start 09/28/18 at 07:00; Stop 09/29/18 at 06:59; Status DC Fentanyl Citrate (Fentanyl 2ml Vial) 50 mcg PRN Q5MIN PRN IV MODERATE TO SEVERE PAIN; Start 09/28/18 at 07:00; Stop 09/29/18 at 06:59; Status DC Morphine Sulfate (Morphine Sulfate) 1 mg PRN Q10MIN PRN IV SEVERE PAIN Last administered on 09/28/18at 16:59; Start 09/28/18 at 07:00; Stop 09/29/18 at 06:59; Status DC Ringer's Solution 1,000 ml @ 30 mls/hr Q24H IV Last administered on 09/28/18at 07:00; Start 09/28/18 at 07:00; Stop 09/28/18 at 18:59; Status DC Lidocaine HCl (Xylocaine-Mpf 1% 2ml Vial) 2 ml PRN 1X PRN ID PRIOR TO IV START ; Start 09/28/18 at 07:00; Stop 09/29/18 at 06:59; Status DC Hydromorphone HCl (Dilaudid) 0.5 mg PRN Q10MIN PRN IV SEV PAIN, Second choice; Start 09/28/18 at 07:00; Stop 09/29/18 at 06:59; Status DC Prochlorperazine Edisylate (Compazine) 5 mg PACU PRN PRN IV NAUSEA, MRX1; Start 09/28/18 at 07:00; Stop 09/29/18 at 06:59; Status DC Cefazolin Sodium/ Dextrose 50 ml @ 100 mls/hr 1X ONCE IV Last administered on 09/28/18at 08:39; Start 09/28/18 at 06:00; Stop 09/28/18 at 06:29; Status DC Phenylephrine HCl (Aayush-Synephrine Inj) 10 mg STK-MED ONCE .ROUTE ; Start at 06:24; Stop 09/28/18 at 06:26; Status DC Etomidate (Amidate) 20 mg STK-MED ONCE IV ; Start 09/28/18 at 06:24; Stop at 06:26; Status DC Aminocaproic Acid (Amicar) 5,000 mg STK-MED ONCE IV ; Start 09/28/18 at 06:24; Stop 09/28/18 at 06:26; Status DC Nitroglycerin/ Dextrose 250 ml @ As Directed STK-MED ONCE IV ; Start 09/28/18 at 06:24; Stop 09/28/18 at 06:26; Status DC Rocuronium Chrisman (Zemuron) 100 mg STK-MED ONCE .ROUTE ; Start 09/28/18 at 06:24 ; Stop 09/28/18 at 06:27; Status DC Vancomycin HCl (VANCO for OR ONLY) 10 gm STK-MED ONCE .ROUTE Last administered on 09/28/18 08:18; Start 09/28/18 at 06:37; Stop 09/28/18 at 06:39; Status DC Cellulose (Surgicel Hemostat 4x8) 1 each STK-MED ONCE .ROUTE Last administered on 09/28/18 08:18; Start 09/28/18 at 06:37; Stop 09/28/18 at 06:39; Status DC Papaverine HCl 60 mg STK-MED ONCE .ROUTE Last administered on 09/28/18 08:17; Start 09/28/18 at 06:37; Stop 09/28/18 at 06:39; Status DC Aspirin (Aspirin) 300 mg STK-MED ONCE .ROUTE Last administered on 09/28/18 08: 17; Start 09/28/18 at 06:37; Stop 09/28/18 at 06:39; Status DC Sodium Chloride (SODIUM CHLORIDE 20ml) 20 ml STK-MED ONCE IJ Last administered on 09/28/18 08:16; Start 09/28/18 at 06:37; Stop 09/28/18 at 06:39; Status DC Sodium Chloride (SODIUM CHLORIDE 20ml) 20 ml STK-MED ONCE IJ Last administered on 09/28/18 08:16; Start 09/28/18 at 06:37; Stop 09/28/18 at 06:39; Status DC Sodium Chloride (SODIUM CHLORIDE 20ml) 20 ml STK-MED ONCE IJ Last administered on 09/28/18 08:17; Start 09/28/18 at 06:38; Stop 09/28/18 at 06:40; Status DC Heparin Sodium (Porcine) 30,000 unit STK-MED ONCE .ROUTE ; Start 09/28/18 at 06: 38; Stop 09/28/18 at 06:41; Status DC Nitroglycerin/ Dextrose 250 ml @ As Directed STK-MED ONCE IV ; Start 09/28/18 at 06:39; Stop 09/28/18 at 06:41; Status DC Midazolam HCl (Versed) 2 mg STK-MED ONCE .ROUTE ; Start 09/28/18 at 06:52; Stop 09/28/18 at 06:54; Status DC Sufentanil Citrate (Sufenta) 250 mcg STK-MED ONCE .ROUTE ; Start 09/28/18 at 06: 59; Stop 09/28/18 at 07:01; Status DC Isoflurane (Isoflurane) 90 ml STK-MED ONCE IH ; Start 09/28/18 at 08:10; Stop 09/28/18 at 08:13; Status DC Ephedrine Sulfate (Akovaz) 50 mg STK-MED ONCE .ROUTE ; Start 09/28/18 at 08:40; Stop 09/28/18 at 08:42; Status DC Midazolam HCl (Versed) 2 mg STK-MED ONCE .ROUTE ; Start 09/28/18 at 08:53; Stop 09/28/18 at 08:55; Status DC Midazolam HCl (Versed) 2 mg STK-MED ONCE .ROUTE ; Start 09/28/18 at 08:53; Stop 09/28/18 at 08:55; Status DC Rocuronium Chrisman (Zemuron) 100 mg STK-MED ONCE .ROUTE ; Start 09/28/18 at 09:54 ; Stop 09/28/18 at 09:56; Status DC Heparin Sodium (Porcine) (Heparin Sodium) 10,000 unit STK-MED ONCE .ROUTE ; Start 09/28/18 at 10:30; Stop 09/28/18 at 10:32; Status DC Protamine Sulfate (Protamine) 50 mg STK-MED ONCE IV ; Start 09/28/18 at 10:39; Stop 09/28/18 at 10:41; Status DC Protamine Sulfate (Protamine) 250 mg STK-MED ONCE IV ; Start 09/28/18 at 10:39; Stop 09/28/18 at 10:42; Status DC Cefazolin Sodium (Ancef) 1 gm STK-MED ONCE .ROUTE ; Start 09/28/18 at 12:48; Stop 09/28/18 at 12:50; Status DC Amiodarone HCl 150 mg/Dextrose 103 ml @ 618 mls/hr 1X ONCE IV ; Start 09/28/18 at 14:30; Stop 09/28/18 at 14:39; Status DC Heparin Sodium (Porcine) (Heparin Sodium) 10,000 unit STK-MED ONCE .ROUTE ; Start 09/28/18 at 13:36; Stop 09/28/18 at 13:38; Status DC Lidocaine HCl (Lidocaine Pf 2% Vial) 5 ml STK-MED ONCE .ROUTE ; Start 09/28/18 at 13:36; Stop 09/28/18 at 13:38; Status DC Amiodarone HCl 900 mg/Dextrose 518 ml @ 33 mls/hr CONT PRN IV SEE I/O RECORD; Start 09/28/18 at 14:30; Stop 09/30/18 at 10:14; Status DC Magnesium Sulfate 5 gm STK-MED ONCE .ROUTE ; Start 09/28/18 at 13:36; Stop at 13:38; Status DC Heparin Sodium (Porcine) 30,000 unit STK-MED ONCE .ROUTE ; Start 09/28/18 at 13: 36; Stop 09/28/18 at 13:38; Status DC Mannitol (Mannitol) 12.5 g STK-MED ONCE .ROUTE ; Start 09/28/18 at 13:36; Stop at 13:38; Status DC Albumin Human 100 ml @ As Directed STK-MED ONCE IV ; Start 09/28/18 at 13:36; Stop 09/28/18 at 13:38; Status DC Calcium Chloride (Calcium Chloride) 1,000 mg STK-MED ONCE .ROUTE ; Start at 13:36; Stop 09/28/18 at 13:38; Status DC Albumin Human 500 ml @ As Directed STK-MED ONCE IV ; Start 09/28/18 at 13:36; Stop 09/28/18 at 13:38; Status DC Nicardipine HCl 50 mg/Sodium Chloride 250 ml @ 25 mls/hr CONT PRN IV SEE I/O RECORD; Start 09/28/18 at 14:30; Stop 09/29/18 at 11:23; Status DC Protamine Sulfate (Protamine) 50 mg STK-MED ONCE IV ; Start 09/28/18 at 14:03; Stop 09/28/18 at 14:05; Status DC Sodium Chloride (Normal Saline Flush) 3 ml PRN Q12HR PRN IV AFTER MEDS AND BLOOD DRAWS; Start 09/28/18 at 15:00 Ringer's Solution 1,000 ml @ 30 mls/hr Q24H IV Last administered on 09/28/18at 15:30; Start 09/28/18 at 14:48; Stop 09/30/18 at 10:14; Status DC Albumin Human 250 ml @ 500 mls/hr PRN Q4HRS PRN IV SEE COMMENTS Last administered on 09/28/18at 17:07; Start 09/28/18 at 15:00; Stop 09/30/18 at 10:14; Status DC Insulin Human Regular 150 unit/ Sodium Chloride 151.5 ml @ 0 mls/hr CONT PRN PRN IV PER PROTOCOL Last administered on 09/28/18at 20:05; Start 09/28/18 at 15:00 ; Stop 09/30/18 at 10:14; Status DC Dextrose (Dextrose 50%-Water Syringe) 25 gm PRN Q15MIN PRN IV LOW BLOOD SUGAR; Start 09/28/18 at 15:00; Stop 09/30/18 at 10:14; Status DC Nitroglycerin/ Dextrose 250 ml @ 0 mls/hr CONT PRN PRN IV POST CV SURGERY; Start 09/28/18 at 15:00; Stop 09/29/18 at 11:23; Status DC Phenylephrine HCl 20 mg/Sodium Chloride 252 ml @ 0 mls/hr CONT PRN PRN IV HYPOTENSION Last administered on 09/28/18at 15:31; Start 09/28/18 at 15:00; Stop at 10:14; Status DC Amiodarone HCl 150 mg/Dextrose 103 ml @ 600 mls/hr 1X ONCE IV ; Start 09/28/18 at 15:00; Stop 09/28/18 at 15:05; Status DC Amiodarone HCl 150 mg/Dextrose 103 ml @ 200 mls/hr 1X PRN PRN IV FOR AFIB; Start 09/28/18 at 15:00; Stop 09/30/18 at 10:14; Status DC Amiodarone HCl 900 mg/Dextrose 518 ml @ 0 mls/hr CONT PRN PRN IV AFIB; Start at 15:00; Stop 09/28/18 at 15:06; Status DC Info (KCl Per Protocol) 1 ea CONT PRN PRN MC SEE COMMENTS; Start 09/28/18 at 15: 00; Stop 09/30/18 at 11:47; Status DC Magnesium Sulfate/ Dextrose 100 ml @ 100 mls/hr PRN DAILY PRN IV FOR MAG < 2.2 ; Start 09/28/18 at 15:00; Stop 09/30/18 at 11:47; Status DC Famotidine (Pepcid Vial) 20 mg BID IVP Last administered on 09/29/18at 09:58; Start 09/28/18 at 21:00; Stop 09/29/18 at 15:14; Status DC Ondansetron HCl (Zofran) 4 mg PRN Q4HRS PRN IV NAUSEA/VOMITING, 1st CHOICE Last administered on 09/29/18at 00:45; Start 09/28/18 at 15:00 Prochlorperazine Edisylate (Compazine) 10 mg PRN Q6HRS PRN IV NAUSEA/VOMITING, 2nd CHOICE; Start 09/28/18 at 15:00 Metoclopramide HCl (Reglan Vial) 10 mg PRN Q6HRS PRN IV NAUSEA/VOMITING, 3rd CHOICE; Start 09/28/18 at 15:00; Stop 09/30/18 at 11:47; Status DC Morphine Sulfate (Morphine Sulfate) 2 mg PRN Q1HR PRN IV MODERATE PAIN; Start 09/28/18 at 15:00; Stop 09/30/18 at 10:14; Status DC Morphine Sulfate (Morphine Sulfate) 4 mg PRN Q1HR PRN IV SEVERE PAIN Last administered on 09/29/18at 23:49; Start 09/28/18 at 15:00; Stop 09/30/18 at 10:14; Status DC Acetaminophen (Tylenol) 650 mg PRN Q4HRS PRN PO TEMP > 101'F or MILD PAIN; Start 09/28/18 at 15:00; Stop 09/29/18 at 15:14; Status DC Acetaminophen (Tylenol Supp) 650 mg PRN Q4HRS PRN [place] TEMP > 101'F or MILD PAIN ; Start 09/28/18 at 15:00; Stop 09/29/18 at 15:14; Status DC Meperidine HCl (Demerol) 12.5 mg PRN Q15MIN PRN IV SHIVERING; Start 09/28/18 at 15:00; Stop 09/29/18 at 11:23; Status DC Propofol 100 ml @ 0 mls/hr CONT PRN PRN IV POSTOP SEDATION UNTIL EXTUBATE Last administered on 09/28/18at 15:59; Start 09/28/18 at 15:00; Stop 09/29/18 at 11:23; Status DC Senna/Docusate Sodium (Senna Plus) 1 tab BID PO Last administered on 10/01/18at 12:23; Start 09/28/18 at 21:00 Bisacodyl (Dulcolax Supp) 10 mg PRN DAILY PRN [place] NO BOWEL MOVEMENT; Start at 15:00 Chlorhexidine Gluconate (Peridex) 15 ml BID MM ; Start 09/29/18 at 09:00; Stop at 19:06; Status DC Aspirin (Ecotrin) 325 mg DAILYWBKFT PO Last administered on 10/01/18at 09:33; Start 09/29/18 at 08:00 Aspirin (Aspirin) 300 mg PRN DAILY PRN [place] IF UNABLE TO TAKE PO; Start 09/29/18 at 08:00 Albuterol Sulfate (Ventolin Neb Soln) 2.5 mg PRN Q4HRS PRN NEB SHORTNESS OF BREATH; Start 09/28/18 at 15:00; Stop 09/29/18 at 15:14; Status DC Metoprolol Tartrate (Lopressor) 25 mg BID PO Last administered on 10/01/18at 12: 23; Start 09/29/18 at 09:00 Nicardipine HCl 50 mg/Sodium Chloride 250 ml @ 0 mls/hr CONT PRN PRN IV PER PROTOCOL; Start 09/28/18 at 15:00; Stop 09/28/18 at 15:10; Status DC Oxycodone HCl (Roxicodone) 5 mg PRN Q4HRS PRN PO MILD TO MODERATE PAIN Last administered on 09/30/18at 21:14; Start 09/28/18 at 15:00 Oxycodone HCl (Roxicodone) 10 mg PRN Q4HRS PRN PO SEVERE PAIN Last administered on 09/30/18at 14:21; Start 09/28/18 at 15:00 Cefazolin Sodium/ Dextrose 50 ml @ 100 mls/hr Q8H IV Last administered on 09/30at 06:32; Start 09/28/18 at 23:00; Stop 09/30/18 at 07:29; Status DC Sodium Bicarbonate (Sodium Bicarb Adult 8.4% Syr) 50 meq 1X ONCE IV Last administered on 09/28/18at 16:59; Start 09/28/18 at 17:00; Stop 09/28/18 at 17:01; Status DC Throat Lozenges (Cepacol Sore Throat Lozenge) 1 dede PRN Q2HRS PRN PO SORE THROAT; Start 09/29/18 at 13:00 Famotidine (Pepcid) 20 mg BID PO Last administered on 10/01/18at 09:33; Start at 21:00 Magnesium Sulfate/ Dextrose 100 ml @ 100 mls/hr ONCE ONCE IV Last administered on 09/30/18at 09:44; Start 09/30/18 at 08:30; Stop 09/30/18 at 09:29 ; Status DC Magnesium Sulfate/ Dextrose 100 ml @ 25 mls/hr 1X ONCE IV Last administered on 09/30/18at 10:23; Start 09/30/18 at 11:00; Stop 09/30/18 at 14:59; Status DC Amiodarone HCl 150 mg/Dextrose 103 ml @ 618 mls/hr 1X ONCE IV Last administered on 09/30/18at 18:51; Start 09/30/18 at 18:45; Stop 09/30/18 at 18:54 ; Status DC Amiodarone HCl 900 mg/Dextrose 518 ml @ 0 mls/hr CONT PRN IV SEE I/O RECORD Last administered on 09/30/18at 18:52; Start 09/30/18 at 18:45 Amiodarone HCl (Cordarone) 200 mg BID PO ; Start 10/01/18 at 21:00 Amiodarone HCl (Cordarone) 200 mg 1X ONCE PO Last administered on 10/01/18at 15 :21; Start 10/01/18 at 14:30; Stop 10/01/18 at 14:31; Status DC Amiodarone HCl (Cordarone) 200 mg BID PO ; Start 10/02/18 at 09:00 Active Scripts Active Reported Amlodipine-Benazepril 5-20 Mg (Amlodipine Besylate/Benazepril) 1 Each Capsule 1 Cap PO DAILY Vitals/I & O Vital Sign - Last 24 Hours 09/30/18 09/30/18 09/30/18 09/30/18 17:00 18:51 20:00 21:13 Temp 99.4 99.2 99.4 99.2 Pulse 82 138 84 90 Resp 16 12 B/P (MAP) 120/67 (84) 113/78 148/96 (113) 114/72 Pulse Ox 93 94 O2 Delivery Room Air Room Air 09/30/18 09/30/18 10/01/18 10/01/18 21:14 23:19 00:00 04:00 Temp 98.1 97.9 98.1 97.9 Pulse 72 71 Resp 15 17 15 21 B/P (MAP) 123/86 (98) 136/89 (105) Pulse Ox 96 95 O2 Delivery Room Air Room Air Room Air Room Air 10/01/18 10/01/18 10/01/18 10/01/18 07:00 08:20 09:35 11:00 Temp 97.7 97.7 Pulse 72 83 80 Resp 20 19 B/P (MAP) 137/91 (106) 112/89 144/89 (107) Pulse Ox 90 93 O2 Delivery Room Air Nasal Cannula Room Air O2 Flow Rate 2.0 10/01/18 10/01/18 10/01/18 12:23 15:00 15:21 Temp 98.2 98.2 Pulse 83 81 81 Resp 21 B/P (MAP) 144/89 161/84 (109) 161/84 Pulse Ox 93 O2 Delivery Room Air Intake and Output 09/30/18 09/30/18 10/01/18 15:01 23:01 07:01 Intake Total 153 ml 950 ml 369.4 ml Output Total 200 ml 200 ml 500 ml Balance -47 ml 750 ml -130.6 ml MIK SIMMONS MD Oct 01, 2018 16:24
--- NOTE | 2018-10-01 16:30 | NUR ---
SS following up with discharge planning. PT/OT recommended home independent. No discharge needs noted at this time. SS will continue to follow for pending discharge needs.
[2018-10-01] MEDS: ATORVASTATIN CALCIUM 40 MG TABLET. PO SCH (20:42)
[2018-10-01] MEDS: LORazepam 1 MG TABLET PO PRN (20:42)
[2018-10-01] MEDS ORDERED: AMIODARONE HCL 200 MG TABLET. PO SCH (21:00)
[2018-10-02 03:00] VITALS: BP 149/96
[2018-10-02 06:58] LABS: BASO # 0.1 x10^3/uL (0.0-0.2); BASO % 1 % (0-3); EOS # 0.2 x10^3/uL (0.0-0.7); EOS % 3 % (0-3); HEMATOCRIT 28.6 % (39.0-53.0); HEMOGLOBIN 9.9 g/dL (13.0-17.5); LYMPH # 1.2 x10^3/uL (1.0-4.8); LYMPH % 15 % (24-48); MEAN CORPUSCULAR HEMOGLOBIN 33 pg (25-35); MEAN CORPUSCULAR HGB CONC 35 g/dL (31-37); MEAN CORPUSCULAR VOLUME 96 fL (79-100); MONO # 0.8 x10^3/uL (0.0-1.1); MONO % 11 % (0-9); NEUT # 5.5 x10^3uL (1.8-7.7); NEUT % 71 % (31-73); PLATELET COUNT 198 x10^3/uL (140-400); RED BLOOD COUNT 2.99 x10^6/uL (4.30-5.70); RED CELL DISTRIBUTION WIDTH 12.4 % (11.5-14.5); WHITE BLOOD COUNT 7.8 x10^3/uL (4.0-11.0)
[2018-10-02 07:00] VITALS: BP 131/80
[2018-10-02 07:29] LABS: ALBUMIN 2.6 g/dL (3.4-5.0); ALBUMIN/GLOBULIN RATIO 0.8 (1.0-1.7); CALCIUM 8.3 mg/dL (8.5-10.1); CREATININE 1.1 mg/dL (0.7-1.3); GFR 68.8; POTASSIUM 3.7 mmol/L (3.5-5.1); TOTAL BILIRUBIN 0.9 mg/dL (0.2-1.0); TOTAL PROTEIN 5.9 g/dL (6.4-8.2)
--- NOTE | 2018-10-02 07:47 | PDOC ---
Progress Note Subjective Subjective Doing very well. Normotensive, SR. On room air. Hb 9.9 creat 1.1. ROS ROS No nausea No vomiting No pain No rash Vital Sign Vital Signs Vital Signs Date Time Temp Pulse Resp B/P (MAP) Pulse Ox O2 Delivery O2 Flow Rate FiO2 10/02/18 03:00 98.2 86 16 149/96 (113) 95 Room Air 98.2 10/01/18 08:20 2.0 Labs Lab Laboratory Tests Test 10/02/18 06:15 White Blood Count 7.8 x10^3/uL (4.0-11.0) Red Blood Count 2.99 x10^6/uL (4.30-5.70) Hemoglobin 9.9 g/dL (13.0-17.5) Hematocrit 28.6 % (39.0-53.0) Mean Corpuscular Volume 96 fL (79-100) Mean Corpuscular Hemoglobin 33 pg (25-35) Mean Corpuscular Hemoglobin Concent 35 g/dL (31-37) Red Cell Distribution Width 12.4 % (11.5-14.5) Platelet Count 198 x10^3/uL (140-400) Neutrophils (%) (Auto) 71 % (31-73) Lymphocytes (%) (Auto) 15 % (24-48) Monocytes (%) (Auto) 11 % (0-9) Eosinophils (%) (Auto) 3 % (0-3) Basophils (%) (Auto) 1 % (0-3) Neutrophils # (Auto) 5.5 x10^3uL (1.8-7.7) Lymphocytes # (Auto) 1.2 x10^3/uL (1.0-4.8) Monocytes # (Auto) 0.8 x10^3/uL (0.0-1.1) Eosinophils # (Auto) 0.2 x10^3/uL (0.0-0.7) Basophils # (Auto) 0.1 x10^3/uL (0.0-0.2) Sodium Level 139 mmol/L (136-145) Potassium Level 3.7 mmol/L (3.5-5.1) Chloride Level 103 mmol/L (98-107) Carbon Dioxide Level 27 mmol/L (21-32) Anion Gap 9 (6-14) Blood Urea Nitrogen 13 mg/dL (8-26) Creatinine 1.1 mg/dL (0.7-1.3) Estimated GFR (Cockcroft-Gault) 68.8 BUN/Creatinine Ratio 12 (6-20) Glucose Level 102 mg/dL (70-99) Calcium Level 8.3 mg/dL (8.5-10.1) Total Bilirubin 0.9 mg/dL (0.2-1.0) Aspartate Amino Transf (AST/SGOT) 34 U/L (15-37) Alanine Aminotransferase (ALT/SGPT) 51 U/L (16-63) Alkaline Phosphatase 125 U/L (46-116) Total Protein 5.9 g/dL (6.4-8.2) Albumin 2.6 g/dL (3.4-5.0) Albumin/Globulin Ratio 0.8 (1.0-1.7) Objective Assessment POD#4 s/p CABG x 4 (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 Normotensive, SR. On room air. Hb 9.9 creat 1.1. Plan Plan of Care Amiodarone 400mg po BID ASA, b marguerite and statin Ambulation and pulm toilet A/w stepdown bed for 2 days D/c home tomorrow SERENA HILL MD Oct 02, 2018 07:47
[2018-10-02] MEDS: FAMOTIDINE 20 MG TABLET. PO SCH ×2 (08:47→21:51)
[2018-10-02] MEDS: ASPIRIN ENTERIC COATED 325 MG TABLET.DR. PO SCH (08:48)
[2018-10-02] MEDS: SENNOSIDES/DOCUSATE 8.6/50MG TABLET. PO SCH ×2 (08:48→21:50)
[2018-10-02] MEDS: AMIODARONE HCL 200 MG TABLET. PO SCH ×2 (08:48→21:51)
[2018-10-02] MEDS: amLODIPine BESYLATE 5 MG TABLET PO SCH (08:49)
[2018-10-02] MEDS: METOPROLOL TART IMMED RELEASE 25 MG TABLET. PO SCH ×2 (08:49→21:52)
[2018-10-02] MEDS: VITAMIN B12,B9,B6 COMPLEX 1 TABLET. PO SCH (08:49)
[2018-10-02] MEDS ORDERED: AMIODARONE HCL 200 MG TABLET. PO SCH (09:00)
[2018-10-02 11:00] VITALS: BP 132/90
--- NOTE | 2018-10-02 11:41 | NUR ---
Received from ICU per w/c, alert/oriented, states discomfort level 1-2 at chest, left arm also a 2/10, incisions-midline chest, left arm, left thigh areas open to air, non-productive cough, splinting with cardiac pillow, saline lock right forearm flushes well, bed alarm activated, side rails up x2, call light within reach, will continue to observe
--- NOTE | 2018-10-02 13:40 | PDOC ---
PROGRESS NOTES Chief Complaint Chief Complaint CAD s/p CABG NSTEMI Afib HTN HLD ETOH abuse Tobacco abuse History of Present Illness History of Present Illness Patient was seen and examined in his room today. He is POD 4 s/p 4-vessel CABG. His son is at bedside. He was moved from the ICU to the 2nd floor. His pain has significantly improved. He has no complaints at this time. He was switched from amiodarone drip to PO amiodarone. He states he is ready for discharge tomorrow. Vitals Vitals Vital Signs Date Time Temp Pulse Resp B/P (MAP) Pulse Ox O2 Delivery O2 Flow Rate FiO2 10/02/18 11:00 98.3 80 16 132/90 (104) 95 Room Air 98.3 10/01/18 08:20 2.0 Physical Exam General: Alert, Oriented X3, Cooperative Heart: Regular rate, No murmurs Lungs: Clear, Other (no rhonchi) Abdomen: Soft, No tenderness Extremities: No clubbing, No cyanosis Skin: No rashes, No breakdown Labs LABS Laboratory Tests Test 10/02/18 06:15 White Blood Count 7.8 x10^3/uL (4.0-11.0) Red Blood Count 2.99 x10^6/uL (4.30-5.70) Hemoglobin 9.9 g/dL (13.0-17.5) Hematocrit 28.6 % (39.0-53.0) Mean Corpuscular Volume 96 fL (79-100) Mean Corpuscular Hemoglobin 33 pg (25-35) Mean Corpuscular Hemoglobin Concent 35 g/dL (31-37) Red Cell Distribution Width 12.4 % (11.5-14.5) Platelet Count 198 x10^3/uL (140-400) Neutrophils (%) (Auto) 71 % (31-73) Lymphocytes (%) (Auto) 15 % (24-48) Monocytes (%) (Auto) 11 % (0-9) Eosinophils (%) (Auto) 3 % (0-3) Basophils (%) (Auto) 1 % (0-3) Neutrophils # (Auto) 5.5 x10^3uL (1.8-7.7) Lymphocytes # (Auto) 1.2 x10^3/uL (1.0-4.8) Monocytes # (Auto) 0.8 x10^3/uL (0.0-1.1) Eosinophils # (Auto) 0.2 x10^3/uL (0.0-0.7) Basophils # (Auto) 0.1 x10^3/uL (0.0-0.2) Sodium Level 139 mmol/L (136-145) Potassium Level 3.7 mmol/L (3.5-5.1) Chloride Level 103 mmol/L (98-107) Carbon Dioxide Level 27 mmol/L (21-32) Anion Gap 9 (6-14) Blood Urea Nitrogen 13 mg/dL (8-26) Creatinine 1.1 mg/dL (0.7-1.3) Estimated GFR (Cockcroft-Gault) 68.8 BUN/Creatinine Ratio 12 (6-20) Glucose Level 102 mg/dL (70-99) Calcium Level 8.3 mg/dL (8.5-10.1) Total Bilirubin 0.9 mg/dL (0.2-1.0) Aspartate Amino Transf (AST/SGOT) 34 U/L (15-37) Alanine Aminotransferase (ALT/SGPT) 51 U/L (16-63) Alkaline Phosphatase 125 U/L (46-116) Total Protein 5.9 g/dL (6.4-8.2) Albumin 2.6 g/dL (3.4-5.0) Albumin/Globulin Ratio 0.8 (1.0-1.7) Review of Systems Review of Systems Complains of weakness and mild cough. Denies abdominal pain, nausea, vomiting, diarrhea. Assessment and Plan Assessmemt and Plan Assessment: CAD s/p CABG (POD 4) NSTEMI Afib HTN HLD ETOH abuse Tobacco abuse Plan: 1. Cardiac monitoring 2. Stepdown from ICU to 2nd floor 3. Monitor labs 4. Wound care 5. PT/OT 6. Advance diet as tolerated 7. PO amiodarone 8. Appreciate CV surgery and cardiology input 9. Hope to discharge to home tomorrow Comment Review of Relevant I have reviewed the following items vicky (where applicable) has been applied. Labs Laboratory Tests Test 10/01/18 03:45 10/02/18 06:15 White Blood Count 8.8 x10^3/uL (4.0-11.0) 7.8 x10^3/uL (4.0-11.0) Red Blood Count 2.96 x10^6/uL (4.30-5.70) 2.99 x10^6/uL (4.30-5.70) Hemoglobin 9.7 g/dL (13.0-17.5) 9.9 g/dL (13.0-17.5) Hematocrit 28.5 % (39.0-53.0) 28.6 % (39.0-53.0) Mean Corpuscular Volume 97 fL (79-100) 96 fL (79-100) Mean Corpuscular Hemoglobin 33 pg (25-35) 33 pg (25-35) Mean Corpuscular Hemoglobin Concent 34 g/dL (31-37) 35 g/dL (31-37) Red Cell Distribution Width 12.2 % (11.5-14.5) 12.4 % (11.5-14.5) Platelet Count 135 x10^3/uL (140-400) 198 x10^3/uL (140-400) Sodium Level 134 mmol/L (136-145) 139 mmol/L (136-145) Potassium Level 3.9 mmol/L (3.5-5.1) 3.7 mmol/L (3.5-5.1) Chloride Level 101 mmol/L (98-107) 103 mmol/L (98-107) Carbon Dioxide Level 29 mmol/L (21-32) 27 mmol/L (21-32) Anion Gap 4 (6-14) 9 (6-14) Blood Urea Nitrogen 13 mg/dL (8-26) 13 mg/dL (8-26) Creatinine 1.1 mg/dL (0.7-1.3) 1.1 mg/dL (0.7-1.3) Estimated GFR (Cockcroft-Gault) 68.8 68.8 Glucose Level 135 mg/dL (70-99) 102 mg/dL (70-99) Calcium Level 8.8 mg/dL (8.5-10.1) 8.3 mg/dL (8.5-10.1) Magnesium Level 1.9 mg/dL (1.8-2.4) Neutrophils (%) (Auto) 71 % (31-73) Lymphocytes (%) (Auto) 15 % (24-48) Monocytes (%) (Auto) 11 % (0-9) Eosinophils (%) (Auto) 3 % (0-3) Basophils (%) (Auto) 1 % (0-3) Neutrophils # (Auto) 5.5 x10^3uL (1.8-7.7) Lymphocytes # (Auto) 1.2 x10^3/uL (1.0-4.8) Monocytes # (Auto) 0.8 x10^3/uL (0.0-1.1) Eosinophils # (Auto) 0.2 x10^3/uL (0.0-0.7) Basophils # (Auto) 0.1 x10^3/uL (0.0-0.2) BUN/Creatinine Ratio 12 (6-20) Total Bilirubin 0.9 mg/dL (0.2-1.0) Aspartate Amino Transf (AST/SGOT) 34 U/L (15-37) Alanine Aminotransferase (ALT/SGPT) 51 U/L (16-63) Alkaline Phosphatase 125 U/L (46-116) Total Protein 5.9 g/dL (6.4-8.2) Albumin 2.6 g/dL (3.4-5.0) Albumin/Globulin Ratio 0.8 (1.0-1.7) Laboratory Tests Test 10/02/18 06:15 White Blood Count 7.8 x10^3/uL (4.0-11.0) Red Blood Count 2.99 x10^6/uL (4.30-5.70) Hemoglobin 9.9 g/dL (13.0-17.5) Hematocrit 28.6 % (39.0-53.0) Mean Corpuscular Volume 96 fL (79-100) Mean Corpuscular Hemoglobin 33 pg (25-35) Mean Corpuscular Hemoglobin Concent 35 g/dL (31-37) Red Cell Distribution Width 12.4 % (11.5-14.5) Platelet Count 198 x10^3/uL (140-400) Neutrophils (%) (Auto) 71 % (31-73) Lymphocytes (%) (Auto) 15 % (24-48) Monocytes (%) (Auto) 11 % (0-9) Eosinophils (%) (Auto) 3 % (0-3) Basophils (%) (Auto) 1 % (0-3) Neutrophils # (Auto) 5.5 x10^3uL (1.8-7.7) Lymphocytes # (Auto) 1.2 x10^3/uL (1.0-4.8) Monocytes # (Auto) 0.8 x10^3/uL (0.0-1.1) Eosinophils # (Auto) 0.2 x10^3/uL (0.0-0.7) Basophils # (Auto) 0.1 x10^3/uL (0.0-0.2) Sodium Level 139 mmol/L (136-145) Potassium Level 3.7 mmol/L (3.5-5.1) Chloride Level 103 mmol/L (98-107) Carbon Dioxide Level 27 mmol/L (21-32) Anion Gap 9 (6-14) Blood Urea Nitrogen 13 mg/dL (8-26) Creatinine 1.1 mg/dL (0.7-1.3) Estimated GFR (Cockcroft-Gault) 68.8 BUN/Creatinine Ratio 12 (6-20) Glucose Level 102 mg/dL (70-99) Calcium Level 8.3 mg/dL (8.5-10.1) Total Bilirubin 0.9 mg/dL (0.2-1.0) Aspartate Amino Transf (AST/SGOT) 34 U/L (15-37) Alanine Aminotransferase (ALT/SGPT) 51 U/L (16-63) Alkaline Phosphatase 125 U/L (46-116) Total Protein 5.9 g/dL (6.4-8.2) Albumin 2.6 g/dL (3.4-5.0) Albumin/Globulin Ratio 0.8 (1.0-1.7) Medications Current Medications Aspirin (Chito Aspirin) 325 mg 1X ONCE PO Last administered on 09/26/18at 03:49 ; Start 09/26/18 at 04:00; Stop 09/26/18 at 04:01; Status DC Sodium Chloride 1,000 ml @ 1,000 mls/hr 1X ONCE IV Last administered on at 03:48; Start 09/26/18 at 04:00; Stop 09/26/18 at 04:59; Status DC Lorazepam (Ativan) 0.5 mg 1X ONCE IV Last administered on 09/26/18at 03:49; Start 09/26/18 at 04:00; Stop 09/26/18 at 04:01; Status DC Ondansetron HCl (Zofran) 4 mg PRN Q8HRS PRN IV NAUSEA/VOMITING 1ST CHOICE; Start 09/26/18 at 04:00; Stop 09/27/18 at 03:59; Status DC Fentanyl Citrate (Fentanyl 2ml Vial) 50 mcg PRN Q2HR PRN IV SEVERE PAIN, UNREL BY MORPHINE; Start 09/26/18 at 04:00; Stop 09/29/18 at 11:23; Status DC Fentanyl Citrate (Fentanyl 2ml Vial) 50 mcg 1X ONCE IV ; Start 09/26/18 at 04:30 ; Stop 09/26/18 at 04:30; Status DC Nitroglycerin (Nitro-Bid Oint) 0.5 inch 1X ONCE TP Last administered on at 04:37; Start 09/26/18 at 04:30; Stop 09/26/18 at 04:31; Status DC Heparin Sodium/ Dextrose 500 ml @ 0 mls/hr CONT PRN IV SEE I/O RECORD Last administered on 09/26/18at 04:41; Start 09/26/18 at 04:15; Stop 09/26/18 at 12:31; Status DC Heparin Sodium (Porcine) (Heparin Sodium) 2,400 unit PRN Q6HRS PRN IV FOR UFH LEVEL LESS THAN 0.2; Start 09/26/18 at 04:15; Stop 09/26/18 at 13:53; Status DC Heparin Sodium (Porcine) (Heparin Sodium) 4,000 unit 1X ONCE IV Last administered on 09/26/18at 04:40; Start 09/26/18 at 04:30; Stop 09/26/18 at 04:31; Status DC Info (Anti-Coagulation Monitoring By Pharmacy) 1 each PRN DAILY PRN MC SEE COMMENTS Last administered on 09/26/18at 09:32; Start 09/26/18 at 04:30; Stop at 12:32; Status DC Iohexol (Omnipaque 350 Mg/ml) 60 ml 1X ONCE IV Last administered on 09/26/18at 05:26; Start 09/26/18 at 05:30; Stop 09/26/18 at 05:31; Status DC Info (CONTRAST GIVEN -- Rx MONITORING) 1 each PRN DAILY PRN MC SEE COMMENTS; Start 09/26/18 at 05:15; Stop 09/26/18 at 10:56; Status DC Multivitamins 10 ml/Thiamine HCl 100 mg/Folic Acid 1 mg/Sodium Chloride 1,011.2 ml @ 100 mls/ hr 1X ONCE IV Last administered on 09/26/18at 10:40; Start at 10:00; Stop 09/26/18 at 20:06; Status DC Atorvastatin Calcium (Lipitor) 40 mg QHS PO Last administered on 10/01/18at 20: 42; Start 09/26/18 at 21:00 Iodixanol (Visipaque 320) 100 ml STK-MED ONCE .ROUTE ; Start 09/26/18 at 09:58; Stop 09/26/18 at 10:01; Status DC Lidocaine HCl (Lidocaine 1% 20ml Vial) 20 ml STK-MED ONCE .ROUTE ; Start at 09:58; Stop 09/26/18 at 10:01; Status DC Heparin Sodium/ Sodium Chloride 1,000 ml @ As Directed STK-MED ONCE .ROUTE ; Start 09/26/18 at 09:59; Stop 09/26/18 at 10:01; Status DC Fentanyl Citrate (Fentanyl 2ml Vial) 100 mcg STK-MED ONCE .ROUTE ; Start at 10:14; Stop 09/26/18 at 10:16; Status DC Midazolam HCl (Versed) 5 mg STK-MED ONCE .ROUTE ; Start 09/26/18 at 10:14; Stop 09/26/18 at 10:16; Status DC Iohexol (Omnipaque 300 Mg/ml) 100 ml STK-MED ONCE .ROUTE ; Start 09/26/18 at 10: 17; Stop 09/26/18 at 10:19; Status DC Heparin Sodium/ Sodium Chloride (HEPARIN for ARTERIAL LINE FLUSH) 1,000 unit 1X ONCE IART Last administered on 09/26/18at 11:37; Start 09/26/18 at 11:00; Stop 09/26/18 at 11:01; Status DC Midazolam HCl (Versed) 5 mg 1X ONCE IV Last administered on 09/26/18at 11:38; Start 09/26/18 at 11:00; Stop 09/26/18 at 11:01; Status DC Fentanyl Citrate (Fentanyl 2ml Vial) 100 mcg 1X ONCE IV Last administered on at 11:38; Start 09/26/18 at 11:00; Stop 09/26/18 at 11:01; Status DC Iodixanol (Visipaque 320) 100 ml 1X ONCE IART Last administered on 09/26/18at 11 :37; Start 09/26/18 at 11:00; Stop 09/26/18 at 11:01; Status DC Lidocaine HCl (Lidocaine 1% 20ml Vial) 20 ml 1X ONCE INJ Last administered on 09/26/18at 11:37; Start 09/26/18 at 11:00; Stop 09/26/18 at 11:01; Status DC Info (CONTRAST GIVEN -- Rx MONITORING) 1 each PRN DAILY PRN MC SEE COMMENTS; Start 09/26/18 at 11:00; Stop 09/28/18 at 10:59; Status DC Sodium Chloride (Normal Saline Flush) 3 ml QSHIFT PRN IV AFTER MEDS AND BLOOD DRAWS; Start 09/26/18 at 11:45; Stop 09/29/18 at 07:30; Status DC Sodium Chloride 1,000 ml @ 75 mls/hr [id number] IV ; Start 09/26/18 at 11:33; Stop 09/26/18 at 17:32; Status DC Nitroglycerin (Nitrostat) 0.4 mg PRN Q5MIN PRN SL CHEST PAIN; Start 09/26/18 at 11:45 Aspirin (Ecotrin) 81 mg [id number] PO Last administered on 09/27/18at 09:39; Start 09/27/18 at 08:00; Stop 09/28/18 at 15:04; Status DC Metoprolol Tartrate (Lopressor) 25 mg BID PO Last administered on 09/27/18at 20: 57; Start 09/26/18 at 21:00; Stop 09/28/18 at 15:09; Status DC Heparin Sodium/ Dextrose 500 ml @ 0 mls/hr CONT PRN IV SEE I/O RECORD Last administered on 09/28/18at 08:19; Start 09/26/18 at 17:00; Stop 09/27/18 at 23:59; Status DC Heparin Sodium (Porcine) (Heparin Sodium) 2,500 unit PRN Q6HRS PRN IV FOR UFH LEVEL LESS THAN 0.2 Last administered on 09/26/18at 23:58; Start 09/26/18 at 17:00 ; Stop 09/27/18 at 23:59; Status DC Info (Anti-Coagulation Monitoring By Pharmacy) 1 each PRN DAILY PRN MC SEE COMMENTS; Start 09/26/18 at 17:15; Stop 09/29/18 at 08:21; Status DC Lorazepam (Ativan) 2 mg PRN Q4HRS PRN PO ANXIETY / AGITATION Last administered on 10/01/18at 20:42; Start 09/26/18 at 17:15 Vitamin B Complex (Folbic Tablet) 1 tab DAILY PO Last administered on at 08:49; Start 09/26/18 at 18:00 Amlodipine Besylate (Norvasc) 5 mg DAILY PO Last administered on 10/02/18at 08: 49; Start 09/27/18 at 13:00 Potassium Chloride 70 meq/ Sodium Bicarbonate 12.5 meq/Lidocaine HCl 24 ml/ Parenteral Electrolytes 571.5 ml @ 571.5 mls/ hr 1X ONCE IRR Last administered on 09/28/18at 06:00; Start 09/28/18 at 06:00; Stop 09/28/18 at 06:59; Status DC Potassium Chloride 15 meq/ Sodium Bicarbonate 12.5 meq/Parenteral Electrolytes 520 ml @ 520 mls/hr 1X ONCE IRR Last administered on 09/28/18at 06:00; Start at 06:00; Stop 09/28/18 at 06:59; Status DC Heparin Sodium (Porcine) 33270 unit/Ringer's Solution 1,020 ml @ 1,020 mls/hr 1X ONCE IRR Last administered on 09/28/18at 06:00; Start 09/28/18 at 06:00; Stop 09/28/18 at 06:59; Status DC Cefazolin Sodium 1 gm/Sodium Chloride 500 ml @ 500 mls/hr 1X ONCE IRR Last administered on 09/28/18at 08:19; Start 09/28/18 at 06:00; Stop 09/28/18 at 06:59; Status DC Heparin Sodium (Porcine) 800 unit/ Nitroglycerin 4 mg/Verapamil HCl 8 mg/Sodium Bicarbonate 0.34 meq/Ringer's Solution 512.34 ml @ 512.34 mls/hr 1X ONCE IRR Last administered on 09/28/18at 08:20; Start 09/28/18 at 06:00; Stop 09/28/18 at 06: 59; Status DC Ondansetron HCl (Zofran) 4 mg PRN Q6HRS PRN IV NAUSEA/VOMITING; Start 09/28/18 at 07:00; Stop 09/29/18 at 06:59; Status DC Fentanyl Citrate (Fentanyl 2ml Vial) 25 mcg PRN Q5MIN PRN IV MILD PAIN; Start 09/28/18 at 07:00; Stop 09/29/18 at 06:59; Status DC Fentanyl Citrate (Fentanyl 2ml Vial) 50 mcg PRN Q5MIN PRN IV MODERATE TO SEVERE PAIN; Start 09/28/18 at 07:00; Stop 09/29/18 at 06:59; Status DC Morphine Sulfate (Morphine Sulfate) 1 mg PRN Q10MIN PRN IV SEVERE PAIN Last administered on 09/28/18at 16:59; Start 09/28/18 at 07:00; Stop 09/29/18 at 06:59; Status DC Ringer's Solution 1,000 ml @ 30 mls/hr Q24H IV Last administered on 09/28/18at 07:00; Start 09/28/18 at 07:00; Stop 09/28/18 at 18:59; Status DC Lidocaine HCl (Xylocaine-Mpf 1% 2ml Vial) 2 ml PRN 1X PRN ID PRIOR TO IV START ; Start 09/28/18 at 07:00; Stop 09/29/18 at 06:59; Status DC Hydromorphone HCl (Dilaudid) 0.5 mg PRN Q10MIN PRN IV SEV PAIN, Second choice; Start 09/28/18 at 07:00; Stop 09/29/18 at 06:59; Status DC Prochlorperazine Edisylate (Compazine) 5 mg PACU PRN PRN IV NAUSEA, MRX1; Start 09/28/18 at 07:00; Stop 09/29/18 at 06:59; Status DC Cefazolin Sodium/ Dextrose 50 ml @ 100 mls/hr 1X ONCE IV Last administered on 09/28/18at 08:39; Start 09/28/18 at 06:00; Stop 09/28/18 at 06:29; Status DC Phenylephrine HCl (Aayush-Synephrine Inj) 10 mg STK-MED ONCE .ROUTE ; Start at 06:24; Stop 09/28/18 at 06:26; Status DC Etomidate (Amidate) 20 mg STK-MED ONCE IV ; Start 09/28/18 at 06:24; Stop at 06:26; Status DC Aminocaproic Acid (Amicar) 5,000 mg STK-MED ONCE IV ; Start 09/28/18 at 06:24; Stop 09/28/18 at 06:26; Status DC Nitroglycerin/ Dextrose 250 ml @ As Directed STK-MED ONCE IV ; Start 09/28/18 at 06:24; Stop 09/28/18 at 06:26; Status DC Rocuronium [place] (Zemuron) 100 mg STK-MED ONCE .ROUTE ; Start 09/28/18 at 06:24 ; Stop 09/28/18 at 06:27; Status DC Vancomycin HCl (VANCO for OR ONLY) 10 gm STK-MED ONCE .ROUTE Last administered on 09/28/18 08:18; Start 09/28/18 at 06:37; Stop 09/28/18 at 06:39; Status DC Cellulose (Surgicel Hemostat 4x8) 1 each STK-MED ONCE .ROUTE Last administered on 09/28/18 08:18; Start 09/28/18 at 06:37; Stop 09/28/18 at 06:39; Status DC Papaverine HCl 60 mg STK-MED ONCE .ROUTE Last administered on 09/28/18 08:17; Start 09/28/18 at 06:37; Stop 09/28/18 at 06:39; Status DC Aspirin (Aspirin) 300 mg STK-MED ONCE .ROUTE Last administered on 09/28/18 08: 17; Start 09/28/18 at 06:37; Stop 09/28/18 at 06:39; Status DC Sodium Chloride (SODIUM CHLORIDE 20ml) 20 ml STK-MED ONCE IJ Last administered on 09/28/18 08:16; Start 09/28/18 at 06:37; Stop 09/28/18 at 06:39; Status DC Sodium Chloride (SODIUM CHLORIDE 20ml) 20 ml STK-MED ONCE IJ Last administered on 09/28/18at 08:16; Start 09/28/18 at 06:37; Stop 09/28/18 at 06:39; Status DC Sodium Chloride (SODIUM CHLORIDE 20ml) 20 ml STK-MED ONCE IJ Last administered on 09/28/18at 08:17; Start 09/28/18 at 06:38; Stop 09/28/18 at 06:40; Status DC Heparin Sodium (Porcine) 30,000 unit STK-MED ONCE .ROUTE ; Start 09/28/18 at 06: 38; Stop 09/28/18 at 06:41; Status DC Nitroglycerin/ Dextrose 250 ml @ As Directed STK-MED ONCE IV ; Start 09/28/18 at 06:39; Stop 09/28/18 at 06:41; Status DC Midazolam HCl (Versed) 2 mg STK-MED ONCE .ROUTE ; Start 09/28/18 at 06:52; Stop 09/28/18 at 06:54; Status DC Sufentanil Citrate (Sufenta) 250 mcg STK-MED ONCE .ROUTE ; Start 09/28/18 at 06: 59; Stop 09/28/18 at 07:01; Status DC Isoflurane (Isoflurane) 90 ml STK-MED ONCE IH ; Start 09/28/18 at 08:10; Stop 09/28/18 at 08:13; Status DC Ephedrine Sulfate (Akovaz) 50 mg STK-MED ONCE .ROUTE ; Start 09/28/18 at 08:40; Stop 09/28/18 at 08:42; Status DC Midazolam HCl (Versed) 2 mg STK-MED ONCE .ROUTE ; Start 09/28/18 at 08:53; Stop 09/28/18 at 08:55; Status DC Midazolam HCl (Versed) 2 mg STK-MED ONCE .ROUTE ; Start 09/28/18 at 08:53; Stop 09/28/18 at 08:55; Status DC Rocuronium [place] (Zemuron) 100 mg STK-MED ONCE .ROUTE ; Start 09/28/18 at 09:54 ; Stop 09/28/18 at 09:56; Status DC Heparin Sodium (Porcine) (Heparin Sodium) 10,000 unit STK-MED ONCE .ROUTE ; Start 09/28/18 at 10:30; Stop 09/28/18 at 10:32; Status DC Protamine Sulfate (Protamine) 50 mg STK-MED ONCE IV ; Start 09/28/18 at 10:39; Stop 09/28/18 at 10:41; Status DC Protamine Sulfate (Protamine) 250 mg STK-MED ONCE IV ; Start 09/28/18 at 10:39; Stop 09/28/18 at 10:42; Status DC Cefazolin Sodium (Ancef) 1 gm STK-MED ONCE .ROUTE ; Start 09/28/18 at 12:48; Stop 09/28/18 at 12:50; Status DC Amiodarone HCl 150 mg/Dextrose 103 ml @ 618 mls/hr 1X ONCE IV ; Start 09/28/18 at 14:30; Stop 09/28/18 at 14:39; Status DC Heparin Sodium (Porcine) (Heparin Sodium) 10,000 unit STK-MED ONCE .ROUTE ; Start 09/28/18 at 13:36; Stop 09/28/18 at 13:38; Status DC Lidocaine HCl (Lidocaine Pf 2% Vial) 5 ml STK-MED ONCE .ROUTE ; Start 09/28/18 at 13:36; Stop 09/28/18 at 13:38; Status DC Amiodarone HCl 900 mg/Dextrose 518 ml @ 33 mls/hr CONT PRN IV SEE I/O RECORD; Start 09/28/18 at 14:30; Stop 09/30/18 at 10:14; Status DC Magnesium Sulfate 5 gm STK-MED ONCE .ROUTE ; Start 09/28/18 at 13:36; Stop at 13:38; Status DC Heparin Sodium (Porcine) 30,000 unit STK-MED ONCE .ROUTE ; Start 09/28/18 at 13: 36; Stop 09/28/18 at 13:38; Status DC Mannitol (Mannitol) 12.5 g STK-MED ONCE .ROUTE ; Start 09/28/18 at 13:36; Stop at 13:38; Status DC Albumin Human 100 ml @ As Directed STK-MED ONCE IV ; Start 09/28/18 at 13:36; Stop 09/28/18 at 13:38; Status DC Calcium Chloride (Calcium Chloride) 1,000 mg STK-MED ONCE .ROUTE ; Start at 13:36; Stop 09/28/18 at 13:38; Status DC Albumin Human 500 ml @ As Directed STK-MED ONCE IV ; Start 09/28/18 at 13:36; Stop 09/28/18 at 13:38; Status DC Nicardipine HCl 50 mg/Sodium Chloride 250 ml @ 25 mls/hr CONT PRN IV SEE I/O RECORD; Start 09/28/18 at 14:30; Stop 09/29/18 at 11:23; Status DC Protamine Sulfate (Protamine) 50 mg STK-MED ONCE IV ; Start 09/28/18 at 14:03; Stop 09/28/18 at 14:05; Status DC Sodium Chloride (Normal Saline Flush) 3 ml PRN Q12HR PRN IV AFTER MEDS AND BLOOD DRAWS; Start 09/28/18 at 15:00 Ringer's Solution 1,000 ml @ 30 mls/hr Q24H IV Last administered on 09/28/18at 15:30; Start 09/28/18 at 14:48; Stop 09/30/18 at 10:14; Status DC Albumin Human 250 ml @ 500 mls/hr PRN Q4HRS PRN IV SEE COMMENTS Last administered on 09/28/18at 17:07; Start 09/28/18 at 15:00; Stop 09/30/18 at 10:14; Status DC Insulin Human Regular 150 unit/ Sodium Chloride 151.5 ml @ 0 mls/hr CONT PRN PRN IV PER PROTOCOL Last administered on 09/28/18at 20:05; Start 09/28/18 at 15:00 ; Stop 09/30/18 at 10:14; Status DC Dextrose (Dextrose 50%-Water Syringe) 25 gm PRN Q15MIN PRN IV LOW BLOOD SUGAR; Start 09/28/18 at 15:00; Stop 09/30/18 at 10:14; Status DC Nitroglycerin/ Dextrose 250 ml @ 0 mls/hr CONT PRN PRN IV POST CV SURGERY; Start 09/28/18 at 15:00; Stop 09/29/18 at 11:23; Status DC Phenylephrine HCl 20 mg/Sodium Chloride 252 ml @ 0 mls/hr CONT PRN PRN IV HYPOTENSION Last administered on 09/28/18at 15:31; Start 09/28/18 at 15:00; Stop at 10:14; Status DC Amiodarone HCl 150 mg/Dextrose 103 ml @ 600 mls/hr 1X ONCE IV ; Start 09/28/18 at 15:00; Stop 09/28/18 at 15:05; Status DC Amiodarone HCl 150 mg/Dextrose 103 ml @ 200 mls/hr 1X PRN PRN IV FOR AFIB; Start 09/28/18 at 15:00; Stop 09/30/18 at 10:14; Status DC Amiodarone HCl 900 mg/Dextrose 518 ml @ 0 mls/hr CONT PRN PRN IV AFIB; Start at 15:00; Stop 09/28/18 at 15:06; Status DC Info (KCl Per Protocol) 1 ea CONT PRN PRN MC SEE COMMENTS; Start 09/28/18 at 15: 00; Stop 09/30/18 at 11:47; Status DC Magnesium Sulfate/ Dextrose 100 ml @ 100 mls/hr PRN DAILY PRN IV FOR MAG < 2.2 ; Start 09/28/18 at 15:00; Stop 09/30/18 at 11:47; Status DC Famotidine (Pepcid Vial) 20 mg BID IVP Last administered on 09/29/18at 09:58; Start 09/28/18 at 21:00; Stop 09/29/18 at 15:14; Status DC Ondansetron HCl (Zofran) 4 mg PRN Q4HRS PRN IV NAUSEA/VOMITING, 1st CHOICE Last administered on 09/29/18at 00:45; Start 09/28/18 at 15:00 Prochlorperazine Edisylate (Compazine) 10 mg PRN Q6HRS PRN IV NAUSEA/VOMITING, 2nd CHOICE; Start 09/28/18 at 15:00 Metoclopramide HCl (Reglan Vial) 10 mg PRN Q6HRS PRN IV NAUSEA/VOMITING, 3rd CHOICE; Start 09/28/18 at 15:00; Stop 09/30/18 at 11:47; Status DC Morphine Sulfate (Morphine Sulfate) 2 mg PRN Q1HR PRN IV MODERATE PAIN; Start 09/28/18 at 15:00; Stop 09/30/18 at 10:14; Status DC Morphine Sulfate (Morphine Sulfate) 4 mg PRN Q1HR PRN IV SEVERE PAIN Last administered on 09/29/18at 23:49; Start 09/28/18 at 15:00; Stop 09/30/18 at 10:14; Status DC Acetaminophen (Tylenol) 650 mg PRN Q4HRS PRN PO TEMP > 101'F or MILD PAIN; Start 09/28/18 at 15:00; Stop 09/29/18 at 15:14; Status DC Acetaminophen (Tylenol Supp) 650 mg PRN Q4HRS PRN HI TEMP > 101'F or MILD PAIN ; Start 09/28/18 at 15:00; Stop 09/29/18 at 15:14; Status DC Meperidine HCl (Demerol) 12.5 mg PRN Q15MIN PRN IV SHIVERING; Start 09/28/18 at 15:00; Stop 09/29/18 at 11:23; Status DC Propofol 100 ml @ 0 mls/hr CONT PRN PRN IV POSTOP SEDATION UNTIL EXTUBATE Last administered on 09/28/18at 15:59; Start 09/28/18 at 15:00; Stop 09/29/18 at 11:23; Status DC Senna/Docusate Sodium (Senna Plus) 1 tab BID PO Last administered on 10/02/18at 08:48; Start 09/28/18 at 21:00 Bisacodyl (Dulcolax Supp) 10 mg PRN DAILY PRN HI NO BOWEL MOVEMENT; Start at 15:00 Chlorhexidine Gluconate (Peridex) 15 ml BID MM ; Start 09/29/18 at 09:00; Stop at 19:06; Status DC Aspirin (Ecotrin) 325 mg DAILYWBKFT PO Last administered on 10/02/18at 08:48; Start 09/29/18 at 08:00 Aspirin (Aspirin) 300 mg PRN DAILY PRN HI IF UNABLE TO TAKE PO; Start 09/29/18 at 08:00 Albuterol Sulfate (Ventolin Neb Soln) 2.5 mg PRN Q4HRS PRN NEB SHORTNESS OF BREATH; Start 09/28/18 at 15:00; Stop 09/29/18 at 15:14; Status DC Metoprolol Tartrate (Lopressor) 25 mg BID PO Last administered on 10/02/18at 08: 49; Start 09/29/18 at 09:00 Nicardipine HCl 50 mg/Sodium Chloride 250 ml @ 0 mls/hr CONT PRN PRN IV PER PROTOCOL; Start 09/28/18 at 15:00; Stop 09/28/18 at 15:10; Status DC Oxycodone HCl (Roxicodone) 5 mg PRN Q4HRS PRN PO MILD TO MODERATE PAIN Last administered on 09/30/18at 21:14; Start 09/28/18 at 15:00 Oxycodone HCl (Roxicodone) 10 mg PRN Q4HRS PRN PO SEVERE PAIN Last administered on 09/30/18at 14:21; Start 09/28/18 at 15:00 Cefazolin Sodium/ Dextrose 50 ml @ 100 mls/hr Q8H IV Last administered on 09/30at 06:32; Start 09/28/18 at 23:00; Stop 09/30/18 at 07:29; Status DC Sodium Bicarbonate (Sodium Bicarb Adult 8.4% Syr) 50 meq 1X ONCE IV Last administered on 09/28/18at 16:59; Start 09/28/18 at 17:00; Stop 09/28/18 at 17:01; Status DC Throat Lozenges (Cepacol Sore Throat Lozenge) 1 dede PRN Q2HRS PRN PO SORE THROAT; Start 09/29/18 at 13:00 Famotidine (Pepcid) 20 mg BID PO Last administered on 10/02/18at 08:47; Start at 21:00 Magnesium Sulfate/ Dextrose 100 ml @ 100 mls/hr ONCE ONCE IV Last administered on 09/30/18at 09:44; Start 09/30/18 at 08:30; Stop 09/30/18 at 09:29 ; Status DC Magnesium Sulfate/ Dextrose 100 ml @ 25 mls/hr 1X ONCE IV Last administered on 09/30/18at 10:23; Start 09/30/18 at 11:00; Stop 09/30/18 at 14:59; Status DC Amiodarone HCl 150 mg/Dextrose 103 ml @ 618 mls/hr 1X ONCE IV Last administered on 09/30/18at 18:51; Start 09/30/18 at 18:45; Stop 09/30/18 at 18:54 ; Status DC Amiodarone HCl 900 mg/Dextrose 518 ml @ 0 mls/hr CONT PRN IV SEE I/O RECORD Last administered on 09/30/18at 18:52; Start 09/30/18 at 18:45 Amiodarone HCl (Cordarone) 200 mg BID PO Last administered on 10/01/18at 20:43; Start 10/01/18 at 21:00; Stop 10/02/18 at 07:40; Status DC Amiodarone HCl (Cordarone) 200 mg 1X ONCE PO Last administered on 10/01/18at 15 :21; Start 10/01/18 at 14:30; Stop 10/02/18 at 07:40; Status DC Amiodarone HCl (Cordarone) 200 mg BID PO ; Start 10/02/18 at 09:00; Stop at 09:00; Status DC Amiodarone HCl (Cordarone) 400 mg BID PO Last administered on 10/02/18at 08:48; Start 10/02/18 at 09:00 Active Scripts Active Reported Amlodipine-Benazepril 5-20 Mg (Amlodipine Besylate/Benazepril) 1 Each Capsule 1 Cap PO DAILY Vitals/I & O Vital Sign - Last 24 Hours 10/01/18 10/01/18 10/01/18 10/01/18 15:00 15:21 19:00 20:00 Temp 98.2 98.2 98.2 98.2 Pulse 81 81 81 Resp 21 20 B/P (MAP) 161/84 (109) 161/84 129/77 (94) Pulse Ox 93 93 O2 Delivery Room Air Room Air Room Air 10/01/18 10/01/18 10/01/18 10/02/18 20:43 20:43 23:00 03:00 Temp 98.2 98.2 98.2 98.2 Pulse 78 78 80 86 Resp 16 16 B/P (MAP) 129/80 129/80 126/87 (100) 149/96 (113) Pulse Ox 93 95 O2 Delivery Room Air Room Air 10/02/18 10/02/18 10/02/18 10/02/18 07:00 08:00 08:48 08:49 Temp 98.2 98.2 Pulse 82 86 86 Resp 16 B/P (MAP) 131/80 (97) 131/80 131/80 Pulse Ox 95 O2 Delivery Room Air Room Air 10/02/18 10/02/18 08:49 11:00 Temp 98.3 98.3 Pulse 86 80 Resp 16 B/P (MAP) 131/80 132/90 (104) Pulse Ox 95 O2 Delivery Room Air Intake and Output 10/01/18 10/01/18 10/02/18 14:59 22:59 06:59 Intake Total 630 ml 400 ml 600 ml Output Total 350 ml 850 ml 900 ml Balance 280 ml -450 ml -300 ml ABEL CARTER III DO Oct 02, 2018 13:40
[2018-10-02 15:00] VITALS: BP 135/86
--- NOTE | 2018-10-02 17:54 | NUR ---
Placed on room air for approximately 20 minutes, sat level 87 % on room air at rest, will notify , no 6 minute walk test done at this time per [facility] personnel suggestions to do room air sat and let them know results for possible completion of test tomorrow if qualifies needs oxygen through [employer] possibly. Addendum: 10/02/18 at 1820 by NIELS LAY RN disregard above charted on wrong person
--- NOTE | 2018-10-02 18:40 | PDOC ---
PROGRESS NOTES Subjective Subjective Patient seen and examined The patient looks and feels well. Objective Objective Vital Signs Date Time Temp Pulse Resp B/P (MAP) Pulse Ox O2 Delivery O2 Flow Rate FiO2 10/02/18 15:00 98.2 81 16 135/86 (102) 95 Room Air 98.2 10/01/18 08:20 2.0 Intake and Output 10/02/18 07:00 Intake Total 1630 ml Output Total 2100 ml Balance -470 ml Intake Oral 1520 ml IV Total 110 ml Output Urine Total 2100 ml Physical Exam Abdomen: Normal bowel sounds Heart: Regular rate General: mild distress Lungs: Clear to auscultation Assessment Assessment Problems Medical Problems: (1) Elevated d-dimer Status: Acute (2) NSTEMI (non-ST elevated myocardial infarction) Status: Acute 1. Multivessel coronary artery disease with intact LV systolic function. POD 4 bypass surgery �4. Patient continues to look and feel well. We'll continue as per CV surgery. 2. Hypertension. Improved. Continue medical treatment. 3. Hyperlipidemia. Statin medication. 4. History of significant alcohol use. Patient is alert. He shows no signs of withdrawal at this time. 5. Hypomagnesemia. Replaced. 6. Brief episode of atrial fibrillation. Remains in sinus rhythm. Amiodarone increased. Comment Review of Relevant I have reviewed the following items vicky (where applicable) has been applied. Labs Laboratory Tests Test 10/01/18 03:45 10/02/18 06:15 White Blood Count 8.8 x10^3/uL (4.0-11.0) 7.8 x10^3/uL (4.0-11.0) Red Blood Count 2.96 x10^6/uL (4.30-5.70) 2.99 x10^6/uL (4.30-5.70) Hemoglobin 9.7 g/dL (13.0-17.5) 9.9 g/dL (13.0-17.5) Hematocrit 28.5 % (39.0-53.0) 28.6 % (39.0-53.0) Mean Corpuscular Volume 97 fL (79-100) 96 fL (79-100) Mean Corpuscular Hemoglobin 33 pg (25-35) 33 pg (25-35) Mean Corpuscular Hemoglobin Concent 34 g/dL (31-37) 35 g/dL (31-37) Red Cell Distribution Width 12.2 % (11.5-14.5) 12.4 % (11.5-14.5) Platelet Count 135 x10^3/uL (140-400) 198 x10^3/uL (140-400) Sodium Level 134 mmol/L (136-145) 139 mmol/L (136-145) Potassium Level 3.9 mmol/L (3.5-5.1) 3.7 mmol/L (3.5-5.1) Chloride Level 101 mmol/L (98-107) 103 mmol/L (98-107) Carbon Dioxide Level 29 mmol/L (21-32) 27 mmol/L (21-32) Anion Gap 4 (6-14) 9 (6-14) Blood Urea Nitrogen 13 mg/dL (8-26) 13 mg/dL (8-26) Creatinine 1.1 mg/dL (0.7-1.3) 1.1 mg/dL (0.7-1.3) Estimated GFR (Cockcroft-Gault) 68.8 68.8 Glucose Level 135 mg/dL (70-99) 102 mg/dL (70-99) Calcium Level 8.8 mg/dL (8.5-10.1) 8.3 mg/dL (8.5-10.1) Magnesium Level 1.9 mg/dL (1.8-2.4) Neutrophils (%) (Auto) 71 % (31-73) Lymphocytes (%) (Auto) 15 % (24-48) Monocytes (%) (Auto) 11 % (0-9) Eosinophils (%) (Auto) 3 % (0-3) Basophils (%) (Auto) 1 % (0-3) Neutrophils # (Auto) 5.5 x10^3uL (1.8-7.7) Lymphocytes # (Auto) 1.2 x10^3/uL (1.0-4.8) Monocytes # (Auto) 0.8 x10^3/uL (0.0-1.1) Eosinophils # (Auto) 0.2 x10^3/uL (0.0-0.7) Basophils # (Auto) 0.1 x10^3/uL (0.0-0.2) BUN/Creatinine Ratio 12 (6-20) Total Bilirubin 0.9 mg/dL (0.2-1.0) Aspartate Amino Transf (AST/SGOT) 34 U/L (15-37) Alanine Aminotransferase (ALT/SGPT) 51 U/L (16-63) Alkaline Phosphatase 125 U/L (46-116) Total Protein 5.9 g/dL (6.4-8.2) Albumin 2.6 g/dL (3.4-5.0) Albumin/Globulin Ratio 0.8 (1.0-1.7) Laboratory Tests Test 10/02/18 06:15 White Blood Count 7.8 x10^3/uL (4.0-11.0) Red Blood Count 2.99 x10^6/uL (4.30-5.70) Hemoglobin 9.9 g/dL (13.0-17.5) Hematocrit 28.6 % (39.0-53.0) Mean Corpuscular Volume 96 fL (79-100) Mean Corpuscular Hemoglobin 33 pg (25-35) Mean Corpuscular Hemoglobin Concent 35 g/dL (31-37) Red Cell Distribution Width 12.4 % (11.5-14.5) Platelet Count 198 x10^3/uL (140-400) Neutrophils (%) (Auto) 71 % (31-73) Lymphocytes (%) (Auto) 15 % (24-48) Monocytes (%) (Auto) 11 % (0-9) Eosinophils (%) (Auto) 3 % (0-3) Basophils (%) (Auto) 1 % (0-3) Neutrophils # (Auto) 5.5 x10^3uL (1.8-7.7) Lymphocytes # (Auto) 1.2 x10^3/uL (1.0-4.8) Monocytes # (Auto) 0.8 x10^3/uL (0.0-1.1) Eosinophils # (Auto) 0.2 x10^3/uL (0.0-0.7) Basophils # (Auto) 0.1 x10^3/uL (0.0-0.2) Sodium Level 139 mmol/L (136-145) Potassium Level 3.7 mmol/L (3.5-5.1) Chloride Level 103 mmol/L (98-107) Carbon Dioxide Level 27 mmol/L (21-32) Anion Gap 9 (6-14) Blood Urea Nitrogen 13 mg/dL (8-26) Creatinine 1.1 mg/dL (0.7-1.3) Estimated GFR (Cockcroft-Gault) 68.8 BUN/Creatinine Ratio 12 (6-20) Glucose Level 102 mg/dL (70-99) Calcium Level 8.3 mg/dL (8.5-10.1) Total Bilirubin 0.9 mg/dL (0.2-1.0) Aspartate Amino Transf (AST/SGOT) 34 U/L (15-37) Alanine Aminotransferase (ALT/SGPT) 51 U/L (16-63) Alkaline Phosphatase 125 U/L (46-116) Total Protein 5.9 g/dL (6.4-8.2) Albumin 2.6 g/dL (3.4-5.0) Albumin/Globulin Ratio 0.8 (1.0-1.7) Medications Current Medications Aspirin ([employer] Aspirin) 325 mg 1X ONCE PO Last administered on 09/26/18at 03:49 ; Start 09/26/18 at 04:00; Stop 09/26/18 at 04:01; Status DC Sodium Chloride 1,000 ml @ 1,000 mls/hr 1X ONCE IV Last administered on at 03:48; Start 09/26/18 at 04:00; Stop 09/26/18 at 04:59; Status DC Lorazepam (Ativan) 0.5 mg 1X ONCE IV Last administered on 09/26/18at 03:49; Start 09/26/18 at 04:00; Stop 09/26/18 at 04:01; Status DC Ondansetron HCl (Zofran) 4 mg PRN Q8HRS PRN IV NAUSEA/VOMITING 1ST CHOICE; Start 09/26/18 at 04:00; Stop 09/27/18 at 03:59; Status DC Fentanyl Citrate (Fentanyl 2ml Vial) 50 mcg PRN Q2HR PRN IV SEVERE PAIN, UNREL BY MORPHINE; Start 09/26/18 at 04:00; Stop 09/29/18 at 11:23; Status DC Fentanyl Citrate (Fentanyl 2ml Vial) 50 mcg 1X ONCE IV ; Start 09/26/18 at 04:30 ; Stop 09/26/18 at 04:30; Status DC Nitroglycerin (Nitro-Bid Oint) 0.5 inch 1X ONCE TP Last administered on at 04:37; Start 09/26/18 at 04:30; Stop 09/26/18 at 04:31; Status DC Heparin Sodium/ Dextrose 500 ml @ 0 mls/hr CONT PRN IV SEE I/O RECORD Last administered on 09/26/18at 04:41; Start 09/26/18 at 04:15; Stop 09/26/18 at 12:31; Status DC Heparin Sodium (Porcine) (Heparin Sodium) 2,400 unit PRN Q6HRS PRN IV FOR UFH LEVEL LESS THAN 0.2; Start 09/26/18 at 04:15; Stop 09/26/18 at 13:53; Status DC Heparin Sodium (Porcine) (Heparin Sodium) 4,000 unit 1X ONCE IV Last administered on 09/26/18at 04:40; Start 09/26/18 at 04:30; Stop 09/26/18 at 04:31; Status DC Info (Anti-Coagulation Monitoring By Pharmacy) 1 each PRN DAILY PRN MC SEE COMMENTS Last administered on 09/26/18at 09:32; Start 09/26/18 at 04:30; Stop at 12:32; Status DC Iohexol (Omnipaque 350 Mg/ml) 60 ml 1X ONCE IV Last administered on 09/26/18at 05:26; Start 09/26/18 at 05:30; Stop 09/26/18 at 05:31; Status DC Info (CONTRAST GIVEN -- Rx MONITORING) 1 each PRN DAILY PRN MC SEE COMMENTS; Start 09/26/18 at 05:15; Stop 09/26/18 at 10:56; Status DC Multivitamins 10 ml/Thiamine HCl 100 mg/Folic Acid 1 mg/Sodium Chloride 1,011.2 ml @ 100 mls/ hr 1X ONCE IV Last administered on 09/26/18at 10:40; Start at 10:00; Stop 09/26/18 at 20:06; Status DC Atorvastatin Calcium (Lipitor) 40 mg QHS PO Last administered on 10/01/18at 20: 42; Start 09/26/18 at 21:00 Iodixanol (Visipaque 320) 100 ml STK-MED ONCE .ROUTE ; Start 09/26/18 at 09:58; Stop 09/26/18 at 10:01; Status DC Lidocaine HCl (Lidocaine 1% 20ml Vial) 20 ml STK-MED ONCE .ROUTE ; Start at 09:58; Stop 09/26/18 at 10:01; Status DC Heparin Sodium/ Sodium Chloride 1,000 ml @ As Directed STK-MED ONCE .ROUTE ; Start 09/26/18 at 09:59; Stop 09/26/18 at 10:01; Status DC Fentanyl Citrate (Fentanyl 2ml Vial) 100 mcg STK-MED ONCE .ROUTE ; Start at 10:14; Stop 09/26/18 at 10:16; Status DC Midazolam HCl (Versed) 5 mg STK-MED ONCE .ROUTE ; Start 09/26/18 at 10:14; Stop 09/26/18 at 10:16; Status DC Iohexol (Omnipaque 300 Mg/ml) 100 ml STK-MED ONCE .ROUTE ; Start 09/26/18 at 10: 17; Stop 09/26/18 at 10:19; Status DC Heparin Sodium/ Sodium Chloride (HEPARIN for ARTERIAL LINE FLUSH) 1,000 unit 1X ONCE IART Last administered on 09/26/18at 11:37; Start 09/26/18 at 11:00; Stop 09/26/18 at 11:01; Status DC Midazolam HCl (Versed) 5 mg 1X ONCE IV Last administered on 09/26/18at 11:38; Start 09/26/18 at 11:00; Stop 09/26/18 at 11:01; Status DC Fentanyl Citrate (Fentanyl 2ml Vial) 100 mcg 1X ONCE IV Last administered on at 11:38; Start 09/26/18 at 11:00; Stop 09/26/18 at 11:01; Status DC Iodixanol (Visipaque 320) 100 ml 1X ONCE IART Last administered on 09/26/18at 11 :37; Start 09/26/18 at 11:00; Stop 09/26/18 at 11:01; Status DC Lidocaine HCl (Lidocaine 1% 20ml Vial) 20 ml 1X ONCE INJ Last administered on 09/26/18at 11:37; Start 09/26/18 at 11:00; Stop 09/26/18 at 11:01; Status DC Info (CONTRAST GIVEN -- Rx MONITORING) 1 each PRN DAILY PRN MC SEE COMMENTS; Start 09/26/18 at 11:00; Stop 09/28/18 at 10:59; Status DC Sodium Chloride (Normal Saline Flush) 3 ml QSHIFT PRN IV AFTER MEDS AND BLOOD DRAWS; Start 09/26/18 at 11:45; Stop 09/29/18 at 07:30; Status DC Sodium Chloride 1,000 ml @ 75 mls/hr [id number] IV ; Start 09/26/18 at 11:33; Stop 09/26/18 at 17:32; Status DC Nitroglycerin (Nitrostat) 0.4 mg PRN Q5MIN PRN SL CHEST PAIN; Start 09/26/18 at 11:45 Aspirin (Ecotrin) 81 mg DAILYWBKFT PO Last administered on 09/27/18at 09:39; Start 09/27/18 at 08:00; Stop 09/28/18 at 15:04; Status DC Metoprolol Tartrate (Lopressor) 25 mg BID PO Last administered on 09/27/18at 20: 57; Start 09/26/18 at 21:00; Stop 09/28/18 at 15:09; Status DC Heparin Sodium/ Dextrose 500 ml @ 0 mls/hr CONT PRN IV SEE I/O RECORD Last administered on 09/28/18at 08:19; Start 09/26/18 at 17:00; Stop 09/27/18 at 23:59; Status DC Heparin Sodium (Porcine) (Heparin Sodium) 2,500 unit PRN Q6HRS PRN IV FOR UFH LEVEL LESS THAN 0.2 Last administered on 09/26/18at 23:58; Start 09/26/18 at 17:00 ; Stop 09/27/18 at 23:59; Status DC Info (Anti-Coagulation Monitoring By Pharmacy) 1 each PRN DAILY PRN MC SEE COMMENTS; Start 09/26/18 at 17:15; Stop 09/29/18 at 08:21; Status DC Lorazepam (Ativan) 2 mg PRN Q4HRS PRN PO ANXIETY / AGITATION Last administered on 10/01/18at 20:42; Start 09/26/18 at 17:15 Vitamin B Complex (Folbic Tablet) 1 tab DAILY PO Last administered on at 08:49; Start 09/26/18 at 18:00 Amlodipine Besylate (Norvasc) 5 mg DAILY PO Last administered on 10/02/18at 08: 49; Start 09/27/18 at 13:00 Potassium Chloride 70 meq/ Sodium Bicarbonate 12.5 meq/Lidocaine HCl 24 ml/ Parenteral Electrolytes 571.5 ml @ 571.5 mls/ hr 1X ONCE IRR Last administered on 09/28/18at 06:00; Start 09/28/18 at 06:00; Stop 09/28/18 at 06:59; Status DC Potassium Chloride 15 meq/ Sodium Bicarbonate 12.5 meq/Parenteral Electrolytes 520 ml @ 520 mls/hr 1X ONCE IRR Last administered on 09/28/18at 06:00; Start at 06:00; Stop 09/28/18 at 06:59; Status DC Heparin Sodium (Porcine) 22395 unit/Ringer's Solution 1,020 ml @ 1,020 mls/hr 1X ONCE IRR Last administered on 09/28/18at 06:00; Start 09/28/18 at 06:00; Stop 09/28/18 at 06:59; Status DC Cefazolin Sodium 1 gm/Sodium Chloride 500 ml @ 500 mls/hr 1X ONCE IRR Last administered on 09/28/18at 08:19; Start 09/28/18 at 06:00; Stop 09/28/18 at 06:59; Status DC Heparin Sodium (Porcine) 800 unit/ Nitroglycerin 4 mg/Verapamil HCl 8 mg/Sodium Bicarbonate 0.34 meq/Ringer's Solution 512.34 ml @ 512.34 mls/hr 1X ONCE IRR Last administered on 09/28/18at 08:20; Start 09/28/18 at 06:00; Stop 09/28/18 at 06: 59; Status DC Ondansetron HCl (Zofran) 4 mg PRN Q6HRS PRN IV NAUSEA/VOMITING; Start 09/28/18 at 07:00; Stop 09/29/18 at 06:59; Status DC Fentanyl Citrate (Fentanyl 2ml Vial) 25 mcg PRN Q5MIN PRN IV MILD PAIN; Start 09/28/18 at 07:00; Stop 09/29/18 at 06:59; Status DC Fentanyl Citrate (Fentanyl 2ml Vial) 50 mcg PRN Q5MIN PRN IV MODERATE TO SEVERE PAIN; Start 09/28/18 at 07:00; Stop 09/29/18 at 06:59; Status DC Morphine Sulfate (Morphine Sulfate) 1 mg PRN Q10MIN PRN IV SEVERE PAIN Last administered on 09/28/18at 16:59; Start 09/28/18 at 07:00; Stop 09/29/18 at 06:59; Status DC Ringer's Solution 1,000 ml @ 30 mls/hr Q24H IV Last administered on 09/28/18at 07:00; Start 09/28/18 at 07:00; Stop 09/28/18 at 18:59; Status DC Lidocaine HCl (Xylocaine-Mpf 1% 2ml Vial) 2 ml PRN 1X PRN ID PRIOR TO IV START ; Start 09/28/18 at 07:00; Stop 09/29/18 at 06:59; Status DC Hydromorphone HCl (Dilaudid) 0.5 mg PRN Q10MIN PRN IV SEV PAIN, Second choice; Start 09/28/18 at 07:00; Stop 09/29/18 at 06:59; Status DC Prochlorperazine Edisylate (Compazine) 5 mg PACU PRN PRN IV NAUSEA, MRX1; Start 09/28/18 at 07:00; Stop 09/29/18 at 06:59; Status DC Cefazolin Sodium/ Dextrose 50 ml @ 100 mls/hr 1X ONCE IV Last administered on 09/28/18at 08:39; Start 09/28/18 at 06:00; Stop 09/28/18 at 06:29; Status DC Phenylephrine HCl (Aayush-Synephrine Inj) 10 mg STK-MED ONCE .ROUTE ; Start at 06:24; Stop 09/28/18 at 06:26; Status DC Etomidate (Amidate) 20 mg STK-MED ONCE IV ; Start 09/28/18 at 06:24; Stop at 06:26; Status DC Aminocaproic Acid (Amicar) 5,000 mg STK-MED ONCE IV ; Start 09/28/18 at 06:24; Stop 09/28/18 at 06:26; Status DC Nitroglycerin/ Dextrose 250 ml @ As Directed STK-MED ONCE IV ; Start 09/28/18 at 06:24; Stop 09/28/18 at 06:26; Status DC Rocuronium Madison (Zemuron) 100 mg STK-MED ONCE .ROUTE ; Start 09/28/18 at 06:24 ; Stop 09/28/18 at 06:27; Status DC Vancomycin HCl (VANCO for OR ONLY) 10 gm STK-MED ONCE .ROUTE Last administered on 09/28/18 08:18; Start 09/28/18 at 06:37; Stop 09/28/18 at 06:39; Status DC Cellulose (Surgicel Hemostat 4x8) 1 each STK-MED ONCE .ROUTE Last administered on 09/28/18 08:18; Start 09/28/18 at 06:37; Stop 09/28/18 at 06:39; Status DC Papaverine HCl 60 mg STK-MED ONCE .ROUTE Last administered on 09/28/18 08:17; Start 09/28/18 at 06:37; Stop 09/28/18 at 06:39; Status DC Aspirin (Aspirin) 300 mg STK-MED ONCE .ROUTE Last administered on 09/28/18 08: 17; Start 09/28/18 at 06:37; Stop 09/28/18 at 06:39; Status DC Sodium Chloride (SODIUM CHLORIDE 20ml) 20 ml STK-MED ONCE IJ Last administered on 09/28/18 08:16; Start 09/28/18 at 06:37; Stop 09/28/18 at 06:39; Status DC Sodium Chloride (SODIUM CHLORIDE 20ml) 20 ml STK-MED ONCE IJ Last administered on 09/28/18 08:16; Start 09/28/18 at 06:37; Stop 09/28/18 at 06:39; Status DC Sodium Chloride (SODIUM CHLORIDE 20ml) 20 ml STK-MED ONCE IJ Last administered on 09/28/18 08:17; Start 09/28/18 at 06:38; Stop 09/28/18 at 06:40; Status DC Heparin Sodium (Porcine) 30,000 unit STK-MED ONCE .ROUTE ; Start 09/28/18 at 06: 38; Stop 09/28/18 at 06:41; Status DC Nitroglycerin/ Dextrose 250 ml @ As Directed STK-MED ONCE IV ; Start 09/28/18 at 06:39; Stop 09/28/18 at 06:41; Status DC Midazolam HCl (Versed) 2 mg STK-MED ONCE .ROUTE ; Start 09/28/18 at 06:52; Stop 09/28/18 at 06:54; Status DC Sufentanil Citrate (Sufenta) 250 mcg STK-MED ONCE .ROUTE ; Start 09/28/18 at 06: 59; Stop 09/28/18 at 07:01; Status DC Isoflurane (Isoflurane) 90 ml STK-MED ONCE IH ; Start 09/28/18 at 08:10; Stop 09/28/18 at 08:13; Status DC Ephedrine Sulfate (Akovaz) 50 mg STK-MED ONCE .ROUTE ; Start 09/28/18 at 08:40; Stop 09/28/18 at 08:42; Status DC Midazolam HCl (Versed) 2 mg STK-MED ONCE .ROUTE ; Start 09/28/18 at 08:53; Stop 09/28/18 at 08:55; Status DC Midazolam HCl (Versed) 2 mg STK-MED ONCE .ROUTE ; Start 09/28/18 at 08:53; Stop 09/28/18 at 08:55; Status DC Rocuronium Madison (Zemuron) 100 mg STK-MED ONCE .ROUTE ; Start 09/28/18 at 09:54 ; Stop 09/28/18 at 09:56; Status DC Heparin Sodium (Porcine) (Heparin Sodium) 10,000 unit STK-MED ONCE .ROUTE ; Start 09/28/18 at 10:30; Stop 09/28/18 at 10:32; Status DC Protamine Sulfate (Protamine) 50 mg STK-MED ONCE IV ; Start 09/28/18 at 10:39; Stop 09/28/18 at 10:41; Status DC Protamine Sulfate (Protamine) 250 mg STK-MED ONCE IV ; Start 09/28/18 at 10:39; Stop 09/28/18 at 10:42; Status DC Cefazolin Sodium (Ancef) 1 gm STK-MED ONCE .ROUTE ; Start 09/28/18 at 12:48; Stop 09/28/18 at 12:50; Status DC Amiodarone HCl 150 mg/Dextrose 103 ml @ 618 mls/hr 1X ONCE IV ; Start 09/28/18 at 14:30; Stop 09/28/18 at 14:39; Status DC Heparin Sodium (Porcine) (Heparin Sodium) 10,000 unit STK-MED ONCE .ROUTE ; Start 09/28/18 at 13:36; Stop 09/28/18 at 13:38; Status DC Lidocaine HCl (Lidocaine Pf 2% Vial) 5 ml STK-MED ONCE .ROUTE ; Start 09/28/18 at 13:36; Stop 09/28/18 at 13:38; Status DC Amiodarone HCl 900 mg/Dextrose 518 ml @ 33 mls/hr CONT PRN IV SEE I/O RECORD; Start 09/28/18 at 14:30; Stop 09/30/18 at 10:14; Status DC Magnesium Sulfate 5 gm STK-MED ONCE .ROUTE ; Start 09/28/18 at 13:36; Stop at 13:38; Status DC Heparin Sodium (Porcine) 30,000 unit STK-MED ONCE .ROUTE ; Start 09/28/18 at 13: 36; Stop 09/28/18 at 13:38; Status DC Mannitol (Mannitol) 12.5 g STK-MED ONCE .ROUTE ; Start 09/28/18 at 13:36; Stop at 13:38; Status DC Albumin Human 100 ml @ As Directed STK-MED ONCE IV ; Start 09/28/18 at 13:36; Stop 09/28/18 at 13:38; Status DC Calcium Chloride (Calcium Chloride) 1,000 mg STK-MED ONCE .ROUTE ; Start at 13:36; Stop 09/28/18 at 13:38; Status DC Albumin Human 500 ml @ As Directed STK-MED ONCE IV ; Start 09/28/18 at 13:36; Stop 09/28/18 at 13:38; Status DC Nicardipine HCl 50 mg/Sodium Chloride 250 ml @ 25 mls/hr CONT PRN IV SEE I/O RECORD; Start 09/28/18 at 14:30; Stop 09/29/18 at 11:23; Status DC Protamine Sulfate (Protamine) 50 mg STK-MED ONCE IV ; Start 09/28/18 at 14:03; Stop 09/28/18 at 14:05; Status DC Sodium Chloride (Normal Saline Flush) 3 ml PRN Q12HR PRN IV AFTER MEDS AND BLOOD DRAWS; Start 09/28/18 at 15:00 Ringer's Solution 1,000 ml @ 30 mls/hr Q24H IV Last administered on 09/28/18at 15:30; Start 09/28/18 at 14:48; Stop 09/30/18 at 10:14; Status DC Albumin Human 250 ml @ 500 mls/hr PRN Q4HRS PRN IV SEE COMMENTS Last administered on 09/28/18at 17:07; Start 09/28/18 at 15:00; Stop 09/30/18 at 10:14; Status DC Insulin Human Regular 150 unit/ Sodium Chloride 151.5 ml @ 0 mls/hr CONT PRN PRN IV PER PROTOCOL Last administered on 09/28/18at 20:05; Start 09/28/18 at 15:00 ; Stop 09/30/18 at 10:14; Status DC Dextrose (Dextrose 50%-Water Syringe) 25 gm PRN Q15MIN PRN IV LOW BLOOD SUGAR; Start 09/28/18 at 15:00; Stop 09/30/18 at 10:14; Status DC Nitroglycerin/ Dextrose 250 ml @ 0 mls/hr CONT PRN PRN IV POST CV SURGERY; Start 09/28/18 at 15:00; Stop 09/29/18 at 11:23; Status DC Phenylephrine HCl 20 mg/Sodium Chloride 252 ml @ 0 mls/hr CONT PRN PRN IV HYPOTENSION Last administered on 09/28/18at 15:31; Start 09/28/18 at 15:00; Stop at 10:14; Status DC Amiodarone HCl 150 mg/Dextrose 103 ml @ 600 mls/hr 1X ONCE IV ; Start 09/28/18 at 15:00; Stop 09/28/18 at 15:05; Status DC Amiodarone HCl 150 mg/Dextrose 103 ml @ 200 mls/hr 1X PRN PRN IV FOR AFIB; Start 09/28/18 at 15:00; Stop 09/30/18 at 10:14; Status DC Amiodarone HCl 900 mg/Dextrose 518 ml @ 0 mls/hr CONT PRN PRN IV AFIB; Start at 15:00; Stop 09/28/18 at 15:06; Status DC Info (KCl Per Protocol) 1 ea CONT PRN PRN MC SEE COMMENTS; Start 09/28/18 at 15: 00; Stop 09/30/18 at 11:47; Status DC Magnesium Sulfate/ Dextrose 100 ml @ 100 mls/hr PRN DAILY PRN IV FOR MAG < 2.2 ; Start 09/28/18 at 15:00; Stop 09/30/18 at 11:47; Status DC Famotidine (Pepcid Vial) 20 mg BID IVP Last administered on 09/29/18at 09:58; Start 09/28/18 at 21:00; Stop 09/29/18 at 15:14; Status DC Ondansetron HCl (Zofran) 4 mg PRN Q4HRS PRN IV NAUSEA/VOMITING, 1st CHOICE Last administered on 09/29/18at 00:45; Start 09/28/18 at 15:00 Prochlorperazine Edisylate (Compazine) 10 mg PRN Q6HRS PRN IV NAUSEA/VOMITING, 2nd CHOICE; Start 09/28/18 at 15:00 Metoclopramide HCl (Reglan Vial) 10 mg PRN Q6HRS PRN IV NAUSEA/VOMITING, 3rd CHOICE; Start 09/28/18 at 15:00; Stop 09/30/18 at 11:47; Status DC Morphine Sulfate (Morphine Sulfate) 2 mg PRN Q1HR PRN IV MODERATE PAIN; Start 09/28/18 at 15:00; Stop 09/30/18 at 10:14; Status DC Morphine Sulfate (Morphine Sulfate) 4 mg PRN Q1HR PRN IV SEVERE PAIN Last administered on 09/29/18at 23:49; Start 09/28/18 at 15:00; Stop 09/30/18 at 10:14; Status DC Acetaminophen (Tylenol) 650 mg PRN Q4HRS PRN PO TEMP > 101'F or MILD PAIN; Start 09/28/18 at 15:00; Stop 09/29/18 at 15:14; Status DC Acetaminophen (Tylenol Supp) 650 mg PRN Q4HRS PRN OH TEMP > 101'F or MILD PAIN ; Start 09/28/18 at 15:00; Stop 09/29/18 at 15:14; Status DC Meperidine HCl (Demerol) 12.5 mg PRN Q15MIN PRN IV SHIVERING; Start 09/28/18 at 15:00; Stop 09/29/18 at 11:23; Status DC Propofol 100 ml @ 0 mls/hr CONT PRN PRN IV POSTOP SEDATION UNTIL EXTUBATE Last administered on 09/28/18at 15:59; Start 09/28/18 at 15:00; Stop 09/29/18 at 11:23; Status DC Senna/Docusate Sodium (Senna Plus) 1 tab BID PO Last administered on 10/02/18at 08:48; Start 09/28/18 at 21:00 Bisacodyl (Dulcolax Supp) 10 mg PRN DAILY PRN OH NO BOWEL MOVEMENT; Start at 15:00 Chlorhexidine Gluconate (Peridex) 15 ml BID MM ; Start 09/29/18 at 09:00; Stop at 19:06; Status DC Aspirin (Ecotrin) 325 mg DAILYWBKFT PO Last administered on 10/02/18at 08:48; Start 09/29/18 at 08:00 Aspirin (Aspirin) 300 mg PRN DAILY PRN OH IF UNABLE TO TAKE PO; Start 09/29/18 at 08:00 Albuterol Sulfate (Ventolin Neb Soln) 2.5 mg PRN Q4HRS PRN NEB SHORTNESS OF BREATH; Start 09/28/18 at 15:00; Stop 09/29/18 at 15:14; Status DC Metoprolol Tartrate (Lopressor) 25 mg BID PO Last administered on 10/02/18at 08: 49; Start 09/29/18 at 09:00 Nicardipine HCl 50 mg/Sodium Chloride 250 ml @ 0 mls/hr CONT PRN PRN IV PER PROTOCOL; Start 09/28/18 at 15:00; Stop 09/28/18 at 15:10; Status DC Oxycodone HCl (Roxicodone) 5 mg PRN Q4HRS PRN PO MILD TO MODERATE PAIN Last administered on 09/30/18at 21:14; Start 09/28/18 at 15:00 Oxycodone HCl (Roxicodone) 10 mg PRN Q4HRS PRN PO SEVERE PAIN Last administered on 09/30/18at 14:21; Start 09/28/18 at 15:00 Cefazolin Sodium/ Dextrose 50 ml @ 100 mls/hr Q8H IV Last administered on 09/30 06:32; Start 09/28/18 at 23:00; Stop 09/30/18 at 07:29; Status DC Sodium Bicarbonate (Sodium Bicarb Adult 8.4% Syr) 50 meq 1X ONCE IV Last administered on 09/28/18 16:59; Start 09/28/18 at 17:00; Stop 09/28/18 at 17:01; Status DC Throat Lozenges (Cepacol Sore Throat Lozenge) 1 dede PRN Q2HRS PRN PO SORE THROAT; Start 09/29/18 at 13:00 Famotidine (Pepcid) 20 mg BID PO Last administered on 10/02/18 08:47; Start at 21:00 Magnesium Sulfate/ Dextrose 100 ml @ 100 mls/hr ONCE ONCE IV Last administered on 09/30/18at 09:44; Start 09/30/18 at 08:30; Stop 09/30/18 at 09:29 ; Status DC Magnesium Sulfate/ Dextrose 100 ml @ 25 mls/hr 1X ONCE IV Last administered on 09/30/18at 10:23; Start 09/30/18 at 11:00; Stop 09/30/18 at 14:59; Status DC Amiodarone HCl 150 mg/Dextrose 103 ml @ 618 mls/hr 1X ONCE IV Last administered on 09/30/18at 18:51; Start 09/30/18 at 18:45; Stop 09/30/18 at 18:54 ; Status DC Amiodarone HCl 900 mg/Dextrose 518 ml @ 0 mls/hr CONT PRN IV SEE I/O RECORD Last administered on 09/30/18at 18:52; Start 09/30/18 at 18:45; Stop 10/02/18 at 14:01; Status DC Amiodarone HCl (Cordarone) 200 mg BID PO Last administered on 10/01/18at 20:43; Start 10/01/18 at 21:00; Stop 10/02/18 at 07:40; Status DC Amiodarone HCl (Cordarone) 200 mg 1X ONCE PO Last administered on 10/01/18at 15 :21; Start 10/01/18 at 14:30; Stop 10/02/18 at 07:40; Status DC Amiodarone HCl (Cordarone) 200 mg BID PO ; Start 10/02/18 at 09:00; Stop at 09:00; Status DC Amiodarone HCl (Cordarone) 400 mg BID PO Last administered on 10/02/18at 08:48; Start 10/02/18 at 09:00 Active Scripts Active Reported Amlodipine-Benazepril 5-20 Mg (Amlodipine Besylate/Benazepril) 1 Each Capsule 1 Cap PO DAILY Vitals/I & O Vital Sign - Last 24 Hours 10/01/18 10/01/18 10/01/18 10/01/18 19:00 20:00 20:43 20:43 Temp 98.2 98.2 Pulse 81 78 78 Resp 20 B/P (MAP) 129/77 (94) 129/80 129/80 Pulse Ox 93 O2 Delivery Room Air Room Air 10/01/18 10/02/18 10/02/18 10/02/18 23:00 03:00 07:00 08:00 Temp 98.2 98.2 98.2 98.2 98.2 98.2 Pulse 80 86 82 Resp 16 16 16 B/P (MAP) 126/87 (100) 149/96 (113) 131/80 (97) Pulse Ox 93 95 95 O2 Delivery Room Air Room Air Room Air Room Air 10/02/18 10/02/18 10/02/18 10/02/18 08:48 08:49 08:49 11:00 Temp 98.3 98.3 Pulse 86 86 86 80 Resp 16 B/P (MAP) 131/80 131/80 131/80 132/90 (104) Pulse Ox 95 O2 Delivery Room Air 10/02/18 15:00 Temp 98.2 98.2 Pulse 81 Resp 16 B/P (MAP) 135/86 (102) Pulse Ox 95 O2 Delivery Room Air Intake and Output 10/01/18 10/01/18 10/02/18 15:00 23:00 07:00 Intake Total 630 ml 400 ml 600 ml Output Total 350 ml 850 ml 900 ml Balance 280 ml -450 ml -300 ml MIK SIMMONS MD Oct 02, 2018 18:40
[2018-10-02 19:59] VITALS: BP 142/93
[2018-10-02] MEDS: ATORVASTATIN CALCIUM 40 MG TABLET. PO SCH (21:50)
[2018-10-02] MEDS: oxyCODONE IR 5 MG TABLET PO PRN (21:59)
[2018-10-02 23:37] VITALS: BP 131/91
[2018-10-03 03:46] VITALS: BP 129/87
[2018-10-03 05:49] LABS: ALBUMIN 2.5 g/dL (3.4-5.0); ALBUMIN/GLOBULIN RATIO 0.7 (1.0-1.7); CALCIUM 8.8 mg/dL (8.5-10.1); CREATININE 1.2 mg/dL (0.7-1.3); GFR 62.2; POTASSIUM 3.8 mmol/L (3.5-5.1); TOTAL PROTEIN 6.1 g/dL (6.4-8.2)
[2018-10-03 05:55] LABS: BASO # 0.2 x10^3/uL (0.0-0.2); BASO % 2 % (0-3); EOS # 0.3 x10^3/uL (0.0-0.7); EOS % 5 % (0-3); HEMATOCRIT 30.5 % (39.0-53.0); HEMOGLOBIN 10.4 g/dL (13.0-17.5); LYMPH # 1.4 x10^3/uL (1.0-4.8); LYMPH % 19 % (24-48); MEAN CORPUSCULAR HEMOGLOBIN 33 pg (25-35); MEAN CORPUSCULAR HGB CONC 34 g/dL (31-37); MEAN CORPUSCULAR VOLUME 97 fL (79-100); MONO % 13 % (0-9); NEUT # 4.6 x10^3uL (1.8-7.7); NEUT % 61 % (31-73); PLATELET COUNT 247 x10^3/uL (140-400); RED BLOOD COUNT 3.15 x10^6/uL (4.30-5.70); RED CELL DISTRIBUTION WIDTH 12.3 % (11.5-14.5); WHITE BLOOD COUNT 7.5 x10^3/uL (4.0-11.0)
[2018-10-03 07:15] VITALS: BP 148/93
[2018-10-03] MEDS: SENNOSIDES/DOCUSATE 8.6/50MG TABLET. PO SCH (09:52)
[2018-10-03] MEDS: FAMOTIDINE 20 MG TABLET. PO SCH (09:52)
[2018-10-03] MEDS: METOPROLOL TART IMMED RELEASE 25 MG TABLET. PO SCH (09:52)
[2018-10-03] MEDS: VITAMIN B12,B9,B6 COMPLEX 1 TABLET. PO SCH (09:52)
[2018-10-03] MEDS: ASPIRIN ENTERIC COATED 325 MG TABLET.DR. PO SCH (09:52)
[2018-10-03] MEDS: amLODIPine BESYLATE 5 MG TABLET PO SCH (09:52)
[2018-10-03] MEDS: AMIODARONE HCL 200 MG TABLET. PO SCH (09:53)
[2018-10-03 11:15] VITALS: BP 135/93
--- NOTE | 2018-10-03 13:44 | PDOC ---
PROGRESS NOTES Chief Complaint Chief Complaint CAD s/p CABG NSTEMI Afib HTN HLD ETOH abuse Tobacco abuse History of Present Illness History of Present Illness Patient was seen and examined in his room. POD 5 s/p 4-vessel CABG. alert, oriented, cooperative and in good spirits. pain is under control. no complaints. tolerating PO amiodarone. plan to discharge today. Vitals Vitals Vital Signs Date Time Temp Pulse Resp B/P (MAP) Pulse Ox O2 Delivery O2 Flow Rate FiO2 10/03/18 11:15 98.2 75 18 135/93 (107) 96 Room Air 98.2 Physical Exam General: mild distress Heart: Regular rate Lungs: Clear, Other (no rhonchi) Abdomen: Normal bowel sounds Extremities: No clubbing, No cyanosis, Other (right hand cellulitis) Skin: No rashes, No breakdown Labs LABS Laboratory Tests Test 10/03/18 04:05 White Blood Count 7.5 x10^3/uL (4.0-11.0) Red Blood Count 3.15 x10^6/uL (4.30-5.70) Hemoglobin 10.4 g/dL (13.0-17.5) Hematocrit 30.5 % (39.0-53.0) Mean Corpuscular Volume 97 fL (79-100) Mean Corpuscular Hemoglobin 33 pg (25-35) Mean Corpuscular Hemoglobin Concent 34 g/dL (31-37) Red Cell Distribution Width 12.3 % (11.5-14.5) Platelet Count 247 x10^3/uL (140-400) Neutrophils (%) (Auto) 61 % (31-73) Lymphocytes (%) (Auto) 19 % (24-48) Monocytes (%) (Auto) 13 % (0-9) Eosinophils (%) (Auto) 5 % (0-3) Basophils (%) (Auto) 2 % (0-3) Neutrophils # (Auto) 4.6 x10^3uL (1.8-7.7) Lymphocytes # (Auto) 1.4 x10^3/uL (1.0-4.8) Monocytes # (Auto) 1.0 x10^3/uL (0.0-1.1) Eosinophils # (Auto) 0.3 x10^3/uL (0.0-0.7) Basophils # (Auto) 0.2 x10^3/uL (0.0-0.2) Sodium Level 140 mmol/L (136-145) Potassium Level 3.8 mmol/L (3.5-5.1) Chloride Level 105 mmol/L (98-107) Carbon Dioxide Level 26 mmol/L (21-32) Anion Gap 9 (6-14) Blood Urea Nitrogen 12 mg/dL (8-26) Creatinine 1.2 mg/dL (0.7-1.3) Estimated GFR (Cockcroft-Gault) 62.2 BUN/Creatinine Ratio 10 (6-20) Glucose Level 89 mg/dL (70-99) Calcium Level 8.8 mg/dL (8.5-10.1) Total Bilirubin 1.0 mg/dL (0.2-1.0) Aspartate Amino Transf (AST/SGOT) 44 U/L (15-37) Alanine Aminotransferase (ALT/SGPT) 75 U/L (16-63) Alkaline Phosphatase 170 U/L (46-116) Total Protein 6.1 g/dL (6.4-8.2) Albumin 2.5 g/dL (3.4-5.0) Albumin/Globulin Ratio 0.7 (1.0-1.7) Review of Systems Review of Systems GENERAL: no fever, no chills. CARDIAC: no murmur, no arrhythmia, no chest pain RESPIRATORY: no shortness of breath, no wheezing, no [id number]. Assessment and Plan Assessmemt and Plan Assessment 1. CAD s/p CABG (POD 5) 2. NSTEMI 3. Afib 4. HTN 5. HLD 6. ETOH abuse 7. Tobacco abuse Plan 1. dc today with home meds 2. PO amiodarone - 400 mg po b.i.d. for 2 weeks, followed by 200 mg po b.i.d for A-Fib prophylaxis 3. lipitor 40 mg daily 4. ASA 325 mg daily 5. amlodipine 5 mg 6. metoprolol 50 mg b.i.d. 7. stool softener OTC prn 8. pain control with loratab 9. keflex for right hand cellulitis 10. multivitamin Comment Review of Relevant I have reviewed the following items vicky (where applicable) has been applied. Labs Laboratory Tests Test 10/02/18 06:15 10/03/18 04:05 White Blood Count 7.8 x10^3/uL (4.0-11.0) 7.5 x10^3/uL (4.0-11.0) Red Blood Count 2.99 x10^6/uL (4.30-5.70) 3.15 x10^6/uL (4.30-5.70) Hemoglobin 9.9 g/dL (13.0-17.5) 10.4 g/dL (13.0-17.5) Hematocrit 28.6 % (39.0-53.0) 30.5 % (39.0-53.0) Mean Corpuscular Volume 96 fL (79-100) 97 fL (79-100) Mean Corpuscular Hemoglobin 33 pg (25-35) 33 pg (25-35) Mean Corpuscular Hemoglobin Concent 35 g/dL (31-37) 34 g/dL (31-37) Red Cell Distribution Width 12.4 % (11.5-14.5) 12.3 % (11.5-14.5) Platelet Count 198 x10^3/uL (140-400) 247 x10^3/uL (140-400) Neutrophils (%) (Auto) 71 % (31-73) 61 % (31-73) Lymphocytes (%) (Auto) 15 % (24-48) 19 % (24-48) Monocytes (%) (Auto) 11 % (0-9) 13 % (0-9) Eosinophils (%) (Auto) 3 % (0-3) 5 % (0-3) Basophils (%) (Auto) 1 % (0-3) 2 % (0-3) Neutrophils # (Auto) 5.5 x10^3uL (1.8-7.7) 4.6 x10^3uL (1.8-7.7) Lymphocytes # (Auto) 1.2 x10^3/uL (1.0-4.8) 1.4 x10^3/uL (1.0-4.8) Monocytes # (Auto) 0.8 x10^3/uL (0.0-1.1) 1.0 x10^3/uL (0.0-1.1) Eosinophils # (Auto) 0.2 x10^3/uL (0.0-0.7) 0.3 x10^3/uL (0.0-0.7) Basophils # (Auto) 0.1 x10^3/uL (0.0-0.2) 0.2 x10^3/uL (0.0-0.2) Sodium Level 139 mmol/L (136-145) 140 mmol/L (136-145) Potassium Level 3.7 mmol/L (3.5-5.1) 3.8 mmol/L (3.5-5.1) Chloride Level 103 mmol/L (98-107) 105 mmol/L (98-107) Carbon Dioxide Level 27 mmol/L (21-32) 26 mmol/L (21-32) Anion Gap 9 (6-14) 9 (6-14) Blood Urea Nitrogen 13 mg/dL (8-26) 12 mg/dL (8-26) Creatinine 1.1 mg/dL (0.7-1.3) 1.2 mg/dL (0.7-1.3) Estimated GFR (Cockcroft-Gault) 68.8 62.2 BUN/Creatinine Ratio 12 (6-20) 10 (6-20) Glucose Level 102 mg/dL (70-99) 89 mg/dL (70-99) Calcium Level 8.3 mg/dL (8.5-10.1) 8.8 mg/dL (8.5-10.1) Total Bilirubin 0.9 mg/dL (0.2-1.0) 1.0 mg/dL (0.2-1.0) Aspartate Amino Transf (AST/SGOT) 34 U/L (15-37) 44 U/L (15-37) Alanine Aminotransferase (ALT/SGPT) 51 U/L (16-63) 75 U/L (16-63) Alkaline Phosphatase 125 U/L (46-116) 170 U/L (46-116) Total Protein 5.9 g/dL (6.4-8.2) 6.1 g/dL (6.4-8.2) Albumin 2.6 g/dL (3.4-5.0) 2.5 g/dL (3.4-5.0) Albumin/Globulin Ratio 0.8 (1.0-1.7) 0.7 (1.0-1.7) Laboratory Tests Test 10/03/18 04:05 White Blood Count 7.5 x10^3/uL (4.0-11.0) Red Blood Count 3.15 x10^6/uL (4.30-5.70) Hemoglobin 10.4 g/dL (13.0-17.5) Hematocrit 30.5 % (39.0-53.0) Mean Corpuscular Volume 97 fL (79-100) Mean Corpuscular Hemoglobin 33 pg (25-35) Mean Corpuscular Hemoglobin Concent 34 g/dL (31-37) Red Cell Distribution Width 12.3 % (11.5-14.5) Platelet Count 247 x10^3/uL (140-400) Neutrophils (%) (Auto) 61 % (31-73) Lymphocytes (%) (Auto) 19 % (24-48) Monocytes (%) (Auto) 13 % (0-9) Eosinophils (%) (Auto) 5 % (0-3) Basophils (%) (Auto) 2 % (0-3) Neutrophils # (Auto) 4.6 x10^3uL (1.8-7.7) Lymphocytes # (Auto) 1.4 x10^3/uL (1.0-4.8) Monocytes # (Auto) 1.0 x10^3/uL (0.0-1.1) Eosinophils # (Auto) 0.3 x10^3/uL (0.0-0.7) Basophils # (Auto) 0.2 x10^3/uL (0.0-0.2) Sodium Level 140 mmol/L (136-145) Potassium Level 3.8 mmol/L (3.5-5.1) Chloride Level 105 mmol/L (98-107) Carbon Dioxide Level 26 mmol/L (21-32) Anion Gap 9 (6-14) Blood Urea Nitrogen 12 mg/dL (8-26) Creatinine 1.2 mg/dL (0.7-1.3) Estimated GFR (Cockcroft-Gault) 62.2 BUN/Creatinine Ratio 10 (6-20) Glucose Level 89 mg/dL (70-99) Calcium Level 8.8 mg/dL (8.5-10.1) Total Bilirubin 1.0 mg/dL (0.2-1.0) Aspartate Amino Transf (AST/SGOT) 44 U/L (15-37) Alanine Aminotransferase (ALT/SGPT) 75 U/L (16-63) Alkaline Phosphatase 170 U/L (46-116) Total Protein 6.1 g/dL (6.4-8.2) Albumin 2.5 g/dL (3.4-5.0) Albumin/Globulin Ratio 0.7 (1.0-1.7) Medications Current Medications Aspirin ([employer] Aspirin) 325 mg 1X ONCE PO Last administered on 09/26/18at 03:49 ; Start 09/26/18 at 04:00; Stop 09/26/18 at 04:01; Status DC Sodium Chloride 1,000 ml @ 1,000 mls/hr 1X ONCE IV Last administered on at 03:48; Start 09/26/18 at 04:00; Stop 09/26/18 at 04:59; Status DC Lorazepam (Ativan) 0.5 mg 1X ONCE IV Last administered on 09/26/18at 03:49; Start 09/26/18 at 04:00; Stop 09/26/18 at 04:01; Status DC Ondansetron HCl (Zofran) 4 mg PRN Q8HRS PRN IV NAUSEA/VOMITING 1ST CHOICE; Start 09/26/18 at 04:00; Stop 09/27/18 at 03:59; Status DC Fentanyl Citrate (Fentanyl 2ml Vial) 50 mcg PRN Q2HR PRN IV SEVERE PAIN, UNREL BY MORPHINE; Start 09/26/18 at 04:00; Stop 09/29/18 at 11:23; Status DC Fentanyl Citrate (Fentanyl 2ml Vial) 50 mcg 1X ONCE IV ; Start 09/26/18 at 04:30 ; Stop 09/26/18 at 04:30; Status DC Nitroglycerin (Nitro-Bid Oint) 0.5 inch 1X ONCE TP Last administered on at 04:37; Start 09/26/18 at 04:30; Stop 09/26/18 at 04:31; Status DC Heparin Sodium/ Dextrose 500 ml @ 0 mls/hr CONT PRN IV SEE I/O RECORD Last administered on 09/26/18at 04:41; Start 09/26/18 at 04:15; Stop 09/26/18 at 12:31; Status DC Heparin Sodium (Porcine) (Heparin Sodium) 2,400 unit PRN Q6HRS PRN IV FOR UFH LEVEL LESS THAN 0.2; Start 09/26/18 at 04:15; Stop 09/26/18 at 13:53; Status DC Heparin Sodium (Porcine) (Heparin Sodium) 4,000 unit 1X ONCE IV Last administered on 09/26/18at 04:40; Start 09/26/18 at 04:30; Stop 09/26/18 at 04:31; Status DC Info (Anti-Coagulation Monitoring By Pharmacy) 1 each PRN DAILY PRN MC SEE COMMENTS Last administered on 09/26/18at 09:32; Start 09/26/18 at 04:30; Stop at 12:32; Status DC Iohexol (Omnipaque 350 Mg/ml) 60 ml 1X ONCE IV Last administered on 09/26/18at 05:26; Start 09/26/18 at 05:30; Stop 09/26/18 at 05:31; Status DC Info (CONTRAST GIVEN -- Rx MONITORING) 1 each PRN DAILY PRN MC SEE COMMENTS; Start 09/26/18 at 05:15; Stop 09/26/18 at 10:56; Status DC Multivitamins 10 ml/Thiamine HCl 100 mg/Folic Acid 1 mg/Sodium Chloride 1,011.2 ml @ 100 mls/ hr 1X ONCE IV Last administered on 09/26/18at 10:40; Start at 10:00; Stop 09/26/18 at 20:06; Status DC Atorvastatin Calcium (Lipitor) 40 mg QHS PO Last administered on 10/02/18at 21: 50; Start 09/26/18 at 21:00 Iodixanol (Visipaque 320) 100 ml STK-MED ONCE .ROUTE ; Start 09/26/18 at 09:58; Stop 09/26/18 at 10:01; Status DC Lidocaine HCl (Lidocaine 1% 20ml Vial) 20 ml STK-MED ONCE .ROUTE ; Start at 09:58; Stop 09/26/18 at 10:01; Status DC Heparin Sodium/ Sodium Chloride 1,000 ml @ As Directed STK-MED ONCE .ROUTE ; Start 09/26/18 at 09:59; Stop 09/26/18 at 10:01; Status DC Fentanyl Citrate (Fentanyl 2ml Vial) 100 mcg STK-MED ONCE .ROUTE ; Start at 10:14; Stop 09/26/18 at 10:16; Status DC Midazolam HCl (Versed) 5 mg STK-MED ONCE .ROUTE ; Start 09/26/18 at 10:14; Stop 09/26/18 at 10:16; Status DC Iohexol (Omnipaque 300 Mg/ml) 100 ml STK-MED ONCE .ROUTE ; Start 09/26/18 at 10: 17; Stop 09/26/18 at 10:19; Status DC Heparin Sodium/ Sodium Chloride (HEPARIN for ARTERIAL LINE FLUSH) 1,000 unit 1X ONCE IART Last administered on 09/26/18at 11:37; Start 09/26/18 at 11:00; Stop 09/26/18 at 11:01; Status DC Midazolam HCl (Versed) 5 mg 1X ONCE IV Last administered on 09/26/18at 11:38; Start 09/26/18 at 11:00; Stop 09/26/18 at 11:01; Status DC Fentanyl Citrate (Fentanyl 2ml Vial) 100 mcg 1X ONCE IV Last administered on at 11:38; Start 09/26/18 at 11:00; Stop 09/26/18 at 11:01; Status DC Iodixanol (Visipaque 320) 100 ml 1X ONCE IART Last administered on 09/26/18at 11 :37; Start 09/26/18 at 11:00; Stop 09/26/18 at 11:01; Status DC Lidocaine HCl (Lidocaine 1% 20ml Vial) 20 ml 1X ONCE INJ Last administered on 09/26/18at 11:37; Start 09/26/18 at 11:00; Stop 09/26/18 at 11:01; Status DC Info (CONTRAST GIVEN -- Rx MONITORING) 1 each PRN DAILY PRN MC SEE COMMENTS; Start 09/26/18 at 11:00; Stop 09/28/18 at 10:59; Status DC Sodium Chloride (Normal Saline Flush) 3 ml QSHIFT PRN IV AFTER MEDS AND BLOOD DRAWS; Start 09/26/18 at 11:45; Stop 09/29/18 at 07:30; Status DC Sodium Chloride 1,000 ml @ 75 mls/hr [id number] IV ; Start 09/26/18 at 11:33; Stop 09/26/18 at 17:32; Status DC Nitroglycerin (Nitrostat) 0.4 mg PRN Q5MIN PRN SL CHEST PAIN; Start 09/26/18 at 11:45 Aspirin (Ecotrin) 81 mg [id number] PO Last administered on 09/27/18 09:39; Start 09/27/18 at 08:00; Stop 09/28/18 at 15:04; Status DC Metoprolol Tartrate (Lopressor) 25 mg BID PO Last administered on 09/27/18at 20: 57; Start 09/26/18 at 21:00; Stop 09/28/18 at 15:09; Status DC Heparin Sodium/ Dextrose 500 ml @ 0 mls/hr CONT PRN IV SEE I/O RECORD Last administered on 09/28/18at 08:19; Start 09/26/18 at 17:00; Stop 09/27/18 at 23:59; Status DC Heparin Sodium (Porcine) (Heparin Sodium) 2,500 unit PRN Q6HRS PRN IV FOR UFH LEVEL LESS THAN 0.2 Last administered on 09/26/18at 23:58; Start 09/26/18 at 17:00 ; Stop 09/27/18 at 23:59; Status DC Info (Anti-Coagulation Monitoring By Pharmacy) 1 each PRN DAILY PRN MC SEE COMMENTS; Start 09/26/18 at 17:15; Stop 09/29/18 at 08:21; Status DC Lorazepam (Ativan) 2 mg PRN Q4HRS PRN PO ANXIETY / AGITATION Last administered on 10/01/18at 20:42; Start 09/26/18 at 17:15 Vitamin B Complex (Folbic Tablet) 1 tab DAILY PO Last administered on 09:52; Start 09/26/18 at 18:00 Amlodipine Besylate (Norvasc) 5 mg DAILY PO Last administered on 10/03/18 09: 52; Start 09/27/18 at 13:00 Potassium Chloride 70 meq/ Sodium Bicarbonate 12.5 meq/Lidocaine HCl 24 ml/ Parenteral Electrolytes 571.5 ml @ 571.5 mls/ hr 1X ONCE IRR Last administered on 09/28/18at 06:00; Start 09/28/18 at 06:00; Stop 09/28/18 at 06:59; Status DC Potassium Chloride 15 meq/ Sodium Bicarbonate 12.5 meq/Parenteral Electrolytes 520 ml @ 520 mls/hr 1X ONCE IRR Last administered on 09/28/18at 06:00; Start at 06:00; Stop 09/28/18 at 06:59; Status DC Heparin Sodium (Porcine) 49847 unit/Ringer's Solution 1,020 ml @ 1,020 mls/hr 1X ONCE IRR Last administered on 09/28/18at 06:00; Start 09/28/18 at 06:00; Stop 09/28/18 at 06:59; Status DC Cefazolin Sodium 1 gm/Sodium Chloride 500 ml @ 500 mls/hr 1X ONCE IRR Last administered on 09/28/18at 08:19; Start 09/28/18 at 06:00; Stop 09/28/18 at 06:59; Status DC Heparin Sodium (Porcine) 800 unit/ Nitroglycerin 4 mg/Verapamil HCl 8 mg/Sodium Bicarbonate 0.34 meq/Ringer's Solution 512.34 ml @ 512.34 mls/hr 1X ONCE IRR Last administered on 09/28/18at 08:20; Start 09/28/18 at 06:00; Stop 09/28/18 at 06: 59; Status DC Ondansetron HCl (Zofran) 4 mg PRN Q6HRS PRN IV NAUSEA/VOMITING; Start 09/28/18 at 07:00; Stop 09/29/18 at 06:59; Status DC Fentanyl Citrate (Fentanyl 2ml Vial) 25 mcg PRN Q5MIN PRN IV MILD PAIN; Start 09/28/18 at 07:00; Stop 09/29/18 at 06:59; Status DC Fentanyl Citrate (Fentanyl 2ml Vial) 50 mcg PRN Q5MIN PRN IV MODERATE TO SEVERE PAIN; Start 09/28/18 at 07:00; Stop 09/29/18 at 06:59; Status DC Morphine Sulfate (Morphine Sulfate) 1 mg PRN Q10MIN PRN IV SEVERE PAIN Last administered on 09/28/18at 16:59; Start 09/28/18 at 07:00; Stop 09/29/18 at 06:59; Status DC Ringer's Solution 1,000 ml @ 30 mls/hr Q24H IV Last administered on 09/28/18at 07:00; Start 09/28/18 at 07:00; Stop 09/28/18 at 18:59; Status DC Lidocaine HCl (Xylocaine-Mpf 1% 2ml Vial) 2 ml PRN 1X PRN ID PRIOR TO IV START ; Start 09/28/18 at 07:00; Stop 09/29/18 at 06:59; Status DC Hydromorphone HCl (Dilaudid) 0.5 mg PRN Q10MIN PRN IV SEV PAIN, Second choice; Start 09/28/18 at 07:00; Stop 09/29/18 at 06:59; Status DC Prochlorperazine Edisylate (Compazine) 5 mg PACU PRN PRN IV NAUSEA, MRX1; Start 09/28/18 at 07:00; Stop 09/29/18 at 06:59; Status DC Cefazolin Sodium/ Dextrose 50 ml @ 100 mls/hr 1X ONCE IV Last administered on 09/28/18at 08:39; Start 09/28/18 at 06:00; Stop 09/28/18 at 06:29; Status DC Phenylephrine HCl (Aayush-Synephrine Inj) 10 mg STK-MED ONCE .ROUTE ; Start at 06:24; Stop 09/28/18 at 06:26; Status DC Etomidate (Amidate) 20 mg STK-MED ONCE IV ; Start 09/28/18 at 06:24; Stop at 06:26; Status DC Aminocaproic Acid (Amicar) 5,000 mg STK-MED ONCE IV ; Start 09/28/18 at 06:24; Stop 09/28/18 at 06:26; Status DC Nitroglycerin/ Dextrose 250 ml @ As Directed STK-MED ONCE IV ; Start 09/28/18 at 06:24; Stop 09/28/18 at 06:26; Status DC Rocuronium [place] (Zemuron) 100 mg STK-MED ONCE .ROUTE ; Start 09/28/18 at 06:24 ; Stop 09/28/18 at 06:27; Status DC Vancomycin HCl (VANCO for OR ONLY) 10 gm STK-MED ONCE .ROUTE Last administered on 09/28/18at 08:18; Start 09/28/18 at 06:37; Stop 09/28/18 at 06:39; Status DC Cellulose (Surgicel Hemostat 4x8) 1 each STK-MED ONCE .ROUTE Last administered on 09/28/18 08:18; Start 09/28/18 at 06:37; Stop 09/28/18 at 06:39; Status DC Papaverine HCl 60 mg STK-MED ONCE .ROUTE Last administered on 09/28/18 08:17; Start 09/28/18 at 06:37; Stop 09/28/18 at 06:39; Status DC Aspirin (Aspirin) 300 mg STK-MED ONCE .ROUTE Last administered on 09/28/18 08: 17; Start 09/28/18 at 06:37; Stop 09/28/18 at 06:39; Status DC Sodium Chloride (SODIUM CHLORIDE 20ml) 20 ml STK-MED ONCE IJ Last administered on 09/28/18at 08:16; Start 09/28/18 at 06:37; Stop 09/28/18 at 06:39; Status DC Sodium Chloride (SODIUM CHLORIDE 20ml) 20 ml STK-MED ONCE IJ Last administered on 09/28/18 08:16; Start 09/28/18 at 06:37; Stop 09/28/18 at 06:39; Status DC Sodium Chloride (SODIUM CHLORIDE 20ml) 20 ml STK-MED ONCE IJ Last administered on 09/28/18 08:17; Start 09/28/18 at 06:38; Stop 09/28/18 at 06:40; Status DC Heparin Sodium (Porcine) 30,000 unit STK-MED ONCE .ROUTE ; Start 09/28/18 at 06: 38; Stop 09/28/18 at 06:41; Status DC Nitroglycerin/ Dextrose 250 ml @ As Directed STK-MED ONCE IV ; Start 09/28/18 at 06:39; Stop 09/28/18 at 06:41; Status DC Midazolam HCl (Versed) 2 mg STK-MED ONCE .ROUTE ; Start 09/28/18 at 06:52; Stop 09/28/18 at 06:54; Status DC Sufentanil Citrate (Sufenta) 250 mcg STK-MED ONCE .ROUTE ; Start 09/28/18 at 06: 59; Stop 2/8/19 at 07:01; Status DC Isoflurane (Isoflurane) 90 ml STK-MED ONCE IH ; Start 09/28/18 at 08:10; Stop 09/28/18 at 08:13; Status DC Ephedrine Sulfate (Akovaz) 50 mg STK-MED ONCE .ROUTE ; Start 09/28/18 at 08:40; Stop 09/28/18 at 08:42; Status DC Midazolam HCl (Versed) 2 mg STK-MED ONCE .ROUTE ; Start 09/28/18 at 08:53; Stop 09/28/18 at 08:55; Status DC Midazolam HCl (Versed) 2 mg STK-MED ONCE .ROUTE ; Start 09/28/18 at 08:53; Stop 09/28/18 at 08:55; Status DC Rocuronium [place] (Zemuron) 100 mg STK-MED ONCE .ROUTE ; Start 09/28/18 at 09:54 ; Stop 09/28/18 at 09:56; Status DC Heparin Sodium (Porcine) (Heparin Sodium) 10,000 unit STK-MED ONCE .ROUTE ; Start 09/28/18 at 10:30; Stop 09/28/18 at 10:32; Status DC Protamine Sulfate (Protamine) 50 mg STK-MED ONCE IV ; Start 09/28/18 at 10:39; Stop 09/28/18 at 10:41; Status DC Protamine Sulfate (Protamine) 250 mg STK-MED ONCE IV ; Start 09/28/18 at 10:39; Stop 09/28/18 at 10:42; Status DC Cefazolin Sodium (Ancef) 1 gm STK-MED ONCE .ROUTE ; Start 09/28/18 at 12:48; Stop 09/28/18 at 12:50; Status DC Amiodarone HCl 150 mg/Dextrose 103 ml @ 618 mls/hr 1X ONCE IV ; Start 09/28/18 at 14:30; Stop 09/28/18 at 14:39; Status DC Heparin Sodium (Porcine) (Heparin Sodium) 10,000 unit STK-MED ONCE .ROUTE ; Start 09/28/18 at 13:36; Stop 09/28/18 at 13:38; Status DC Lidocaine HCl (Lidocaine Pf 2% Vial) 5 ml STK-MED ONCE .ROUTE ; Start 09/28/18 at 13:36; Stop 09/28/18 at 13:38; Status DC Amiodarone HCl 900 mg/Dextrose 518 ml @ 33 mls/hr CONT PRN IV SEE I/O RECORD; Start 09/28/18 at 14:30; Stop 09/30/18 at 10:14; Status DC Magnesium Sulfate 5 gm STK-MED ONCE .ROUTE ; Start 09/28/18 at 13:36; Stop at 13:38; Status DC Heparin Sodium (Porcine) 30,000 unit STK-MED ONCE .ROUTE ; Start 09/28/18 at 13: 36; Stop 09/28/18 at 13:38; Status DC Mannitol (Mannitol) 12.5 g STK-MED ONCE .ROUTE ; Start 09/28/18 at 13:36; Stop at 13:38; Status DC Albumin Human 100 ml @ As Directed STK-MED ONCE IV ; Start 09/28/18 at 13:36; Stop 09/28/18 at 13:38; Status DC Calcium Chloride (Calcium Chloride) 1,000 mg STK-MED ONCE .ROUTE ; Start at 13:36; Stop 09/28/18 at 13:38; Status DC Albumin Human 500 ml @ As Directed STK-MED ONCE IV ; Start 09/28/18 at 13:36; Stop 09/28/18 at 13:38; Status DC Nicardipine HCl 50 mg/Sodium Chloride 250 ml @ 25 mls/hr CONT PRN IV SEE I/O RECORD; Start 09/28/18 at 14:30; Stop 09/29/18 at 11:23; Status DC Protamine Sulfate (Protamine) 50 mg STK-MED ONCE IV ; Start 09/28/18 at 14:03; Stop 09/28/18 at 14:05; Status DC Sodium Chloride (Normal Saline Flush) 3 ml PRN Q12HR PRN IV AFTER MEDS AND BLOOD DRAWS; Start 09/28/18 at 15:00 Ringer's Solution 1,000 ml @ 30 mls/hr Q24H IV Last administered on 09/28/18at 15:30; Start 09/28/18 at 14:48; Stop 09/30/18 at 10:14; Status DC Albumin Human 250 ml @ 500 mls/hr PRN Q4HRS PRN IV SEE COMMENTS Last administered on 09/28/18at 17:07; Start 09/28/18 at 15:00; Stop 09/30/18 at 10:14; Status DC Insulin Human Regular 150 unit/ Sodium Chloride 151.5 ml @ 0 mls/hr CONT PRN PRN IV PER PROTOCOL Last administered on 09/28/18at 20:05; Start 09/28/18 at 15:00 ; Stop 09/30/18 at 10:14; Status DC Dextrose (Dextrose 50%-Water Syringe) 25 gm PRN Q15MIN PRN IV LOW BLOOD SUGAR; Start 09/28/18 at 15:00; Stop 09/30/18 at 10:14; Status DC Nitroglycerin/ Dextrose 250 ml @ 0 mls/hr CONT PRN PRN IV POST CV SURGERY; Start 09/28/18 at 15:00; Stop 09/29/18 at 11:23; Status DC Phenylephrine HCl 20 mg/Sodium Chloride 252 ml @ 0 mls/hr CONT PRN PRN IV HYPOTENSION Last administered on 09/28/18at 15:31; Start 09/28/18 at 15:00; Stop at 10:14; Status DC Amiodarone HCl 150 mg/Dextrose 103 ml @ 600 mls/hr 1X ONCE IV ; Start 09/28/18 at 15:00; Stop 09/28/18 at 15:05; Status DC Amiodarone HCl 150 mg/Dextrose 103 ml @ 200 mls/hr 1X PRN PRN IV FOR AFIB; Start 09/28/18 at 15:00; Stop 09/30/18 at 10:14; Status DC Amiodarone HCl 900 mg/Dextrose 518 ml @ 0 mls/hr CONT PRN PRN IV AFIB; Start at 15:00; Stop 09/28/18 at 15:06; Status DC Info (KCl Per Protocol) 1 ea CONT PRN PRN MC SEE COMMENTS; Start 09/28/18 at 15: 00; Stop 09/30/18 at 11:47; Status DC Magnesium Sulfate/ Dextrose 100 ml @ 100 mls/hr PRN DAILY PRN IV FOR MAG < 2.2 ; Start 09/28/18 at 15:00; Stop 09/30/18 at 11:47; Status DC Famotidine (Pepcid Vial) 20 mg BID IVP Last administered on 09/29/18at 09:58; Start 09/28/18 at 21:00; Stop 09/29/18 at 15:14; Status DC Ondansetron HCl (Zofran) 4 mg PRN Q4HRS PRN IV NAUSEA/VOMITING, 1st CHOICE Last administered on 09/29/18at 00:45; Start 09/28/18 at 15:00 Prochlorperazine Edisylate (Compazine) 10 mg PRN Q6HRS PRN IV NAUSEA/VOMITING, 2nd CHOICE; Start 09/28/18 at 15:00 Metoclopramide HCl (Reglan Vial) 10 mg PRN Q6HRS PRN IV NAUSEA/VOMITING, 3rd CHOICE; Start 09/28/18 at 15:00; Stop 09/30/18 at 11:47; Status DC Morphine Sulfate (Morphine Sulfate) 2 mg PRN Q1HR PRN IV MODERATE PAIN; Start 09/28/18 at 15:00; Stop 09/30/18 at 10:14; Status DC Morphine Sulfate (Morphine Sulfate) 4 mg PRN Q1HR PRN IV SEVERE PAIN Last administered on 09/29/18at 23:49; Start 09/28/18 at 15:00; Stop 09/30/18 at 10:14; Status DC Acetaminophen (Tylenol) 650 mg PRN Q4HRS PRN PO TEMP > 101'F or MILD PAIN; Start 09/28/18 at 15:00; Stop 09/29/18 at 15:14; Status DC Acetaminophen (Tylenol Supp) 650 mg PRN Q4HRS PRN MO TEMP > 101'F or MILD PAIN ; Start 09/28/18 at 15:00; Stop 09/29/18 at 15:14; Status DC Meperidine HCl (Demerol) 12.5 mg PRN Q15MIN PRN IV SHIVERING; Start 09/28/18 at 15:00; Stop 09/29/18 at 11:23; Status DC Propofol 100 ml @ 0 mls/hr CONT PRN PRN IV POSTOP SEDATION UNTIL EXTUBATE Last administered on 09/28/18at 15:59; Start 09/28/18 at 15:00; Stop 09/29/18 at 11:23; Status DC Senna/Docusate Sodium (Senna Plus) 1 tab BID PO Last administered on 10/03/18 09:52; Start 09/28/18 at 21:00 Bisacodyl (Dulcolax Supp) 10 mg PRN DAILY PRN MO NO BOWEL MOVEMENT; Start at 15:00 Chlorhexidine Gluconate (Peridex) 15 ml BID MM ; Start 09/29/18 at 09:00; Stop at 19:06; Status DC Aspirin (Ecotrin) 325 mg DAILYWBKFT PO Last administered on 10/03/18at 09:52; Start 09/29/18 at 08:00 Aspirin (Aspirin) 300 mg PRN DAILY PRN MO IF UNABLE TO TAKE PO; Start 09/29/18 at 08:00 Albuterol Sulfate (Ventolin Neb Soln) 2.5 mg PRN Q4HRS PRN NEB SHORTNESS OF BREATH; Start 09/28/18 at 15:00; Stop 09/29/18 at 15:14; Status DC Metoprolol Tartrate (Lopressor) 25 mg BID PO Last administered on 10/03/18at 09: 52; Start 09/29/18 at 09:00 Nicardipine HCl 50 mg/Sodium Chloride 250 ml @ 0 mls/hr CONT PRN PRN IV PER PROTOCOL; Start 09/28/18 at 15:00; Stop 09/28/18 at 15:10; Status DC Oxycodone HCl (Roxicodone) 5 mg PRN Q4HRS PRN PO MILD TO MODERATE PAIN Last administered on 10/02/18at 21:59; Start 09/28/18 at 15:00 Oxycodone HCl (Roxicodone) 10 mg PRN Q4HRS PRN PO SEVERE PAIN Last administered on 09/30/18at 14:21; Start 09/28/18 at 15:00 Cefazolin Sodium/ Dextrose 50 ml @ 100 mls/hr Q8H IV Last administered on 09/30at 06:32; Start 09/28/18 at 23:00; Stop 09/30/18 at 07:29; Status DC Sodium Bicarbonate (Sodium Bicarb Adult 8.4% Syr) 50 meq 1X ONCE IV Last administered on 09/28/18at 16:59; Start 09/28/18 at 17:00; Stop 09/28/18 at 17:01; Status DC Throat Lozenges (Cepacol Sore Throat Lozenge) 1 dede PRN Q2HRS PRN PO SORE THROAT; Start 09/29/18 at 13:00 Famotidine (Pepcid) 20 mg BID PO Last administered on 10/03/18at 09:52; Start at 21:00 Magnesium Sulfate/ Dextrose 100 ml @ 100 mls/hr ONCE ONCE IV Last administered on 09/30/18at 09:44; Start 09/30/18 at 08:30; Stop 09/30/18 at 09:29 ; Status DC Magnesium Sulfate/ Dextrose 100 ml @ 25 mls/hr 1X ONCE IV Last administered on 09/30/18at 10:23; Start 09/30/18 at 11:00; Stop 09/30/18 at 14:59; Status DC Amiodarone HCl 150 mg/Dextrose 103 ml @ 618 mls/hr 1X ONCE IV Last administered on 09/30/18at 18:51; Start 09/30/18 at 18:45; Stop 09/30/18 at 18:54 ; Status DC Amiodarone HCl 900 mg/Dextrose 518 ml @ 0 mls/hr CONT PRN IV SEE I/O RECORD Last administered on 09/30/18at 18:52; Start 09/30/18 at 18:45; Stop 10/02/18 at 14:01; Status DC Amiodarone HCl (Cordarone) 200 mg BID PO Last administered on 10/01/18at 20:43; Start 10/01/18 at 21:00; Stop 10/02/18 at 07:40; Status DC Amiodarone HCl (Cordarone) 200 mg 1X ONCE PO Last administered on 10/01/18at 15 :21; Start 10/01/18 at 14:30; Stop 10/02/18 at 07:40; Status DC Amiodarone HCl (Cordarone) 200 mg BID PO ; Start 10/02/18 at 09:00; Stop at 09:00; Status DC Amiodarone HCl (Cordarone) 400 mg BID PO Last administered on 10/03/18at 09:53; Start 10/02/18 at 09:00 Active Scripts Active Reported Amlodipine-Benazepril 5-20 Mg (Amlodipine Besylate/Benazepril) 1 Each Capsule 1 Cap PO DAILY Vitals/I & O Vital Sign - Last 24 Hours 10/02/18 10/02/18 10/02/18 10/02/18 15:00 19:59 20:29 21:51 Temp 98.2 98.1 98.2 98.1 Pulse 81 87 87 Resp 16 16 B/P (MAP) 135/86 (102) 142/93 (109) 142/93 Pulse Ox 95 95 O2 Delivery Room Air Room Air Room Air 10/02/18 10/02/18 10/02/18 10/02/18 21:52 21:59 22:59 23:37 Temp 98.4 98.4 Pulse 87 75 Resp 16 B/P (MAP) 142/93 131/91 (104) Pulse Ox 95 O2 Delivery Room Air Room Air Room Air 10/03/18 10/03/18 10/03/18 10/03/18 03:46 07:15 08:00 09:52 Temp 98.1 97.9 98.1 97.9 Pulse 72 76 76 Resp 16 18 B/P (MAP) 129/87 (101) 148/93 (111) 148/93 Pulse Ox 95 95 O2 Delivery Room Air Room Air Room Air 10/03/18 10/03/18 10/03/18 09:52 09:53 11:15 Temp 98.2 98.2 Pulse 76 76 75 Resp 18 B/P (MAP) 148/93 148/93 135/93 (107) Pulse Ox 96 O2 Delivery Room Air Intake and Output 10/02/18 10/02/18 10/03/18 15:00 23:00 07:00 Intake Total 240 ml 1400 ml Output Total 500 ml 1275 ml 2000 ml Balance -260 ml 125 ml -2000 ml ABEL CARTER III DO Oct 03, 2018 13:44
--- NOTE | 2018-10-03 14:00 | PDOC ---
CARDIO Progress Notes Date and Time Date of Service 10/03/2018 Time of Evaluation 1340 Subjective Subjective: No Chest Pain, No shortness of breath, No Palpitations Vitals Vitals Vital Signs Date Time Temp Pulse Resp B/P (MAP) Pulse Ox O2 Delivery O2 Flow Rate FiO2 10/03/18 11:15 98.2 75 18 135/93 (107) 96 Room Air 98.2 Weight Weight [ ] Input and Output Intake and Output Intake and Output 10/03/18 07:00 Intake Total 1640 ml Output Total 3775 ml Balance -2135 ml Intake Oral 1640 ml Output Urine Total 3775 ml # Voids 1 Laboratory Labs Laboratory Tests Test 10/03/18 04:05 White Blood Count 7.5 x10^3/uL (4.0-11.0) Red Blood Count 3.15 x10^6/uL (4.30-5.70) Hemoglobin 10.4 g/dL (13.0-17.5) Hematocrit 30.5 % (39.0-53.0) Mean Corpuscular Volume 97 fL (79-100) Mean Corpuscular Hemoglobin 33 pg (25-35) Mean Corpuscular Hemoglobin Concent 34 g/dL (31-37) Red Cell Distribution Width 12.3 % (11.5-14.5) Platelet Count 247 x10^3/uL (140-400) Neutrophils (%) (Auto) 61 % (31-73) Lymphocytes (%) (Auto) 19 % (24-48) Monocytes (%) (Auto) 13 % (0-9) Eosinophils (%) (Auto) 5 % (0-3) Basophils (%) (Auto) 2 % (0-3) Neutrophils # (Auto) 4.6 x10^3uL (1.8-7.7) Lymphocytes # (Auto) 1.4 x10^3/uL (1.0-4.8) Monocytes # (Auto) 1.0 x10^3/uL (0.0-1.1) Eosinophils # (Auto) 0.3 x10^3/uL (0.0-0.7) Basophils # (Auto) 0.2 x10^3/uL (0.0-0.2) Sodium Level 140 mmol/L (136-145) Potassium Level 3.8 mmol/L (3.5-5.1) Chloride Level 105 mmol/L (98-107) Carbon Dioxide Level 26 mmol/L (21-32) Anion Gap 9 (6-14) Blood Urea Nitrogen 12 mg/dL (8-26) Creatinine 1.2 mg/dL (0.7-1.3) Estimated GFR (Cockcroft-Gault) 62.2 BUN/Creatinine Ratio 10 (6-20) Glucose Level 89 mg/dL (70-99) Calcium Level 8.8 mg/dL (8.5-10.1) Total Bilirubin 1.0 mg/dL (0.2-1.0) Aspartate Amino Transf (AST/SGOT) 44 U/L (15-37) Alanine Aminotransferase (ALT/SGPT) 75 U/L (16-63) Alkaline Phosphatase 170 U/L (46-116) Total Protein 6.1 g/dL (6.4-8.2) Albumin 2.5 g/dL (3.4-5.0) Albumin/Globulin Ratio 0.7 (1.0-1.7) Physical Exam HEENT: Neck Supple W Full Motion Chest: Symmetric LUNGS: Clear to Auscultation Heart: S1S2, RRR (SR no ectopies) Abdomen: Soft N/T Extremities: No Calf Tenderness, Other (1+ LLE ) Neurology: alert, oriented, follow commands Other Exams surgical incisions to left thigh, LFA and mid chest are well approximated dry without swelling Assessment Assessment 1, CAD: s/p CABG x 4 (COLLINS to LAD, radial to OM, SVG to RPDA, SVG to diagonal) POD#5. EF 50%. doing well. 2. HTN: controlled 3. HLP 4. Heavy alcoholism 5. PAFIB: ischemic induced preop, none further post op. 6. Post op anemia: stable Hgb Recommendations 1. Continue metoprolol. ASA. lipitor and amiodarone. Will start on low dose ACEi per BP trend if ok with CTS. 2. Smoking cessation. Decrease ETOH consumption significantly. 3. Follow up in 4 week. Encouraged cardiac rehab. KRYSTIN PENNINGTON APRN Oct 03, 2018 14:00
--- NOTE | 2018-10-03 14:53 | PDOC ---
Progress Note Subjective Subjective Doing very well. Normotensive, SR. On room air. Right hand iv infiltrated ROS ROS No nausea No vomiting No pain No rash Vital Sign Vital Signs Vital Signs Date Time Temp Pulse Resp B/P (MAP) Pulse Ox O2 Delivery O2 Flow Rate FiO2 10/03/18 11:15 98.2 75 18 135/93 (107) 96 Room Air 98.2 Labs Lab Laboratory Tests Test 10/03/18 04:05 White Blood Count 7.5 x10^3/uL (4.0-11.0) Red Blood Count 3.15 x10^6/uL (4.30-5.70) Hemoglobin 10.4 g/dL (13.0-17.5) Hematocrit 30.5 % (39.0-53.0) Mean Corpuscular Volume 97 fL (79-100) Mean Corpuscular Hemoglobin 33 pg (25-35) Mean Corpuscular Hemoglobin Concent 34 g/dL (31-37) Red Cell Distribution Width 12.3 % (11.5-14.5) Platelet Count 247 x10^3/uL (140-400) Neutrophils (%) (Auto) 61 % (31-73) Lymphocytes (%) (Auto) 19 % (24-48) Monocytes (%) (Auto) 13 % (0-9) Eosinophils (%) (Auto) 5 % (0-3) Basophils (%) (Auto) 2 % (0-3) Neutrophils # (Auto) 4.6 x10^3uL (1.8-7.7) Lymphocytes # (Auto) 1.4 x10^3/uL (1.0-4.8) Monocytes # (Auto) 1.0 x10^3/uL (0.0-1.1) Eosinophils # (Auto) 0.3 x10^3/uL (0.0-0.7) Basophils # (Auto) 0.2 x10^3/uL (0.0-0.2) Sodium Level 140 mmol/L (136-145) Potassium Level 3.8 mmol/L (3.5-5.1) Chloride Level 105 mmol/L (98-107) Carbon Dioxide Level 26 mmol/L (21-32) Anion Gap 9 (6-14) Blood Urea Nitrogen 12 mg/dL (8-26) Creatinine 1.2 mg/dL (0.7-1.3) Estimated GFR (Cockcroft-Gault) 62.2 BUN/Creatinine Ratio 10 (6-20) Glucose Level 89 mg/dL (70-99) Calcium Level 8.8 mg/dL (8.5-10.1) Total Bilirubin 1.0 mg/dL (0.2-1.0) Aspartate Amino Transf (AST/SGOT) 44 U/L (15-37) Alanine Aminotransferase (ALT/SGPT) 75 U/L (16-63) Alkaline Phosphatase 170 U/L (46-116) Total Protein 6.1 g/dL (6.4-8.2) Albumin 2.5 g/dL (3.4-5.0) Albumin/Globulin Ratio 0.7 (1.0-1.7) Objective Assessment POD#5 s/p CABG x 4 (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 Normotensive, SR. On room air. Right hand iv infiltrated Plan Plan of Care D/c home F/u with md October 19 Amiodarone 400mg po BID for 1 week, the daily for 3 weeks Keflex and cold compressors for iv hand infiltration SERENA HILL MD Oct 03, 2018 14:53
[2018-10-03] MEDS ORDERED: AMIO200T4 PO ×2 (14:58)
[2018-10-03] MEDS ORDERED: AMLO5TAB4 PO (14:59)
[2018-10-03] MEDS ORDERED: HYDR-2761 PO (14:59)
[2018-10-03] MEDS ORDERED: ATOR40TA PO (14:59)
[2018-10-03] MEDS ORDERED: METO50TA6 PO (15:00)
[2018-10-03] MEDS ORDERED: CEPH-264 PO (15:00)
[2018-10-03] MEDS ORDERED: ASPI325T8 PO (15:00)
[2018-10-03] MEDS ORDERED: SENN-80 PO (15:01)
--- NOTE | 2018-10-03 16:02 | NUR ---
Discharge Note: MARTINE BOWDEN Discharge instructions and discharge home medications reviewed with Patient and a copy given. All questions have been answered and understanding verbalized. Cardiac Rehab referral sent.
--- NOTE | 2018-10-03 17:59 | DS ---
DATE OF DISCHARGE: 10/03/2018 ADMISSION DIAGNOSES: Non-ST elevated acute myocardial infarction, hypertension, hyperlipidemia, alcohol abuse, tobacco abuse. DISCHARGE DIAGNOSES: Postop day #5, 4-vessel coronary bypass surgery. CONSULTS: 1. Redd Ojeda MD. 2. Tahmina Lynch MD. PROCEDURES: Bypass surgery. HOSPITAL COURSE: The patient is a pleasant middle-aged male, who presented with chest pain. He was admitted with a myocardial infarction, troponin maxed out at 2.7. He was taken to the medical laboratory technician, was discovered he had multivessel disease. We called Dr. Lynch. He was taken for bypass surgery. Today, he was seen and examined. He is postop day #5 bypass. He looks good. I discussed the case with the nurse as well, they fill out prescriptions. We plan to discharge with close outpatient followup. DISPOSITION: Home. ACTIVITY: As tolerated. DIET: Low sodium. MEDICATIONS: Please see the MRAD. TOTAL TIME: 39 minutes. ABEL CARTER DO DR: ISRAEL/myranda JOB#: [id number] / [id number]
== END 2018-10-03 15:25 | disposition home or self-care (01) | DRG 234 ==
LOC: ER 03:10 → 2 SOUTH 03:55 → 1 WEST ICU 09-28 09:54 → 2 NORTH 10-02 11:39
PROVIDERS: ADMIT Internal Medicine; ATTEND Internal Medicine
PROC: 4A023N7 Measurement of Cardiac Sampling and Pressure, Left Heart, Percutaneous Approach (ICD-10-PCS; principal; 2018-09-26)
PROC: B2111ZZ Fluoroscopy of Multiple Coronary Arteries using Low Osmolar Contrast (ICD-10-PCS; 2018-09-26)
PROC: B2151ZZ Fluoroscopy of Left Heart using Low Osmolar Contrast (ICD-10-PCS; 2018-09-26)
PROC: B3101ZZ Fluoroscopy of Thoracic Aorta using Low Osmolar Contrast (ICD-10-PCS; 2018-09-26)
PROC: 02100AW Bypass Coronary Artery, One Artery from Aorta with Autologous Arterial Tissue, Open Approach (ICD-10-PCS; 2018-09-28)
PROC: 021109W Bypass Coronary Artery, Two Arteries from Aorta with Autologous Venous Tissue, Open Approach (ICD-10-PCS; 2018-09-28)
PROC: 02100Z9 Bypass Coronary Artery, One Artery from Left Internal Mammary, Open Approach (ICD-10-PCS; 2018-09-28)
PROC: 06BQ4ZZ Excision of Left Saphenous Vein, Percutaneous Endoscopic Approach (ICD-10-PCS; 2018-09-28)
PROC: 03BC0ZZ Excision of Left Radial Artery, Open Approach (ICD-10-PCS; 2018-09-28)
PROC: 5A1221Z Performance of Cardiac Output, Continuous (ICD-10-PCS; 2018-09-28)
DX: I21.4 Non-ST elevation (NSTEMI) myocardial infarction (principal); I25.10 Atherosclerotic heart disease of native coronary artery without angina pectoris; F10.20 Alcohol dependence, uncomplicated; I10 Essential (primary) hypertension; E78.00 Pure hypercholesterolemia, unspecified; F17.210 Nicotine dependence, cigarettes, uncomplicated; M19.90 Unspecified osteoarthritis, unspecified site; E78.5 Hyperlipidemia, unspecified; I48.0 Paroxysmal atrial fibrillation; D64.9 Anemia, unspecified; E83.42 Hypomagnesemia; Z90.49 Acquired absence of other specified parts of digestive tract; Z83.3 Family history of diabetes mellitus; Z82.41 Family history of sudden cardiac death; Z82.49 Family history of ischemic heart disease and other diseases of the circulatory system; Z71.6 Tobacco abuse counseling
CPT/HCPCS: 36415; 36600; 71045; 71275; 80048; 80053; 80061; 80307; 81001; 82553; 82803; 82805; 82962; 83690; 83735; 83880; 84132; 84443; 84484; 85025; 85027; 85347; 85379; 85384; 85520; 85610; 85730; 86850; 86900; 86901; 86920; 93005; 93306; 93458; 93567; 93880; 93970; 94002; 96361; 96374; 96375; 99152; 99153; C1760; C1769; C1781; C1892; G0480; J0282; J0690; J0696; J1644; J1815; J2001; J2060; J2150; J2250; J2270; J2405; J2440; J2704; J3010; J3370; J3475; J3480; J3490; J7030; J7040; J7050; J7120; P9016; P9041; P9045; P9046; Q9967; 97116; 97535; 99285-25; C1771; G0378

== ENCOUNTER 2018-10-15 14:08 | Inpatient (IN) | payer OTHER ==
[~2018-10-15] VITALS: Ht 185.4 cm; Wt 100.4 kg
[~2018-10-15 14:08] MED LIST: AMIO200T4 PO; AMLO1CAP10 PO; AMLO5TAB4 PO; ASPI325T8 PO; ATOR40TA PO; CEPH-264 PO; HYDR-2761 PO; METO50TA6 PO; SENN-80 PO
[2018-10-15 15:34] LABS: BASO # 0.1 x10^3/uL (0.0-0.2); BASO % 1 % (0-3); EOS # 0.3 x10^3/uL (0.0-0.7); EOS % 3 % (0-3); HEMATOCRIT 35.5 % (39.0-53.0); HEMOGLOBIN 11.9 g/dL (13.0-17.5); LYMPH # 1.8 x10^3/uL (1.0-4.8); LYMPH % 19 % (24-48); MEAN CORPUSCULAR HEMOGLOBIN 31 pg (25-35); MEAN CORPUSCULAR HGB CONC 34 g/dL (31-37); MEAN CORPUSCULAR VOLUME 93 fL (79-100); MONO # 0.6 x10^3/uL (0.0-1.1); MONO % 7 % (0-9); NEUT # 6.7 x10^3uL (1.8-7.7); NEUT % 70 % (31-73); PLATELET COUNT 534 x10^3/uL (140-400); RED BLOOD COUNT 3.81 x10^6/uL (4.30-5.70); RED CELL DISTRIBUTION WIDTH 13.2 % (11.5-14.5); WHITE BLOOD COUNT 9.6 x10^3/uL (4.0-11.0)
--- NOTE | 2018-10-15 15:38 | RAD ---
CT HEAD INDICATION: dizziness, left side blurry vision today COMPARISON: None Available. Exposure: One or more of the following individualized dose reduction techniques were utilized for this examination: 1. Automated exposure control 2. Adjustment of the mA and/or kV according to patient size 3. Use of iterative reconstruction technique TECHNIQUE: 5 mm contiguous axial images were obtained from the skull base to the vertex FINDINGS: Moderate bilateral periventricular white matter hypodensities likely chronic small vessel ischemic disease. No evidence of acute intracranial hemorrhage. No extra-axial fluid collections. No mass effect or midline shift. Ventricular size is appropriate. Basal cisterns are patent. No fractures identified.Zavala-white differentiation is preserved.Globes and orbits are within normal limits. Paranasal sinuses and mastoid air cells are clear. IMPRESSION: No acute intracranial findings. Electronically signed by: Baljit Nascimento MD (10/15/2018 3:35 PM) [id number]
--- NOTE | 2018-10-15 15:43 | PHYS DOC ---
Past Medical History Past Medical History: CAD, High Cholesterol, Hypertension Past Surgical History: Appendectomy, Coronary Bypass Surgery, Tonsillectomy Alcohol Use: Heavy Drug Use: None Adult General Chief Complaint Chief Complaint: DIZZY/LIGHT HEADED HPI HPI Patient is a 57 year old MALE who presents to ER today for evaluation of dizziness, left-sided blurry vision. Symptoms started at about 8 a.m. this morning when he woke up. Patient recently had a NSTEMI, HAD bypass. He denies any headache, no slurred speech. Patient denies any focal weakness or numbness anywhere. Patient denies any trouble breathing. Dizziness gets worse when he sat up or moving his head around. Patient has some pain at the sternum area where he has his recent bypass surgery. He denies any fever, no cough. Patient denies any trouble breathing. Review of Systems Review of Systems Constitutional: Denies fever or chills [] Eyes: Denies change in visual acuity, redness, or eye pain [] HENT: Denies nasal congestion or sore throat [] Respiratory: Denies cough or shortness of breath [] Cardiovascular: No additional information not addressed in HPI [] GI: Denies abdominal pain, nausea, vomiting, bloody stools or diarrhea [] : Denies dysuria or hematuria [] Musculoskeletal: Denies back pain or joint pain [] Integument: Denies rash or skin lesions [] Neurologic: Denies headache, focal weakness. POSITIVE FOR DIZZINESS, LEFT SIDE BLURRY VISION. Endocrine: Denies polyuria or polydipsia [] All other systems were reviewed and found to be within normal limits, except as documented in this note. Allergies Allergies Allergies Coded Allergies Type Severity Reaction Last Updated Verified No Known Drug Allergies 09/26/18 No Physical Exam Physical Exam Constitutional: Well developed, well nourished, no acute distress, non-toxic appearance. [] HENT: Normocephalic, atraumatic, bilateral external ears normal, oropharynx moist, no oral exudates, nose normal. [] Eyes: PERRLA, EOMI, conjunctiva normal, no discharge. [] Neck: Normal range of motion, no tenderness, supple, no stridor. [] Cardiovascular:Heart rate regular rhythm, no murmur [] Lungs & Thorax: Bilateral breath sounds clear to auscultation [] Abdomen: Bowel sounds normal, soft, no tenderness, no masses, no pulsatile masses. [] Skin: Warm, dry, no erythema, no rash. [] Back: No tenderness, no CVA tenderness. [] Extremities: No tenderness, no cyanosis, no clubbing, ROM intact, no edema. [] Neurologic: Alert and oriented X 3, normal motor function, normal sensory function, no focal deficits noted. Psychologic: Affect normal, judgement normal, mood normal. [] Current Patient Data Vital Signs Vital Signs Date Time Temp Pulse Resp B/P (MAP) Pulse Ox O2 Delivery O2 Flow Rate FiO2 10/15/18 15:00 60 11 96 10/15/18 14:15 98.4 132/83 (99) Room Air 98.4 Lab Values Laboratory Tests Test 10/15/18 14:35 White Blood Count 9.6 x10^3/uL (4.0-11.0) Red Blood Count 3.81 x10^6/uL (4.30-5.70) L Hemoglobin 11.9 g/dL (13.0-17.5) L Hematocrit 35.5 % (39.0-53.0) L Mean Corpuscular Volume 93 fL (79-100) Mean Corpuscular Hemoglobin 31 pg (25-35) Mean Corpuscular Hemoglobin Concent 34 g/dL (31-37) Red Cell Distribution Width 13.2 % (11.5-14.5) Platelet Count 534 x10^3/uL (140-400) H Neutrophils (%) (Auto) 70 % (31-73) Lymphocytes (%) (Auto) 19 % (24-48) L Monocytes (%) (Auto) 7 % (0-9) Eosinophils (%) (Auto) 3 % (0-3) Basophils (%) (Auto) 1 % (0-3) Neutrophils # (Auto) 6.7 x10^3uL (1.8-7.7) Lymphocytes # (Auto) 1.8 x10^3/uL (1.0-4.8) Monocytes # (Auto) 0.6 x10^3/uL (0.0-1.1) Eosinophils # (Auto) 0.3 x10^3/uL (0.0-0.7) Basophils # (Auto) 0.1 x10^3/uL (0.0-0.2) Prothrombin Time 13.7 SEC (11.7-14.0) Prothrombin Time INR 1.1 (0.8-1.1) PTT 31 SEC (24-38) Sodium Level 140 mmol/L (136-145) Potassium Level 4.3 mmol/L (3.5-5.1) Chloride Level 103 mmol/L (98-107) Carbon Dioxide Level 25 mmol/L (21-32) Anion Gap 12 (6-14) Blood Urea Nitrogen 16 mg/dL (8-26) Creatinine 1.2 mg/dL (0.7-1.3) Estimated GFR (Cockcroft-Gault) 62.2 BUN/Creatinine Ratio 13 (6-20) Glucose Level 88 mg/dL (70-99) Calcium Level 9.3 mg/dL (8.5-10.1) Total Bilirubin 0.4 mg/dL (0.2-1.0) Aspartate Amino Transferase (AST) 27 U/L (15-37) Alanine Aminotransferase (ALT) 45 U/L (16-63) Alkaline Phosphatase 114 U/L (46-116) Total Protein 7.2 g/dL (6.4-8.2) Albumin 3.1 g/dL (3.4-5.0) L Albumin/Globulin Ratio 0.8 (1.0-1.7) L Laboratory Tests 10/15/18 14:35 Laboratory Tests 10/15/18 14:35 EKG EKG EKG was read by this physician at 1420, rate of 65 BPM, NO STEMI. SINUS RHYTHM[] Radiology/Procedures Radiology/Procedures [][facility] [address] [place] [address] IMAGING REPORT Signed PATIENT: ROBIN BOWDEN ACCOUNT: [id number] : 1960 LOCATION: ER AGE: 57 SEX: M EXAM STATUS: REG ER ORD. PHYSICIAN: MING MOLINA DO REASON: dizziness, left side flurry vision PROCEDURE: CT HEAD WO CONTRAST CT HEAD INDICATION: dizziness, left side blurry vision today COMPARISON: None Available. Exposure: One or more of the following individualized dose reduction techniques were utilized for this examination: 1. Automated exposure control 2. Adjustment of the mA and/or kV according to patient size 3. Use of iterative reconstruction technique TECHNIQUE: 5 mm contiguous axial images were obtained from the skull base to the vertex FINDINGS: Moderate bilateral periventricular white matter hypodensities likely chronic small vessel ischemic disease. No evidence of acute intracranial hemorrhage. No extra-axial fluid collections. No mass effect or midline shift. Ventricular size is appropriate. Basal cisterns are patent. No fractures identified.Zavala-white differentiation is preserved.Globes and orbits are within normal limits. Paranasal sinuses and mastoid air cells are clear. IMPRESSION: No acute intracranial findings. Electronically signed by: Baljit Nascimento MD (10/15/2018 3:35 PM) [facility] DICTATED and SIGNED BY: BALJIT NASCIMENTO MD DATE: 10/15/18 1529 Course & Med Decision Making Course & Med Decision Making Pertinent Labs and Imaging studies reviewed. (See chart for details) Patient HAD NIHSS OF 0, CONTINUE TO HAVE DIZZINESS WHEN HE SAT UP OR MOVING HIS HEAD AROUND, WILL ADMIT HIM FOR OBSERVATION, MAY NEED TO OBTAIN MRI BRAIN IN AM , NEUROLOGY EVALUATION. Dragon Disclaimer Dragon Disclaimer This electronic medical record was generated, in whole or in part, using a voice recognition dictation system. Departure Departure Impression: Primary Impression: Dizziness Disposition: 09 ADMITTED INPATIENT Admitting Physician: Samara Patel Condition: STABLE Referrals: SAMARA PATEL MD (PCP) MING MOLINA DO Oct 15, 2018 15:43
[2018-10-15 15:46] LABS: CALCIUM 9.3 mg/dL (8.5-10.1); CREATININE 1.2 mg/dL (0.7-1.3); GFR 62.2; POTASSIUM 4.3 mmol/L (3.5-5.1)
[2018-10-15 15:51] LABS: PROTHROMBIN TIME PATIENT 13.7 SEC (11.7-14.0)
[2018-10-15 15:53] LABS: ALBUMIN 3.1 g/dL (3.4-5.0); ALBUMIN/GLOBULIN RATIO 0.8 (1.0-1.7); TOTAL BILIRUBIN 0.4 mg/dL (0.2-1.0); TOTAL PROTEIN 7.2 g/dL (6.4-8.2)
[2018-10-15] MEDS ORDERED: ONDANSETRON PF 4 MG/2 ML VIAL. IV PRN (16:30)
[2018-10-15 18:57] VITALS: BP 146/93
[2018-10-15] MEDS ORDERED: HYDROcodone/APAP 5/325MG 1 TAB TABLET PO PRN (21:15)
[2018-10-15] MEDS ORDERED: AMIODARONE HCL 200 MG TABLET. PO SCH (22:00)
[2018-10-15] MEDS ORDERED: METOPROLOL TART IMMED RELEASE 50 MG TABLET. PO SCH (22:00)
[2018-10-15] MEDS ORDERED: ATORVASTATIN CALCIUM 40 MG TABLET. PO SCH (22:00)
[2018-10-15 22:45] VITALS: BP 115/72
[2018-10-16 02:59] VITALS: BP 118/76
[2018-10-16 07:02] VITALS: BP 109/76
[2018-10-16] MEDS ORDERED: ATORVASTATIN CALCIUM 40 MG TABLET. PO SCH ×2 (08:00→21:00)
[2018-10-16] MEDS ORDERED: SENNOSIDES 8.6 MG TABLET PO SCH (09:00)
[2018-10-16] MEDS ORDERED: ASPIRIN 325 MG TABLET PO SCH (09:00)
[2018-10-16] MEDS ORDERED: AMIODARONE HCL 200 MG TABLET. PO SCH (09:00)
[2018-10-16 09:13] VITALS: BP 131/84
[2018-10-16 09:14] VITALS: BP_SYST 143; BP_SYST 149; BP_DIAS 105; BP_DIAS 91
--- NOTE | 2018-10-16 09:18 | PDOC1 ---
History and Physical Date of Admission Date of Admission DATE: 10/15/18 Identification/Chief Complaint Chief Complaint Vision changes, dizziness Source Source: Patient History of Present Illness History of Present Illness Pt had recent CABG at the beginning of this month and is still recovering. Feels like he may have overdone it over the weekend. Monday morning woke up and around 9:30am noticed that he had a brown shadow over his left eye. This has not gone away. He has also noticed acute onset of dizziness. He does admit that he has had problems with vertigo for the past 4 years, although these feels a little different. He last saw his eye doctor in the fall. He denies weakness anywhere. Has numbness in his left thumb but this has been present since his CABG Past Medical History Cardiovascular: CAD, HTN Pulmonary: No pertinent hx CENTRAL NERVOUS SYSTEM: Other GI: Constipation Heme/Onc: No pertinent hx Hepatobiliary: No pertinent hx Psych: No pertinent hx Musculoskeletal: Osteoarthritis Rheumatologic: No pertinent hx Infectious disease: No pertinent hx ENT: No pertinent hx Renal/: No pertinent hx Endocrine: No pertinent hx Dermatology: No pertinent hx Past Surgical History Past Surgical History: Appendectomy, Tonsillectomy Family History Family History: Coronary Artery Disease Social History Smoke: No ALCOHOL: none Drugs: None Current Problem List Problem List Problems Medical Problems: (1) Dizziness Status: Acute Current Medications Current Medications Current Medications Ondansetron HCl (Zofran) 4 mg PRN Q8HRS PRN IV NAUSEA/VOMITING; Start 10/15/18 at 16:30; Stop 10/16/18 at 16:29 Amiodarone HCl (Cordarone) 400 mg BID PO Last administered on 10/15/18at 22:01; Start 10/15/18 at 22:00; Stop 10/15/18 at 22:32; Status DC Aspirin (Chito Aspirin) 325 mg DAILY PO ; Start 10/16/18 at 09:00 Atorvastatin Calcium (Lipitor) 40 mg QHS PO ; Start 10/15/18 at 22:00; Stop at 22:41; Status DC Acetaminophen/ Hydrocodone Bitart (Lortab 5/325) 1 tab PRN Q6HRS PRN PO PAIN; Start 10/15/18 at 21:15 Metoprolol Tartrate (Lopressor) 50 mg BID PO Last administered on 10/15/18at 22: 03; Start 10/15/18 at 22:00 Sennosides (Senna) 8.6 mg DAILY PO ; Start 10/16/18 at 09:00 Amiodarone HCl (Cordarone) 200 mg DAILY PO ; Start 10/16/18 at 09:00 Atorvastatin Calcium (Lipitor) 40 mg DAILY08 PO ; Start 10/16/18 at 08:00; Stop 10/16/18 at 08:01; Status DC Active Scripts Active Reported Senna (Sennosides) 8.6 Mg Tablet 8.6 Mg PO DAILY Aspirin 325 Mg Tablet 1 Tab PO DAILY Metoprolol Tartrate 50 Mg Tablet 1 Tab PO BID Hydrocodone-Apap 5-325 (Hydrocodone Bit/Acetaminophen) 1 Tab Tablet 1 Tab PO PRN Q6HRS PRN Norvasc (Amlodipine Besylate) 5 Mg Tablet 1 Tab PO DAILY Lipitor (Atorvastatin Calcium) 40 Mg Tablet 1 Tab PO QHS Amiodarone Hcl 200 Mg Tablet 1 Tab PO DAILY 21 Days Amlodipine-Benazepril 5-20 Mg (Amlodipine Besylate/Benazepril) 1 Each Capsule 1 Cap PO DAILY Allergies Allergies: Coded Allergies: No Known Drug Allergies (Unverified , 09/26/18) ROS General: No: Chills, Night Sweats PSYCHOLOGICAL ROS: No: Anxiety, Depression Eyes: Yes Blurry vision, Yes Decreased vision HEENT: No: Heacaches, Nasal congestion ALLERGY AND IMMUNOLOGY: No: Hives, Post Nasal Drip Hematological and Lymphatic: No: Bleeding Problems, Blood Clots ENDOCRINE: No: Breast Changes, Hot Flashes Respiratory: No: Cough, Pleuritic Pain, Shortness of breath Cardiovascular: yes Chest Pain; No Palpitations, No Edema Gastrointestinal: Yes Constipation; No Nausea, No Vomiting, No Abdominal Pain, No Diarrhea Genitourinary: YES Frequency, YES Retention, YES Urgency; No Dysuria Musculoskeletal: No Joint Pain, No Muscle Pain Neurological: No Impaired Coord/balance, No Numbness/Tingling Skin: No Rash, No Skin Lesion Changes Physical Exam General: Alert, Oriented X3, Cooperative, No acute distress HEENT: Atraumatic, PERRLA, EOMI, Mucous membr. moist/pink Lungs: Clear to auscultation, Normal air movement Heart: RRR, no thrills, no rubs, no gallops, no murmurs Abdomen: Normal bowel sounds, Soft, No tenderness, No hepatosplenomegaly, No masses Extremities: No clubbing, No cyanosis, No edema, Normal pulses, No tenderness/ swelling Skin: No rashes, No breakdown, No significant lesion Neuro: Normal speech, Strength at 5/5 X4 ext, Normal tone, Sensation intact Psych/Mental Status: Mental status NL, Mood NL Vitals Vitals Vital Signs Date Time Temp Pulse Resp B/P (MAP) Pulse Ox O2 Delivery O2 Flow Rate FiO2 10/16/18 07:02 97.7 60 16 109/76 (87) 96 Room Air 97.7 Labs Labs Laboratory Tests Test 10/15/18 14:35 White Blood Count 9.6 x10^3/uL (4.0-11.0) Red Blood Count 3.81 x10^6/uL (4.30-5.70) Hemoglobin 11.9 g/dL (13.0-17.5) Hematocrit 35.5 % (39.0-53.0) Mean Corpuscular Volume 93 fL (79-100) Mean Corpuscular Hemoglobin 31 pg (25-35) Mean Corpuscular Hemoglobin Concent 34 g/dL (31-37) Red Cell Distribution Width 13.2 % (11.5-14.5) Platelet Count 534 x10^3/uL (140-400) Neutrophils (%) (Auto) 70 % (31-73) Lymphocytes (%) (Auto) 19 % (24-48) Monocytes (%) (Auto) 7 % (0-9) Eosinophils (%) (Auto) 3 % (0-3) Basophils (%) (Auto) 1 % (0-3) Neutrophils # (Auto) 6.7 x10^3uL (1.8-7.7) Lymphocytes # (Auto) 1.8 x10^3/uL (1.0-4.8) Monocytes # (Auto) 0.6 x10^3/uL (0.0-1.1) Eosinophils # (Auto) 0.3 x10^3/uL (0.0-0.7) Basophils # (Auto) 0.1 x10^3/uL (0.0-0.2) Prothrombin Time 13.7 SEC (11.7-14.0) Prothromb Time International Ratio 1.1 (0.8-1.1) Activated Partial Thromboplast Time 31 SEC (24-38) Sodium Level 140 mmol/L (136-145) Potassium Level 4.3 mmol/L (3.5-5.1) Chloride Level 103 mmol/L (98-107) Carbon Dioxide Level 25 mmol/L (21-32) Anion Gap 12 (6-14) Blood Urea Nitrogen 16 mg/dL (8-26) Creatinine 1.2 mg/dL (0.7-1.3) Estimated GFR (Cockcroft-Gault) 62.2 BUN/Creatinine Ratio 13 (6-20) Glucose Level 88 mg/dL (70-99) Calcium Level 9.3 mg/dL (8.5-10.1) Total Bilirubin 0.4 mg/dL (0.2-1.0) Aspartate Amino Transf (AST/SGOT) 27 U/L (15-37) Alanine Aminotransferase (ALT/SGPT) 45 U/L (16-63) Alkaline Phosphatase 114 U/L (46-116) Total Protein 7.2 g/dL (6.4-8.2) Albumin 3.1 g/dL (3.4-5.0) Albumin/Globulin Ratio 0.8 (1.0-1.7) Laboratory Tests Test 10/15/18 14:35 White Blood Count 9.6 x10^3/uL (4.0-11.0) Red Blood Count 3.81 x10^6/uL (4.30-5.70) Hemoglobin 11.9 g/dL (13.0-17.5) Hematocrit 35.5 % (39.0-53.0) Mean Corpuscular Volume 93 fL (79-100) Mean Corpuscular Hemoglobin 31 pg (25-35) Mean Corpuscular Hemoglobin Concent 34 g/dL (31-37) Red Cell Distribution Width 13.2 % (11.5-14.5) Platelet Count 534 x10^3/uL (140-400) Neutrophils (%) (Auto) 70 % (31-73) Lymphocytes (%) (Auto) 19 % (24-48) Monocytes (%) (Auto) 7 % (0-9) Eosinophils (%) (Auto) 3 % (0-3) Basophils (%) (Auto) 1 % (0-3) Neutrophils # (Auto) 6.7 x10^3uL (1.8-7.7) Lymphocytes # (Auto) 1.8 x10^3/uL (1.0-4.8) Monocytes # (Auto) 0.6 x10^3/uL (0.0-1.1) Eosinophils # (Auto) 0.3 x10^3/uL (0.0-0.7) Basophils # (Auto) 0.1 x10^3/uL (0.0-0.2) Prothrombin Time 13.7 SEC (11.7-14.0) Prothromb Time International Ratio 1.1 (0.8-1.1) Activated Partial Thromboplast Time 31 SEC (24-38) Sodium Level 140 mmol/L (136-145) Potassium Level 4.3 mmol/L (3.5-5.1) Chloride Level 103 mmol/L (98-107) Carbon Dioxide Level 25 mmol/L (21-32) Anion Gap 12 (6-14) Blood Urea Nitrogen 16 mg/dL (8-26) Creatinine 1.2 mg/dL (0.7-1.3) Estimated GFR (Cockcroft-Gault) 62.2 BUN/Creatinine Ratio 13 (6-20) Glucose Level 88 mg/dL (70-99) Calcium Level 9.3 mg/dL (8.5-10.1) Total Bilirubin 0.4 mg/dL (0.2-1.0) Aspartate Amino Transf (AST/SGOT) 27 U/L (15-37) Alanine Aminotransferase (ALT/SGPT) 45 U/L (16-63) Alkaline Phosphatase 114 U/L (46-116) Total Protein 7.2 g/dL (6.4-8.2) Albumin 3.1 g/dL (3.4-5.0) Albumin/Globulin Ratio 0.8 (1.0-1.7) VTE Prophylaxis Ordered VTE Prophylaxis Devices: No VTE Pharmacological Prophylaxi: No Assessment/Plan Assessment/Plan Pt is a 57yo CM admitted for vision changes and dizziness 1)Vision changes/dizziness- CT Head WNL. Will get Brain MRI. Neurology consulted. If workup normal, pt will follow up with his eye doctor 2)Recent CABG- Cardiology consulted 3)HTN- pt's BP more on the low side. Will change pt's Metoprolol back to 25mg BID. Will hold pt's amlodipine 5mg for now 4)HLD- will resume pt's Atorvastatin 5)Urinary issues- will get U/A 6)Anemia- mild 7)Thrombocytosis 8)PEM- mild FABIO THIBODEAUX MD Oct 16, 2018 09:18
[2018-10-16] MEDS ORDERED: METOPROLOL TART IMMED RELEASE 25 MG TABLET. PO SCH (10:00)
--- NOTE | 2018-10-16 10:48 | PDOC2 ---
CARDIAC CONSULT DATE OF CONSULT Date of Consult DATE: 10/16/18 TIME: 10:43 REASON FOR CONSULT Reason for Consult: Recent NSTEMI, CABG REFERRING PHYSICIAN Referring Physician: Ata SOURCE Source: Chart review, Patient HISTORY OF PRESENT ILLNESS HISTORY OF PRESENT ILLNESS This is a 57 yo male admitted for complains of left visual blurrriness and dizziness/vertigo. Symptoms started 0930 yesterday Vertigo rather than dizziness precipitated by left eye being blurry with brownish splotchy vision No unilateral weakness, slurred speech, and no dysarthria or tinnitus. I ambulated him and better no dizziness when left eye closed. no other symptoms. No CP nor SOA. cardiac hansen he has been doing well and has been complaint with his medications. PAST MEDICAL HISTORY Past Medical History Cardiovascular: HTN, HLP, CAD, lone afib induced by ischemia preop CABG, none post op Pulmonary: No pertinent hx CENTRAL NERVOUS SYSTEM: Other (No pertinent history) GI: No pertinent hx Heme/Onc: No pertinent hx Hepatobiliary: No pertinent hx Psych: No pertinent hx Musculoskeletal: Osteoarthritis Rheumatologic: No pertinent hx Infectious disease: No pertinent hx ENT: No pertinent hx Renal/: No pertinent hx Endocrine: No pertinent hx Dermatology: No pertinent hx PAST SURGICAL HISTORY Past Surgical History Appendectomy, Tonsillectomy, CABG x4 (COLLINS to LAD, radial to OM, SVG to diagonal , SVG to RPDA) 09/28/2018 FAMILY HISTORY Family History Coronary Artery Disease (SCD brother at 56 yo) SOCIAL HISTORY Smoke: Quit ALCOHOL: other (previous heavy consumption) Drugs: None Lives: Alone CURRENT MEDICATIONS CURRENT MEDICATIONS Current Medications Medications (Trade) Dose Ordered Sig/Nishi Route PRN Reason Start Time Stop Time Status Last Admin Dose Admin Amiodarone HCl (Cordarone) 400 mg BID PO 10/15/18 22:00 10/15/18 22:32 DC 10/15/18 22:01 Aspirin (Chito Aspirin) 325 mg DAILY PO 10/16/18 09:00 10/16/18 10:02 Metoprolol Tartrate (Lopressor) 50 mg BID PO 10/15/18 22:00 10/16/18 09:04 DC 10/15/18 22:03 Sennosides (Senna) 8.6 mg DAILY PO 10/16/18 09:00 10/16/18 10:03 Amiodarone HCl (Cordarone) 200 mg DAILY PO 10/16/18 09:00 10/16/18 10:03 Atorvastatin Calcium (Lipitor) 40 mg DAILY08 PO 10/16/18 08:00 10/16/18 08:01 DC 10/16/18 10:03 Metoprolol Tartrate (Lopressor) 25 mg BID PO 10/16/18 10:00 10/16/18 10:03 ALLERGIES ALLERGIES: Coded Allergies: No Known Drug Allergies (Unverified , 09/26/18) ROS Review of System 14 point ROS evaluated with pertinent positives noted per HPI PHYSICAL EXAM General: Alert, Oriented X3, Cooperative, No acute distress HEENT: Atraumatic, Mucous membr. moist/pink Lungs: Clear to auscultation, Normal air movement Heart: Regular rate (SR), Normal S1, Normal S2, No murmurs Abdomen: Soft, No tenderness Extremities: No cyanosis, No edema Skin: No breakdown, No significant lesion Neuro: Normal speech, Sensation intact Psych/Mental Status: Mental status NL, Mood NL MUSCULOSKELETAL: Osteoarthritic changes both hands VITALS VITALS Vital Signs Date Time Temp Pulse Resp B/P (MAP) Pulse Ox O2 Delivery O2 Flow Rate FiO2 10/16/18 10:03 67 10/16/18 10:03 149/105 10/16/18 07:02 97.7 16 96 Room Air 97.7 LABS Lab: Laboratory Tests Test 10/15/18 14:35 10/16/18 09:55 White Blood Count 9.6 x10^3/uL (4.0-11.0) Red Blood Count 3.81 x10^6/uL (4.30-5.70) Hemoglobin 11.9 g/dL (13.0-17.5) Hematocrit 35.5 % (39.0-53.0) Mean Corpuscular Volume 93 fL (79-100) Mean Corpuscular Hemoglobin 31 pg (25-35) Mean Corpuscular Hemoglobin Concent 34 g/dL (31-37) Red Cell Distribution Width 13.2 % (11.5-14.5) Platelet Count 534 x10^3/uL (140-400) Neutrophils (%) (Auto) 70 % (31-73) Lymphocytes (%) (Auto) 19 % (24-48) Monocytes (%) (Auto) 7 % (0-9) Eosinophils (%) (Auto) 3 % (0-3) Basophils (%) (Auto) 1 % (0-3) Neutrophils # (Auto) 6.7 x10^3uL (1.8-7.7) Lymphocytes # (Auto) 1.8 x10^3/uL (1.0-4.8) Monocytes # (Auto) 0.6 x10^3/uL (0.0-1.1) Eosinophils # (Auto) 0.3 x10^3/uL (0.0-0.7) Basophils # (Auto) 0.1 x10^3/uL (0.0-0.2) Prothrombin Time 13.7 SEC (11.7-14.0) Prothromb Time International Ratio 1.1 (0.8-1.1) Activated Partial Thromboplast Time 31 SEC (24-38) Sodium Level 140 mmol/L (136-145) Potassium Level 4.3 mmol/L (3.5-5.1) Chloride Level 103 mmol/L (98-107) Carbon Dioxide Level 25 mmol/L (21-32) Anion Gap 12 (6-14) Blood Urea Nitrogen 16 mg/dL (8-26) Creatinine 1.2 mg/dL (0.7-1.3) Estimated GFR (Cockcroft-Gault) 62.2 BUN/Creatinine Ratio 13 (6-20) Glucose Level 88 mg/dL (70-99) Calcium Level 9.3 mg/dL (8.5-10.1) Total Bilirubin 0.4 mg/dL (0.2-1.0) Aspartate Amino Transf (AST/SGOT) 27 U/L (15-37) Alanine Aminotransferase (ALT/SGPT) 45 U/L (16-63) Alkaline Phosphatase 114 U/L (46-116) Total Protein 7.2 g/dL (6.4-8.2) Albumin 3.1 g/dL (3.4-5.0) Albumin/Globulin Ratio 0.8 (1.0-1.7) Troponin I Quantitative < 0.017 ng/mL (0.000-0.055) ECHOCARDIOGRAM ECHOCARDIOGRAM <Conclusion> The left ventricle is normal size. The left ventricular systolic function is low normal. The Ejection Fraction is estimated at 50%. There is borderline to mild concentric left ventricular hypertrophy. There is no significant aortic valvular stenosis. Doppler and Color Flow revealed trace aortic regurgitation. Doppler and Color-flow revealed trace mitral regurgitation. Doppler and Color Flow revealed trace tricuspid regurgitation. DATE: 09/26/181456 ASSESSMENT/PLAN ASSESSMENT/PLAN 1. Left Blurred vision with vertigo: no blindness. possible CVA, awaiting neurology. 2. CAD: s/p CABG x 4 (COLLINS to LAD, radial to OM, SVG to RPDA, SVG to diagonal) clinically stable 3. HTN: controlled 4. HLP 5. Hx of tobaccoism and Heavy alcoholism: both quit 6. Prior lone AFIB: ischemic induced preop. none since then. On amiodarone Recommendations 1. Continue secondary prevention measures. Continue amiodarone. Anticoagulation is a consideration if neurology recommends it. 2. Awaiting neurology will need MRI 3. I ambulated him myself and no dizziness or vertigo if left eye is closed KRYSTIN PENNINGTON APRN Oct 16, 2018 10:48
[2018-10-16 11:00] VITALS: BP 120/72
[2018-10-16 12:01] LABS: BILIRUBIN,URINE NEGATIVE (NEG); CLARITY,URINE CLEAR; COLOR,URINE YELLOW; NITRITE,URINE NEGATIVE (NEG); PH,URINE 5.5; PROTEIN,URINE NEGATIVE (NEG-TRACE); UROBILINOGEN,URINE 0.2 mg/dL (0.2 mg/dL)
[2018-10-16 12:15] LABS: BACTERIA,URINE FEW /HPF (0-FEW); RBC,URINE OCC /HPF (0-2); SQUAMOUS EPITHELIAL CELL,UR OCC /LPF
[2018-10-16 13:15] LABS: AMPHETAMINE/METHAMPHETAMINE NEG (NEG); BARBITURATES NEG (NEG); BENZODIAZEPINES NEG (NEG); CANNABINOIDS NEG (NEG); COCAINE NEG (NEG); METHADONE NEG (NEG); OPIATES NEG (NEG); PHENCYCLIDINE NEG (NEG)
--- NOTE | 2018-10-16 13:48 | RAD ---
MRI Brain without contrast History: Left blurred vision, dizziness for one day Technique: Multiplanar, multisequential noncontrast MR imaging was performed of the brain. Comparison: None other than 10/15/[address] Findings: There is a subtle small 2 to 3 mm focus of diffusion signal abnormality of the right parietal white matter difficult to characterize on ADC map although believed to be hyperintense. No other focus of restricted diffusion is identified. There is no midline shift or extra-axial fluid collection. There is ghgi-wy-aiylwein T2 and FLAIR hyperintense signal abnormality of the periatrial white matter bilaterally, minimally more superiorly of the periventricular and deep white matter. There are what likely represent tiny foci of old microhemorrhage such as along margin of left lateral ventricle and left frontal cortical surface, and of the bilateral temporal lobes. There is small old lacunar infarct of the left muñoz radiata. There is preservation of the major arterial flow voids the skull base. There is patchy minimal ethmoid air cell mucosal thickening. This also mild bilateral maxillary sinus mucosal thickening greater inferiorly. Mastoid air cells are aerated. There is nonspecific heterogeneity of the marrow of the clivus, also of the visualized cervical marrow. Cerebellar tonsils are normal in location. There is no significant abnormality of pineal gland or pituitary gland. Impression: 1. There is subtle focus of diffusion signal change of the right frontal white matter although relatively hyperintense on ADC map, could be due to focus of late subacute or early chronic infarct, no evidence of acute infarct or intracranial mass effect. Scattered T2 and FLAIR hyperintense signal abnormality of the supratentorial parenchyma is nonspecific, could be due to chronic microvascular ischemic disease especially if risk factors such as hypertension or diabetes unless there is suspicion for sequela of an inflammatory demyelinating disease. There are some tiny foci of old microhemorrhage as stated, also old lacunar infarct of the left muñoz radiata. 2. There is nonspecific heterogeneity of the marrow of the clivus and visualized cervical marrow, nonspecific findings which could be due to hyperplastic red marrow as can be associated with chronic or systemic stress reaction or hypoxia unless there is suspicion for other marrow disorder. Electronically signed by: Daniel Martinez MD (10/16/2018 1:45 PM) [id number]
[2018-10-16 15:00] VITALS: BP 121/82
--- NOTE | 2018-10-16 15:32 | EKG ---
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
--- NOTE | 2018-10-16 15:46 | PDOC2 ---
NEUROLOGY CONSULT Date of Admission Date of Admission DATE: 10/16/18 TIME: 15:15 Reason for Consult Reason for Consult: IMPRESSION: Subacute right frontal lobe WM infarct. Left eye blurred vision and visual disturbances since 10/15/18. Dizziness since 10/15/18. HTN. HLD. NSTEMI s/p CABG about 3 weeks ago. Heavy alcohol use/abuse x 3 years, quit about 3 weeks ago. Hx of tobacco use. Old cerebral microhemorrhage. Old left lacunar infarct in muñ[place] radi[place]. Over weight. RECOMMENDATIONS/PLAN: ASA 325 mg daily. (Not change to Plavix this time due to chronic cerebral microhemorrhage) Lipitor HS. Treat medical diseases. See ophthalmology. Carotid A US + Doppler on 09/26/18: No high grade stenosis. Echo on 09/26/18: Unremarkable. Lipids panel on 09/27/18: abnormal, high. HISTORY OF THE PRESENT ILLNESS: This is a 57-year-old male patient who had recent NSTEMI and received CABG about 3 weeks ago in [facility]. On Monday morning 10/15/18 he woke up around 9:30am noticed that he had a brown shadow described as a large patch over his left eye disturbing his vision. He also has acute onset symptoms of dizziness since. He stated that he had 2 episodes as severe dizziness, vertigo, unsteadiness symptoms in the past 4 years, although these feels a little different. He denies weakness anywhere. Has numbness in his left thumb but this has been present since after his CABG. Due to his persistent symptoms of visual disturbances and dizziness, he finally came to the ER of [facility] about 6-7 hours after symptoms onset. Past Medical History Cardiovascular: CAD, HTN Pulmonary: No pertinent hx CENTRAL NERVOUS SYSTEM: Other GI: Constipation Heme/Onc: No pertinent hx Hepatobiliary: No pertinent hx Psych: No pertinent hx Musculoskeletal: Osteoarthritis Rheumatologic: No pertinent hx Infectious disease: No pertinent hx ENT: No pertinent hx Renal/: No pertinent hx Endocrine: No pertinent hx Dermatology: No pertinent hx Past Surgical History Appendectomy. Tonsillectomy. CABG about 3 weeks ago. 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 Denies current smoking, drinking and illicit drug use. He smoked about 2 pack/week for about 3 years, but quit smoking 3 weeks ago. He drank 25 OZ alcohol a day for about 3 years but quit 3 weeks ago. REVIEW OF SYSTEMS: Constitutional: Over weight. Head: No recent traumatic brain or head injury. Skin: No edema, or rash. Ear: No infection. Eyes: No vision loss or color blindness. Nose: No bleeding or purulent discharges. Hearing: No hearing decrease. Neck: No injury. Cardiac: CAD, recent NSTEMI s/p CABG, HTN, HLD. Pulmonary: No COPD. GI: No GI ulcer, GI bleeding. Urinary/genital: No dysuria, incontinence, urinary retention. Endocrinologic: Diabetes Mellitus? Skeletomuscular: No muscular atrophy, deformity. Neurological: see HP. Psychiatric: Substances use/abuse but quit 3 weeks ago before 09/26/18. Otherwise, not [id number] review of systems. PHYSICAL EXAMINATION: General appearance is in subacute distress. HEENT: Normocephalic and nontraumatic. Nose, ears, and throat are unremarkable. Neck is supple. No lymphadenopathy. No bruits are heard over the carotid artery. No crepitus. Cardiovascular: S1, S2, regular rate and rhythm. Pulmonary: Clear to auscultation bilaterally. Abdomen: Bowel sounds are positive. Abdomen is soft, nontender, and nondistended. Extremities: No rash, lesions, or edema. No restriction of range of motion NEUROLOGICAL EXAMINATION: Alert Oriented to time, place and person. PERRL. Stating left eye brown and light black patch in the visual field. EOMI. CN: no focal findings. Muscle tone: within normal. Muscle strength: 5 DTR: 2 Plantar reflex: Flexor response bilaterally Gait: not examined in bed. Sensory exam: no abnormal findings. No cerebellar signs elicited. F-T-N test fine. Current Medications Current Medications Current Medications Ondansetron HCl (Zofran) 4 mg PRN Q8HRS PRN IV NAUSEA/VOMITING; Start 10/15/18 at 16:30; Stop 10/16/18 at 16:29 Amiodarone HCl (Cordarone) 400 mg BID PO Last administered on 10/15/18at 22:01; Start 10/15/18 at 22:00; Stop 10/15/18 at 22:32; Status DC Aspirin (Chito Aspirin) 325 mg DAILY PO Last administered on 10/16/18at 10:02; Start 10/16/18 at 09:00 Atorvastatin Calcium (Lipitor) 40 mg QHS PO ; Start 10/15/18 at 22:00; Stop at 22:41; Status DC Acetaminophen/ Hydrocodone Bitart (Lortab 5/325) 1 tab PRN Q6HRS PRN PO PAIN; Start 10/15/18 at 21:15 Metoprolol Tartrate (Lopressor) 50 mg BID PO Last administered on 10/15/18at 22: 03; Start 10/15/18 at 22:00; Stop 10/16/18 at 09:04; Status DC Sennosides (Senna) 8.6 mg DAILY PO Last administered on 10/16/18at 10:03; Start 10/16/18 at 09:00 Amiodarone HCl (Cordarone) 200 mg DAILY PO Last administered on 10/16/18at 10:03 ; Start 10/16/18 at 09:00 Atorvastatin Calcium (Lipitor) 40 mg DAILY08 PO Last administered on 10/16/18at 10:03; Start 10/16/18 at 08:00; Stop 10/16/18 at 08:01; Status DC Metoprolol Tartrate (Lopressor) 25 mg BID PO Last administered on 10/16/18at 10: 03; Start 10/16/18 at 10:00 Atorvastatin Calcium (Lipitor) 40 mg QHS PO ; Start 10/16/18 at 21:00 Active Scripts Active Reported Senna (Sennosides) 8.6 Mg Tablet 8.6 Mg PO DAILY Aspirin 325 Mg Tablet 1 Tab PO DAILY Metoprolol Tartrate 50 Mg Tablet 1 Tab PO BID Hydrocodone-Apap 5-325 (Hydrocodone Bit/Acetaminophen) 1 Tab Tablet 1 Tab PO PRN Q6HRS PRN Norvasc (Amlodipine Besylate) 5 Mg Tablet 1 Tab PO DAILY Lipitor (Atorvastatin Calcium) 40 Mg Tablet 1 Tab PO QHS Amiodarone Hcl 200 Mg Tablet 1 Tab PO DAILY 21 Days Amlodipine-Benazepril 5-20 Mg (Amlodipine Besylate/Benazepril) 1 Each Capsule 1 Cap PO DAILY Allergies Allergies: Allergies Coded Allergies Type Severity Reaction Last Updated Verified No Known Drug Allergies 09/26/18 No ROS Review of System The patient denies any associated fevers, chills, headache, ear pain, rhinorrhea , sore throat, stiff neck, productive cough, chest pain, shortness of breath, back or flank pain, abdominal pain, nausea, vomiting, diarrhea, constipation, dysuria, rash, numbness, weakness, tingling, incontinence, difficulty ambulating, or diaphoresis. Physical Exam Physical Exam General: Well developed, well nourished, no acute distress, well appearing HEENT: Pupils equally round and reactive to light, EOMI, no discharge, normal conjunctiva Neck: Supple, no nuchal rigidity, no JVD, trachea midline, no tenderness Cardiac: RRR, no murmurs, no gallops, no rubs Chest/Lungs: CTAB, no wheeze, no rhonchi, no crackles Abdomen: soft, non-distended, no guarding, no peritoneal signs, non-tender Back: No tenderness Extremities: no edema, pulses intact, non-tender,capillary refill <3 sec bilateral upper and lower extremities, Neuro: Alert and oriented x 4, no focal deficits, normal speech Vitals Vitals: Vital Signs Date Time Temp Pulse Resp B/P (MAP) Pulse Ox O2 Delivery O2 Flow Rate FiO2 10/16/18 11:00 97.9 63 16 120/72 (88) 96 Room Air 97.9 Labs Labs Laboratory Tests Test 10/15/18 14:35 10/16/18 09:55 10/16/18 11:45 White Blood Count 9.6 x10^3/uL (4.0-11.0) Red Blood Count 3.81 x10^6/uL (4.30-5.70) Hemoglobin 11.9 g/dL (13.0-17.5) Hematocrit 35.5 % (39.0-53.0) Mean Corpuscular Volume 93 fL (79-100) Mean Corpuscular Hemoglobin 31 pg (25-35) Mean Corpuscular Hemoglobin Concent 34 g/dL (31-37) Red Cell Distribution Width 13.2 % (11.5-14.5) Platelet Count 534 x10^3/uL (140-400) Neutrophils (%) (Auto) 70 % (31-73) Lymphocytes (%) (Auto) 19 % (24-48) Monocytes (%) (Auto) 7 % (0-9) Eosinophils (%) (Auto) 3 % (0-3) Basophils (%) (Auto) 1 % (0-3) Neutrophils # (Auto) 6.7 x10^3uL (1.8-7.7) Lymphocytes # (Auto) 1.8 x10^3/uL (1.0-4.8) Monocytes # (Auto) 0.6 x10^3/uL (0.0-1.1) Eosinophils # (Auto) 0.3 x10^3/uL (0.0-0.7) Basophils # (Auto) 0.1 x10^3/uL (0.0-0.2) Prothrombin Time 13.7 SEC (11.7-14.0) Prothromb Time International Ratio 1.1 (0.8-1.1) Activated Partial Thromboplast Time 31 SEC (24-38) Sodium Level 140 mmol/L (136-145) Potassium Level 4.3 mmol/L (3.5-5.1) Chloride Level 103 mmol/L (98-107) Carbon Dioxide Level 25 mmol/L (21-32) Anion Gap 12 (6-14) Blood Urea Nitrogen 16 mg/dL (8-26) Creatinine 1.2 mg/dL (0.7-1.3) Estimated GFR (Cockcroft-Gault) 62.2 BUN/Creatinine Ratio 13 (6-20) Glucose Level 88 mg/dL (70-99) Calcium Level 9.3 mg/dL (8.5-10.1) Total Bilirubin 0.4 mg/dL (0.2-1.0) Aspartate Amino Transf (AST/SGOT) 27 U/L (15-37) Alanine Aminotransferase (ALT/SGPT) 45 U/L (16-63) Alkaline Phosphatase 114 U/L (46-116) Total Protein 7.2 g/dL (6.4-8.2) Albumin 3.1 g/dL (3.4-5.0) Albumin/Globulin Ratio 0.8 (1.0-1.7) Troponin I Quantitative < 0.017 ng/mL (0.000-0.055) Vitamin B12 Level 401 pg/mL (247-911) Urine Collection Type Unknown Urine Color Yellow Urine Clarity Clear Urine pH 5.5 Urine Specific [place] 1.015 Urine Protein Negative mg/dL (NEG-TRACE) Urine Glucose (UA) Negative mg/dL (NEG) Urine Ketones (Stick) Negative mg/dL (NEG) Urine Blood Negative (NEG) Urine Nitrite Negative (NEG) Urine Bilirubin Negative (NEG) Urine Urobilinogen Dipstick 0.2 mg/dL (0.2 mg/dL) Urine Leukocyte Esterase Negative (NEG) Urine RBC Occ /HPF (0-2) Urine WBC 1-4 /HPF (0-4) Urine Squamous Epithelial Cells Occ /LPF Urine Bacteria Few /HPF (0-FEW) Urine Mucus Slight /LPF Urine Opiates Screen Neg (NEG) Urine Methadone Screen Neg (NEG) Urine Barbiturates Neg (NEG) Urine Phencyclidine Screen Neg (NEG) Urine Amphetamine/Methamphetamine Neg (NEG) Urine Benzodiazepines Screen Neg (NEG) Urine Cocaine Screen Neg (NEG) Urine Cannabinoids Screen Neg (NEG) Urine Ethyl Alcohol Neg (NEG) Laboratory Tests Test 10/16/18 09:55 10/16/18 11:45 Troponin I Quantitative < 0.017 ng/mL (0.000-0.055) Vitamin B12 Level 401 pg/mL (247-911) Urine Collection Type Unknown Urine Color Yellow Urine Clarity Clear Urine pH 5.5 Urine Specific [place] 1.015 Urine Protein Negative mg/dL (NEG-TRACE) Urine Glucose (UA) Negative mg/dL (NEG) Urine Ketones (Stick) Negative mg/dL (NEG) Urine Blood Negative (NEG) Urine Nitrite Negative (NEG) Urine Bilirubin Negative (NEG) Urine Urobilinogen Dipstick 0.2 mg/dL (0.2 mg/dL) Urine Leukocyte Esterase Negative (NEG) Urine RBC Occ /HPF (0-2) Urine WBC 1-4 /HPF (0-4) Urine Squamous Epithelial Cells Occ /LPF Urine Bacteria Few /HPF (0-FEW) Urine Mucus Slight /LPF Urine Opiates Screen Neg (NEG) Urine Methadone Screen Neg (NEG) Urine Barbiturates Neg (NEG) Urine Phencyclidine Screen Neg (NEG) Urine Amphetamine/Methamphetamine Neg (NEG) Urine Benzodiazepines Screen Neg (NEG) Urine Cocaine Screen Neg (NEG) Urine Cannabinoids Screen Neg (NEG) Urine Ethyl Alcohol Neg (NEG) KATYA LANDA MD Oct 16, 2018 15:45
[2018-10-16] MEDS ORDERED: METO25TA4 PO (16:27)
--- NOTE | 2018-10-16 16:33 | PDOC3 ---
Discharge Summary Date of Admission: Oct 15, 2018 Date of Discharge: Oct 16, 2018 Follow-Up: Other (Dr. Patel within 2 weeks, f/u with neurology) Admitting Diagnosis comment: Dizziness, left eye visual disturbance FINAL DIAGNOSIS Subacute stroke, old microhemorrhage, old lacunar infarct, Recent CABG, HTN, HLD , Urinary issues, Anemia- mild, Thrombocytosis, PEM-mild Brief Hospital Course Pt is a 57yo CM admitted for vision changes and dizziness 1)Vision changes/dizziness- CT Head WNL. MRI showing subacute infarct, old lacunar infarct and old microhemorrhages. Nuerology was following and was okay with pt leaving. No plavix due to microhemorrhage. Recommending f/u with ophthalmology. 2)Recent CABG- Cardiology was following. 3)HTN- pt's BP more on the low side. Pt was continued on his home dosage of Metoprolol 25mg BID. Amlodipine held until he sees Dr. Patel again 4)HLD- will resume pt's Atorvastatin 5)Urinary issues- U/A WNL. Likely related to prostate issues. Pt to f/u with Dr. Patel on this issue 6)Anemia- mild 7)Thrombocytosis 8)PEM- mild Discharge Medications Current Medications Ondansetron HCl (Zofran) 4 mg PRN Q8HRS PRN IV NAUSEA/VOMITING; Start 10/15/18 at 16:30; Stop 10/16/18 at 16:29 Amiodarone HCl (Cordarone) 400 mg BID PO Last administered on 10/15/18at 22:01; Start 10/15/18 at 22:00; Stop 10/15/18 at 22:32; Status DC Aspirin (Chito Aspirin) 325 mg DAILY PO Last administered on 10/16/18at 10:02; Start 10/16/18 at 09:00 Atorvastatin Calcium (Lipitor) 40 mg QHS PO ; Start 10/15/18 at 22:00; Stop at 22:41; Status DC Acetaminophen/ Hydrocodone Bitart (Lortab 5/325) 1 tab PRN Q6HRS PRN PO PAIN; Start 10/15/18 at 21:15 Metoprolol Tartrate (Lopressor) 50 mg BID PO Last administered on 10/15/18at 22: 03; Start 10/15/18 at 22:00; Stop 10/16/18 at 09:04; Status DC Sennosides (Senna) 8.6 mg DAILY PO Last administered on 10/16/18at 10:03; Start 10/16/18 at 09:00 Amiodarone HCl (Cordarone) 200 mg DAILY PO Last administered on 10/16/18at 10:03 ; Start 10/16/18 at 09:00 Atorvastatin Calcium (Lipitor) 40 mg DAILY08 PO Last administered on 10/16/18at 10:03; Start 10/16/18 at 08:00; Stop 10/16/18 at 08:01; Status DC Metoprolol Tartrate (Lopressor) 25 mg BID PO Last administered on 10/16/18at 10: 03; Start 10/16/18 at 10:00 Atorvastatin Calcium (Lipitor) 40 mg QHS PO ; Start 10/16/18 at 21:00 Active Scripts Active Reported Senna (Sennosides) 8.6 Mg Tablet 8.6 Mg PO DAILY Aspirin 325 Mg Tablet 1 Tab PO DAILY Metoprolol Tartrate 50 Mg Tablet 1 Tab PO BID Hydrocodone-Apap 5-325 (Hydrocodone Bit/Acetaminophen) 1 Tab Tablet 1 Tab PO PRN Q6HRS PRN Norvasc (Amlodipine Besylate) 5 Mg Tablet 1 Tab PO DAILY Lipitor (Atorvastatin Calcium) 40 Mg Tablet 1 Tab PO QHS Amiodarone Hcl 200 Mg Tablet 1 Tab PO DAILY 21 Days Amlodipine-Benazepril 5-20 Mg (Amlodipine Besylate/Benazepril) 1 Each Capsule 1 Cap PO DAILY Vital Signs Vital Signs Date Time Temp Pulse Resp B/P (MAP) Pulse Ox O2 Delivery O2 Flow Rate FiO2 10/16/18 15:00 98.0 60 18 121/82 (95) 96 Room Air 98.0 Labs Laboratory Tests Test 10/15/18 14:35 10/16/18 09:55 10/16/18 11:45 White Blood Count 9.6 x10^3/uL (4.0-11.0) Red Blood Count 3.81 x10^6/uL (4.30-5.70) Hemoglobin 11.9 g/dL (13.0-17.5) Hematocrit 35.5 % (39.0-53.0) Mean Corpuscular Volume 93 fL (79-100) Mean Corpuscular Hemoglobin 31 pg (25-35) Mean Corpuscular Hemoglobin Concent 34 g/dL (31-37) Red Cell Distribution Width 13.2 % (11.5-14.5) Platelet Count 534 x10^3/uL (140-400) Neutrophils (%) (Auto) 70 % (31-73) Lymphocytes (%) (Auto) 19 % (24-48) Monocytes (%) (Auto) 7 % (0-9) Eosinophils (%) (Auto) 3 % (0-3) Basophils (%) (Auto) 1 % (0-3) Neutrophils # (Auto) 6.7 x10^3uL (1.8-7.7) Lymphocytes # (Auto) 1.8 x10^3/uL (1.0-4.8) Monocytes # (Auto) 0.6 x10^3/uL (0.0-1.1) Eosinophils # (Auto) 0.3 x10^3/uL (0.0-0.7) Basophils # (Auto) 0.1 x10^3/uL (0.0-0.2) Prothrombin Time 13.7 SEC (11.7-14.0) Prothromb Time International Ratio 1.1 (0.8-1.1) Activated Partial Thromboplast Time 31 SEC (24-38) Sodium Level 140 mmol/L (136-145) Potassium Level 4.3 mmol/L (3.5-5.1) Chloride Level 103 mmol/L (98-107) Carbon Dioxide Level 25 mmol/L (21-32) Anion Gap 12 (6-14) Blood Urea Nitrogen 16 mg/dL (8-26) Creatinine 1.2 mg/dL (0.7-1.3) Estimated GFR (Cockcroft-Gault) 62.2 BUN/Creatinine Ratio 13 (6-20) Glucose Level 88 mg/dL (70-99) Calcium Level 9.3 mg/dL (8.5-10.1) Total Bilirubin 0.4 mg/dL (0.2-1.0) Aspartate Amino Transf (AST/SGOT) 27 U/L (15-37) Alanine Aminotransferase (ALT/SGPT) 45 U/L (16-63) Alkaline Phosphatase 114 U/L (46-116) Total Protein 7.2 g/dL (6.4-8.2) Albumin 3.1 g/dL (3.4-5.0) Albumin/Globulin Ratio 0.8 (1.0-1.7) Troponin I Quantitative < 0.017 ng/mL (0.000-0.055) Vitamin B12 Level 401 pg/mL (434-911) Urine Collection Type Unknown Urine Color Yellow Urine Clarity Clear Urine pH 5.5 Urine Specific [place] 1.015 Urine Protein Negative mg/dL (NEG-TRACE) Urine Glucose (UA) Negative mg/dL (NEG) Urine Ketones (Stick) Negative mg/dL (NEG) Urine Blood Negative (NEG) Urine Nitrite Negative (NEG) Urine Bilirubin Negative (NEG) Urine Urobilinogen Dipstick 0.2 mg/dL (0.2 mg/dL) Urine Leukocyte Esterase Negative (NEG) Urine RBC Occ /HPF (0-2) Urine WBC 1-4 /HPF (0-4) Urine Squamous Epithelial Cells Occ /LPF Urine Bacteria Few /HPF (0-FEW) Urine Mucus Slight /LPF Urine Opiates Screen Neg (NEG) Urine Methadone Screen Neg (NEG) Urine Barbiturates Neg (NEG) Urine Phencyclidine Screen Neg (NEG) Urine Amphetamine/Methamphetamine Neg (NEG) Urine Benzodiazepines Screen Neg (NEG) Urine Cocaine Screen Neg (NEG) Urine Cannabinoids Screen Neg (NEG) Urine Ethyl Alcohol Neg (NEG) Laboratory Tests Test 10/16/18 09:55 10/16/18 11:45 Troponin I Quantitative < 0.017 ng/mL (0.000-0.055) Vitamin B12 Level 401 pg/mL (656-911) Urine Collection Type Unknown Urine Color Yellow Urine Clarity Clear Urine pH 5.5 Urine Specific [place] 1.015 Urine Protein Negative mg/dL (NEG-TRACE) Urine Glucose (UA) Negative mg/dL (NEG) Urine Ketones (Stick) Negative mg/dL (NEG) Urine Blood Negative (NEG) Urine Nitrite Negative (NEG) Urine Bilirubin Negative (NEG) Urine Urobilinogen Dipstick 0.2 mg/dL (0.2 mg/dL) Urine Leukocyte Esterase Negative (NEG) Urine RBC Occ /HPF (0-2) Urine WBC 1-4 /HPF (0-4) Urine Squamous Epithelial Cells Occ /LPF Urine Bacteria Few /HPF (0-FEW) Urine Mucus Slight /LPF Urine Opiates Screen Neg (NEG) Urine Methadone Screen Neg (NEG) Urine Barbiturates Neg (NEG) Urine Phencyclidine Screen Neg (NEG) Urine Amphetamine/Methamphetamine Neg (NEG) Urine Benzodiazepines Screen Neg (NEG) Urine Cocaine Screen Neg (NEG) Urine Cannabinoids Screen Neg (NEG) Urine Ethyl Alcohol Neg (NEG) Allergies Allergies Coded Allergies Type Severity Reaction Last Updated Verified No Known Drug Allergies 09/26/18 No Disposition/Orders: D/C to Home FABIO THIBODEAUX MD Oct 16, 2018 16:33
== END 2018-10-16 17:30 | disposition home or self-care (01) | DRG 64 ==
LOC: ER 14:08 → 2 NORTH 15:17
PROVIDERS: ADMIT Family Medicine; ATTEND Family Medicine
DX: I63.9 Cerebral infarction, unspecified (principal); I21.4 Non-ST elevation (NSTEMI) myocardial infarction; E44.1 Mild protein-calorie malnutrition; H53.8 Other visual disturbances; I25.10 Atherosclerotic heart disease of native coronary artery without angina pectoris; I10 Essential (primary) hypertension; R42 Dizziness and giddiness; K59.00 Constipation, unspecified; E78.5 Hyperlipidemia, unspecified; M19.90 Unspecified osteoarthritis, unspecified site; D64.9 Anemia, unspecified; R79.89 Other specified abnormal findings of blood chemistry; E78.00 Pure hypercholesterolemia, unspecified; Z90.49 Acquired absence of other specified parts of digestive tract; Z95.1 Presence of aortocoronary bypass graft; Z82.49 Family history of ischemic heart disease and other diseases of the circulatory system; Z87.891 Personal history of nicotine dependence; Z86.73 Personal history of transient ischemic attack (TIA), and cerebral infarction without residual deficits; Z79.899 Other long term (current) drug therapy; Z68.29 Body mass index [BMI] 29.0-29.9, adult
CPT/HCPCS: 36415; 70450; 70551; 80053; 80307; 81001; 82607; 84484; 85025; 85610; 85730; 93005; 99285-25

== ENCOUNTER → 2018-10-19 | Outpatient (CLI) | payer OTHER ==
[2018-10-16 15:00] VITALS: BP 121/82
[~2018-10-19] MED LIST changes: +METO25TA4 PO
--- NOTE | 2018-10-19 17:58 | RAD ---
CHEST PA LATERAL Clinical indications: STATUS POST CORONARY ARTERY BYPASS GRAFT COMPARISON: October 01, 2018. Findings: Again seen is a left-sided pleural effusion which is small with associated compressive atelectasis of the left lung base. This is unchanged. No pneumothorax is seen. The right lung field remains clear. Heart size is normal. Sternotomy is again evident. The mediastinum and pulmonary vasculature and both kaye are unremarkable. Impression: Stable small left-sided pleural effusion and associated compressive atelectasis. Electronically signed by: Fernandez Mancini MD (10/19/2018 5:54 PM) [facility]
== END | disposition home or self-care (01) ==
LOC: RAD 12:51
PROVIDERS: ATTEND Thoracic Surgery (Cardiothoracic Vascular Surgery)
DX: Z48.812 Encounter for surgical aftercare following surgery on the circulatory system (principal); J90 Pleural effusion, not elsewhere classified; J98.11 Atelectasis; Z95.1 Presence of aortocoronary bypass graft
CPT/HCPCS: 71046